=== PATIENT | female | born 1960 | race African-American/Black ===

== ENCOUNTER 2016-08-01 07:28 | Emergency (ER) | payer OTHER ==
[~2016-08-01] VITALS: Ht 162.6 cm; Wt 95.0 kg
[~2016-08-01 07:28] MED LIST: DEPA500T3 PO; ENAL20TA PO; GABA300C3 PO; HYDR10TA23 PO; LORA2TAB PO; METF500 PO; METO50TA PO; NAPR500 PO; PALI234P IM; PERP8TAB7 PO; STOO100C PO; ZOCO40TA PO; ZOLP5TAB3 PO
[2016-08-01 07:38] VITALS: BP 115/78; PULSE 72; RESP 16; TEMP 98.2; O2SAT 96
--- NOTE | 2016-08-01 07:38 | PD ---
HPI Chief Complaint: head pain Time Seen by Provider: 07:35 Travel History International Travel<30 days: No Contact w/Intl Traveler<30days: No History of Present Illness HPI This is a 56-year-old female who presents to the emergency department having fallen out of bed onto her right side. She says she hit her head and has severe pain in the back of her head, has left chest wall pain, and has right leg pain that starts below the knee as well as in her hip, constant, worse with movement. Patient is a very poor historian. She is unable to tell me her medical problems. PFSH Past Medical History Anemia: Yes Arthritis: Yes (RIGHT HIP PRIMARILY) Asthma: Yes Blood Disorders: No Bipolar Disorder: Yes Anxiety: Yes Depression: Yes Heart Rhythm Problems: No Cancer: No Cardiac Catheterization: No Cardiovascular Problems: Yes High Cholesterol: Yes Chemotherapy: No Chest Pain: No Congestive Heart Failure: No Diabetes: Yes Diminished Hearing: No Endocrine: No Gastrointestinal Disorders: No Genitourinary: No Hypertension: Yes Immune Disorder: No Implanted Vascular Access Dvce: No Musculoskeletal: Yes Neurologic: No Psychiatric: Yes (PARANOID SCHIZOPHRENIA) Reproductive: No Respiratory: No Immunizations Current: Yes Myocardial Infarction: No Radiation Therapy: No Schizophrenia: Yes (PARANOIA) Seizures: Yes (DECEMBER 2012) Sickle Cell Disease: No PNEUMOCCOCAL Vaccine (Year): 2 Menopausal: Yes : 4 Para: 2 Miscarriage: 1 : 1 Tubal Ligation: Yes Past Surgical History Abdominal Surgery: Yes (COLON) AICD: No Arteriovenous Shunt: No Cardiac Surgery: No Cholecystectomy: Yes Coronary Artery Bypass Graft: No Ear Surgery: No Endocrine Surgery: No Eye Surgery: No Genitourinary Surgery: No Gynecologic Surgery: Yes (TUBAL LIGATION 1993) Insulin Pump: No Joint Replacement: No Neurologic Surgery: No Oral Surgery: No Pacemaker: No Thoracic Surgery: No Other Surgery: Yes Social History Alcohol Use: No Tobacco Use: Yes (CHEW SNUFF) Substance Use: No (IN THE PAST) Allergies-Medications (Allergen,Severity, Reaction): Coded Allergies: Cat Dander (Verified Allergy, Mild, 08/01/16) Artane (Verified Adverse Reaction, Mild, Nausea/Vomiting, 08/01/16) Sulfa (Verified Adverse Reaction, Mild, Nausea/Vomiting, 08/01/16) PT STATES MED "MAKES HER SICK" Reported Meds & Prescriptions Reported Meds & Active Scripts Active Reported Zolpidem (Zolpidem Tartrate) 5 Mg Tab 5 Mg PO HS PRN Zocor (Simvastatin) 40 Mg Tab 40 Mg PO HS Perphenazine 8 Mg Tab 8 Mg PO DAILY Invega Sustenna Inj (Paliperidone Palmitate) 234 Mg/1.5 Ml Inj 234 Mg IM MONTHLY Naproxen 500 Mg Tab 500 Mg PO BID Metoprolol Tartrate 50 Mg Tab 50 Mg PO BID Metformin (Metformin HCl) 1,000 Mg Tab 1,000 Mg PO BIDPC With meals Lorazepam 2 Mg Tab 2 Mg PO BID Hydralazine (Hydralazine HCl) 10 Mg Tab 10 Mg PO QID Take with a meal Gabapentin 300 Mg Cap 300 Mg PO TID Enalapril (Enalapril Maleate) 20 Mg Tab 20 Mg PO BID NEB Docusate Sodium 100 Mg Cap 100 Mg PO BID Depakote ER (Divalproex Sodium) 500 Mg Shawn 1,000 Mg PO BID Review of Systems ROS Limitations: Poor Historian Physical Exam Narrative GENERAL:Well appearing, no acute distress SKIN: Warm and dry. HEAD: Atraumatic. Normocephalic. EYES: Pupils equal and round. No injection or drainage. ENT: Moist mucous membranes NECK: Trachea midline. CARDIOVASCULAR: Regular rate and rhythm. No murmur appreciated. RESPIRATORY: Clear to auscultation. Breath sounds equal bilaterally. GASTROINTESTINAL: Abdomen soft, non-tender, nondistended. MUSCULOSKELETAL: Tender to palpation over the left anterior chest wall, tender to palpation over the right posterior occiput, no cervical spine tenderness, tender to palpation over the distal right tibia and pain with flexion at the right hip. NEUROLOGICAL: Awake and alert. No obvious cranial nerve deficits. Moving all extremities. PSYCHIATRIC: Poor eye contact, somewhat fragmented speech Data Data Last Documented VS Vital Signs Date Time Temp Pulse Resp B/P Pulse Ox O2 Delivery O2 Flow Rate FiO2 08/01/16 08:56 16 08/01/16 07:40 72 96 Room Air 08/01/16 07:38 98.2 115/78 Orders Complete Blood Count With Diff (08/01/16 07:35) Basic Metabolic Panel (Bmp) (08/01/16 07:35) Troponin I (08/01/16 07:35) Ct Brain W/O Iv Contrast(Rout) (08/01/16 ) Chest, Single Ap (08/01/16 ) Tibia/Fibula (Ap/Lat) (08/01/16 ) Hip, Uni(Ap&Lat) Wo Ap Pelvis (08/01/16 ) Electrocardiogram (08/01/16 ) Acetamin-Hydrocod 325-5 Mg ([place]ield 5-325 (08/01/16 07:45) Labs Laboratory Tests Test 08/01/16 07:48 White Blood Count 6.3 TH/MM3 Red Blood Count 3.66 MIL/MM3 Hemoglobin 9.8 GM/DL Hematocrit 30.9 % Mean Corpuscular Volume 84.6 FL Mean Corpuscular Hemoglobin 26.8 PG Mean Corpuscular Hemoglobin 31.6 % Concent Red Cell Distribution Width 16.8 % Platelet Count 291 TH/MM3 Mean Platelet Volume 7.9 FL Neutrophils (%) (Auto) 49.2 % Lymphocytes (%) (Auto) 41.5 % Monocytes (%) (Auto) 8.5 % Eosinophils (%) (Auto) 0.3 % Basophils (%) (Auto) 0.5 % Neutrophils # (Auto) 3.1 TH/MM3 Lymphocytes # (Auto) 2.6 TH/MM3 Monocytes # (Auto) 0.5 TH/MM3 Eosinophils # (Auto) 0.0 TH/MM3 Basophils # (Auto) 0.0 TH/MM3 CBC Comment DIFF FINAL Differential Comment Sodium Level 139 MEQ/L Potassium Level 4.1 MEQ/L Chloride Level 101 MEQ/L Carbon Dioxide Level 28.2 MEQ/L Anion Gap 10 MEQ/L Blood Urea Nitrogen 9 MG/DL Creatinine 0.87 MG/DL Estimat Glomerular Filtration 81 ML/MIN Rate Random Glucose 109 MG/DL Calcium Level 9.0 MG/DL Troponin I LESS THAN 0.02 NG/ML [facility] Medical Decision Making Medical Screen Exam Complete: Yes Emergency Medical Condition: Yes Interpretation(s) Afebrile, no tachycardia, normotensive Anemia similar to prior from February Electrolytes are reassuring Troponin is normal Last 24 hours Impressions Tibia/Fibula X-Ray 08/01/16 0000 Signed Impressions: Service Date/Time: Monday, August 01, 2016 08:25 - CONCLUSION: Negative for fracture or dislocation. Followup in 7-10 days is suggested if symptoms persist. Anastacio Rosas MD FACR Head CT 08/01/16 0000 Signed Impressions: Service Date/Time: Monday, August 01, 2016 08:01 - CONCLUSION: Normal examination for a patient of this age. Heavenly Zuñiga MD Chest X-Ray 08/01/16 0000 Signed Impressions: Service Date/Time: Monday, August 01, 2016 08:23 - CONCLUSION: 1. Mild right lower lung atelectasis. 2. Otherwise, stable examination. Yifan Rubio MD Differential Diagnosis Concussion, intracranial hemorrhage, costochondritis, rib fracture, fibular fracture, tibial fracture Narrative Course This is a 56-year-old female with a history of schizophrenia who presents the emergency department having fallen out of bed this morning having multiple complaints including head pain, leg pain and chest wall pain. I think her chest pain is musculoskeletal. She is very tender on palpation to the left chest and it started after her fall. Labs are obtained which were all reassuring. X-rays and CT scans were obtained which demonstrate no acute fracture or evidence of traumatic injury. I don't think this patient has an emergent etiology of her symptoms and I think she is safe for discharge to follow up with her primary care physician. Diagnosis Primary Impression: Closed head injury Qualified Code: S09.90XA - Closed head injury, initial encounter Patient Instructions: General Instructions Additional Instructions: If you develop headache, difficulty walking, difficulty talking, weakness, numbness, lightheadedness or severe pain return to the emergency department. It is common to have sore muscles following an accident. Take your naproxen for pain as needed. If you are not improved in 2 days follow up with your primary care physician without fail. Med/Other Pt SpecificInfo: No Change to Meds Disposition: 01 DISCHARGE HOME Condition: Stable Amber George MD Aug 01, 2016 07:38
[2016-08-01] MEDS ORDERED: ACETAMINOPHEN/HYDROcodone 325 MG/5 MG TAB PO ONE (07:45)
[2016-08-01] MEDS ORDERED: DEPA500T3 PO (07:56)
[2016-08-01] MEDS ORDERED: LORA2TAB7 PO (08:02)
[2016-08-01] MEDS ORDERED: PERP8TAB4 PO (08:02)
[2016-08-01] MEDS ORDERED: GABA300C5 PO (08:02)
[2016-08-01] MEDS ORDERED: DOCU100C PO (08:02)
[2016-08-01] MEDS ORDERED: METF1000 PO (08:02)
[2016-08-01] MEDS ORDERED: METO50TA PO (08:02)
[2016-08-01] MEDS ORDERED: PALI234P IM (08:02)
[2016-08-01] MEDS ORDERED: NAPR500T PO (08:02)
[2016-08-01] MEDS ORDERED: ZOCO40TA PO (08:02)
[2016-08-01] MEDS ORDERED: ENAL20TA PO (08:02)
[2016-08-01] MEDS ORDERED: HYDR10TA23 PO (08:02)
[2016-08-01] MEDS ORDERED: ZOLP5TAB3 PO (08:02)
[2016-08-01 08:10] LABS: AUTOMATED NEUTROPHIL # 3.1 TH/MM3 (1.8-7.7); BASOPHIL % 0.5 % (0.0-2.0); EOSINOPHIL % 0.3 % (0.0-4.0); HEMATOCRIT 30.9 % (35.0-46.0); HEMO FLAGS DIFF FINAL; LYMPH % 41.5 % (9.0-44.0); LYMPHOCYTE # 2.6 TH/MM3 (1.0-4.8); MEAN CELL VOLUME 84.6 FL (80.0-100.0); MEAN CORPUSCULAR HEMOGLOBIN 26.8 PG (27.0-34.0); MEAN CORPUSCULAR HGB CONC 31.6 % (32.0-36.0); MONO % 8.5 % (0.0-8.0); NEUT % 49.2 % (16.0-70.0); PLATELET COUNT 291 TH/MM3 (150-450); RED BLOOD COUNT 3.66 MIL/MM3 (4.00-5.30); RED CELL DISTRIBUTION WIDTH 16.8 % (11.6-17.2); WHITE BLOOD COUNT 6.3 TH/MM3 (4.0-11.0)
--- NOTE | 2016-08-01 08:12 | RADRPT ---
EXAM DATE/TIME: 08/01/2016 08:01 [facility] COMPARISON: CT BRAIN W/O CONTRAST, January 01, 2013, 14:35. INDICATIONS : Trauma. Fell out of bed and hit her head. RADIATION DOSE: 44.37 CTDIvol (mGy) MEDICAL HISTORY : Diabetes mellitus type 2. Seizures. Hypertension. SURGICAL HISTORY : Tubal ligation. Cholecystectomy. ENCOUNTER: Initial ACUITY: 1 day PAIN SCALE: 6/10 LOCATION: cranial TECHNIQUE: Multiple contiguous axial images were obtained of the head. Using automated exposure control and adj ustment of the mA and/or kV according to patient size, radiation dose was kept as low as reasonably a chievable to obtain optimal diagnostic quality images. FINDINGS: CEREBRUM: The ventricles are normal for age. No evidence of midline shift, mass lesion, hemorrhage or acute in farction. No extra-axial fluid collections are seen. POSTERIOR FOSSA: The cerebellum and brainstem are intact. The 4th ventricle is midline. The cerebellopontine angle i s unremarkable. EXTRACRANIAL: The visualized portion of the orbits is intact. SKULL: The calvaria is intact. No evidence of skull fracture. CONCLUSION: Normal examination for a patient of this age. Heavenly Zuñiga MD on August 01, 2016 at 8:09 Board Certified Radiologist. This report was verified electronically.
[2016-08-01 08:26] LABS: ANION GAP 10 MEQ/L (5-15); BICARBONATE 28.2 MEQ/L (21.0-32.0); BLOOD UREA NITROGEN 9 MG/DL (7-18); CHLORIDE 101 MEQ/L (98-107); GLOMERULAR FILTRATION RATE 81 ML/MIN (>89); POTASSIUM 4.1 MEQ/L (3.5-5.1); SODIUM (NA) 139 MEQ/L (136-145)
[2016-08-01 08:56] VITALS: RESP 16
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
--- NOTE | 2016-08-01 19:20 | EKG ---
Date Performed: 08/01/2016 Time Performed: 07:44:03 PTAGE: 56 years EKG: Sinus rhythm NONSPECIFIC T-WAVE ABNORMALITY BORDERLINE ECG PREVIOUS TRACING : 03/15/2016 01.34 DOCTOR: Enrique Duff Interpretating Date/Time 08/01/2016 19:18:15
[2016-12-11] MEDS ORDERED: LORA1TAB12 PO (08:19)
== END 2016-08-01 09:35 | disposition home or self-care (01) ==
LOC: NEPE 07:28
DX: S09.90XA Unspecified injury of head, initial encounter (principal); M54.9 Dorsalgia, unspecified; R07.89 Other chest pain; M79.604 Pain in right leg; E78.00 Pure hypercholesterolemia, unspecified; E11.9 Type 2 diabetes mellitus without complications; I10 Essential (primary) hypertension; Z72.0 Tobacco use; W06.XXXA Fall from bed, initial encounter; Y93.9 Activity, unspecified; Y92.003 Bedroom of unspecified non-institutional (private) residence as the place of occurrence of the external cause
CPT/HCPCS: 70450; 71010; 73502; 73590; 80048; 84484; 85025; 93005

== ENCOUNTER 2016-09-27 13:56 | Emergency (ER) | payer OTHER ==
[~2016-09-27] VITALS: Ht 162.6 cm; Wt 100.0 kg
[~2016-09-27 13:56] MED LIST changes: +DOCU100C PO; -GABA300C3 PO; +GABA300C5 PO; -LORA2TAB PO; +LORA2TAB7 PO; +METF1000 PO; -METF500 PO; -NAPR500 PO; +NAPR500T PO; +PERP8TAB4 PO; -PERP8TAB7 PO; -STOO100C PO
[2016-09-27 13:59] VITALS: BP 137/69; PULSE 93; RESP 17; TEMP 98.8; O2SAT 95
--- NOTE | 2016-09-27 14:22 | PD ---
HPI Chief Complaint: Abdominal Pain Time Seen by Provider: 14:20 Travel History International Travel<30 days: No Contact w/Intl Traveler<30days: No Traveled to known affect area: No History of Present Illness HPI Patient is 56-year-old female presenting to emergency department for evaluation of abdominal pain. Patient states this started yesterday, she is accompanied by her caregiver who corroborates her story. Patient reports the pain as all over. She reports 2 loose watery stools this morning. She also reports generalized body aches and a dry mouth. She denies any nausea, vomiting, fever , chills, cough, chest pain, shortness of breath. PFSH Past Medical History Anemia: Yes Arthritis: Yes (RIGHT HIP PRIMARILY) Asthma: Yes Blood Disorders: No Bipolar Disorder: Yes Anxiety: Yes Depression: Yes Heart Rhythm Problems: No Cancer: No Cardiac Catheterization: No Cardiovascular Problems: Yes High Cholesterol: Yes Chemotherapy: No Chest Pain: No Congestive Heart Failure: No Diabetes: Yes Diminished Hearing: No Endocrine: No Gastrointestinal Disorders: No Genitourinary: No Hypertension: Yes Immune Disorder: No Implanted Vascular Access Dvce: No Musculoskeletal: Yes Neurologic: No Psychiatric: Yes (PARANOID SCHIZOPHRENIA) Reproductive: No Respiratory: No Immunizations Current: Yes Myocardial Infarction: No Radiation Therapy: No Schizophrenia: Yes (PARANOIA) Seizures: Yes (DECEMBER 2012) Sickle Cell Disease: No PNEUMOCCOCAL Vaccine (Year): 2 Menopausal: Yes : 4 Para: 2 Miscarriage: 1 : 1 Tubal Ligation: Yes Past Surgical History Abdominal Surgery: Yes (COLON) AICD: No Arteriovenous Shunt: No Cardiac Surgery: No Cholecystectomy: Yes Coronary Artery Bypass Graft: No Ear Surgery: No Endocrine Surgery: No Eye Surgery: No Genitourinary Surgery: No Gynecologic Surgery: Yes (TUBAL LIGATION 1993) Insulin Pump: No Joint Replacement: No Neurologic Surgery: No Oral Surgery: No Pacemaker: No Thoracic Surgery: No Other Surgery: Yes Social History Alcohol Use: No Tobacco Use: Yes (CHEW SNUFF) Substance Use: No (IN THE PAST) Allergies-Medications (Allergen,Severity, Reaction): Coded Allergies: Cat Dander (Verified Allergy, Mild, 08/01/16) Artane (Verified Adverse Reaction, Mild, Nausea/Vomiting, 08/01/16) Sulfa (Verified Adverse Reaction, Mild, Nausea/Vomiting, 08/01/16) PT STATES MED "MAKES HER SICK" Reported Meds & Prescriptions Reported Meds & Active Scripts Active Reported [trajenta] Amlodipine (Amlodipine Besylate) 5 Mg Tab 5 Mg PO DAILY Doxepin (Doxepin HCl) 25 Mg Cap 25 Mg PO HS Zocor (Simvastatin) 40 Mg Tab 40 Mg PO HS Perphenazine 8 Mg Tab 8 Mg PO DAILY Invega Sustenna Inj (Paliperidone Palmitate) 234 Mg/1.5 Ml Inj 234 Mg IM MONTHLY Naproxen 500 Mg Tab 500 Mg PO BID Metoprolol Tartrate 50 Mg Tab 50 Mg PO BID Metformin (Metformin HCl) 1,000 Mg Tab 1,000 Mg PO BIDPC With meals Lorazepam 2 Mg Tab 2 Mg PO BID Hydralazine (Hydralazine HCl) 10 Mg Tab 10 Mg PO QID Take with a meal Gabapentin 300 Mg Cap 300 Mg PO TID Enalapril (Enalapril Maleate) 20 Mg Tab 20 Mg PO BID NEB Docusate Sodium 100 Mg Cap 100 Mg PO BID Depakote ER (Divalproex Sodium) 500 Mg Shawn 1,000 Mg PO BID Review of Systems Except as stated in HPI: all other systems reviewed are Neg HENT: No: Headaches Cardiovascular: No: Chest Pain or Discomfort Respiratory: No: Shortness of Breath Gastrointestinal: Positive: Diarrhea, Abdominal Pain, No: Nausea, Vomiting Genitourinary: No: Dysuria Musculoskeletal: Positive: Myalgias Physical Exam Narrative GENERAL: Well-developed, well-nourished, alert female. Resting comfortably in no acute distress. Caregivers at bedside. SKIN: Warm and dry. HEAD: Atraumatic. Normocephalic. EYES: Pupils equal and round. No scleral icterus. No injection or drainage. ENT: No nasal bleeding or discharge. Mucous membranes pink and moist. NECK: Trachea midline. No JVD. CARDIOVASCULAR: Regular rate and rhythm. No murmur appreciated. RESPIRATORY: No accessory muscle use. Clear to auscultation. Breath sounds equal bilaterally. GASTROINTESTINAL: Abdomen soft, mildly tender to palpation diffusely, no rebound , no guarding, nondistended. Hepatic and splenic margins not palpable. Positive bowel sounds. MUSCULOSKELETAL: No obvious deformities. No clubbing. No cyanosis. No edema. NEUROLOGICAL: Awake and alert. No obvious cranial nerve deficits. Motor grossly within normal limits. Normal speech. PSYCHIATRIC: Appropriate mood and affect; insight and judgment normal. Data Data Last Documented VS Vital Signs Date Time Temp Pulse Resp B/P Pulse Ox O2 Delivery O2 Flow Rate FiO2 09/27/16 15:00 70 18 142/79 98 Room Air 09/27/16 13:59 98.8 Orders Complete Blood Count With Diff (09/27/16 14:19) Comprehensive Metabolic Panel (09/27/16 14:19) Lipase (09/27/16 14:19) Urinalysis - C+S If Indicated (09/27/16 14:19) Abdomen, Kub Only (09/27/16 14:19) Acetaminophen (Tylenol) (09/27/16 16:30) Electrocardiogram (09/27/16 16:25) Labs Laboratory Tests Test 09/27/16 09/27/16 14:25 14:29 Urine Color YELLOW Urine Turbidity HAZY Urine pH 6.0 Urine Specific [place] 1.016 Urine Protein TRACE mg/dL Urine Glucose (UA) NEG mg/dL Urine Ketones TRACE mg/dL Urine Occult Blood NEG Urine Nitrite NEG Urine Bilirubin NEG Urine Urobilinogen LESS THAN 2.0 MG/DL Urine Leukocyte Esterase NEG Urine RBC LESS THAN 1 /hpf Urine WBC 2 /hpf Urine Squamous Epithelial 3 /hpf Cells Urine Bacteria RARE /hpf Urine Hyaline Casts 1 /lpf Urine Mucus FEW /lpf Microscopic Urinalysis Comment CULT NOT INDICATED White Blood Count 5.2 TH/MM3 Red Blood Count 3.49 MIL/MM3 Hemoglobin 9.8 GM/DL Hematocrit 30.0 % Mean Corpuscular Volume 86.1 FL Mean Corpuscular Hemoglobin 28.1 PG Mean Corpuscular Hemoglobin 32.6 % Concent Red Cell Distribution Width 17.2 % Platelet Count 253 TH/MM3 Mean Platelet Volume 8.0 FL Neutrophils (%) (Auto) 45.1 % Lymphocytes (%) (Auto) 39.0 % Monocytes (%) (Auto) 14.9 % Eosinophils (%) (Auto) 0.4 % Basophils (%) (Auto) 0.6 % Neutrophils # (Auto) 2.4 TH/MM3 Lymphocytes # (Auto) 2.0 TH/MM3 Monocytes # (Auto) 0.8 TH/MM3 Eosinophils # (Auto) 0.0 TH/MM3 Basophils # (Auto) 0.0 TH/MM3 CBC Comment DIFF FINAL Differential Comment Sodium Level 141 MEQ/L Potassium Level 3.8 MEQ/L Chloride Level 105 MEQ/L Carbon Dioxide Level 28.0 MEQ/L Anion Gap 8 MEQ/L Blood Urea Nitrogen 9 MG/DL Creatinine 0.83 MG/DL Estimat Glomerular Filtration 86 ML/MIN Rate Random Glucose 97 MG/DL Calcium Level 9.0 MG/DL Total Bilirubin 0.2 MG/DL Aspartate Amino Transf 41 U/L (AST/SGOT) Alanine Aminotransferase 46 U/L (ALT/SGPT) Alkaline Phosphatase 72 U/L Total Protein 7.4 GM/DL Albumin 3.7 GM/DL Lipase 96 U/L MDM Medical Decision Making Medical Screen Exam Complete: Yes Emergency Medical Condition: Yes Interpretation(s) Vital Signs Date Time Temp Pulse Resp B/P Pulse Ox O2 Delivery O2 Flow Rate FiO2 09/27/16 13:59 98.8 93 17 137/69 95 Differential Diagnosis Constipation versus obstruction versus urinary tract infection versus gastroenteritis versus viral syndrome versus Narrative Course Patient is a 56-year-old old female presenting to the emergency for evaluation of abdominal pain. Vital signs are stable, labs and imaging ordered and pending. Workup initiated in triage, care patient will be transferred to a provider when a medical bed is available. Zohra Spence DRAPERY SEAMSTRESS Sep 27, 2016 14:22
[2016-09-27 14:42] LABS: BACTERIA, URINE RARE /hpf; BLOOD, URINE NEG (NEG); GLUCOSE,URINE NEG (NEG); HYALINE CAST, URINE 1 /lpf (RARE); KETONE, URINE TRACE mg/dL (NEG); MUCUS URINE FEW /lpf (OCC); NITRITE,URINE NEG (NEG); SQUAMOUS EPITHELIAL CELL URINE 3 /hpf (0-5); URINE COLOR YELLOW (YELLW/STRAW)
[2016-09-27 14:43] LABS: COMMENT (UR) CULT NOT INDICATED; CULTURE IF INDICATED CULT NOT INDICATED
[2016-09-27 14:49] LABS: AUTOMATED NEUTROPHIL # 2.4 TH/MM3 (1.8-7.7); BASOPHIL % 0.6 % (0.0-2.0); EOSINOPHIL % 0.4 % (0.0-4.0); HEMO FLAGS DIFF FINAL; MEAN CELL VOLUME 86.1 FL (80.0-100.0); MEAN CORPUSCULAR HEMOGLOBIN 28.1 PG (27.0-34.0); MEAN CORPUSCULAR HGB CONC 32.6 % (32.0-36.0); MONO % 14.9 % (0.0-8.0); NEUT % 45.1 % (16.0-70.0); PLATELET COUNT 253 TH/MM3 (150-450); RED BLOOD COUNT 3.49 MIL/MM3 (4.00-5.30); RED CELL DISTRIBUTION WIDTH 17.2 % (11.6-17.2); WHITE BLOOD COUNT 5.2 TH/MM3 (4.0-11.0)
--- NOTE | 2016-09-27 14:52 | RADRPT ---
EXAM DATE/TIME: 09/27/2016 14:35 [facility] COMPARISON: No previous studies available for comparison. INDICATIONS : Abdomen pain. MEDICAL HISTORY : None. SURGICAL HISTORY : None. ENCOUNTER: Initial ACUITY: 1 day PAIN SCORE: 8/10 LOCATION: Bilateral upper quadrant and lower quadrant. FINDINGS: Supine view of the abdomen was performed. The abdominal bowel gas pattern is normal. No abnormal ma sses, calcifications, or organomegaly is seen. Clips are seen in the right upper quadrant presumably from prior cholecystectomy. There is chronic deformity and remodeling at the right hip. The right hip joint is severely narrowed and there is subchondral cystic change and sclerosis at the superior righ t hip joint. Left hip joint is normal.. CONCLUSION: No acute disease. There is severe degenerative change at the right hip. Tobin Briggs MD on September 27, 2016 at 14:48 Board Certified Radiologist. This report was verified electronically.
[2016-09-27 15:00] VITALS: BP 142/79; PULSE 70; RESP 18; O2SAT 98
[2016-09-27 15:00] LABS: ALT (GPT) 46 U/L (10-53); ANION GAP 8 MEQ/L (5-15); AST (GOT) 41 U/L (15-37); BLOOD UREA NITROGEN 9 MG/DL (7-18); CHLORIDE 105 MEQ/L (98-107); GLOMERULAR FILTRATION RATE 86 ML/MIN (>89); POTASSIUM 3.8 MEQ/L (3.5-5.1); SODIUM (NA) 141 MEQ/L (136-145)
[2016-09-27 15:02] LABS: ALKALINE PHOSPHATASE 72 U/L (45-117); TOTAL BILIRUBIN ADULT 0.2 MG/DL (0.2-1.0)
[2016-09-27] MEDS ORDERED: DOXE25CA2 PO (15:06)
[2016-09-27] MEDS ORDERED: AMLO5TAB2 PO (15:06)
[2016-09-27] MEDS ORDERED: trajenta (15:06)
--- NOTE | 2016-09-27 16:24 | PD ---
Physical Exam Time Seen by Provider: 16:22 Narrative 56-year-old female with a history of schizophrenia, hypertension, diabetes, asthma presents to the emergency department with her caregiver for evaluation of generalized abdominal pain. Patient seen by provider in triage initiated workup, please see her documentation. Patient points to her epigastric region when referring to abdominal pain. Describes it as a crampy pain. States that she's had 3 episodes of loose stool today. States that it started this morning and has been persistent. She denies any fever, chills, nausea, vomiting, constipation, bloody stool, chest pain, shortness of breath, lightheadedness, dizziness, dysuria, burning with urination. Denies any prior abdominal surgeries. States she is postmenopausal and does not get a menstrual cycle anymore. No other complaints. GENERAL: Well-nourished and well-developed pleasant patient in no acute distress who is nontoxic appearing. SKIN: Warm and dry. HEAD: Normocephalic and atraumatic. EYES: No injection, drainage, or hyphema noted. PERRLA. EOMI. ENT: No nasal drainage noted. Oropharynx is clear. NECK: Supple and the trachea is midline. CARDIOVASCULAR: Regular rate and rhythm. RESPIRATORY: Breath sounds are equal bilaterally with no accessory muscle use, wheezing, rhonchi, or crackles. GASTROINTESTINAL: Mild epigastric tenderness to palpation. Abdomen is soft and nondistended. No rebound tenderness or guarding. Negative Perez sign. Negative McBurney's point. MUSCULOSKELETAL: No obvious deformities, swelling, cyanosis, or ecchymosis is present throughout the upper and lower extremities. Patient has full range of motion without any signs of neurovascular compromise. NEUROLOGICAL: Awake, alert, and oriented. Normal speech and gait. Cranial nerves are grossly intact. Data Data Last Documented VS Vital Signs Date Time Temp Pulse Resp B/P Pulse Ox O2 Delivery O2 Flow Rate FiO2 09/27/16 15:00 70 18 142/79 98 Room Air 09/27/16 13:59 98.8 Orders Complete Blood Count With Diff (09/27/16 14:19) Comprehensive Metabolic Panel (09/27/16 14:19) Lipase (09/27/16 14:19) Urinalysis - C+S If Indicated (09/27/16 14:19) Abdomen, Kub Only (09/27/16 14:19) Acetaminophen (Tylenol) (09/27/16 16:30) Electrocardiogram (09/27/16 16:25) Labs Laboratory Tests Test 09/27/16 09/27/16 14:25 14:29 Urine Color YELLOW Urine Turbidity HAZY Urine pH 6.0 Urine Specific [place] 1.016 Urine Protein TRACE mg/dL Urine Glucose (UA) NEG mg/dL Urine Ketones TRACE mg/dL Urine Occult Blood NEG Urine Nitrite NEG Urine Bilirubin NEG Urine Urobilinogen LESS THAN 2.0 MG/DL Urine Leukocyte Esterase NEG Urine RBC LESS THAN 1 /hpf Urine WBC 2 /hpf Urine Squamous Epithelial 3 /hpf Cells Urine Bacteria RARE /hpf Urine Hyaline Casts 1 /lpf Urine Mucus FEW /lpf Microscopic Urinalysis Comment CULT NOT INDICATED White Blood Count 5.2 TH/MM3 Red Blood Count 3.49 MIL/MM3 Hemoglobin 9.8 GM/DL Hematocrit 30.0 % Mean Corpuscular Volume 86.1 FL Mean Corpuscular Hemoglobin 28.1 PG Mean Corpuscular Hemoglobin 32.6 % Concent Red Cell Distribution Width 17.2 % Platelet Count 253 TH/MM3 Mean Platelet Volume 8.0 FL Neutrophils (%) (Auto) 45.1 % Lymphocytes (%) (Auto) 39.0 % Monocytes (%) (Auto) 14.9 % Eosinophils (%) (Auto) 0.4 % Basophils (%) (Auto) 0.6 % Neutrophils # (Auto) 2.4 TH/MM3 Lymphocytes # (Auto) 2.0 TH/MM3 Monocytes # (Auto) 0.8 TH/MM3 Eosinophils # (Auto) 0.0 TH/MM3 Basophils # (Auto) 0.0 TH/MM3 CBC Comment DIFF FINAL Differential Comment Sodium Level 141 MEQ/L Potassium Level 3.8 MEQ/L Chloride Level 105 MEQ/L Carbon Dioxide Level 28.0 MEQ/L Anion Gap 8 MEQ/L Blood Urea Nitrogen 9 MG/DL Creatinine 0.83 MG/DL Estimat Glomerular Filtration 86 ML/MIN Rate Random Glucose 97 MG/DL Calcium Level 9.0 MG/DL Total Bilirubin 0.2 MG/DL Aspartate Amino Transf 41 U/L (AST/SGOT) Alanine Aminotransferase 46 U/L (ALT/SGPT) Alkaline Phosphatase 72 U/L Total Protein 7.4 GM/DL Albumin 3.7 GM/DL Lipase 96 U/L [facility] Supervised Visit with TRUDY: No Differential Diagnosis Gastritis versus gastroenteritis versus viral illness Narrative Course 56-year-old female presents to the emergency department for evaluation of abdominal pain for 1 day. Patient is afebrile, vital signs are stable. She has some mild epigastric tenderness to palpation but overall abdominal examination is benign. Labs were drawn per triage provider. EKG shows sinus rhythm with nonspecific T wave depressions in lateral leads but no acute ST elevations. CBC shows anemia with a hemoglobin of 9.8, hematocrit 30.0, this is consistent with previous lab values at our facility. CMP is unremarkable. Lipase is normal. Urinalysis shows trace ketones, rare bacteria, few mucus. Abdominal x-ray is negative for any acute abnormalities. Patient has remained stable and without complaint while here in the emergency department. Labs are all reassuring. She has no white count to suggest an infectious etiology. I don't feel that she needs any CT imaging at this time. She is stable for discharge. Return instructions given to caregiver for worsening pain, vomiting, fever, etc. Patient and caregiver verbalized understanding and agreement with treatment plan. I discussed the case with my attending physician Dr. Urbina who is aware of the patients history, physical examination findings, and treatment plan. Diagnosis Primary Impression: Epigastric abdominal pain Referrals: Primary Care Physician Patient Instructions: Abdominal Pain (ED), General Instructions Additional Instruction: Follow-up with your Primary Care Physician. Return to the ED for any acute worsening of symptoms such as fever, worsening abdominal pain, vomiting. Med/Other Pt SpecificInfo: No Change to Meds Disposition: 01 DISCHARGE HOME Condition: Stable Sarah Goldberg Sep 27, 2016 16:24
[2016-09-27] MEDS ORDERED: ACETAMINOPHEN 500 MG CPLT PO ONE (16:30)
--- NOTE | 2016-09-28 20:13 | EKG ---
Date Performed: 09/27/2016 Time Performed: 16:34:02 PTAGE: 56 years EKG: Sinus rhythm NONSPECIFIC T-WAVE ABNORMALITY ABNORMAL ECG PREVIOUS TRACING : 08/01/2016 07.44 Compared to the previous tracing T wave changes more promin ent DOCTOR: Filippo Titus Interpretating Date/Time 09/28/2016 20:12:32
[2016-12-11] MEDS ORDERED: LORA1TAB12 PO (08:19)
== END 2016-09-27 17:08 | disposition home or self-care (01) ==
LOC: NEPC 13:56
DX: R10.13 Epigastric pain (principal); D64.9 Anemia, unspecified; J45.909 Unspecified asthma, uncomplicated; E78.00 Pure hypercholesterolemia, unspecified; E11.9 Type 2 diabetes mellitus without complications; I10 Essential (primary) hypertension; F17.220 Nicotine dependence, chewing tobacco, uncomplicated; R94.31 Abnormal electrocardiogram [ECG] [EKG]
CPT/HCPCS: 74000; 80053; 81001; 83690; 85025; 93005

== ENCOUNTER 2016-12-10 22:57 | Observation (INO) | payer OTHER ==
[~2016-12-10] VITALS: Ht 162.6 cm; Wt 95.0 kg
[~2016-12-10 22:57] MED LIST changes: +AMLO5TAB2 PO; +DOXE25CA2 PO; -ZOLP5TAB3 PO; +trajenta
[2016-12-10] MEDS ORDERED: NITROGLYCERIN 0.4 MG SL 25 TABS/BTL SL ONE (23:15)
[2016-12-10] MEDS ORDERED: SODIUM CHLORIDE 0.9% FLUSH 10 ML FLUSH IVF PRN (23:15)
[2016-12-10] MEDS ORDERED: ASPIRIN 81 MG CHEW TAB PO ONE (23:15)
--- NOTE | 2016-12-10 23:17 | PD ---
HPI Chief Complaint: chest pain Time Seen by Provider: 23:11 Travel History International Travel<30 days: No Contact w/Intl Traveler<30days: No Traveled to known affect area: No History of Present Illness HPI 56-year-old female presents to the emergency department by EMS transportation from local assisted living facility. Patient was reported chest pain but also complains of abdominal pain generalized myalgias arthralgias and has noted swelling of the left lower extremity and foot that she reports as a new finding. Patient is a very poor historian states yes to most questions but does report history of diabetes hypertension and dyslipidemia as well as schizophrenia and does not know any of her medications. Patient states she's had chest pain since yesterday intermittently has shortness of breath and sweats denies any shortness of breath or sweats at this time. Patient also complains of bilateral hip pain is worsened by range of motion. Patient denies any fever or chills. Patient has not had productive cough. At this time patient is unable to quantitate her discomfort/pain. PFSH Past Medical History Narrative Medical Anemia arthritis asthma diabetes dyslipidemia hypertension schizophrenia seizures tubal ligation cholecystectomy leg surgery hip surgery, chewing tobacco use; nursing notes reviewed Anemia: Yes Arthritis: Yes (RIGHT HIP PRIMARILY) Asthma: Yes Blood Disorders: No Bipolar Disorder: Yes Anxiety: Yes Depression: Yes Heart Rhythm Problems: No Cancer: No Cardiac Catheterization: No Cardiovascular Problems: Yes High Cholesterol: Yes Chemotherapy: No Chest Pain: No Congestive Heart Failure: No Diabetes: Yes Diminished Hearing: No Endocrine: No Gastrointestinal Disorders: No Genitourinary: No Heparin Induced Thrombocytopen: No Hypertension: Yes Immune Disorder: No Implanted Vascular Access Dvce: No Musculoskeletal: Yes Neurologic: No Psychiatric: Yes (PARANOID SCHIZOPHRENIA) Reproductive: No Respiratory: No Immunizations Current: Yes Myocardial Infarction: No Radiation Therapy: No Schizophrenia: Yes (PARANOIA) Seizures: Yes (DECEMBER 2012) Sickle Cell Disease: No PNEUMOCCOCAL Vaccine (Year): 2 Menopausal: Yes : 4 Para: 2 Miscarriage: 1 : 1 Tubal Ligation: Yes Past Surgical History Abdominal Surgery: Yes (COLON) AICD: No Arteriovenous Shunt: No Cardiac Surgery: No Cholecystectomy: Yes Coronary Artery Bypass Graft: No Ear Surgery: No Endocrine Surgery: No Eye Surgery: No Genitourinary Surgery: No Gynecologic Surgery: Yes (TUBAL LIGATION 1993) Insulin Pump: No Joint Replacement: No Neurologic Surgery: No Oral Surgery: No Pacemaker: No Thoracic Surgery: No Other Surgery: Yes Social History Alcohol Use: No Tobacco Use: Yes (CHEW SNUFF) Substance Use: No (IN THE PAST) Allergies-Medications (Allergen,Severity, Reaction): Coded Allergies: Cat Dander (Verified Allergy, Mild, 12/10/16) Artane (Verified Adverse Reaction, Mild, Nausea/Vomiting, 12/10/16) Sulfa (Verified Adverse Reaction, Mild, Nausea/Vomiting, 12/10/16) PT STATES MED "MAKES HER SICK" Reported Meds & Prescriptions Reported Meds & Active Scripts Active Reported Levothyroxine (Levothyroxine Sodium) 25 Mcg Tab 25 Mcg PO DAILY Tradjenta (Linagliptin) 5 Mg Tab 5 Mg PO DAILY Simvastatin 20 Mg Tab 20 Mg PO HS Perphenazine 16 Mg Tab 24 Mg PO HS Perphenazine 16 Mg Tab 16 Mg PO DAILY Lorazepam 1 Mg Tab 1 Mg PO BID Hydralazine HCl 25 Mg Tablet 50 Mg PO TID Doxepin (Doxepin HCl) 25 Mg Cap 25 Mg PO HS Invega Sustenna Inj (Paliperidone Palmitate) 234 Mg/1.5 Ml Inj 234 Mg IM MONTHLY Naproxen 500 Mg Tab 500 Mg PO BID Metformin (Metformin HCl) 1,000 Mg Tab 1,000 Mg PO BIDPC With meals Gabapentin 300 Mg Cap 300 Mg PO TID Enalapril (Enalapril Maleate) 20 Mg Tab 20 Mg PO BID NEB Docusate Sodium 100 Mg Cap 100 Mg PO BID Depakote ER (Divalproex Sodium) 500 Mg Shawn 1,000 Mg PO BID Review of Systems Except as stated in HPI: all other systems reviewed are Neg General / Constitutional: No: Fever HENT: No: Congestion Cardiovascular: Positive: Chest Pain or Discomfort Respiratory: No: Shortness of Breath Gastrointestinal: Positive: Abdominal Pain Genitourinary: No: Dysuria Musculoskeletal: Positive: Myalgias, Arthralgias, Edema, Pain Skin: No Rash Neurologic: No: Weakness Psychiatric: No: Anxiety Hematologic/Lymphatic: No: Lymph Node Enlargement Physical Exam Narrative GENERAL: Well-developed well-nourished female in no acute distress no respiratory distress SKIN: Warm and dry. HEAD: Normocephalic. EYES: No scleral icterus. No injection or drainage. NECK: Supple, trachea midline. No JVD or lymphadenopathy. CARDIOVASCULAR: Regular rate and rhythm without murmurs, gallops, or rubs. RESPIRATORY: Breath sounds equal bilaterally. No accessory muscle use. GASTROINTESTINAL: Abdomen soft, non-tender, nondistended. MUSCULOSKELETAL: No cyanosis, or left lower extremity edema; bilateral radial and dorsalis pedis pulses 2+ to palpation BACK: Nontender without obvious deformity. No CVA tenderness. Data Data Last Documented VS Vital Signs Date Time Temp Pulse Resp B/P Pulse Ox O2 Delivery O2 Flow Rate FiO2 12/11/16 01:00 76 14 132/70 97 12/10/16 23:29 98.5 Orders Electrocardiogram (12/10/16 23:11) Basic Metabolic Panel (Bmp) (12/10/16 23:11) Ckmb (Isoenzyme) Profile (12/10/16 23:11) Complete Blood Count With Diff (12/10/16 23:11) Magnesium (Mg) (12/10/16 23:11) Prothrombin Time / Inr (Pt) (12/10/16 23:11) Act Partial Throm Time (Ptt) (12/10/16 23:11) Troponin I (12/10/16 23:11) Chest, Single Ap (12/10/16 23:11) Ecg Monitoring (12/10/16 23:11) Bilateral Bp Monitoring (12/10/16 23:11) Iv Access Insert/Monitor (12/10/16 23:11) Oximetry (12/10/16 23:11) Oxygen Administration (12/10/16 23:11) Aspirin Chew (Aspirin Chew) (12/10/16 23:15) Sodium Chloride 0.9% Flush (Ns Flush) (12/10/16 23:15) Nitroglycerin Sl (Nitrostat Sl) (12/10/16 23:15) Us Leg Venous Doppler (12/10/16 ) CKMB (12/10/16 23:30) CKMB% (12/10/16 23:30) Admit Order (Ed Use Only) (12/11/16 ) ^ Saline Lock (12/11/16 02:41) Resp Oxygen Good C Titrat 1-4 L (12/11/16 ) Notify Dr: Other (12/11/16 02:41) Sodium Chloride 0.9% Flush (Ns Flush) (12/11/16 09:00) Sodium Chloride 0.9% Flush (Ns Flush) (12/11/16 02:45) Activity Bed Rest With Brp (12/11/16 02:41) Vital Signs (Adult) Q4H (12/11/16 02:41) Cardiac Rhythm .As Directed (12/11/16 02:41) Notify Dr: Other .PRN (12/11/16 02:41) Notify Dr. Parameters (12/11/16 02:41) Resp Oxygen Nasal Cannula (12/11/16 ) Ckmb (Isoenzyme) Profile (12/11/16 02:41) Troponin I (12/11/16 02:41) Electrocardiogram (12/11/16 05:41) ^ Obtain (12/11/16 02:41) Sodium Chloride 0.9% Flush (Ns Flush) (12/11/16 02:45) Sodium Chloride 0.9% Flush (Ns Flush) (12/11/16 09:00) Acetaminophen (Tylenol) (12/11/16 02:45) Acetamin-Hydrocod 325-7.5 Mg (Williams 7.5 (12/11/16 02:45) Morphine Inj (Morphine Inj) (12/11/16 02:45) Nitroglycerin Sl (Nitrostat Sl) (12/11/16 02:45) Alprazolam (Xanax) (12/11/16 02:45) Security Sergeant / Telemetry ANIA.Q8H (12/11/16 02:41) CKMB (12/11/16 05:40) CKMB% (12/11/16 05:40) Labs Laboratory Tests Test 12/10/16 23:30 Prothrombin Time 10.7 SEC Prothromb Time International 1.0 RATIO Ratio Activated Partial 25.7 SEC Thromboplast Time White Blood Count 5.1 TH/MM3 Red Blood Count 3.73 MIL/MM3 Hemoglobin 10.0 GM/DL Hematocrit 31.7 % Mean Corpuscular Volume 84.8 FL Mean Corpuscular Hemoglobin 26.8 PG Mean Corpuscular Hemoglobin 31.6 % Concent Red Cell Distribution Width 16.4 % Platelet Count 180 TH/MM3 Mean Platelet Volume 8.1 FL Neutrophils (%) (Auto) 35.5 % Lymphocytes (%) (Auto) 51.5 % Monocytes (%) (Auto) 12.0 % Eosinophils (%) (Auto) 0.6 % Basophils (%) (Auto) 0.4 % Neutrophils # (Auto) 1.8 TH/MM3 Lymphocytes # (Auto) 2.6 TH/MM3 Monocytes # (Auto) 0.6 TH/MM3 Eosinophils # (Auto) 0.0 TH/MM3 Basophils # (Auto) 0.0 TH/MM3 CBC Comment DIFF FINAL Differential Comment Sodium Level 144 MEQ/L Potassium Level 4.4 MEQ/L Chloride Level 104 MEQ/L Carbon Dioxide Level 30.8 MEQ/L Anion Gap 9 MEQ/L Blood Urea Nitrogen 10 MG/DL Creatinine 0.86 MG/DL Estimat Glomerular Filtration 83 ML/MIN Rate Random Glucose 98 MG/DL Calcium Level 8.6 MG/DL Magnesium Level 2.1 MG/DL Total Creatine Kinase 261 U/L Creatine Kinase MB 2.2 NG/ML Creatine Kinase MB % 0.8 % Troponin I LESS THAN 0.02 NG/ML MDM Medical Decision Making Medical Screen Exam Complete: Yes Emergency Medical Condition: Yes Medical Record Reviewed: Yes Interpretation(s) EKG normal sinus rhythm rate [address] elevation or injury pattern or ectopy noted Differential Diagnosis Chest pain, atypical chest pain, CAD, ACS, MN, PE, pneumonia, musculoskeletal pain, pleurisy, costochondritis, UTI Narrative Course Patient placed on monitoring specialist IV access obtained administered aspirin and sublingual nitroglycerin EKG reveals no acute injury pattern change Patient is a very poor historian with history of mental health issues and risk factors of age hypertension dyslipidemia tobaccoism and diabetes complaining of chest pain. First set of cardiac enzymes are normal range Plan will be to admit to chest pain center per protocol due to risk factor profile and patient's inability to provide good history. Physician Communication Physician Communication obs to trimmer loader Diagnosis Primary Impression: Chest pain Admitting Information Admitting Physician Requests: Observation Nadine Guevara MD December 10, 2016 23:17
[2016-12-10 23:29] VITALS: BP 135/67; PULSE 83; RESP 16; TEMP 98.5; O2SAT 96
[2016-12-10 23:40] LABS: AUTOMATED NEUTROPHIL # 1.8 TH/MM3 (1.8-7.7); BASOPHIL % 0.4 % (0.0-2.0); EOSINOPHIL % 0.6 % (0.0-4.0); HEMATOCRIT 31.7 % (35.0-46.0); HEMO FLAGS DIFF FINAL; LYMPH % 51.5 % (9.0-44.0); LYMPHOCYTE # 2.6 TH/MM3 (1.0-4.8); MEAN CELL VOLUME 84.8 FL (80.0-100.0); MEAN CORPUSCULAR HEMOGLOBIN 26.8 PG (27.0-34.0); MEAN CORPUSCULAR HGB CONC 31.6 % (32.0-36.0); NEUT % 35.5 % (16.0-70.0); PLATELET COUNT 180 TH/MM3 (150-450); RED BLOOD COUNT 3.73 MIL/MM3 (4.00-5.30); RED CELL DISTRIBUTION WIDTH 16.4 % (11.6-17.2); WHITE BLOOD COUNT 5.1 TH/MM3 (4.0-11.0)
--- NOTE | 2016-12-10 23:41 | RADRPT ---
EXAM DATE/TIME: 12/10/2016 23:25 [facility] COMPARISON: No previous studies available for comparison. INDICATIONS : Pt having Chest pain x 1 day. MEDICAL HISTORY : Hypertension. Diabetes mellitus type II. SURGICAL HISTORY : None. ENCOUNTER: Initial ACUITY: 1 day PAIN SCORE: 6/10 LOCATION: Bilateral chest FINDINGS: A single view of the chest demonstrates the lungs to be symmetrically aerated without evidence of mas s, infiltrate or effusion. Minimal base atelectasis The cardiomediastinal contours are prominent. Os seous structures are intact. CONCLUSION: 1. Cardiomegaly. Minimal basilar atelectasis. Romario Vivas MD on December 10, 2016 at 23:39 Board Certified Radiologist. This report was verified electronically.
[2016-12-10 23:54] LABS: APTT (PATIENT) 25.7 SEC (24.3-30.1); PROTHROMBIN TIME - PATIENT 10.7 SEC (9.8-11.6)
[2016-12-11] VITALS (8 sets, daily range): BP systolic 122–149; BP diastolic 62–84; PULSE 69–80; RESP 14–20; TEMP 97.7–98.4; O2SAT 96–98
[2016-12-11 00:04] LABS: ANION GAP 9 MEQ/L (5-15); BICARBONATE 30.8 MEQ/L (21.0-32.0); BLOOD UREA NITROGEN 10 MG/DL (7-18); CHLORIDE 104 MEQ/L (98-107); GLOMERULAR FILTRATION RATE 83 ML/MIN (>89); MAGNESIUM 2.1 MG/DL (1.5-2.5); POTASSIUM 4.4 MEQ/L (3.5-5.1); SODIUM (NA) 144 MEQ/L (136-145)
[2016-12-11 00:07] LABS: CREATINE KINASE 261 U/L (26-192)
--- NOTE | 2016-12-11 00:19 | RADRPT ---
EXAM DATE/TIME: 12/10/2016 23:34 [facility] COMPARISON: No previous studies available for comparison. INDICATIONS : Left leg swelling. MEDICAL HISTORY : Hypercholesterolemia. Hypertension. Seizures. Asthma. . Arthritis. Diabetes. Schizophreni a. Bipolar disorder. SURGICAL HISTORY : Cholecystectomy. Tubal ligation. Colon surgery. Knee surgery. ENCOUNTER: Initial ACUITY: 3 days PAIN SCORE: 0/10 LOCATION: Left leg. TECHNIQUE: Venous ultrasound of the leg was performed from the inguinal ligament to the proximal calf. Real-heather e, color Doppler and spectral tracing, compression and augmentation techniques were used. FINDINGS: There is normal compressibility of the deep venous system from the inguinal region to the proximal ca lf. No echogenic clot is seen in the lumen of the common femoral, femoral, popliteal, and posterior tibial veins. There is a normal response of the venous system to proximal and distal augmentation an d respiration. CONCLUSION: Normal examination. Romario Vivas MD on December 11, 2016 at 0:16 Board Certified Radiologist. This report was verified electronically.
[2016-12-11 00:20] LABS: CKMB 2.2 NG/ML (0.5-3.6)
[2016-12-11] MEDS ORDERED: MORPHINE SULFATE 4 MG/ML INJ IV PRN (02:45)
[2016-12-11] MEDS ORDERED: ALPRAZolam 0.25 MG TAB PO PRN (02:45)
[2016-12-11] MEDS ORDERED: SODIUM CHLORIDE 0.9% FLUSH 10 ML FLUSH IVF PRN (02:45)
[2016-12-11] MEDS ORDERED: ACETAMINOPHEN 500 MG CPLT PO PRN (02:45)
[2016-12-11] MEDS ORDERED: ACETAMINOPHEN/HYDROcodone 325 MG/7.5 MG TAB PO PRN (02:45)
[2016-12-11] MEDS ORDERED: SODIUM CHLORIDE 0.9% FLUSH 10 ML FLUSH PRN (02:45)
[2016-12-11] MEDS ORDERED: NITROGLYCERIN 0.4 MG SL 25 TABS/BTL SL PRN (02:45)
[2016-12-11 06:47] LABS: CREATINE KINASE 226 U/L (26-192)
[2016-12-11 06:59] LABS: CKMB 1.7 NG/ML (0.5-3.6)
[2016-12-11] MEDS ORDERED: DEXTROSE 50% IN WATER 50 ML VIAL(D50) IV PRN (08:00)
[2016-12-11] MEDS ORDERED: GLUCAGON 1 MG/ML VIAL IM/SQ PRN (08:00)
--- NOTE | 2016-12-11 08:05 | HHI.HP ---
HPI Primary Care Physician Non-Staff Chief Complaint Pain all over History of Present Illness This is a 56-year-old female that presents to ED with chief complaint "I have pain all over." When asked where most of her pain is that she states in her feet. She never specifically mentioned chest discomfort on her own however when I asked her if she has had chest discomfort she replies "my chest has hurt all day." She states the discomfort began yesterday and continued throughout the evening. She states it hurts to move. Cannot recall that made her nauseous , diaphoretic, or short of breath. Review of Systems General: Patient denies fevers, chills recent, and recent travel HEENT: Patient denies headache, sore throat, difficulty swallowing. Cardiovascular: Has the chest discomfort as mentioned above. Denies sensation of heart beating rapidly or irregularly. No syncope. Respiratory: Denies shortness of breath or inspirational chest discomfort. Denies coughing wheezing or hemoptysis. GI: Patient denies nausea, vomiting, diarrhea, abdominal pain, bloody stools. Musculoskeletal: Complains of pain all over more so when her feet. Denies calf pain or edema. Neurovascular: Patient denies numbness, tingling, weakness in extremities. Denies headache. Endocrine: Denies polyuria and polydipsia. Hematologic: Denies easy bruising. Skin: Denies rash or itching. Past Family Social History Allergies: Coded Allergies: Cat Dander (Verified Allergy, Mild, 12/10/16) Artane (Verified Adverse Reaction, Mild, Nausea/Vomiting, 12/10/16) Sulfa (Verified Adverse Reaction, Mild, Nausea/Vomiting, 12/10/16) PT STATES MED "MAKES HER SICK" Past Medical History Hypertension, hyperlipidemia, diabetes, hypothyroidism, schizoaffective disorder , bipolar disorder. Denies known coronary artery disease. Past Surgical History Tubal ligation. Reported Medications Reported Meds & Active Scripts Active Reported [trajenta] Amlodipine (Amlodipine Besylate) 5 Mg Tab 5 Mg PO DAILY Doxepin (Doxepin HCl) 25 Mg Cap 25 Mg PO HS Zocor (Simvastatin) 40 Mg Tab 40 Mg PO HS Perphenazine 8 Mg Tab 8 Mg PO DAILY Invega Sustenna Inj (Paliperidone Palmitate) 234 Mg/1.5 Ml Inj 234 Mg IM MONTHLY Naproxen 500 Mg Tab 500 Mg PO BID Metoprolol Tartrate 50 Mg Tab 50 Mg PO BID Metformin (Metformin HCl) 1,000 Mg Tab 1,000 Mg PO BIDPC With meals Lorazepam 2 Mg Tab 2 Mg PO BID Hydralazine (Hydralazine HCl) 10 Mg Tab 10 Mg PO QID Take with a meal Gabapentin 300 Mg Cap 300 Mg PO TID Enalapril (Enalapril Maleate) 20 Mg Tab 20 Mg PO BID NEB Docusate Sodium 100 Mg Cap 100 Mg PO BID Depakote ER (Divalproex Sodium) 500 Mg Shawn 1,000 Mg PO BID Active Ordered Medications Current Medications Medications (Trade) Dose Ordered Sig/Keanu Route Start Time Stop Time Status Last Admin (NS Flush) 2 ml BID IV FLUSH 12/11/16 09:00 (NS Flush) 2 ml UNSCH PRN IVF 12/11/16 02:45 (Tylenol) 500 mg Q4H PRN PO 12/11/16 02:45 ([place] 7.5-325 Mg) 1 tab Q4H PRN PO 12/11/16 02:45 (Morphine Inj) 2 mg Q4H PRN IV 12/11/16 02:45 (Nitrostat Sl) 0.4 mg Q5M PRN SL 12/11/16 02:45 (Xanax) 0.25 mg Q8H PRN PO 12/11/16 02:45 (D50w (Vial) Inj) 25 ml UNSCH PRN IV 12/11/16 08:00 UNV (Glucagon Inj) 1 mg UNSCH PRN IM/SQ 12/11/16 08:00 UNV Family History She is unaware of her family medical history. Physical Exam Vital Signs Vital Signs Date Time Temp Pulse Resp B/P Pulse Ox O2 Delivery O2 Flow Rate FiO2 12/11/16 06:03 98.4 69 18 138/71 96 12/11/16 03:00 74 14 96 12/11/16 01:00 76 14 132/70 97 12/11/16 00:00 74 16 138/62 97 12/10/16 23:29 98.5 83 16 135/67 96 Physical Exam GENERAL: This is a well-nourished, well-developed patient, in no apparent distress. Patient speaks in clear complete sentences. Patient is pleasant. Patient was examined with a female nurse ems coordinator at the bedside. HEENT: Head is atraumatic and normocephalic. Neck is supple without lymphadenopathy and trachea is midline. No JVD or carotid bruits. CARDIOVASCULAR: Regular rate and rhythm without murmurs, gallops, or rubs. RESPIRATORY: Clear to auscultation. Breath sounds equal bilaterally. No wheezes , rales, or rhonchi. Chest wall is tender. No use of accessory muscles. GASTROINTESTINAL: Abdomen is nontender, nondistended. Abdomen soft. No obvious pulsatile mass or bruit. No CVA tenderness. Strong femoral pulses bilaterally. Normal bowel sounds in all quadrants. MUSCULOSKELETAL: Patient is moving upper and lower extremities freely. No calf tenderness or edema, no Homans sign. Strong pulses in upper and lower extremities. NEUROLOGICAL: Patient is alert and oriented. Cranial nerves 2-12 are grossly intact. No focal deficits and speech is clear. SKIN: No rash and turgor is normal. Laboratory Laboratory Tests Test 12/10/16 12/11/16 23:30 05:40 Prothrombin Time 10.7 Prothromb Time International 1.0 Ratio Activated Partial 25.7 Thromboplast Time White Blood Count 5.1 Red Blood Count 3.73 Hemoglobin 10.0 Hematocrit 31.7 Mean Corpuscular Volume 84.8 Mean Corpuscular Hemoglobin 26.8 Mean Corpuscular Hemoglobin 31.6 Concent Red Cell Distribution Width 16.4 Platelet Count 180 Mean Platelet Volume 8.1 Neutrophils (%) (Auto) 35.5 Lymphocytes (%) (Auto) 51.5 Monocytes (%) (Auto) 12.0 Eosinophils (%) (Auto) 0.6 Basophils (%) (Auto) 0.4 Neutrophils # (Auto) 1.8 Lymphocytes # (Auto) 2.6 Monocytes # (Auto) 0.6 Eosinophils # (Auto) 0.0 Basophils # (Auto) 0.0 CBC Comment DIFF FINAL Differential Comment Sodium Level 144 Potassium Level 4.4 Chloride Level 104 Carbon Dioxide Level 30.8 Anion Gap 9 Blood Urea Nitrogen 10 Creatinine 0.86 Estimat Glomerular Filtration 83 Rate Random Glucose 98 Calcium Level 8.6 Magnesium Level 2.1 Total Creatine Kinase 261 226 Creatine Kinase MB 2.2 1.7 Creatine Kinase MB % 0.8 0.8 Troponin I LESS THAN 0.02 LESS THAN 0.02 Result Diagram: 12/10/16 2330 12/10/16 2330 Imaging Last 24 hours Impressions Chest X-Ray 12/10/16 2311 Signed Impressions: Service Date/Time: Saturday, December 10, 2016 23:25 - CONCLUSION: 1. Cardiomegaly. Minimal basilar atelectasis. Romario Vivas MD Course EKGs have sinus rhythm without significant ST segment depressions or elevations. There are nonspecific T-wave changes. Assessment and Plan Assessment and Plan * Chest pain: Patient has had serial cardiac enzymes and EKGs for ruling out purposes. She will be seen by Dr. Ortega of cardiology in the chest pain center and will undergo a Lexiscan. She will be discharged home if her stress test was nonischemic with instructions to follow-up with her primary care physician. * Diabetes: Patient is nothing by mouth except medications this time will resume a diabetic diet after stress testing. She should follow diabetic diet after discharge as well. We will resume her medication after stress testing. Until then she'll be covered with sliding scale insulin coverage. * Hypertension: Continue current medication. * Hyperlipidemia: Continue current medication. * Hypothyroidism: Continue current medication. * Bipolar disorder: Continue current medications. Patient is agreeable to this plan. She is stable at this time. Nahid Potter December 11, 2016 08:05
[2016-12-11] MEDS ORDERED: TRAD5TAB PO (08:19)
[2016-12-11] MEDS ORDERED: HYDR-3799 PO (08:19)
[2016-12-11] MEDS ORDERED: LORA1TAB12 PO ×2 (08:19)
[2016-12-11] MEDS ORDERED: SIMV20TA PO (08:19)
[2016-12-11] MEDS ORDERED: PERP16TA6 PO ×2 (08:19)
[2016-12-11] MEDS ORDERED: LEVO25TA4 PO (08:19)
[2016-12-11] MEDS ORDERED: SODIUM CHLORIDE 0.9% FLUSH 10 ML FLUSH SCH (09:00)
[2016-12-11] MEDS ORDERED: SODIUM CHLORIDE 0.9% FLUSH 10 ML FLUSH IV FLUSH SCH (09:00)
[2016-12-11] MEDS ORDERED: REGADENOSON INJ 0.4 MG/5 ML SYR ONE (10:39)
[2016-12-11] MEDS ORDERED: INSULIN ASPART SUPPLEMENTAL SCALE SQ SCH (11:00)
[2016-12-11] MEDS ORDERED: LORazepam 1 MG TAB PO SCH (11:00)
[2016-12-11] MEDS ORDERED: ENALAPRIL MALEATE 10 MG TAB PO SCH (11:00)
[2016-12-11] MEDS ORDERED: LEVOTHYROXINE SODIUM 25 MCG TAB PO SCH (11:00)
[2016-12-11] MEDS ORDERED: PERPHENAZINE 4 MG TAB PO SCH ×2 (11:00→21:00)
--- NOTE | 2016-12-11 11:45 | RADRPT ---
EXAM DATE/TIME: 12/11/2016 10:15 [facility] COMPARISON: CHEST SINGLE AP, December 10, 2016, 23:25. INDICATIONS : Substernal chest pain. Angina. DOSE: 25.5 mCi Tc99m Myoview at stress. 8.5 mCi Tc99m Myoview at rest. 0.4 mg Lexiscan STRESS SYMPTOMS: Left sided chest pain and nausea. EJECTION FRACTION: 66% MEDICAL HISTORY : Hypertension. Diabetes mellitus type 2. Schizophrenia and bipolar disorder. SURGICAL HISTORY : Tubal ligation. ENCOUNTER: Initial ACUITY: 1 day PAIN SCALE: 6/10 LOCATION: Substernal chest TECHNIQUE: The patient underwent pharmacologic stress with infusion of prescribed dose. Continuous ECG tracing was monitored during stress. Gated SPECT imaging was performed after stress and conventional SPECT i maging was performed at rest. The examination was performed on a SPECT/CT scanner, both attenuation and non-corrected datasets were reviewed. FINDINGS: DISTRIBUTION: The maximum perfused segment at stress is in the anteroseptal wall. PERFUSION STUDY: No fixed or reversible perfusion defect is identified on the attenuated corrected and non-attenuated corrected data sets. GATED STUDY: There is intact wall motion and thickening without hypokinetic or dyskinetic segments. CONCLUSION: 1. No fixed or reversible perfusion defect is identified. 2. Normal left ventricle wall motion and ejection fraction. RISK CATEGORY: Low (<1% Annual Mortality Rate) Tobin Navarro MD on December 11, 2016 at 11:40 Board Certified Radiologist. This report was verified electronically.
--- NOTE | 2016-12-11 12:22 | HHI.DCPOC ---
Discharge Care Plan Diagnosis: (1) Chest pain, atypical (2) Hypertension (3) DM (diabetes mellitus) (4) HLD (hyperlipidemia) (5) Tobacco abuse (6) Schizoaffective disorder Goals to Promote Your Health * To prevent worsening of your condition and complications * To maintain your health at the optimal level Directions to Meet Your Goals Take your medications as prescribed Follow your dietary instruction Follow activity as directed Keep your appointments as scheduled Take your immunizations and boosters as scheduled If your symptoms worsen call your PCP, if no PCP go to Urgent Care Center or Emergency Room Smoking is Dangerous to Your Health. Avoid second hand smoke Call the 24-hour hour crisis hotline for domestic abuse at Nahid Potter December 11, 2016 12:22
[2016-12-11] MEDS ORDERED: hydrALAZINE HCL 50 MG TAB PO SCH (13:00)
[2016-12-11] MEDS ORDERED: GABAPENTIN 300 MG CAP PO SCH (13:00)
--- NOTE | 2016-12-11 15:27 | TR ---
Date Performed: 12/11/2016 Time Performed: 10:53:20 DOCTOR: Cornell Ortega DRUG LIST: CLINICAL HISTORY: CHEST PAIN REASON FOR TEST: CHEST PAIN REASON FOR ENDING: OBSERVATION: CONCLUSION: Lexiscan stress test was performed under standard four minute protocol. Radionuclid e was injected one minute prior to ending the test. No electrocardiographic abormalities were present to suggest ischemia. Nuclear imaging and interpretation are pending. COMMENTS:
--- NOTE | 2016-12-11 15:29 | EKG ---
Date Performed: 12/11/2016 Time Performed: 05:39:48 PTAGE: 56 years EKG: Sinus rhythm WITH SINUS ARRHYTHMIA NORMAL ECG PREVIOUS TRACING : 12/10/2016 23.12 Since previous tracing, no significant change noted DOCTOR: Cornell Ortega Interpretating Date/Time 12/11/2016 15:27:55
--- NOTE | 2016-12-11 15:34 | EKG ---
Date Performed: 12/10/2016 Time Performed: 23:12:53 PTAGE: 56 years EKG: Sinus rhythm Nonspecific ST and T wave abnormalities ABNORMAL ECG PREVIOUS TRACING : 09/27/2016 16.34 Since previous tracing, no significant change noted DOCTOR: Cornell Ortega Interpretating Date/Time 12/11/2016 15:33:39
[2016-12-11] MEDS ORDERED: DOXEPIN HCL 25 MG CAP PO SCH (21:00)
[2016-12-11] MEDS ORDERED: PRAVASTATIN SOD 40 MG TAB PO SCH (21:00)
[2016-12-11] MEDS ORDERED: DIVALPROEX SODIUM E.R. 500 MG TAB PO SCH (21:00)
== END 2016-12-11 14:54 | disposition home or self-care (01) ==
LOC: NEPC 22:57 → NEDA 12-11 02:44 → NEPGCP 12-11 06:01
DX: R07.89 Other chest pain (principal); I10 Essential (primary) hypertension; E78.5 Hyperlipidemia, unspecified; E11.9 Type 2 diabetes mellitus without complications; E03.9 Hypothyroidism, unspecified; F31.9 Bipolar disorder, unspecified; F25.9 Schizoaffective disorder, unspecified; J45.909 Unspecified asthma, uncomplicated; M19.90 Unspecified osteoarthritis, unspecified site; F41.9 Anxiety disorder, unspecified; E78.00 Pure hypercholesterolemia, unspecified; F17.220 Nicotine dependence, chewing tobacco, uncomplicated; Z88.2 Allergy status to sulfonamides; Z79.84 Long term (current) use of oral hypoglycemic drugs; Z88.8 Allergy status to other drugs, medicaments and biological substances; Z91.09 Other allergy status, other than to drugs and biological substances
CPT/HCPCS: 71010; 78452; 80048; 82550; 82552; 82948; 83735; 84484; 85025; 85610; 85730; 93005; 93017; 93971; 99285; A9502; G0378; J2785; Q0175

== ENCOUNTER 2017-04-29 10:10 | Emergency (ER) | payer OTHER ==
[~2017-04-29] VITALS: Ht 162.6 cm; Wt 100.0 kg
[~2017-04-29 10:10] MED LIST changes: -AMLO5TAB2 PO; +HYDR-3799 PO; -HYDR10TA23 PO; +LEVO25TA4 PO; +LORA1TAB12 PO; -LORA2TAB7 PO; -METO50TA PO; +PERP16TA6 PO; -PERP8TAB4 PO; +SIMV20TA PO; +TRAD5TAB PO; -ZOCO40TA PO; -trajenta
[2017-04-29 10:12] VITALS: BP 174/84; PULSE 92; RESP 16; TEMP 98.5; O2SAT 95
--- NOTE | 2017-04-29 10:46 | PD ---
HPI Chief Complaint: Pain: Acute or Chronic Time Seen by Provider: 10:46 Travel History International Travel<30 days: No Contact w/Intl Traveler<30days: No Traveled to known affect area: No History of Present Illness HPI 57-year-old female presents to the emergency department with complaint of right leg pain 3 days. She is a resident at [facility]. She is here with her welfare case worker from [facility]. Has history of right leg pain and has been evaluated for the same complaint. Per the welfare case worker x-rays were done and they were told to follow-up with orthopedics. They have not been able to follow-up with orthopedics because they are on a wait list to be seen. Denies new or recent injury. Denies fevers, vomiting. The patient denies paresthesias, loss sensation, decreased range of motion, decreased strength to the right lower extremity. Pain is from her hip down to her ankle. Describes it as a throbbing pain. Worse with walking. Decreased while at rest. Has been taking naproxen with minimal relief of symptoms. Patient is ambulatory with a limp. Symptoms are mild in severity. Allergies to sulfa, CAD dander, trihexyphenidyl. Has an established primary care provider. Has no other medical complaints. No other modifying factors or associated signs and symptoms. PFSH Past Medical History Anemia: Yes Arthritis: Yes (RIGHT HIP PRIMARILY) Asthma: Yes Blood Disorders: No Bipolar Disorder: Yes Anxiety: Yes Depression: Yes Heart Rhythm Problems: No Cancer: No Cardiac Catheterization: No Cardiovascular Problems: Yes High Cholesterol: No Chemotherapy: No Chest Pain: No Congestive Heart Failure: No Diabetes: Yes Patient Takes Glucophage: Yes Diminished Hearing: No Endocrine: No Gastrointestinal Disorders: No Genitourinary: No Heparin Induced Thrombocytopen: No Hypertension: Yes Immune Disorder: No Implanted Vascular Access Dvce: No Musculoskeletal: Yes Neurologic: No Psychiatric: Yes (PARANOID SCHIZOPHRENIA) Reproductive: No Respiratory: No Immunizations Current: Yes Myocardial Infarction: No Radiation Therapy: No Schizophrenia: Yes (PARANOIA) Seizures: Yes (DECEMBER 2012) Sickle Cell Disease: No PNEUMOCCOCAL Vaccine (Year): 2 ?: Not Menopausal: Yes : 4 Para: 2 Miscarriage: 1 : 1 Tubal Ligation: Yes Past Surgical History Abdominal Surgery: Yes (COLON) AICD: No Arteriovenous Shunt: No Cardiac Surgery: No Cholecystectomy: Yes Coronary Artery Bypass Graft: No Ear Surgery: No Endocrine Surgery: No Eye Surgery: No Genitourinary Surgery: No Gynecologic Surgery: Yes (TUBAL LIGATION 1993) Insulin Pump: No Joint Replacement: No Neurologic Surgery: No Oral Surgery: No Pacemaker: No Thoracic Surgery: No Other Surgery: Yes Family History Family Myocardial Infarction: Yes (mother) Social History Alcohol Use: No Tobacco Use: Yes (CHEW SNUFF) Substance Use: No (IN THE PAST) Allergies-Medications (Allergen,Severity, Reaction): Coded Allergies: cat dander (Unverified Allergy, Mild, 02/28/17) Sulfa (Sulfonamide Antibiotics) (Unverified Adverse Reaction, Mild, Nausea /Vomiting, 02/28/17) PT STATES MED "MAKES HER SICK" trihexyphenidyl (Unverified Adverse Reaction, Mild, Nausea/Vomiting, ) Reported Meds & Prescriptions Reported Meds & Active Scripts Active Robaxin (Methocarbamol) 500 Mg Tab 500 Mg PO QID PRN Walker/Adult/Folding (Device) 1 Mis Mis Ea .ROUTE DIRECTED Reported Levothyroxine (Levothyroxine Sodium) 25 Mcg Tab 25 Mcg PO DAILY Tradjenta (Linagliptin) 5 Mg Tab 5 Mg PO DAILY Simvastatin 20 Mg Tab 20 Mg PO HS Perphenazine 16 Mg Tab 24 Mg PO HS Perphenazine 16 Mg Tab 16 Mg PO DAILY Lorazepam 1 Mg Tab 1 Mg PO BID Hydralazine HCl 25 Mg Tablet 50 Mg PO TID Doxepin (Doxepin HCl) 25 Mg Cap 25 Mg PO HS Invega Sustenna Inj (Paliperidone Palmitate) 234 Mg/1.5 Ml Inj 234 Mg IM MONTHLY Naproxen 500 Mg Tab 500 Mg PO BID Metformin (Metformin HCl) 1,000 Mg Tab 1,000 Mg PO BIDPC With meals Gabapentin 300 Mg Cap 300 Mg PO TID Enalapril (Enalapril Maleate) 20 Mg Tab 20 Mg PO BID NEB Docusate Sodium 100 Mg Cap 100 Mg PO BID Depakote ER (Divalproex Sodium) 500 Mg Shawn 1,000 Mg PO BID Review of Systems Except as stated in HPI: all other systems reviewed are Neg Physical Exam Narrative GENERAL: Well-nourished, well-developed black female patient, in no acute distress; afebrile, nontoxic-appearing SKIN: Warm and dry. Groin area without rash. No signs of inguinal hernia in the lying or standing up position. Right Groin area with tenderness on palpation. HEAD: Atraumatic. Normocephalic. EYES: Pupils equal and round. No scleral icterus. No injection or drainage. ENT: Mucosa pink and moist. Airway patent. NECK: Trachea midline. CARDIOVASCULAR: Regular rate . RESPIRATORY: No accessory muscle use. GASTROINTESTINAL: Abdomen soft, non-tender, nondistended. Positive bowel sounds. No hepato-splenomegaly, or palpable masses. No guarding. MUSCULOSKELETAL: Right hip with full range of motion; no tenderness on abduction ; without erythema, edema, or ecchymosis; tenderness on palpation to the right groin area and right lower iliosacral area of the lumbar area; no obvious deformity; no leg length discrepancy. Right lower extremity is supple and non- tense with 2+ pedal pulse and sensory intact and without erythema or edema. He should ambulatory in the room with a limp to the right lower extremity. NEUROLOGICAL: Awake and alert. Oriented 3. No obvious cranial nerve deficits. Motor grossly within normal limits. Normal speech. PSYCHIATRIC: Appropriate mood and affect; insight and judgment normal. Data Data Last Documented VS Vital Signs Date Time Temp Pulse Resp B/P (MAP) Pulse Ox O2 Delivery O2 Flow Rate FiO2 04/29/17 11:05 04/29/17 10:12 98.5 92 16 95 Orders Orders Ed Discharge Order (04/29/17 10:46) Methocarbamol (Robaxin) (04/29/17 11:00) MDM Medical Decision Making Medical Screen Exam Complete: Yes Emergency Medical Condition: Yes Medical Record Reviewed: Yes Differential Diagnosis Arthritis, sciatica, nonspecific leg pain Narrative Course 57-year-old female presents from [facility] with her welfare case worker from [facility] with complaint of right leg pain from the hip to the ankle, specifically focusing on the right groin area. The patient has been evaluated for this in the past and an x-ray was done and was told to follow up with orthopedics. The patient is on a wait list to follow-up with orthopedics. No injury. Patient is ambulatory in the room with normal gait. The right lower extremity supple and nontender to 2+ pedal pulse and sensory intact and without erythema or edema. I do not suspect DVT and for that imaging is necessary at this time. There are no signs of hernia to the right groin area. Patient does have some reproducible tenderness to the right iliosacral area of the lower back. Possibly consistent with sciatica. Patient will be given Robaxin in the ER and prescribed Robaxin for home. A walker was prescribed for support. Instructed the correctional case manager and patient to continue to follow-up with orthopedics as previously advised. Instructed patient to follow up with primary care provider. Patient verbalizes understanding and agreement with treatment plan. Patient is medically cleared and stable for discharge. Discussed reasons to return to the emergency department. Patient agrees with treatment plan. The patients vital signs are stable and the patient is stable for outpatient follow- up and treatment. Patient discharged home, stable and in no acute distress. Diagnosis Primary Impression: Right leg pain Referrals: Orthopaedic Surgeon Primary Care Physician Patient Instructions: General Instructions, Hip Pain (ED), Leg Pain (ED), Sciatica (ED) Additional Instructions: Tylenol or ibuprofen as directed and as needed for pain Robaxin as prescribed and as needed for muscle spasms Heating pad and/or ice to affected area to reduce pain Avoid aggravating activities; increase activity as tolerated Walker for support Follow-up with primary care provider Return to emergency department immediately with worsening of symptoms Med/Other Pt SpecificInfo: Prescription(s) given Scripts Methocarbamol (Robaxin) 500 Mg Tab 500 MG PO QID Y for MUSCLE SPASM, #30 TAB 0 Refills Prov: Sarah Mcclain 04/29/17 Walker/Adult/Folding (Walker/Adult/Folding) 1 Mis Mis EA .ROUTE DIRECTED, #1 0 Refills Prov: Sarah Mcclain 04/29/17 Disposition: 01 DISCHARGE HOME Condition: Stable Sarah Mcclain Apr 29, 2017 10:46
[2017-04-29] MEDS ORDERED: ROBA500T PO (10:50)
[2017-04-29] MEDS ORDERED: WALKER/ADULT/FO1 MIS (10:50)
[2017-04-29] MEDS ORDERED: METHOCARBAMOL 500 MG TAB PO ONE (11:00)
== END 2017-04-29 11:25 | disposition home or self-care (01) ==
LOC: NEPD 10:10
DX: M79.604 Pain in right leg (principal); D64.9 Anemia, unspecified; J45.909 Unspecified asthma, uncomplicated; F31.9 Bipolar disorder, unspecified; F41.9 Anxiety disorder, unspecified; E11.9 Type 2 diabetes mellitus without complications; Z79.84 Long term (current) use of oral hypoglycemic drugs; I10 Essential (primary) hypertension; G40.909 Epilepsy, unspecified, not intractable, without status epilepticus; Z79.899 Other long term (current) drug therapy
CPT/HCPCS: 99283

== ENCOUNTER 2017-06-28 09:06 | Emergency (ER) | payer OTHER ==
[~2017-06-28] VITALS: Ht 165.1 cm; Wt 90.0 kg
[~2017-06-28 09:06] MED LIST changes: -DOCU100C PO; +DOCU100C15 PO; -NAPR500T PO; +NAPR500T2 PO; +ROBA500T PO; +WALKER/ADULT/FO1 MIS
[2017-06-28 09:12] VITALS: BP 167/79; PULSE 84; RESP 14; TEMP 98.4; O2SAT 99
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
--- NOTE | 2017-06-28 09:48 | RADRPT ---
EXAM DATE/TIME: 06/28/2017 09:28 [facility] COMPARISON: HIP RIGHT (AP&LAT 2/3VWS) WO AP PELVIS, August 01, 2016, 8:23. INDICATIONS : Right hip pain with no injury. MEDICAL HISTORY : Arthritis. SURGICAL HISTORY : None. ENCOUNTER: Initial ACUITY: 1 day PAIN SCORE: 10/10 LOCATION: Right hip joint. FINDINGS: A two view examination of the right hip was performed. Severe osteoarthritis. Deformity of the estrella l head superiorly with depression. Prominent sclerosis of the acetabulum and femoral head. Subchondra l cystic changes. The acetabulum is grossly intact. CONCLUSION: Severe osteoarthritis likely post traumatic. No change and no definite acute fracture. Mauricio Kim MD on June 28, 2017 at 9:45 Board Certified Radiologist. This report was verified electronically.
--- NOTE | 2017-06-28 09:56 | RADRPT ---
EXAM DATE/TIME: 06/28/2017 09:28 [facility] COMPARISON: No previous studies available for comparison. INDICATIONS : Right knee pain with no injury. MEDICAL HISTORY : Arthritis. SURGICAL HISTORY : None. ENCOUNTER: Initial ACUITY: 1 day PAIN SCORE: 10/10 LOCATION: Right knee, joint. FINDINGS: Four view examination of the right knee demonstrates no evidence of fracture or dislocation. Bony mi neralization is normal. The articular surfaces are intact. The suprapatellar soft tissues have a no rmal configuration. CONCLUSION: 1. Unremarkable radiographs of the right knee. Atul Babin MD on June 28, 2017 at 9:53 Board Certified Radiologist. This report was verified electronically.
[2017-06-28] MEDS ORDERED: HYDR-3516 PO ×2 (09:59→10:01)
[2017-06-28] MEDS ORDERED: ACETAMINOPHEN/HYDROcodone 325 MG/5 MG TAB PO ONE (10:00)
== END 2017-06-28 10:17 | disposition home or self-care (01) ==
LOC: NEPK 09:06
DX: M16.11 Unilateral primary osteoarthritis, right hip (principal); M25.561 Pain in right knee; G89.29 Other chronic pain; D64.9 Anemia, unspecified; J45.909 Unspecified asthma, uncomplicated; F31.9 Bipolar disorder, unspecified; E11.9 Type 2 diabetes mellitus without complications; I10 Essential (primary) hypertension; F17.220 Nicotine dependence, chewing tobacco, uncomplicated
CPT/HCPCS: 73502; 73564; 99284

== ENCOUNTER 2017-07-25 05:12 | Emergency (ER) | payer OTHER ==
[~2017-07-25 05:12] MED LIST changes: +HYDR-3516 PO
[2017-07-25 05:15] VITALS: BP 186/77; PULSE 98; RESP 18; TEMP 98.5; O2SAT 95
[2017-07-25] MEDS ORDERED: ACETAMINOPHEN/HYDROcodone 325 MG/5 MG TAB PO ONE (05:45)
[2017-07-25] MEDS ORDERED: FLUP5TAB PO ×2 (05:58)
--- NOTE | 2017-07-25 06:10 | PD ---
HPI Chief Complaint: Injury Time Seen by Provider: 05:24 Travel History International Travel<30 days: No Contact w/Intl Traveler<30days: No Traveled to known affect area: No History of Present Illness HPI Patient is a 57-year-old female resents emergency Department with right hip right knee pain. Patient states been going on for more than 2 months. She states that she was told that she needed surgery on her hips in the past. She states that her right hip had been operated on once in the past. Has a history of schizophrenia making her history somewhat nebulous. She denies any acute injuries denies any chest pain abdominal pain nausea vomiting diarrhea constipation fever. She states the pain is severe, gradually getting worse, located at hip, right knee, context as above., Associated signs symptoms as above. PFSH Past Medical History Anemia: Yes Arthritis: Yes (RIGHT HIP PRIMARILY) Asthma: Yes Blood Disorders: No Bipolar Disorder: Yes Anxiety: Yes Depression: Yes Heart Rhythm Problems: No Cancer: No Cardiac Catheterization: No Cardiovascular Problems: Yes High Cholesterol: No Chemotherapy: No Chest Pain: No Congestive Heart Failure: No Diabetes: Yes Patient Takes Glucophage: No Diminished Hearing: No Endocrine: No Gastrointestinal Disorders: No Genitourinary: No Heparin Induced Thrombocytopen: No Hypertension: Yes Immune Disorder: No Implanted Vascular Access Dvce: No Musculoskeletal: Yes Neurologic: No Psychiatric: Yes (PARANOID SCHIZOPHRENIA) Reproductive: No Respiratory: No Immunizations Current: Yes Myocardial Infarction: No Radiation Therapy: No Schizophrenia: Yes (PARANOIA) Seizures: Yes (DECEMBER 2012) Sickle Cell Disease: No Tetanus Vaccination: Unknown PNEUMOCCOCAL Vaccine (Year): 2 Menopausal: Yes : 4 Para: 2 Miscarriage: 1 : 1 Tubal Ligation: Yes Past Surgical History Abdominal Surgery: Yes (COLON) AICD: No Arteriovenous Shunt: No Cardiac Surgery: No Cholecystectomy: Yes Coronary Artery Bypass Graft: No Ear Surgery: No Endocrine Surgery: No Eye Surgery: No Genitourinary Surgery: No Gynecologic Surgery: Yes (TUBAL LIGATION 1993) Insulin Pump: No Joint Replacement: No Neurologic Surgery: No Oral Surgery: No Pacemaker: No Thoracic Surgery: No Other Surgery: Yes Family History Family Myocardial Infarction: Yes (mother) Social History Alcohol Use: No Tobacco Use: Yes (CHEW SNUFF) Substance Use: No (IN THE PAST) Allergies-Medications (Allergen,Severity, Reaction): Coded Allergies: cat dander (Unverified Allergy, Mild, 02/28/17) Sulfa (Sulfonamide Antibiotics) (Unverified Adverse Reaction, Mild, Nausea /Vomiting, 02/28/17) PT STATES MED "MAKES HER SICK" trihexyphenidyl (Unverified Adverse Reaction, Mild, Nausea/Vomiting, ) Reported Meds & Prescriptions Reported Meds & Active Scripts Active Hydrocodone-Acetaminophen 5-325 mg Tab 1 Tab PO Q4H PRN Walker/Adult/Folding (Device) 1 Mis Mis Ea .ROUTE DIRECTED Reported Fluphenazine (Fluphenazine HCl) 5 Mg Tab 5 Mg PO HS Fluphenazine (Fluphenazine HCl) 5 Mg Tab 5 Mg PO DAILY Levothyroxine (Levothyroxine Sodium) 25 Mcg Tab 25 Mcg PO DAILY Tradjenta (Linagliptin) 5 Mg Tab 5 Mg PO DAILY Simvastatin 20 Mg Tab 20 Mg PO HS Lorazepam 1 Mg Tab 1 Mg PO BID Hydralazine HCl 25 Mg Tablet 50 Mg PO TID Doxepin (Doxepin HCl) 25 Mg Cap 25 Mg PO HS Invega Sustenna Inj (Paliperidone Palmitate) 234 Mg/1.5 Ml Inj 234 Mg IM MONTHLY Naproxen 500 Mg Tab 500 Mg PO BID Metformin (Metformin HCl) 1,000 Mg Tab 1,000 Mg PO BIDPC With meals Gabapentin 300 Mg Cap 300 Mg PO TID Enalapril (Enalapril Maleate) 20 Mg Tab 20 Mg PO BID NEB Docusate Sodium 100 Mg Cap 100 Mg PO BID Depakote ER (Divalproex Sodium) 500 Mg Shawn 1,000 Mg PO BID Review of Systems Except as stated in HPI: all other systems reviewed are Neg Physical Exam Narrative GENERAL: Well-developed well-nourished no obvious distress SKIN: Focused skin assessment warm/dry. HEAD: Atraumatic. Normocephalic. EYES: Pupils equal and round. No scleral icterus. No injection or drainage. ENT: No nasal bleeding or discharge. Mucous membranes pink and moist. Chewing tobacco and mouth NECK: Trachea midline. No JVD. CARDIOVASCULAR: Regular rate and rhythm. No murmur appreciated. RESPIRATORY: No accessory muscle use. Clear to auscultation. Breath sounds equal bilaterally. GASTROINTESTINAL: Abdomen soft, non-tender, nondistended. Hepatic and splenic margins not palpable. MUSCULOSKELETAL: No obvious deformities. No clubbing. No cyanosis. No edema. No tenderness at the hip knee ankle or foot bilaterally. No midline CT or L- spine tenderness. Pelvis is stable. 2+ bilateral equal pulses in all 4 extremities, motor and sensory intact distal in all 4 extremities, ambulate with an even narrow based gait. NEUROLOGICAL: Awake and alert. No obvious cranial nerve deficits. Motor grossly within normal limits. Normal speech. PSYCHIATRIC: Appropriate mood and affect; insight and judgment normal. Data Data Last Documented VS Vital Signs Date Time Temp Pulse Resp B/P (MAP) Pulse Ox O2 Delivery O2 Flow Rate FiO2 07/25/17 05:15 98.5 98 18 186/77 (113) 95 Room Air Orders Orders Acetamin-Hydrocod 325-5 Mg ([place] 5-325 (07/25/17 05:45) Ed Discharge Order (07/25/17 06:37) MDM Medical Decision Making Medical Screen Exam Complete: Yes Emergency Medical Condition: Yes Differential Diagnosis Hip pain, arthritis, fracture highly unlikely. Narrative Course Patient roomed emergency department, she was seen for similar complaints last month, is no indication for imaging at this time. Discussed with her that she needs to follow up with her orthopedic surgeon at her leisure, she states has a history of heart problems or lung problems and needs to follow these up with her primary care physician prior to attempting any surgery. Certainly she is schizophrenic and has a tendency to wander here in the emergency department but is always easily corralled back to her room. At this time is no indication further workup and she stable for discharge. Diagnosis Primary Impression: Chronic hip pain Qualified Codes: M25.551 - Pain in right hip; G89.29 - Other chronic pain Additional Impression: Chronic pain of right hip Referrals: Devon Velasquez Jr., MD Additional Instructions: Call orthopedic surgeon for routine consultation. Pain medication per primary care physician or her facility physician. Disposition: 01 DISCHARGE HOME Condition: Stable Shaquille Berman MD Jul 25, 2017 06:10
== END 2017-07-25 09:00 | disposition home or self-care (01) ==
LOC: NEPE 05:12
DX: M25.551 Pain in right hip (principal); G89.29 Other chronic pain; J45.909 Unspecified asthma, uncomplicated; F31.9 Bipolar disorder, unspecified; E11.9 Type 2 diabetes mellitus without complications; I10 Essential (primary) hypertension; F20.0 Paranoid schizophrenia; Z72.0 Tobacco use
CPT/HCPCS: 99283

== ENCOUNTER 2017-09-05 13:20 | Emergency (ER) | payer OTHER ==
[~2017-09-05] VITALS: Ht 162.6 cm; Wt 99.0 kg
[~2017-09-05 13:20] MED LIST changes: +FLUP5TAB PO; -PERP16TA6 PO; -ROBA500T PO
[2017-09-05 13:21] VITALS: BP 208/91; PULSE 87; RESP 18; TEMP 98.3; O2SAT 98
[2017-09-05 14:10] LABS: BACTERIA, URINE MANY /hpf; BILIRUBIN, URINE NEG (NEG); BLOOD, URINE NEG (NEG); GLUCOSE,URINE NEG (NEG); HYALINE CAST, URINE 1 /lpf (RARE); KETONE, URINE TRACE mg/dL (NEG); MUCUS URINE FEW /lpf (OCC); NITRITE,URINE NEG (NEG); SQUAMOUS EPITHELIAL CELL URINE 9 /hpf (0-5); URINE COLOR YELLOW (YELLW/STRAW); URINE LEUKOCYTE ESTERASE NEG (NEG)
[2017-09-05] MEDS ORDERED: HYDR-3799 PO (14:59)
[2017-09-05] MEDS ORDERED: PALI234P IM (15:02)
[2017-09-05] MEDS ORDERED: FLUP5TAB PO (15:02)
[2017-09-05] MEDS ORDERED: ALUMINUM/MAGNESIUM/SIMETH 30 ML CUP PO ONE (15:15)
[2017-09-05] MEDS ORDERED: LIDOCAINE VISCOUS 2% SOLN 15 ML UDC PO ONE (15:15)
[2017-09-05] MEDS ORDERED: SODIUM CHLORIDE 0.9% FLUSH 10 ML FLUSH IV FLUSH PRN (15:15)
[2017-09-05] MEDS ORDERED: FAMOTIDINE 20 MG/2 ML VIAL IV PUSH ONE (15:15)
[2017-09-05 15:46] VITALS: O2SAT 98
[2017-09-05 15:56] LABS: AUTOMATED NEUTROPHIL # 2.2 TH/MM3 (1.8-7.7); BASOPHIL % 0.8 % (0.0-2.0); EOSINOPHIL % 0.5 % (0.0-4.0); HEMATOCRIT 30.7 % (35.0-46.0); HEMOGLOBIN 9.8 GM/DL (11.6-15.3); LYMPH % 43.4 % (9.0-44.0); LYMPHOCYTE # 2.3 TH/MM3 (1.0-4.8); MEAN CELL VOLUME 80.9 FL (80.0-100.0); MEAN CORPUSCULAR HGB CONC 32.1 % (32.0-36.0); MEAN PLATELET VOLUME 8.1 FL (7.0-11.0); MONO % 12.3 % (0.0-8.0); MONOCYTE # 0.6 TH/MM3 (0-0.9); PLATELET COUNT 187 TH/MM3 (150-450); RED BLOOD COUNT 3.79 MIL/MM3 (4.00-5.30); WHITE BLOOD COUNT 5.2 TH/MM3 (4.0-11.0)
[2017-09-05 16:29] LABS: ALBUMIN 3.7 GM/DL (3.4-5.0); AST (GOT) 47 U/L (15-37); BICARBONATE 27.8 MEQ/L (21.0-32.0); BLOOD UREA NITROGEN 6 MG/DL (7-18); CALCIUM 9.4 MG/DL (8.5-10.1); CHLORIDE 102 MEQ/L (98-107); CREATININE 0.86 MG/DL (0.50-1.00); GLOMERULAR FILTRATION RATE 82 ML/MIN (>89); GLUCOSE,RANDOM 93 MG/DL (74-106); SODIUM (NA) 139 MEQ/L (136-145)
[2017-09-05 16:33] LABS: ALKALINE PHOSPHATASE 74 U/L (45-117); ALT (GPT) 40 U/L (10-53); TOTAL BILIRUBIN ADULT 0.2 MG/DL (0.2-1.0); TOTAL PROTEIN 7.7 GM/DL (6.4-8.2)
[2017-09-05] MEDS ORDERED: MACR100C2 PO (16:44)
--- NOTE | 2017-09-05 16:44 | PD ---
HPI Chief Complaint: Studio Assistant Problem/Complaint Time Seen by Provider: 15:07 Travel History International Travel<30 days: No Contact w/Intl Traveler<30days: No Traveled to known affect area: No History of Present Illness HPI Patient is a 57-year-old female who comes in complaining of burning on urination as well as pain to her lower abdomen. She says that this is been going on for the past 3 days. She denies fever or chills. She has not had nausea or vomiting. She says she has had urinary tract infections in the past. She denies any vaginal discharge. She denies sexual activity. She is not taking anything for her symptoms. Severity is mild to moderate. PFSH Past Medical History Anemia: Yes Arthritis: Yes (RIGHT HIP PRIMARILY) Asthma: Yes Blood Disorders: No Bipolar Disorder: Yes Anxiety: Yes Depression: Yes Heart Rhythm Problems: No Cancer: No Cardiac Catheterization: No Cardiovascular Problems: Yes High Cholesterol: No Chemotherapy: No Chest Pain: No Congestive Heart Failure: No Diabetes: Yes Patient Takes Glucophage: Yes Diminished Hearing: No Endocrine: No Gastrointestinal Disorders: No Genitourinary: No Heparin Induced Thrombocytopen: No Hypertension: Yes Immune Disorder: No Implanted Vascular Access Dvce: No Musculoskeletal: Yes Neurologic: No Psychiatric: Yes (PARANOID SCHIZOPHRENIA) Reproductive: No Respiratory: No Immunizations Current: Yes Myocardial Infarction: No Radiation Therapy: No Schizophrenia: Yes (PARANOIA) Seizures: Yes (DECEMBER 2012) Sickle Cell Disease: No PNEUMOCCOCAL Vaccine (Year): 2 Menopausal: Yes : 4 Para: 2 Miscarriage: 1 : 1 Tubal Ligation: Yes Past Surgical History Abdominal Surgery: Yes (COLON) AICD: No Arteriovenous Shunt: No Cardiac Surgery: No Cholecystectomy: Yes Coronary Artery Bypass Graft: No Ear Surgery: No Endocrine Surgery: No Eye Surgery: No Genitourinary Surgery: No Gynecologic Surgery: Yes (TUBAL LIGATION 1993) Insulin Pump: No Joint Replacement: No Neurologic Surgery: No Oral Surgery: No Pacemaker: No Thoracic Surgery: No Other Surgery: Yes Social History Alcohol Use: No Tobacco Use: No Substance Use: No Allergies-Medications (Allergen,Severity, Reaction): Coded Allergies: cat dander (Unverified Allergy, Mild, 09/05/17) Penicillins (Verified Allergy, Unknown, Itching, 09/05/17) Sulfa (Sulfonamide Antibiotics) (Unverified Adverse Reaction, Mild, Nausea /Vomiting, 09/05/17) PT STATES MED "MAKES HER SICK" trihexyphenidyl (Unverified Adverse Reaction, Mild, Nausea/Vomiting, ) Reported Meds & Prescriptions Reported Meds & Active Scripts Active Walker/Adult/Folding (Device) 1 Mis Mis Ea .ROUTE DIRECTED Reported Fluphenazine (Fluphenazine HCl) 5 Mg Tab 10 Mg PO HS Invega Sustenna Inj (Paliperidone Palmitate) 234 Mg/1.5 Ml Inj 234 Mg IM Q28D Hydralazine HCl 25 Mg Tablet 50 Mg PO TID Fluphenazine (Fluphenazine HCl) 5 Mg Tab 5 Mg PO DAILY Levothyroxine (Levothyroxine Sodium) 25 Mcg Tab 25 Mcg PO DAILY Tradjenta (Linagliptin) 5 Mg Tab 5 Mg PO DAILY Simvastatin 20 Mg Tab 20 Mg PO HS Doxepin (Doxepin HCl) 25 Mg Cap 25 Mg PO HS Naproxen 500 Mg Tab 500 Mg PO BID Metformin (Metformin HCl) 1,000 Mg Tab 1,000 Mg PO BIDPC With meals Gabapentin 300 Mg Cap 300 Mg PO TID Enalapril (Enalapril Maleate) 20 Mg Tab 20 Mg PO BID NEB Docusate Sodium 100 Mg Cap 100 Mg PO BID Depakote ER (Divalproex Sodium) 500 Mg Shawn 1,000 Mg PO BID Review of Systems Except as stated in HPI: all other systems reviewed are Neg General / Constitutional: No: Fever, Chills HENT: No: Headaches, Lightheadedness Cardiovascular: No: Chest Pain or Discomfort Respiratory: No: Shortness of Breath Gastrointestinal: Positive: Abdominal Pain, No: Nausea, Vomiting Genitourinary: Positive: Urgency, Frequency, Dysuria, No: Flank Pain Skin: No Rash, No Change in Pigmentation Neurologic: No: Weakness, Dizziness Physical Exam Narrative GENERAL: Awake and alert, in no acute distress. SKIN: Focused skin assessment warm/dry. HEAD: Atraumatic. Normocephalic. EYES: Pupils equal and round. No scleral icterus. EOMI. ENT: Mucous membranes pink and moist. NECK: Trachea midline. No JVD. CARDIOVASCULAR: Regular rate and rhythm. No murmur appreciated. RESPIRATORY: No accessory muscle use. Clear to auscultation. Breath sounds equal bilaterally. GASTROINTESTINAL: Abdomen soft, nondistended. Mild suprapubic tenderness, no CVA tenderness. MUSCULOSKELETAL: No obvious deformities. No clubbing. No cyanosis. No edema. NEUROLOGICAL: Awake and alert. No obvious cranial nerve deficits. Motor grossly within normal limits. Normal speech. PSYCHIATRIC: Appropriate mood and affect; insight and judgment normal. Data Data Last Documented VS Vital Signs Date Time Temp Pulse Resp B/P (MAP) Pulse Ox O2 Delivery O2 Flow Rate FiO2 09/05/17 15:46 98 Room Air 09/05/17 13:21 98.3 87 18 Orders Orders Urinalysis - C+S If Indicated (09/05/17 13:33) Urine Culture (09/05/17 13:38) Complete Blood Count With Diff (09/05/17 15:12) Comprehensive Metabolic Panel (09/05/17 15:12) Lipase (09/05/17 15:12) Iv Access Insert/Monitor (09/05/17 15:12) Ecg Monitoring (09/05/17 15:12) Oximetry (09/05/17 15:12) Sodium Chloride 0.9% Flush (Ns Flush) (09/05/17 15:15) Famotidine Inj (Pepcid Inj) (09/05/17 15:15) Al-Mag Hy-Si 40-40-4 Mg/Ml Liq (Mag-Al P (09/05/17 15:15) Lidocaine 2% Viscous (Xylocaine 2% Visco (09/05/17 15:15) Labs Laboratory Tests Test 09/05/17 13:38 09/05/17 15:35 Urine Color YELLOW Urine Turbidity HAZY Urine pH 6.0 Urine Specific [place] 1.010 Urine Protein NEG mg/dL Urine Glucose (UA) NEG mg/dL Urine Ketones TRACE mg/dL Urine Occult Blood NEG Urine Nitrite NEG Urine Bilirubin NEG Urine Urobilinogen LESS THAN 2.0 MG/DL Urine Leukocyte Esterase NEG Urine RBC 1 /hpf Urine WBC 5 /hpf Urine Squamous Epithelial Cells 9 /hpf Urine Bacteria MANY /hpf Urine Hyaline Casts 1 /lpf Urine Mucus FEW /lpf Microscopic Urinalysis Comment CULTURE INDICATED White Blood Count 5.2 TH/MM3 Red Blood Count 3.79 MIL/MM3 Hemoglobin 9.8 GM/DL Hematocrit 30.7 % Mean Corpuscular Volume 80.9 FL Mean Corpuscular Hemoglobin 26.0 PG Mean Corpuscular Hemoglobin Concent 32.1 % Red Cell Distribution Width 19.0 % Platelet Count 187 TH/MM3 Mean Platelet Volume 8.1 FL Neutrophils (%) (Auto) 43.0 % Lymphocytes (%) (Auto) 43.4 % Monocytes (%) (Auto) 12.3 % Eosinophils (%) (Auto) 0.5 % Basophils (%) (Auto) 0.8 % Neutrophils # (Auto) 2.2 TH/MM3 Lymphocytes # (Auto) 2.3 TH/MM3 Monocytes # (Auto) 0.6 TH/MM3 Eosinophils # (Auto) 0.0 TH/MM3 Basophils # (Auto) 0.0 TH/MM3 CBC Comment DIFF FINAL Differential Comment Blood Urea Nitrogen 6 MG/DL Creatinine 0.86 MG/DL Random Glucose 93 MG/DL Total Protein 7.7 GM/DL Albumin 3.7 GM/DL Calcium Level 9.4 MG/DL Alkaline Phosphatase 74 U/L Aspartate Amino Transf (AST/SGOT) 47 U/L Alanine Aminotransferase (ALT/SGPT) 40 U/L Total Bilirubin 0.2 MG/DL Sodium Level 139 MEQ/L Potassium Level 3.8 MEQ/L Chloride Level 102 MEQ/L Carbon Dioxide Level 27.8 MEQ/L Anion Gap 9 MEQ/L Estimat Glomerular Filtration Rate 82 ML/MIN Lipase 64 U/L MDM Medical Decision Making Medical Screen Exam Complete: Yes Emergency Medical Condition: Yes Medical Record Reviewed: Yes Differential Diagnosis UTI vs pyelonephritis vs GERD Narrative Course Patient is a 57-year-old female who comes in complaining of abdominal pain with dysuria. Exam shows mild abdominal tenderness. I have established, labs sent. Labs show no acute abnormalities. Urinalysis is positive for infection. Patient given GI cocktail. She will be discharged with a prescription for Macrobid. Advised follow-up with her doctors. Advised return to the ED as needed for any worsening symptoms. Diagnosis Primary Impression: UTI (urinary tract infection) Qualified Codes: N30.00 - Acute cystitis without hematuria Patient Instructions: General Instructions, Urinary Tract Infection in Women ( ED) Additional Instructions: Take all of your antibiotic. Follow-up with your doctor. Drink plenty of fluids. Return to the ED as needed for any worsening symptoms. Scripts Nitrofurantoin Monohydrate Macrocrystals (Macrobid) 100 Mg Capsule 100 MG PO BID for Infection for 5 Days, #10 CAP 0 Refills Prov: Anisa Verma MD 09/05/17 Disposition: 01 DISCHARGE HOME Condition: Stable Anisa Verma MD Sep 05, 2017 16:44
== END 2017-09-05 17:28 | disposition home or self-care (01) ==
LOC: NEPD 13:20
DX: N30.00 Acute cystitis without hematuria (principal); E11.9 Type 2 diabetes mellitus without complications; I10 Essential (primary) hypertension; F20.0 Paranoid schizophrenia; Z79.84 Long term (current) use of oral hypoglycemic drugs
CPT/HCPCS: 80053; 81001; 83690; 85025; 87086; 96374

== ENCOUNTER 2017-10-12 11:48 | Observation (INO) | payer OTHER ==
[~2017-10-12 11:48] MED LIST changes: -HYDR-3516 PO; -LORA1TAB12 PO; +MACR100C2 PO
[2017-10-12 12:12] VITALS: BP 130/80; PULSE 64; RESP 18; TEMP 97.2; O2SAT 99
--- NOTE | 2017-10-12 12:59 | RADRPT ---
EXAM DATE/TIME: 10/12/2017 12:23 [facility] COMPARISON: CHEST SINGLE AP, December 10, 2016, 23:25. INDICATIONS : Chest pain. MEDICAL HISTORY : Hypertension. Diabetes mellitus type 2. SURGICAL HISTORY : None. ENCOUNTER: Initial ACUITY: 1 day PAIN SCORE: 4/10 LOCATION: Bilateral chest FINDINGS: Cardiomegaly is again noted. Minimal central pulmonary congestion is noted. There is elevation of the right hemidiaphragm. No focal alveolar consolidation is noted. CONCLUSION: Cardiomegaly. Probable minimal central pulmonary vascular congestion. Shaquille Jose MD on October 12, 2017 at 12:57 Board Certified Radiologist. This report was verified electronically.
--- NOTE | 2017-10-12 13:02 | PD ---
HPI Chief Complaint: Chest Pain Time Seen by Provider: 12:45 Travel History International Travel<30 days: No Contact w/Intl Traveler<30days: No Traveled to known affect area: No History of Present Illness HPI 57-year-old female with history of CAD, asthma, diabetes, schizophrenia, presents emergency department from her [facility] for evaluation of acute onset chest pain. Patient states it was substernal and went to her left chest into her neck. She states she has had these in the past but this 1 seemed to not get better like the others. Denies any nausea. No focal deficits weakness. No lightheaded sensation. No diaphoresis. Patient has no other symptoms to report at this time. She is currently not having any pain. PFSH Past Medical History Anemia: Yes Arthritis: Yes (RIGHT HIP PRIMARILY) Asthma: Yes Blood Disorders: No Bipolar Disorder: Yes Anxiety: Yes Depression: Yes Heart Rhythm Problems: No Cancer: No Cardiac Catheterization: No Cardiovascular Problems: Yes High Cholesterol: No Chemotherapy: No Chest Pain: No Congestive Heart Failure: No Diabetes: Yes Diminished Hearing: No Endocrine: No Gastrointestinal Disorders: No Genitourinary: No Heparin Induced Thrombocytopen: No Hypertension: Yes Immune Disorder: No Implanted Vascular Access Dvce: No Musculoskeletal: Yes Neurologic: No Psychiatric: Yes (PARANOID SCHIZOPHRENIA) Reproductive: No Respiratory: No Immunizations Current: Yes Myocardial Infarction: No Radiation Therapy: No Schizophrenia: Yes (PARANOIA) Seizures: Yes (DECEMBER 2012) Sickle Cell Disease: No PNEUMOCCOCAL Vaccine (Year): 2 Menopausal: Yes : 4 Para: 2 Miscarriage: 1 : 1 Tubal Ligation: Yes Past Surgical History Abdominal Surgery: Yes (COLON) AICD: No Arteriovenous Shunt: No Cardiac Surgery: No Cholecystectomy: Yes Coronary Artery Bypass Graft: No Ear Surgery: No Endocrine Surgery: No Eye Surgery: No Genitourinary Surgery: No Gynecologic Surgery: Yes (TUBAL LIGATION 1993) Insulin Pump: No Joint Replacement: No Neurologic Surgery: No Oral Surgery: No Pacemaker: No Thoracic Surgery: No Other Surgery: Yes Social History Alcohol Use: No Tobacco Use: No Substance Use: No Allergies-Medications (Allergen,Severity, Reaction): Coded Allergies: cat dander (Unverified Allergy, Mild, 10/12/17) Penicillins (Verified Allergy, Unknown, Itching, 10/12/17) Sulfa (Sulfonamide Antibiotics) (Unverified Adverse Reaction, Mild, Nausea /Vomiting, 10/12/17) PT STATES MED "MAKES HER SICK" trihexyphenidyl (Unverified Adverse Reaction, Mild, Nausea/Vomiting, ) Reported Meds & Prescriptions Reported Meds & Active Scripts Active Walker/Adult/Folding (Device) 1 Mis Mis Ea .ROUTE DIRECTED Reported Metoprolol Tartrate 100 Mg Tab 100 Mg PO BID Lorazepam 1 Mg Tab 1 Mg PO DAILY PRN Senna Liq (Senna) 176 Mg/5 Ml Syp 176 Mg PO HS Invega Sustenna Inj (Paliperidone Palmitate) 234 Mg/1.5 Ml Inj 234 Mg IM Q28D Hydralazine HCl 25 Mg Tablet 50 Mg PO TID Fluphenazine (Fluphenazine HCl) 5 Mg Tab 5 Mg PO DAILY Levothyroxine (Levothyroxine Sodium) 25 Mcg Tab 25 Mcg PO DAILY Tradjenta (Linagliptin) 5 Mg Tab 5 Mg PO DAILY Simvastatin 20 Mg Tab 20 Mg PO HS Doxepin (Doxepin HCl) 25 Mg Cap 25 Mg PO HS Naproxen 500 Mg Tab 500 Mg PO BID Metformin (Metformin HCl) 1,000 Mg Tab 1,000 Mg PO BIDPC With meals Gabapentin 300 Mg Cap 300 Mg PO TID Enalapril (Enalapril Maleate) 20 Mg Tab 20 Mg PO BID NEB Docusate Sodium 100 Mg Cap 100 Mg PO BID Depakote ER (Divalproex Sodium) 500 Mg Shawn 1,000 Mg PO BID Review of Systems Except as stated in HPI: all other systems reviewed are Neg Physical Exam Narrative GENERAL: Well-nourished female patient, lying in bed in no acute distress. SKIN: Focused skin assessment warm/dry. HEAD: Atraumatic. Normocephalic. EYES: Pupils equal and round. No scleral icterus. No injection or drainage. ENT: No nasal bleeding or discharge. Mucous membranes pink and moist. NECK: Trachea midline. No JVD. CARDIOVASCULAR: Regular rate and rhythm. No murmur appreciated. RESPIRATORY: No accessory muscle use. Clear to auscultation. Breath sounds equal bilaterally. GASTROINTESTINAL: Abdomen soft, non-tender, nondistended. Hepatic and splenic margins not palpable. MUSCULOSKELETAL: No obvious deformities. No clubbing. No cyanosis. No edema. NEUROLOGICAL: Awake and alert. No obvious cranial nerve deficits. Motor grossly within normal limits. Normal but scattered speech. Data Data Last Documented VS Vital Signs Date Time Temp Pulse Resp B/P (MAP) Pulse Ox O2 Delivery O2 Flow Rate FiO2 10/12/17 15:24 99 Room Air 10/12/17 15:24 58 20 10/12/17 15:24 144/75 (98) 10/12/17 12:12 97.2 Orders Orders Electrocardiogram (10/12/17 12:15) Complete Blood Count With Diff (10/12/17 12:15) Basic Metabolic Panel (Bmp) (10/12/17 12:15) Ckmb (Isoenzyme) Profile (10/12/17 12:15) Troponin I (10/12/17 12:15) Chest, Single Ap (10/12/17 12:15) Iv Access Insert/Monitor (10/12/17 12:15) Ecg Monitoring (10/12/17 12:15) Oxygen Administration (10/12/17 12:15) Oximetry (10/12/17 12:15) CKMB (10/12/17 12:40) CKMB% (10/12/17 12:40) B-Type Natriuretic Peptide (10/12/17 14:54) Admit Order (Ed Use Only) (10/12/17 17:47) Activity Bed Rest With Brp (10/12/17 17:47) Vital Signs (Adult) Q4H (10/12/17 17:47) Cardiac Rhythm .As Directed (10/12/17 17:47) Notify Dr: Other .PRN (10/12/17 17:47) Notify DrQuoc Parameters (10/12/17 17:47) Resp Oxygen Nasal Cannula (10/12/17 ) Diet Heart Healthy (10/12/17 Dinner) Ckmb (Isoenzyme) Profile (10/12/17 17:47) Ckmb (Isoenzyme) Profile (10/12/17 20:47) Troponin I (10/12/17 17:47) Troponin I (10/12/17 20:47) Electrocardiogram (10/12/17 17:47) Electrocardiogram (10/12/17 20:47) ^ Obtain (10/12/17 17:47) Sodium Chloride 0.9% Flush (Ns Flush) (10/12/17 18:00) Sodium Chloride 0.9% Flush (Ns Flush) (10/12/17 21:00) Acetaminophen (Tylenol) (10/12/17 18:00) Ondansetron Inj (Zofran Inj) (10/12/17 18:00) Tab Cutting Machine Operator / Telemetry ANIA.Q8H (10/12/17 17:47) Andrew Bilateral/Knee High ANIA.QSHIFT (10/12/17 17:47) Labs Laboratory Tests Test 10/12/17 12:40 White Blood Count 6.4 TH/MM3 Red Blood Count 3.46 MIL/MM3 Hemoglobin 9.1 GM/DL Hematocrit 28.3 % Mean Corpuscular Volume 81.8 FL Mean Corpuscular Hemoglobin 26.4 PG Mean Corpuscular Hemoglobin Concent 32.3 % Red Cell Distribution Width 18.2 % Platelet Count 230 TH/MM3 Mean Platelet Volume 8.5 FL Neutrophils (%) (Auto) 39.9 % Lymphocytes (%) (Auto) 47.6 % Monocytes (%) (Auto) 11.6 % Eosinophils (%) (Auto) 0.4 % Basophils (%) (Auto) 0.5 % Neutrophils # (Auto) 2.6 TH/MM3 Lymphocytes # (Auto) 3.1 TH/MM3 Monocytes # (Auto) 0.7 TH/MM3 Eosinophils # (Auto) 0.0 TH/MM3 Basophils # (Auto) 0.0 TH/MM3 CBC Comment DIFF FINAL Differential Comment Blood Urea Nitrogen 8 MG/DL Creatinine 0.75 MG/DL Random Glucose 80 MG/DL Calcium Level 8.9 MG/DL Sodium Level 135 MEQ/L Potassium Level 3.6 MEQ/L Chloride Level 100 MEQ/L Carbon Dioxide Level 28.3 MEQ/L Anion Gap 7 MEQ/L Estimat Glomerular Filtration Rate 96 ML/MIN Total Creatine Kinase 210 U/L Creatine Kinase MB 3.0 NG/ML Creatine Kinase MB % 1.4 % Troponin I 0.02 NG/ML B-Type Natriuretic Peptide 46 PG/ML MDM Medical Decision Making Medical Screen Exam Complete: Yes Emergency Medical Condition: Yes Medical Record Reviewed: Yes Differential Diagnosis ACS versus chest wall pain versus pleuritic pain versus costochondritis versus indigestion versus anxiety Narrative Course 57-year-old female presents emergency department for evaluation of acute onset left-sided chest pain. This is since resolved. Patient appears well. Vital signs are stable. Workup is initiated in triage ambulance hallway. Patient appears nontoxic. She is without distress. Laboratory Tests Test 10/12/17 12:40 White Blood Count 6.4 TH/MM3 Red Blood Count 3.46 MIL/MM3 Hemoglobin 9.1 GM/DL Hematocrit 28.3 % Mean Corpuscular Volume 81.8 FL Mean Corpuscular Hemoglobin 26.4 PG Mean Corpuscular Hemoglobin Concent 32.3 % Red Cell Distribution Width 18.2 % Platelet Count 230 TH/MM3 Mean Platelet Volume 8.5 FL Neutrophils (%) (Auto) 39.9 % Lymphocytes (%) (Auto) 47.6 % Monocytes (%) (Auto) 11.6 % Eosinophils (%) (Auto) 0.4 % Basophils (%) (Auto) 0.5 % Neutrophils # (Auto) 2.6 TH/MM3 Lymphocytes # (Auto) 3.1 TH/MM3 Monocytes # (Auto) 0.7 TH/MM3 Eosinophils # (Auto) 0.0 TH/MM3 Basophils # (Auto) 0.0 TH/MM3 CBC Comment DIFF FINAL Differential Comment Blood Urea Nitrogen 8 MG/DL Creatinine 0.75 MG/DL Random Glucose 80 MG/DL Calcium Level 8.9 MG/DL Sodium Level 135 MEQ/L Potassium Level 3.6 MEQ/L Chloride Level 100 MEQ/L Carbon Dioxide Level 28.3 MEQ/L Anion Gap 7 MEQ/L Estimat Glomerular Filtration Rate 96 ML/MIN Total Creatine Kinase 210 U/L Creatine Kinase MB 3.0 NG/ML Creatine Kinase MB % 1.4 % Troponin I 0.02 NG/ML B-Type Natriuretic Peptide 46 PG/ML Lab work is without acute concern. Last Impressions Chest X-Ray 10/12/17 1215 Signed Impressions: Service Date/Time: September 12:23 - CONCLUSION: Cardiomegaly. Probable minimal central pulmonary vascular congestion. Shaquille Jose MD Discussed the patient my attending physician. We feel it is in her best interest to be admitted observation for chest pain center. Diagnosis Primary Impression: Chest pain Qualified Codes: R07.9 - Chest pain, unspecified Admitting Information Admitting Physician Requests: Observation Condition: Stable Mago Baird Oct 12, 2017 13:02
[2017-10-12 13:29] LABS: AUTOMATED NEUTROPHIL # 2.6 TH/MM3 (1.8-7.7); BASOPHIL % 0.5 % (0.0-2.0); EOSINOPHIL % 0.4 % (0.0-4.0); HEMATOCRIT 28.3 % (35.0-46.0); HEMOGLOBIN 9.1 GM/DL (11.6-15.3); LYMPH % 47.6 % (9.0-44.0); LYMPHOCYTE # 3.1 TH/MM3 (1.0-4.8); MEAN CELL VOLUME 81.8 FL (80.0-100.0); MEAN CORPUSCULAR HEMOGLOBIN 26.4 PG (27.0-34.0); MEAN CORPUSCULAR HGB CONC 32.3 % (32.0-36.0); MEAN PLATELET VOLUME 8.5 FL (7.0-11.0); MONO % 11.6 % (0.0-8.0); MONOCYTE # 0.7 TH/MM3 (0-0.9); NEUT % 39.9 % (16.0-70.0); PLATELET COUNT 230 TH/MM3 (150-450); RED BLOOD COUNT 3.46 MIL/MM3 (4.00-5.30); RED CELL DISTRIBUTION WIDTH 18.2 % (11.6-17.2); WHITE BLOOD COUNT 6.4 TH/MM3 (4.0-11.0)
[2017-10-12 13:40] LABS: BICARBONATE 28.3 MEQ/L (21.0-32.0); CALCIUM 8.9 MG/DL (8.5-10.1); CREATININE 0.75 MG/DL (0.50-1.00)
[2017-10-12 13:45] LABS: TROPONIN I 0.02 NG/ML (0.02-0.05)
[2017-10-12 15:24] VITALS: BP 144/75; PULSE 62; RESP 18; O2SAT 99
[2017-10-12] MEDS ORDERED: ONDANSETRON HCL 4 MG/2 ML VIAL IV PUSH PRN (18:00)
[2017-10-12] MEDS ORDERED: SODIUM CHLORIDE 0.9% FLUSH 10 ML FLUSH IV FLUSH PRN (18:00)
[2017-10-12] MEDS ORDERED: ACETAMINOPHEN 500 MG CPLT PO PRN (18:00)
[2017-10-12] MEDS ORDERED: SENNSYP PO (18:11)
[2017-10-12] MEDS ORDERED: METO100T PO (18:11)
[2017-10-12] MEDS ORDERED: LORA1TAB12 PO (18:11)
[2017-10-12 18:22] VITALS: BP 151/67; PULSE 73; RESP 16; O2SAT 99
[2017-10-12] MEDS ORDERED: NITROGLYCERIN 0.4 MG SL 25 TABS/BTL SL PRN (18:45)
--- NOTE | 2017-10-12 19:07 | HHI.HP ---
HPI Primary Care Physician Unknown Chief Complaint Chest pain History of Present Illness 57-year-old female presents to emergency room for further evaluation of "heart pain." Upon entering room patient upset and requesting to go home, stating "my pain is gone now." Please note patient is a poor historian. Onset sometime this morning, she was unable to tell me if pain began upon awakening or later in morning. At one point, told me discomfort might have began around 9-10 and was constant until 5pm. Location substernal. Characterized as "throbbing." No radiation. Associating symptoms included nausea and mild shortness of breath. Denied vomiting or diaphoresis. No known precipitating or relieving factors. Denies similar pain in the past. Review of Systems General: No fatigue,weakness, fever, chills, or recent illness. HEENT: No FERNANDEZ, no vision changes CV: As stated above. Currently chest pain-free. RESP: No SOB, cough, wheeze, or recent respiratory infection GI: Nausea has resolved. No abdominal discomfort, pain or distention. Reports being hungry. : No dysuria, urgency, frequency MS: No discomfort or change in ROM NEURO: No LOC, motor/sensory deficits PSYCH: History of anxiety and depression, bipolar disorder SKIN: No rashes, no concerning lesions Past Family Social History Allergies: Coded Allergies: cat dander (Unverified Allergy, Mild, 10/12/17) Penicillins (Verified Allergy, Unknown, Itching, 10/12/17) Sulfa (Sulfonamide Antibiotics) (Unverified Adverse Reaction, Mild, Nausea /Vomiting, 10/12/17) PT STATES MED "MAKES HER SICK" trihexyphenidyl (Unverified Adverse Reaction, Mild, Nausea/Vomiting, ) Past Medical History Bipolar disorder, schizoaffective disorder, hypothyroidism, type 2 diabetes, hyperlipidemia, hypertension Past Surgical History Tubal ligation Reported Medications Reported Meds & Active Scripts Active Walker/Adult/Folding (Device) 1 Mis Mis Ea .ROUTE DIRECTED Reported Metoprolol Tartrate 100 Mg Tab 100 Mg PO BID Lorazepam 1 Mg Tab 1 Mg PO DAILY PRN Senna Liq (Senna) 176 Mg/5 Ml Syp 176 Mg PO HS Invega Sustenna Inj (Paliperidone Palmitate) 234 Mg/1.5 Ml Inj 234 Mg IM Q28D Hydralazine HCl 25 Mg Tablet 50 Mg PO TID Fluphenazine (Fluphenazine HCl) 5 Mg Tab 5 Mg PO DAILY Levothyroxine (Levothyroxine Sodium) 25 Mcg Tab 25 Mcg PO DAILY Tradjenta (Linagliptin) 5 Mg Tab 5 Mg PO DAILY Simvastatin 20 Mg Tab 20 Mg PO HS Doxepin (Doxepin HCl) 25 Mg Cap 25 Mg PO HS Naproxen 500 Mg Tab 500 Mg PO BID Metformin (Metformin HCl) 1,000 Mg Tab 1,000 Mg PO BIDPC With meals Gabapentin 300 Mg Cap 300 Mg PO TID Enalapril (Enalapril Maleate) 20 Mg Tab 20 Mg PO BID NEB Docusate Sodium 100 Mg Cap 100 Mg PO BID Depakote ER (Divalproex Sodium) 500 Mg Shawn 1,000 Mg PO BID Active Ordered Medications Current Medications Medications (Trade) Dose Ordered Sig/Keanu Route Start Time Stop Time Status Last Admin (NS Flush) 2 ml UNSCH PRN IV FLUSH 10/12/17 18:00 (NS Flush) 2 ml BID IV FLUSH 10/12/17 21:00 (Tylenol) 500 mg Q4H PRN PO 10/12/17 18:00 (Zofran Inj) 4 mg Q6H PRN IV PUSH 10/12/17 18:00 (Nitrostat Sl) 0.4 mg Q5M PRN SL 10/12/17 18:45 (Aspirin) 325 mg DAILY PO 10/13/17 09:00 Family History Unknown Social History Lives at [facility]. Past cardiac testing 12/11/16 Lexiscan-no fixed or reversible perfusion defects. Normal left ventricular wall motion and ejection fraction Physical Exam Vital Signs Vital Signs Date Time Temp Pulse Resp B/P (MAP) Pulse Ox O2 Delivery O2 Flow Rate FiO2 10/12/17 18:22 73 16 151/67 (95) 99 Room Air 10/12/17 15:24 99 Room Air 10/12/17 15:24 58 20 99 Room Air 10/12/17 15:24 99 Room Air 10/12/17 15:24 62 18 144/75 (98) 99 Room Air 10/12/17 12:12 97.2 64 18 130/80 (97) 99 Physical Exam GENERAL: Alert WN, WD, NAD, moderately obese, female who requires frequent redirection. HEAD: NC, AT CV: RRR, without murmur, rub, gallop, no JVD, S1-S2 no S3-S4. RESP: Clear lungs throughout bilateral, expiratory wheeze. no rales or wheeze. symmetrical chest rise, nonlabored, able to speak in full sentences ABD: Soft, NT, ND, no masses, positive bowel tones MS: Normal tone 4 extremities, no obvious deformities, full range of motion NEURO: CN II through CN XII grossly intact, motor strength 5/5 PSYCH: A+O 3, flat affect, appropriate speech, anxiety mood, questionable insight and judgment SKIN: Normal turgor, normal texture Laboratory Laboratory Tests Test 10/12/17 12:40 10/12/17 18:28 White Blood Count 6.4 Red Blood Count 3.46 Hemoglobin 9.1 Hematocrit 28.3 Mean Corpuscular Volume 81.8 Mean Corpuscular Hemoglobin 26.4 Mean Corpuscular Hemoglobin Concent 32.3 Red Cell Distribution Width 18.2 Platelet Count 230 Mean Platelet Volume 8.5 Neutrophils (%) (Auto) 39.9 Lymphocytes (%) (Auto) 47.6 Monocytes (%) (Auto) 11.6 Eosinophils (%) (Auto) 0.4 Basophils (%) (Auto) 0.5 Neutrophils # (Auto) 2.6 Lymphocytes # (Auto) 3.1 Monocytes # (Auto) 0.7 Eosinophils # (Auto) 0.0 Basophils # (Auto) 0.0 CBC Comment DIFF FINAL Differential Comment Blood Urea Nitrogen 8 Creatinine 0.75 Random Glucose 80 Calcium Level 8.9 Sodium Level 135 Potassium Level 3.6 Chloride Level 100 Carbon Dioxide Level 28.3 Anion Gap 7 Estimat Glomerular Filtration Rate 96 Total Creatine Kinase 210 Creatine Kinase MB 3.0 Creatine Kinase MB % 1.4 Troponin I 0.02 B-Type Natriuretic Peptide 46 Result Diagram: 10/12/17 1240 10/12/17 1240 Imaging Last 48 hours Impressions Chest X-Ray 10/12/17 1215 Signed Impressions: Service Date/Time: September 12:23 - CONCLUSION: Cardiomegaly. Probable minimal central pulmonary vascular congestion. Shaquille Jose MD Course EKG Sinus rhythm, no ST changes Caprini VTE Risk Assessment Caprini VTE Risk Assessment: No/Low Risk (score <= 1) Caprini Risk Assessment Model Point Value = 1 Point Value = 2 Point Value = 3 Point Value = 5 Age 41-60 Minor surgery BMI > 25 kg/m2 Swollen legs Varicose veins or History of unexplained or recurrent spontaneous Oral contraceptives or hormone replacement Sepsis (< 1 month) Serious lung disease, including pneumonia (< 1 month) Abnormal pulmonary function Acute myocardial infarction Congestive heart failure (< 1 month) History of inflammatory bowel disease Medical patient at bed rest Age 61-74 Arthroscopic surgery Major open surgery (> 45 min) Laparoscopic surgery (> 45 min) Malignancy Confined to bed (> 72 hours) Immobilizing plaster cast Central venous access Age >= 75 History of VTE Family history of VTE Factor V Leiden Prothrombin [id number] Lupus anticoagulant Anticardiolipin antibodies Elevated serum homocysteine Heparin-induced thrombocytopenia Other congenital or acquired thrombophilia Stroke (< 1 month) Elective arthroplasty Hip, pelvis, or leg fracture Acute spinal cord injury (< 1 month) Prophylaxis Regimen Total Risk Factor Score Risk Level Prophylaxis Regimen 0-1 Low Early ambulation 2 Moderate Order ONE of the following: *Sequential Compression Device (SCD) *Heparin 5000 units SQ BID 3-4 Higher Order ONE of the following medications: *Heparin 5000 units SQ TID *Enoxaparin/Lovenox 40 mg SQ daily (WT < 150 kg, CrCl > 30 mL/min) *Enoxaparin/Lovenox 30 mg SQ daily (WT < 150 kg, CrCl > 10-29 mL/min) *Enoxaparin/Lovenox 30 mg SQ BID (WT < 150 kg, CrCl > 30 mL/min) AND/OR *Sequential Compression Device (SCD) 5 or more Highest Order ONE of the following medications: *Heparin 5000 units SQ TID (Preferred with Epidurals) *Enoxaparin/Lovenox 40 mg SQ daily (WT < 150 kg, CrCl > 30 mL/min) *Enoxaparin/Lovenox 30 mg SQ daily (WT < 150 kg, CrCl > 10-29 mL/min) *Enoxaparin/Lovenox 30 mg SQ BID (WT < 150 kg, CrCl > 30 mL/min) AND *Sequential Compression Device (SCD) Assessment and Plan Assessment and Plan #1 Chest pain-the chest pain center. Rule out with 3 sets of EKGs, cardiac enzymes, and monitor overnight. Will be seen and evaluated the a.m. Further recommendations to follow. #2 Type II diabetes-SSI low dose insulin All other home medications will be reordered as ordered at skilled nursing. Carmina Abraham Oct 12, 2017 19:07
[2017-10-12 19:14] LABS: TROPONIN I 0.03 NG/ML (0.02-0.05)
[2017-10-12 19:32] VITALS: BP 147/70; PULSE 72; RESP 16; TEMP 98.3; O2SAT 97
[2017-10-12] MEDS ORDERED: LORazepam 1 MG TAB PO PRN (19:45)
[2017-10-12] MEDS ORDERED: GLUCAGON 1 MG/ML VIAL OTHER PRN (19:45)
[2017-10-12] MEDS ORDERED: DEXTROSE 50% IN WATER 50 ML VIAL(D50) IV PUSH PRN (19:45)
[2017-10-12] MEDS: NAPROXEN 500 MG TAB PO SCH (20:22)
[2017-10-12] MEDS: SODIUM CHLORIDE 0.9% FLUSH 10 ML FLUSH IV FLUSH SCH (20:23)
[2017-10-12] MEDS: INSULIN ASPART SUPPLEMENTAL SCALE SQ SCH (21:00)
[2017-10-12] MEDS ORDERED: PRAVASTATIN SOD 40 MG TAB PO SCH (21:00)
[2017-10-12] MEDS ORDERED: DOXEPIN HCL 25 MG CAP PO SCH (21:00)
[2017-10-12] MEDS: ENALAPRIL MALEATE 10 MG TAB PO SCH (21:24)
[2017-10-12] MEDS: DIVALPROEX SODIUM E.R. 500 MG TAB PO SCH (21:25)
[2017-10-12] MEDS: METOPROLOL TARTRATE 100 MG TAB PO SCH (21:25)
[2017-10-12] MEDS: DOCUSATE SODIUM 100 MG CAP PO SCH (21:25)
[2017-10-12 21:33] LABS: TROPONIN I 0.02 NG/ML (0.02-0.05)
[2017-10-12 23:33] VITALS: BP 128/80; PULSE 60; RESP 16; TEMP 98.2; O2SAT 98
[2017-10-13 03:29] VITALS: BP 131/88; PULSE 64; RESP 16; TEMP 98.2; O2SAT 99
[2017-10-13] MEDS ORDERED: LEVOTHYROXINE SODIUM 25 MCG TAB PO SCH (06:00)
[2017-10-13 06:48] VITALS: PULSE 60
[2017-10-13 07:15] VITALS: PULSE 58
[2017-10-13 07:17] VITALS: BP 172/76; PULSE 59; RESP 18; TEMP 98.7; O2SAT 99
[2017-10-13 07:56] VITALS: O2SAT 100
[2017-10-13] MEDS: INSULIN ASPART SUPPLEMENTAL SCALE SQ SCH (08:30)
[2017-10-13] MEDS ORDERED: hydrALAZINE HCL 50 MG TAB PO SCH (09:00)
[2017-10-13] MEDS ORDERED: GABAPENTIN 300 MG CAP PO SCH (09:00)
[2017-10-13] MEDS ORDERED: ASPIRIN 325 MG TAB PO SCH (09:00)
[2017-10-13] MEDS: SODIUM CHLORIDE 0.9% FLUSH 10 ML FLUSH IV FLUSH SCH (10:03)
[2017-10-13] MEDS: NAPROXEN 500 MG TAB PO SCH (10:06)
[2017-10-13] MEDS: DOCUSATE SODIUM 100 MG CAP PO SCH (10:06)
[2017-10-13] MEDS: ENALAPRIL MALEATE 10 MG TAB PO SCH (10:07)
[2017-10-13] MEDS: DIVALPROEX SODIUM E.R. 500 MG TAB PO SCH (10:08)
[2017-10-13] MEDS: METOPROLOL TARTRATE 100 MG TAB PO SCH (10:08)
--- NOTE | 2017-10-13 10:13 | HHI.DCPOC ---
Discharge Care Plan Diagnosis: (1) Chest pain Goals to Promote Your Health * To prevent worsening of your condition and complications * To maintain your health at the optimal level Directions to Meet Your Goals Take your medications as prescribed Follow your dietary instruction Follow activity as directed Keep your appointments as scheduled Take your immunizations and boosters as scheduled If your symptoms worsen call your PCP, if no PCP go to Urgent Care Center or Emergency Room Smoking is Dangerous to Your Health. Avoid second hand smoke Call the 24-hour hour crisis hotline for domestic abuse at Nahid Potter Oct 13, 2017 10:13
--- NOTE | 2017-10-13 11:42 | EKG ---
Date Performed: 10/12/2017 Time Performed: 21:58:16 PTAGE: 57 years EKG: SINUS BRADYCARDIA NONSPECIFIC T-WAVE ABNORMALITY BORDERLINE ECG PREVIOUS TRACING : 10/12/2017 12.35 Since previous tracing, no significant change noted DOCTOR: Cornell Ortega Interpretating Date/Time 10/13/2017 11:39:50
--- NOTE | 2017-10-13 11:44 | EKG ---
Date Performed: 10/12/2017 Time Performed: 12:35:37 PTAGE: 57 years EKG: Sinus rhythm WITH SINUS ARRHYTHMIA INCOMPLETE RIGHT BUNDLE BRANCH BLOCK BORDERLINE ECG NO PREVIOUS TRACING DOCTOR: Cornell Ortega Interpretating Date/Time 10/13/2017 11:42:40
[2017-10-13 12:30] VITALS: BP 145/85; PULSE 62; PULSE 69; RESP 18; TEMP 98.5; O2SAT 99
== END 2017-10-13 16:20 | disposition home or self-care (01) ==
LOC: NEPE 11:48 → NEDA 17:49 → NEPGCP 19:10
DX: R07.89 Other chest pain (principal); E11.9 Type 2 diabetes mellitus without complications; I45.10 Unspecified right bundle-branch block; R00.1 Bradycardia, unspecified; I25.10 Atherosclerotic heart disease of native coronary artery without angina pectoris; J45.909 Unspecified asthma, uncomplicated; I11.9 Hypertensive heart disease without heart failure; E78.5 Hyperlipidemia, unspecified; E03.9 Hypothyroidism, unspecified; F31.9 Bipolar disorder, unspecified; F41.9 Anxiety disorder, unspecified; F20.0 Paranoid schizophrenia; M16.11 Unilateral primary osteoarthritis, right hip; Z79.899 Other long term (current) drug therapy; Z79.84 Long term (current) use of oral hypoglycemic drugs
CPT/HCPCS: 71045; 80048; 82550; 82552; 82948; 83880; 84484; 85025; 93005; 99285; G0378

== ENCOUNTER 2017-12-29 16:03 | Observation (INO) | payer OTHER ==
[2017-12-29] VITALS (7 sets, daily range): BP systolic 161–190; BP diastolic 72–85; PULSE 61–64; RESP 16–19; TEMP 98.4; O2SAT 96–99
[~2017-12-29] VITALS: Ht 162.6 cm; Wt 99.0 kg
[~2017-12-29 16:03] MED LIST changes: +LORA1TAB12 PO; -MACR100C2 PO; +METO100T PO; +SENNSYP PO
--- NOTE | 2017-12-29 16:28 | PD ---
HPI Chief Complaint: Chest Pain Time Seen by Provider: 16:10 Travel History International Travel<30 days: No Contact w/Intl Traveler<30days: No Traveled to known affect area: No History of Present Illness HPI 57-year-old female with significant cardiac disease to include CHF, CABG, hypertension, she also has asthma, diabetes, and schizophrenia, presents emergency department for evaluation of chest pain. This pain was acute onset this morning. Is been intermittent throughout the day. She states when the pain gets worse she feels like she is having palpitations. It is associated with mild shortness of breath. She denies any nausea or vomiting. She has had no fever chills. She denies any cough or chest congestion. Currently she rates her chest pain a 10 out of 10. She has no other symptoms to report. Of note patient did have a nuclear stress test November 2016 which was negative. She was recently in her chest pain center in September 2017 with serial enzymes complete. PFSH Past Medical History Anemia: Yes Arthritis: Yes (RIGHT HIP PRIMARILY) Asthma: Yes Blood Disorders: No Bipolar Disorder: Yes Anxiety: Yes Depression: Yes Heart Rhythm Problems: No Cancer: No Cardiac Catheterization: No Cardiovascular Problems: Yes High Cholesterol: Yes Chemotherapy: No Chest Pain: No Congestive Heart Failure: Yes (POSSIBLY ) Diabetes: Yes Patient Takes Glucophage: Yes Diminished Hearing: No Endocrine: No Gastrointestinal Disorders: No Genitourinary: No Heparin Induced Thrombocytopen: No Hypertension: Yes Immune Disorder: No Implanted Vascular Access Dvce: No Musculoskeletal: Yes Neurologic: No Psychiatric: Yes (PARANOID SCHIZOPHRENIA) Reproductive: No Respiratory: No Immunizations Current: Yes Myocardial Infarction: No Radiation Therapy: No Schizophrenia: Yes (PARANOIA) Seizures: Yes (DECEMBER 2012) Sickle Cell Disease: No PNEUMOCCOCAL Vaccine (Year): 2 Menopausal: Yes : 4 Para: 2 Miscarriage: 1 : 1 Tubal Ligation: Yes Past Surgical History Abdominal Surgery: Yes (COLON) AICD: No Arteriovenous Shunt: No Cardiac Surgery: No Cholecystectomy: Yes Coronary Artery Bypass Graft: Yes Ear Surgery: No Endocrine Surgery: No Eye Surgery: No Genitourinary Surgery: No Gynecologic Surgery: Yes (TUBAL LIGATION 1993) Insulin Pump: No Joint Replacement: No Neurologic Surgery: No Oral Surgery: No Pacemaker: No Thoracic Surgery: No Other Surgery: Yes Family History Family Myocardial Infarction: Yes (BROTHER AND SISTER AND UNCLE) Social History Alcohol Use: No Tobacco Use: Yes ("DIPS SNUFF") Substance Use: No Allergies-Medications (Allergen,Severity, Reaction): Coded Allergies: cat dander (Unverified Allergy, Mild, 12/29/17) Penicillins (Verified Allergy, Unknown, Itching, 12/29/17) Sulfa (Sulfonamide Antibiotics) (Unverified Adverse Reaction, Mild, Nausea /Vomiting, 12/29/17) PT STATES MED "MAKES HER SICK" trihexyphenidyl (Unverified Adverse Reaction, Mild, Nausea/Vomiting, ) Reported Meds & Prescriptions Reported Meds & Active Scripts Active Walker/Adult/Folding (Device) 1 Mis Mis Ea .ROUTE DIRECTED Reported Metoprolol Tartrate 100 Mg Tab 100 Mg PO BID Lorazepam 1 Mg Tab 1 Mg PO DAILY PRN Senna Liq (Senna) 176 Mg/5 Ml Syp 176 Mg PO HS Invega Sustenna Inj (Paliperidone Palmitate) 234 Mg/1.5 Ml Inj 234 Mg IM Q28D Hydralazine HCl 25 Mg Tablet 50 Mg PO TID Fluphenazine (Fluphenazine HCl) 5 Mg Tab 5 Mg PO DAILY Levothyroxine (Levothyroxine Sodium) 25 Mcg Tab 25 Mcg PO DAILY Tradjenta (Linagliptin) 5 Mg Tab 5 Mg PO DAILY Simvastatin 20 Mg Tab 20 Mg PO HS Doxepin (Doxepin HCl) 25 Mg Cap 25 Mg PO HS Naproxen 500 Mg Tab 500 Mg PO BID Metformin (Metformin HCl) 1,000 Mg Tab 1,000 Mg PO BIDPC With meals Gabapentin 300 Mg Cap 300 Mg PO TID Enalapril (Enalapril Maleate) 20 Mg Tab 20 Mg PO BID NEB Docusate Sodium 100 Mg Cap 100 Mg PO BID Depakote ER (Divalproex Sodium) 500 Mg Shawn 1,000 Mg PO BID Review of Systems Except as stated in HPI: all other systems reviewed are Neg Physical Exam Narrative GENERAL: Well-nourished female patient in no acute distress SKIN: Focused skin assessment warm/dry. HEAD: Atraumatic. Normocephalic. EYES: Pupils equal and round. No scleral icterus. No injection or drainage. ENT: No nasal bleeding or discharge. Mucous membranes pink and moist. NECK: Trachea midline. No JVD. CARDIOVASCULAR: Regular rate and rhythm. No murmur appreciated. RESPIRATORY: No accessory muscle use. Clear to auscultation. Breath sounds equal bilaterally. No tenderness elicited palpation of the anterior thoracic cage. GASTROINTESTINAL: Abdomen soft, non-tender, nondistended. Hepatic and splenic margins not palpable. MUSCULOSKELETAL: No obvious deformities. No clubbing. No cyanosis. No edema. NEUROLOGICAL: Awake and alert. No obvious cranial nerve deficits. Motor grossly within normal limits. Normal speech. Data Data Last Documented VS Vital Signs Date Time Temp Pulse Resp B/P (MAP) Pulse Ox O2 Delivery O2 Flow Rate FiO2 12/29/17 16:33 178/72 (107) 12/29/17 16:15 99 Room Air 12/29/17 16:12 61 19 Orders Orders Electrocardiogram (12/29/17 16:27) Basic Metabolic Panel (Bmp) (12/29/17 16:27) Ckmb (Isoenzyme) Profile (12/29/17 16:27) Complete Blood Count With Diff (12/29/17 16:27) Magnesium (Mg) (12/29/17 16:27) Prothrombin Time / Inr (Pt) (12/29/17 16:27) Act Partial Throm Time (Ptt) (12/29/17 16:27) Troponin I (12/29/17 16:27) Lipase (12/29/17 16:27) Ecg Monitoring (12/29/17 16:27) Bilateral Bp Monitoring (12/29/17 16:27) Iv Access Insert/Monitor (12/29/17 16:27) Oximetry (12/29/17 16:27) Oxygen Administration (12/29/17 16:27) Sodium Chloride 0.9% Flush (Ns Flush) (12/29/17 16:30) Chest, Pa & Lat (12/29/17 16:27) Us Leg Venous Doppler (12/29/17 ) Aspirin Chew (Aspirin Chew) (12/29/17 17:00) Nitroglycerin Sl (Nitrostat Sl) (12/29/17 17:00) CKMB (12/29/17 16:35) CKMB% (12/29/17 16:35) Ct Pulmonary Angiogram (12/29/17 ) Electrocardiogram (12/29/17 16:15) Diet Heart Healthy (12/29/17 Dinner) Electrocardiogram (12/29/17 19:23) Ckmb (Isoenzyme) Profile (12/29/17 19:23) Troponin I (12/29/17 19:23) B-Type Natriuretic Peptide (12/29/17 19:24) Iohexol 350 Inj (Omnipaque 350 Inj) (12/29/17 20:10) CKMB (12/29/17 20:25) CKMB% (12/29/17 20:25) Admit Order (Ed Use Only) (12/29/17:) Activity Bed Rest With Brp (12/29/17:) Vital Signs (Adult) Q4H (12/29/17:) Cardiac Rhythm .As Directed (12/29/17:) Notify Dr: Other .PRN (12/29/17) Notify Dr. Parameters (12/29/17:) Resp Oxygen Nasal Cannula (12/29/17 ) Diet Npo (12/30/17 Breakfast) Ckmb (Isoenzyme) Profile (12/29/17 23:25) Ckmb (Isoenzyme) Profile (12/30/17 02:25) Troponin I (12/29/17 23:25) Troponin I (12/30/17 02:25) Electrocardiogram (12/29/17 23:25) Electrocardiogram (12/30/17 02:25) ^ Obtain (12/29/17:23) Sodium Chloride 0.9% Flush (Ns Flush) (12/29/17 21:30) Sodium Chloride 0.9% Flush (Ns Flush) (12/30/17 09:00) Acetaminophen (Tylenol) (12/29/17 21:30) Nitroglycerin Sl (Nitrostat Sl) (12/29/17 21:30) Clamshell Engineer / Telemetry ANIA.Q8H (12/29/17:23) Andrew Bilateral/Knee High ANIA.QSHIFT (12/29/17:) Furosemide Inj (Lasix Inj) (12/29/17 21:30) Labs Laboratory Tests Test 12/29/17 16:35 12/29/17 20:25 White Blood Count 4.6 TH/MM3 Red Blood Count 3.46 MIL/MM3 Hemoglobin 9.1 GM/DL Hematocrit 27.9 % Mean Corpuscular Volume 80.5 FL Mean Corpuscular Hemoglobin 26.3 PG Mean Corpuscular Hemoglobin Concent 32.6 % Red Cell Distribution Width 18.2 % Platelet Count 225 TH/MM3 Mean Platelet Volume 8.3 FL Neutrophils (%) (Auto) 44.0 % Lymphocytes (%) (Auto) 41.2 % Monocytes (%) (Auto) 13.7 % Eosinophils (%) (Auto) 0.7 % Basophils (%) (Auto) 0.4 % Neutrophils # (Auto) 2.0 TH/MM3 Lymphocytes # (Auto) 1.9 TH/MM3 Monocytes # (Auto) 0.6 TH/MM3 Eosinophils # (Auto) 0.0 TH/MM3 Basophils # (Auto) 0.0 TH/MM3 CBC Comment DIFF FINAL Differential Comment Prothrombin Time 10.7 SEC Prothromb Time International Ratio 1.1 RATIO Activated Partial Thromboplast Time 25.9 SEC Blood Urea Nitrogen 6 MG/DL Creatinine 0.83 MG/DL Random Glucose 80 MG/DL Calcium Level 8.6 MG/DL Magnesium Level 2.0 MG/DL Sodium Level 131 MEQ/L Potassium Level 4.2 MEQ/L Chloride Level 96 MEQ/L Carbon Dioxide Level 27.6 MEQ/L Anion Gap 7 MEQ/L Estimat Glomerular Filtration Rate 86 ML/MIN Total Creatine Kinase 295 U/L 287 U/L Creatine Kinase MB 4.1 NG/ML 3.2 NG/ML Creatine Kinase MB % 1.4 % 1.1 % Troponin I LESS THAN 0.02 NG/ML LESS THAN 0.02 NG/ML Lipase 78 U/L B-Type Natriuretic Peptide 171 PG/ML MDM Medical Decision Making Medical Screen Exam Complete: Yes Emergency Medical Condition: Yes Medical Record Reviewed: Yes Differential Diagnosis Chest wall pain versus ACS versus bronchospasm versus anxiety Narrative Course 57-year-old female presents emergency department for evaluation chest pain. Patient appears without distress. Her vital signs stable. Patient is currently having chest pain. She is given aspirin and nitroglycerin. Her pain reduces drastically. EKG is reviewed by my attending physician. Please refer to her documentation. Laboratory Tests Test 12/29/17 16:35 12/29/17 20:25 White Blood Count 4.6 TH/MM3 Red Blood Count 3.46 MIL/MM3 Hemoglobin 9.1 GM/DL Hematocrit 27.9 % Mean Corpuscular Volume 80.5 FL Mean Corpuscular Hemoglobin 26.3 PG Mean Corpuscular Hemoglobin Concent 32.6 % Red Cell Distribution Width 18.2 % Platelet Count 225 TH/MM3 Mean Platelet Volume 8.3 FL Neutrophils (%) (Auto) 44.0 % Lymphocytes (%) (Auto) 41.2 % Monocytes (%) (Auto) 13.7 % Eosinophils (%) (Auto) 0.7 % Basophils (%) (Auto) 0.4 % Neutrophils # (Auto) 2.0 TH/MM3 Lymphocytes # (Auto) 1.9 TH/MM3 Monocytes # (Auto) 0.6 TH/MM3 Eosinophils # (Auto) 0.0 TH/MM3 Basophils # (Auto) 0.0 TH/MM3 CBC Comment DIFF FINAL Differential Comment Prothrombin Time 10.7 SEC Prothromb Time International Ratio 1.1 RATIO Activated Partial Thromboplast Time 25.9 SEC Blood Urea Nitrogen 6 MG/DL Creatinine 0.83 MG/DL Random Glucose 80 MG/DL Calcium Level 8.6 MG/DL Magnesium Level 2.0 MG/DL Sodium Level 131 MEQ/L Potassium Level 4.2 MEQ/L Chloride Level 96 MEQ/L Carbon Dioxide Level 27.6 MEQ/L Anion Gap 7 MEQ/L Estimat Glomerular Filtration Rate 86 ML/MIN Lipase 78 U/L Total Creatine Kinase 287 U/L Creatine Kinase MB 3.2 NG/ML Creatine Kinase MB % 1.1 % Troponin I LESS THAN 0.02 NG/ML B-Type Natriuretic Peptide 171 PG/ML Last Impressions Chest X-Ray 12/29/17 1627 Signed Impressions: CONCLUSION: Mild to moderate congestive failure. Lower Extremity Ultrasound 12/29/17 0000 Signed Impressions: CONCLUSION: 1. Negative for deep venous thrombosis. Incidental 2.7 x 2.3 cm popliteal carmenza a cyst. CT Angiography 12/29/17 0000 Signed Impressions: CONCLUSION: 1. Negative for pulmonary embolus. 2. Trace pleural effusions. Severe coronary artery calcifications. Patient is given 20 mg IV Lasix. I discussed the patient my attending physician. She recommends readmission to the chest pain center for further evaluation. Plan is discussed with the patient who is in agreement with this plan of care. Diagnosis Primary Impression: Chest pain Qualified Codes: R07.9 - Chest pain, unspecified Admitting Information Admitting Physician Requests: Observation Condition: Stable Mago Baird Dec 29, 2017 16:28
[2017-12-29] MEDS ORDERED: SODIUM CHLORIDE 0.9% FLUSH 10 ML FLUSH IVF PRN (16:30)
--- NOTE | 2017-12-29 16:46 | PD ---
Physical Exam Narrative I, Dr. Rao, have reviewed the advance practice practitioner's documentation and am in agreement, met with the patient face to face, made the diagnosis, and the medical decision making was done by me. *My assessment and Findings: Patient presents to the emergency department complaining of intermittent left side, sharp chest pain. Pain does not radiate , 8 out of 10 chest pain now, started this morning. The episode was 4-5 months ago when she was admitted for observation. Also reports left lower extremity edema and no recent travel. EKG shows sinus rhythm with some ST depression in leads I, aVL, and AST slightly elevated and 2, 3, aVF. 1645: Dr. Reddy consulted. Patient given aspirin and nitroglycerin. Data Data Last Documented VS Vital Signs Date Time Temp Pulse Resp B/P (MAP) Pulse Ox O2 Delivery O2 Flow Rate FiO2 12/29/17 16:33 178/72 (107) 12/29/17 16:15 99 Room Air 12/29/17 16:12 61 19 Orders Orders Electrocardiogram (12/29/17 16:27) Basic Metabolic Panel (Bmp) (12/29/17 16:27) Ckmb (Isoenzyme) Profile (12/29/17 16:27) Complete Blood Count With Diff (12/29/17 16:27) Magnesium (Mg) (12/29/17 16:27) Prothrombin Time / Inr (Pt) (12/29/17 16:27) Act Partial Throm Time (Ptt) (12/29/17 16:27) Troponin I (12/29/17 16:27) Lipase (12/29/17 16:27) Ecg Monitoring (12/29/17 16:27) Bilateral Bp Monitoring (12/29/17 16:27) Iv Access Insert/Monitor (12/29/17 16:27) Oximetry (12/29/17 16:27) Oxygen Administration (12/29/17 16:27) Sodium Chloride 0.9% Flush (Ns Flush) (12/29/17 16:30) Chest, Pa & Lat (12/29/17 16:27) Us Leg Venous Doppler (12/29/17 ) Aspirin Chew (Aspirin Chew) (12/29/17 17:00) Nitroglycerin Sl (Nitrostat Sl) (12/29/17 17:00) CKMB (12/29/17 16:35) CKMB% (12/29/17 16:35) Ct Pulmonary Angiogram (12/29/17 ) Electrocardiogram (12/29/17 16:15) Diet Heart Healthy (12/29/17 Dinner) Electrocardiogram (12/29/17 19:23) Ckmb (Isoenzyme) Profile (12/29/17 19:23) Troponin I (12/29/17 19:23) B-Type Natriuretic Peptide (12/29/17 19:24) Labs Laboratory Tests Test 12/29/17 16:35 White Blood Count 4.6 TH/MM3 Red Blood Count 3.46 MIL/MM3 Hemoglobin 9.1 GM/DL Hematocrit 27.9 % Mean Corpuscular Volume 80.5 FL Mean Corpuscular Hemoglobin 26.3 PG Mean Corpuscular Hemoglobin Concent 32.6 % Red Cell Distribution Width 18.2 % Platelet Count 225 TH/MM3 Mean Platelet Volume 8.3 FL Neutrophils (%) (Auto) 44.0 % Lymphocytes (%) (Auto) 41.2 % Monocytes (%) (Auto) 13.7 % Eosinophils (%) (Auto) 0.7 % Basophils (%) (Auto) 0.4 % Neutrophils # (Auto) 2.0 TH/MM3 Lymphocytes # (Auto) 1.9 TH/MM3 Monocytes # (Auto) 0.6 TH/MM3 Eosinophils # (Auto) 0.0 TH/MM3 Basophils # (Auto) 0.0 TH/MM3 CBC Comment DIFF FINAL Differential Comment Prothrombin Time 10.7 SEC Prothromb Time International Ratio 1.1 RATIO Activated Partial Thromboplast Time 25.9 SEC Blood Urea Nitrogen 6 MG/DL Creatinine 0.83 MG/DL Random Glucose 80 MG/DL Calcium Level 8.6 MG/DL Magnesium Level 2.0 MG/DL Sodium Level 131 MEQ/L Potassium Level 4.2 MEQ/L Chloride Level 96 MEQ/L Carbon Dioxide Level 27.6 MEQ/L Anion Gap 7 MEQ/L Estimat Glomerular Filtration Rate 86 ML/MIN Total Creatine Kinase 295 U/L Creatine Kinase MB 4.1 NG/ML Creatine Kinase MB % 1.4 % Troponin I LESS THAN 0.02 NG/ML Lipase 78 U/L [facility] Medical Record Reviewed: Yes Supervised Visit with TRUDY: Yes Narrative Course 1921: Patient better after ASA and NTG. CK and CK MB increased, normal troponin. Chest x-ray shows signs of heart failure. Repeat cardiac enzymes and EKG ordered as well as BNP. Patient is pending ultrasound results and CTA. Heparin pending CT and ultrasound results as well as repeat EKG and cardiac enzymes. Midlevel will ocntinue to follow and I discussed with Dr Rico the incoming physician. Physician Communication Physician Communication 1640: Spoke to Dr. Reddy. Advised nitro and heparin drip if no contraindications, r/o PE if a concern. Condition: Stable Gertrude Rao MD Dec 29, 2017 16:46
[2017-12-29] MEDS: NITROGLYCERIN 0.4 MG SL 25 TABS/BTL SL SCH ×3 (16:54→17:10)
[2017-12-29] MEDS ORDERED: ASPIRIN 81 MG CHEW TAB PO ONE (17:00)
[2017-12-29 17:23] LABS: BASOPHIL % 0.4 % (0.0-2.0); EOSINOPHIL % 0.7 % (0.0-4.0); HEMATOCRIT 27.9 % (35.0-46.0); HEMOGLOBIN 9.1 GM/DL (11.6-15.3); LYMPH % 41.2 % (9.0-44.0); LYMPHOCYTE # 1.9 TH/MM3 (1.0-4.8); MEAN CELL VOLUME 80.5 FL (80.0-100.0); MEAN CORPUSCULAR HEMOGLOBIN 26.3 PG (27.0-34.0); MEAN CORPUSCULAR HGB CONC 32.6 % (32.0-36.0); MEAN PLATELET VOLUME 8.3 FL (7.0-11.0); MONO % 13.7 % (0.0-8.0); MONOCYTE # 0.6 TH/MM3 (0-0.9); PLATELET COUNT 225 TH/MM3 (150-450); RED BLOOD COUNT 3.46 MIL/MM3 (4.00-5.30); RED CELL DISTRIBUTION WIDTH 18.2 % (11.6-17.2); WHITE BLOOD COUNT 4.6 TH/MM3 (4.0-11.0)
[2017-12-29 17:32] LABS: INTERNATIONAL NORMALIZED RATIO 1.1 RATIO; PROTHROMBIN TIME - PATIENT 10.7 SEC (9.8-11.6)
--- NOTE | 2017-12-29 17:32 | RADRPT ---
EXAM DATE: 12/29/2017 5:26 PM EDT AGE/SEX: 57 years / Female INDICATIONS: Chest pain. Short of breath. CLINICAL DATA: This is the patient's initial encounter. Patient reports that signs and symptoms have been present for 1 day and indicates a pain score of 8/10. MEDICAL/SURGICAL HISTORY: . Hypertension. Diabetes mellitus type 2. None. COMPARISON: No prior exams available for comparison. FINDINGS: Heart is enlarged. Mild interstitial edema is present. There is no pleural effusion. There is no pneu mothorax. The portion of the bony skeleton visualized is unremarkable. CONCLUSION: Mild to moderate congestive failure. Electronically signed by: Anastacio Rosas MD 12/29/2017 5:30 PM EDT
[2017-12-29 18:05] LABS: BICARBONATE 27.6 MEQ/L (21.0-32.0); BLOOD UREA NITROGEN 6 MG/DL (7-18); CALCIUM 8.6 MG/DL (8.5-10.1); CHLORIDE 96 MEQ/L (98-107); GLUCOSE,RANDOM 80 MG/DL (74-106); SODIUM (NA) 131 MEQ/L (136-145)
[2017-12-29 18:07] LABS: CREATININE 0.83 MG/DL (0.50-1.00); GLOMERULAR FILTRATION RATE 86 ML/MIN (>89)
[2017-12-29 18:28] LABS: TROPONIN I LESS THAN 0.02 NG/ML (0.02-0.05)
--- NOTE | 2017-12-29 19:35 | RADRPT ---
EXAM DATE: 12/29/2017 6:59 PM EDT AGE/SEX: 57 years / Female INDICATIONS: Left lower extremity swelling. CLINICAL DATA: This is the patient's subsequent encounter. Patient reports that signs and symptoms h ave been present for 1 day and indicates a pain score of 2/10. MEDICAL/SURGICAL HISTORY: Cardiovascular disease. Diabetes. Hypertension. Cholecystectomy. T ubal ligation. CABG. COMPARISON: [facility] [place], US LEG LEFT VENOUS DOPPLER, 12/10/2016. . TECHNIQUE: Venous ultrasound of both lower extremities was performed from the inguinal ligament to t he proximal calf. Real-time, color Doppler and spectral tracing, compression and augmentation techni ques were used. FINDINGS: No evidence for deep venous thrombosis. There is normal compressibility of the venous syst em from inguinal region to the proximal calf. Normal response to augmentation and respiration. CONCLUSION: 1. Negative for deep venous thrombosis. Incidental 2.7 x 2.3 cm popliteal fossa cyst. Electronically signed by: Romario Vivas MD 12/29/2017 7:34 PM EDT
[2017-12-29] MEDS ORDERED: IOHEXOL 350 MG/ML 10 ML VIAL (for RAD DIAG) IVCONTRAST ONE (20:10)
--- NOTE | 2017-12-29 20:53 | RADRPT ---
EXAM DATE: 12/29/2017 8:15 PM EDT AGE/SEX: 57 years / Female INDICATIONS: Chest pain; rule out pulmonary embolus. CLINICAL DATA: This is the patient's initial encounter. Patient reports that signs and symptoms have been present for 1 day and indicates a pain score of 6/10. MEDICAL/SURGICAL HISTORY: Congestive heart failure. Hypertension. Diabetes. Seizures CABG. Cho lecystectomy. Colon resection. Tubal ligation RADIATION DOSE: 10.58 CTDI (mGy) COMPARISON: No prior exams available for comparison. TECHNIQUE: Volumetric scanning was performed using a multi-row detector CT scanner during bolus infu juwan of 65 ml Omnipaque 350 (iohexol) nonionic water-soluble contrast as a single exam dose. The tamika a was post processed with a variety of visualization algorithms including full volume maximum intensi ty projection and sliding thin slab reformation. Using automated exposure control and adjustment of the mA and/or kV according to patient size, radiation dose was kept as low as reasonably achievable t o obtain optimal diagnostic quality images. FINDINGS: No filling defects to suggest pulmonary embolic disease. Trace bilateral pleural effusions. Heart siz e enlarged. Severe coronary artery calcifications. No acute findings in the upper abdomen. CONCLUSION: 1. Negative for pulmonary embolus. 2. Trace pleural effusions. Severe coronary artery calcifications. Electronically signed by: Romario Vivas MD 12/29/2017 8:52 PM EDT
[2017-12-29 21:07] LABS: TROPONIN I LESS THAN 0.02 NG/ML (0.02-0.05)
[2017-12-29] MEDS ORDERED: SODIUM CHLORIDE 0.9% FLUSH 10 ML FLUSH IV FLUSH PRN (21:30)
[2017-12-29] MEDS ORDERED: NITROGLYCERIN 0.4 MG SL 25 TABS/BTL SL PRN (21:30)
[2017-12-29] MEDS ORDERED: FUROSEMIDE 20 MG/2 ML VIAL IV PUSH ONE (21:30)
[2017-12-29] MEDS ORDERED: ACETAMINOPHEN 500 MG CPLT PO PRN (21:30)
[2017-12-30 00:12] LABS: TROPONIN I LESS THAN 0.02 NG/ML (0.02-0.05)
[2017-12-30 03:03] VITALS: BP 178/77; PULSE 62; RESP 16; TEMP 98.1; O2SAT 100
[2017-12-30 03:33] VITALS: BP 162/72; PULSE 64
[2017-12-30 08:00] VITALS: BP 160/74; PULSE 59; RESP 18; TEMP 98.4; O2SAT 96
[2017-12-30 08:26] VITALS: PULSE 69
--- NOTE | 2017-12-30 08:57 | HHI.HP ---
HPI Primary Care Physician Unknown Chief Complaint Chest pain History of Present Illness 57-year-old female with history of type 2 diabetes, hypertension, and schizophrenia who resides in a half-way presents emergency room for further evaluation of chest pain. Onset 11 AM. Location left anterior chest. Characterized as squeezing. Moderate in severity. No radiation of pain. Associated symptoms included dyspnea. Denies nausea, vomiting, or diaphoresis. Discomfort waxed and waned in intensity, duration unknown. No precipitating or relieving factors. Patient is a poor historian. Denies any further chest discomfort since arrival to ER. Review of Systems General: No fatigue, weakness, fever, chills, or recent illness. Has been her general state of health. HEENT: No FERNANDEZ, no vision changes, no nasal congestion or drainage, no dysphasia CV: As stated above. No further chest discomfort. RESP: No SOB, cough, or recent URI. Intermittent wheezing, denies history of asthma/COPD, states "I always ask for an inhaler but no gives me one." GI: No nausea, vomiting, or bowel changes. No change in appetite, no unintentional weight gain or weight loss. : No dysuria, urgency, or frequency EXT: Bilateral lower leg edema began yesterday am. No neuropathy. MS: No discomfort, injury, or change in ROM. NEURO: No dizziness, LOC, motor/sensory deficits PSYCH: History of schizophrenia, denies bipolar disorder. No suicidal ideation or current diarrhea or depression. SKIN: No rashes, no concerning lesions Past Family Social History Allergies: Coded Allergies: cat dander (Unverified Allergy, Mild, 12/29/17) Penicillins (Verified Allergy, Unknown, Itching, 12/29/17) Sulfa (Sulfonamide Antibiotics) (Unverified Adverse Reaction, Mild, Nausea /Vomiting, 12/29/17) PT STATES MED "MAKES HER SICK" trihexyphenidyl (Unverified Adverse Reaction, Mild, Nausea/Vomiting, ) Past Medical History Hypertension, type 2 diabetes, schizophrenia, seizures Past Surgical History Cholecystectomy, tubal ligation, (EMR indicates CABG-chest xray does not indicate history of CABG nor does patient report history of CABG) Reported Medications Reported Meds & Active Scripts Active Walker/Adult/Folding (Device) 1 Mis Mis Ea .ROUTE DIRECTED Reported Metoprolol Tartrate 100 Mg Tab 100 Mg PO BID Lorazepam 1 Mg Tab 1 Mg PO DAILY PRN Senna Liq (Senna) 176 Mg/5 Ml Syp 176 Mg PO HS Invega Sustenna Inj (Paliperidone Palmitate) 234 Mg/1.5 Ml Inj 234 Mg IM Q28D Hydralazine HCl 25 Mg Tablet 50 Mg PO TID Fluphenazine (Fluphenazine HCl) 5 Mg Tab 5 Mg PO DAILY Levothyroxine (Levothyroxine Sodium) 25 Mcg Tab 25 Mcg PO DAILY Tradjenta (Linagliptin) 5 Mg Tab 5 Mg PO DAILY Simvastatin 20 Mg Tab 20 Mg PO HS Doxepin (Doxepin HCl) 25 Mg Cap 25 Mg PO HS Naproxen 500 Mg Tab 500 Mg PO BID Metformin (Metformin HCl) 1,000 Mg Tab 1,000 Mg PO BIDPC With meals Gabapentin 300 Mg Cap 300 Mg PO TID Enalapril (Enalapril Maleate) 20 Mg Tab 20 Mg PO BID NEB Docusate Sodium 100 Mg Cap 100 Mg PO BID Depakote ER (Divalproex Sodium) 500 Mg Shawn 1,000 Mg PO BID Active Ordered Medications Current Medications Medications (Trade) Dose Ordered Sig/Keanu Route Start Time Stop Time Status Last Admin (NS Flush) 2 ml UNSCH PRN IVF 12/29/17 16:30 (NS Flush) 2 ml UNSCH PRN IV FLUSH 12/29/17 21:30 (NS Flush) 2 ml BID IV FLUSH 12/30/17 09:00 (Tylenol) 500 mg Q4H PRN PO 12/29/17 21:30 (Nitrostat Sl) 0.4 mg Q5M PRN SL 12/29/17 21:30 Family History Positive for early onset cardiovascular disease. Reports sister and brother OK in their late 40s early 50s. Social History No known coronary artery disease. History of type 2 diabetes, hypertension, and hyperlipidemia. Lifelong non-smoker, endorses oral use of tobacco. Denies any alcohol or illegal drug use. Resides in a half-way. Past cardiac testing 12/11/16 Lexiscan-No fixed or reversible perfusion deficits. Normal LV wall motion and ejection fraction. Physical Exam Vital Signs Vital Signs Date Time Temp Pulse Resp B/P (MAP) Pulse Ox O2 Delivery O2 Flow Rate FiO2 12/30/17 08:00 98.4 59 18 160/74 (102) 96 12/30/17 03:33 64 162/72 (102) Automatic Cuff 12/30/17 03:03 98.1 62 16 178/77 (110) 100 12/29/17 22:27 98.4 64 16 166/76 (106) 96 12/29/17 22:01 70 18 161/73 (102) 99 12/29/17 22:00 99 12/29/17 16:33 178/72 (107) 12/29/17 16:30 190/83 (118) 12/29/17 16:15 99 Room Air 12/29/17 16:15 99 Room Air 12/29/17 16:12 61 19 190/85 (120) 99 Physical Exam GENERAL: Alert WN, WD, NAD, -French, moderately obese female poor historian. HEAD: NC, AT EYES: Sclera clear, conjunctiva without injection, pupils equal and round ENT: Mucous membranes pink and moist, no nasal discharge or bleeding, poor dentition CV: RRR, 2/6 systolic murmur, no rub, gallop, or JVD, S1-S2 no S3-S4. RESP: Clear lungs throughout bilateral, no crackles, wheeze, rhonchi, symmetrical chest rise, nonlabored, able to speak in full sentences ABD: Soft, NT, ND, no masses, positive bowel tones EXT: Pulses +2x4, +1 pitting right>left lower extremity edema, MS: Normal tone x4 extremities, no obvious deformities, full range of motion NEURO: CN II through CN XII grossly intact, motor strength 5/5 PSYCH: A+O x3, flat affect, appropriate speech and mood, questionable, insight and judgment SKIN: Normal turgor, normal texture, no lesions, no rashes, brisk cap refill, even hair distribution, lower extremities dry skin Laboratory Laboratory Tests Test 12/29/17 16:35 12/29/17 20:25 12/29/17 23:25 White Blood Count 4.6 Red Blood Count 3.46 Hemoglobin 9.1 Hematocrit 27.9 Mean Corpuscular Volume 80.5 Mean Corpuscular Hemoglobin 26.3 Mean Corpuscular Hemoglobin Concent 32.6 Red Cell Distribution Width 18.2 Platelet Count 225 Mean Platelet Volume 8.3 Neutrophils (%) (Auto) 44.0 Lymphocytes (%) (Auto) 41.2 Monocytes (%) (Auto) 13.7 Eosinophils (%) (Auto) 0.7 Basophils (%) (Auto) 0.4 Neutrophils # (Auto) 2.0 Lymphocytes # (Auto) 1.9 Monocytes # (Auto) 0.6 Eosinophils # (Auto) 0.0 Basophils # (Auto) 0.0 CBC Comment DIFF FINAL Differential Comment Prothrombin Time 10.7 Prothromb Time International Ratio 1.1 Activated Partial Thromboplast Time 25.9 Blood Urea Nitrogen 6 Creatinine 0.83 Random Glucose 80 Calcium Level 8.6 Magnesium Level 2.0 Sodium Level 131 Potassium Level 4.2 Chloride Level 96 Carbon Dioxide Level 27.6 Anion Gap 7 Estimat Glomerular Filtration Rate 86 Total Creatine Kinase 295 287 257 Creatine Kinase MB 4.1 3.2 3.3 Creatine Kinase MB % 1.4 1.1 1.3 Troponin I LESS THAN 0.02 LESS THAN 0.02 LESS THAN 0.02 Lipase 78 B-Type Natriuretic Peptide 171 Result Diagram: 12/29/17 1635 12/29/17 1635 Imaging Last 48 hours Impressions Chest X-Ray 12/29/17 1627 Signed Impressions: CONCLUSION: Mild to moderate congestive failure. Lower Extremity Ultrasound 12/29/17 0000 Signed Impressions: CONCLUSION: 1. Negative for deep venous thrombosis. Incidental 2.7 x 2.3 cm popliteal carmenza a cyst. CT Angiography 12/29/17 0000 Signed Impressions: CONCLUSION: 1. Negative for pulmonary embolus. 2. Trace pleural effusions. Severe coronary artery calcifications. Course EKG 1st EKG-NSR, normal axis, no st t segment changes 2nd EKG-NSB, no st t segment changes 3rd EKG-NSr, nonspecific st t segment changes Caprini VTE Risk Assessment Caprini VTE Risk Assessment: No/Low Risk (score <= 1) Caprini Risk Assessment Model Point Value = 1 Point Value = 2 Point Value = 3 Point Value = 5 Age 41-60 Minor surgery BMI > 25 kg/m2 Swollen legs Varicose veins or History of unexplained or recurrent spontaneous Oral contraceptives or hormone replacement Sepsis (< 1 month) Serious lung disease, including pneumonia (< 1 month) Abnormal pulmonary function Acute myocardial infarction Congestive heart failure (< 1 month) History of inflammatory bowel disease Medical patient at bed rest Age 61-74 Arthroscopic surgery Major open surgery (> 45 min) Laparoscopic surgery (> 45 min) Malignancy Confined to bed (> 72 hours) Immobilizing plaster cast Central venous access Age >= 75 History of VTE Family history of VTE Factor V Leiden Prothrombin [id number] Lupus anticoagulant Anticardiolipin antibodies Elevated serum homocysteine Heparin-induced thrombocytopenia Other congenital or acquired thrombophilia Stroke (< 1 month) Elective arthroplasty Hip, pelvis, or leg fracture Acute spinal cord injury (< 1 month) Prophylaxis Regimen Total Risk Factor Score Risk Level Prophylaxis Regimen 0-1 Low Early ambulation 2 Moderate Order ONE of the following: *Sequential Compression Device (SCD) *Heparin 5000 units SQ BID 3-4 Higher Order ONE of the following medications: *Heparin 5000 units SQ TID *Enoxaparin/Lovenox 40 mg SQ daily (WT < 150 kg, CrCl > 30 mL/min) *Enoxaparin/Lovenox 30 mg SQ daily (WT < 150 kg, CrCl > 10-29 mL/min) *Enoxaparin/Lovenox 30 mg SQ BID (WT < 150 kg, CrCl > 30 mL/min) AND/OR *Sequential Compression Device (SCD) 5 or more Highest Order ONE of the following medications: *Heparin 5000 units SQ TID (Preferred with Epidurals) *Enoxaparin/Lovenox 40 mg SQ daily (WT < 150 kg, CrCl > 30 mL/min) *Enoxaparin/Lovenox 30 mg SQ daily (WT < 150 kg, CrCl > 10-29 mL/min) *Enoxaparin/Lovenox 30 mg SQ BID (WT < 150 kg, CrCl > 30 mL/min) AND *Sequential Compression Device (SCD) Assessment and Plan Assessment and Plan #1 Chest pain-chest pain center. Ruled out 3 sets of EKGs, cardiac enzymes, and monitored on telemetry overnight. Will be seen and evaluated by Dr. Giacomo Huber. Further disposition to follow. Discussed possible cardiac testing later this morning. #2 History of hypertension-continue metoprolol, hydralazine, and enalapril #3 History of schizophrenia-continue Depakote, doxepin,, and fluphenazine #4 History of hyperlipidemia-continue simvastatin #5 Tobacco use-strongly encouraged to quit using any form of tobacco. Discussed risk of chewing oral tobacco, instructed to quit. #6 History of type II diabetes-hold oral anti-glycemics, SSI low dose coverage Carmina Abraham Dec 30, 2017 08:57
[2017-12-30] MEDS ORDERED: SODIUM CHLORIDE 0.9% FLUSH 10 ML FLUSH IV FLUSH SCH (09:00)
[2017-12-30] MEDS ORDERED: GLUCAGON 1 MG/ML VIAL OTHER PRN (09:15)
[2017-12-30] MEDS ORDERED: DEXTROSE 50% IN WATER 50 ML VIAL(D50) IV PUSH PRN (09:15)
[2017-12-30] MEDS ORDERED: LEVOTHYROXINE SODIUM 25 MCG TAB PO SCH (09:15)
[2017-12-30] MEDS ORDERED: ENALAPRIL MALEATE 10 MG TAB PO SCH (10:00)
[2017-12-30] MEDS ORDERED: DIVALPROEX SODIUM E.R. 500 MG TAB PO SCH (10:00)
--- NOTE | 2017-12-30 10:07 | PD.CARD.PN ---
Subjective Subjective Remarks Very pleasant but unfortunately schizophrenic patient who is a intermediate resident. She has a long complex history which is appropriately reviewed by the nurse practitioner. Essentially she became somewhat anxious apprehensive and developed recurring chest discomfort. She has been evaluated in the past including most recent nuclear scan in November 2016 which was negative. After presentation review of the records the patient was personally seen and evaluated and the plan was outlined with appropriate decision-making in place. I am in agreement with documentation by nurse practitioner. The patient has ruled out, she has been previously thoroughly evaluated within a year and is personally anxious to return to her home. Further testing was felt to be in the appropriate and unnecessary at this time. Patient will be discharged back to her nursing care facility. Objective Medications Current Medications Medications (Trade) Dose Ordered Sig/Keanu Route Start Time Stop Time Status Last Admin (NS Flush) 2 ml UNSCH PRN IVF 12/29/17 16:30 (NS Flush) 2 ml UNSCH PRN IV FLUSH 12/29/17 21:30 (NS Flush) 2 ml BID IV FLUSH 12/30/17 09:00 (Tylenol) 500 mg Q4H PRN PO 12/29/17 21:30 (Nitrostat Sl) 0.4 mg Q5M PRN SL 12/29/17 21:30 (Depakote Er) 1,000 mg BID PO 12/30/17 10:00 (SINEquan) 25 mg HS PO 12/30/17 21:00 (Vasotec) 20 mg BID PO 12/30/17 10:00 (Prolixin) 5 mg DAILY PO 12/30/17 10:00 (Apresoline) 50 mg TID PO 12/30/17 13:00 (Synthroid) 25 mcg DAILY@0600 PO 12/30/17 09:15 (Lopressor) 100 mg BID PO 12/30/17 21:00 (Pravachol) 40 mg HS PO 12/30/17 21:00 (NovoLOG SUPPLEMENTAL SCALE) 1 ACHS SLIDING SCALE SQ 12/30/17 12:00 (D50w (Vial) Inj) 50 ml UNSCH PRN IV PUSH 12/30/17 09:15 (Glucagon Inj) 1 mg UNSCH PRN OTHER 12/30/17 09:15 Vital Signs / I&O Vital Signs Date Time Temp Pulse Resp B/P (MAP) Pulse Ox O2 Delivery O2 Flow Rate FiO2 12/30/17 08:00 98.4 59 18 160/74 (102) 96 12/30/17 03:33 64 162/72 (102) Automatic Cuff 12/30/17 03:03 98.1 62 16 178/77 (110) 100 12/29/17 22:27 98.4 64 16 166/76 (106) 96 12/29/17 22:01 70 18 161/73 (102) 99 12/29/17 22:00 99 12/29/17 16:33 178/72 (107) 12/29/17 16:30 190/83 (118) 12/29/17 16:15 99 Room Air 12/29/17 16:15 99 Room Air 12/29/17 16:12 61 19 190/85 (120) 99 Physical Exam Well-nourished well-developed lady who is pacing the floor in the room and the hallway at the time of my visit Neck reveals no JVD masses nodes or bruits Chest diminished breath sounds but clear with no rales wheezes or rhonchi Cardiovascular reveals mild tachycardia but no gallops rubs or murmurs Extremities reveal but if edema as noted previously Psychiatrically she talks about seeing snakes and animals in the nursing but otherwise seems to be fairly intact She demonstrates a diffuse swelling tremor but is able to ambulate without difficulty and appears to have good use of all 4 extremities. Laboratory Laboratory Tests Test 12/29/17 16:35 12/29/17 20:25 12/29/17 23:25 White Blood Count 4.6 TH/MM3 Red Blood Count 3.46 MIL/MM3 Hemoglobin 9.1 GM/DL Hematocrit 27.9 % Mean Corpuscular Volume 80.5 FL Mean Corpuscular Hemoglobin 26.3 PG Mean Corpuscular Hemoglobin Concent 32.6 % Red Cell Distribution Width 18.2 % Platelet Count 225 TH/MM3 Mean Platelet Volume 8.3 FL Neutrophils (%) (Auto) 44.0 % Lymphocytes (%) (Auto) 41.2 % Monocytes (%) (Auto) 13.7 % Eosinophils (%) (Auto) 0.7 % Basophils (%) (Auto) 0.4 % Neutrophils # (Auto) 2.0 TH/MM3 Lymphocytes # (Auto) 1.9 TH/MM3 Monocytes # (Auto) 0.6 TH/MM3 Eosinophils # (Auto) 0.0 TH/MM3 Basophils # (Auto) 0.0 TH/MM3 CBC Comment DIFF FINAL Differential Comment Prothrombin Time 10.7 SEC Prothromb Time International Ratio 1.1 RATIO Activated Partial Thromboplast Time 25.9 SEC Blood Urea Nitrogen 6 MG/DL Creatinine 0.83 MG/DL Random Glucose 80 MG/DL Calcium Level 8.6 MG/DL Magnesium Level 2.0 MG/DL Sodium Level 131 MEQ/L Potassium Level 4.2 MEQ/L Chloride Level 96 MEQ/L Carbon Dioxide Level 27.6 MEQ/L Anion Gap 7 MEQ/L Estimat Glomerular Filtration Rate 86 ML/MIN Total Creatine Kinase 295 U/L 287 U/L 257 U/L Creatine Kinase MB 4.1 NG/ML 3.2 NG/ML 3.3 NG/ML Creatine Kinase MB % 1.4 % 1.1 % 1.3 % Troponin I LESS THAN 0.02 NG/ML LESS THAN 0.02 NG/ML LESS THAN 0.02 NG/ML Lipase 78 U/L B-Type Natriuretic Peptide 171 PG/ML Imaging Last 24 hours Impressions Chest X-Ray 12/29/17 1627 Signed Impressions: CONCLUSION: Mild to moderate congestive failure. Assessment and Plan Assessment and Plan Per discussion with the nurse practitioner the patient has ruled out and will be discharged back to her care facility as she requests. Code Status Full code Discussed Condition With Course and decision making making was discussed with the patient she requests that she be allowed to return to her home. Giacomo Huber MD Dec 30, 2017 10:07
--- NOTE | 2017-12-30 10:38 | HHI.DCPOC ---
Discharge Care Plan Diagnosis: (1) Atypical chest pain (2) HTN (hypertension) (3) Diabetes mellitus type 2 (4) Hyperlipidemia (5) Schizoaffective disorder (6) Tobacco abuse Goals to Promote Your Health * To prevent worsening of your condition and complications * To maintain your health at the optimal level Directions to Meet Your Goals Take your medications as prescribed Follow your dietary instruction Follow activity as directed Keep your appointments as scheduled Take your immunizations and boosters as scheduled If your symptoms worsen call your PCP, if no PCP go to Urgent Care Center or Emergency Room Smoking is Dangerous to Your Health. Avoid second hand smoke Call the 24-hour hour crisis hotline for domestic abuse at Carmina Abraham Dec 30, 2017 10:38
[2017-12-30] MEDS ORDERED: INSULIN ASPART SUPPLEMENTAL SCALE SQ SCH (12:00)
--- NOTE | 2017-12-30 12:30 | EKG ---
Date Performed: 12/29/2017 Time Performed: 16:15:14 PTAGE: 57 years EKG: Sinus rhythm NORMAL ECG PREVIOUS TRACING 10/12/[address]-T wave changes, but largely unchanged from previous. DOCTOR: Giacomo Huber Interpretating Date/Time 12/30/2017 12:30:20
--- NOTE | 2017-12-30 12:32 | EKG ---
Date Performed: 12/29/2017 Time Performed: 16:19:12 PTAGE: 57 years EKG: Sinus rhythm MINIMAL ST DEPRESSION BORDERLINE ECG PREVIOUS TRACING 12/29/[address] elevation in lead III and avF. DOCTOR: Giacomo Huber Interpretating Date/Time 12/30/2017 12:31:02
--- NOTE | 2017-12-30 12:33 | EKG ---
Date Performed: 12/29/2017 Time Performed: 23:31:38 PTAGE: 57 years EKG: Sinus rhythm PREVIOUS TRACING : 12/29/[address]-T changes, but largely unchange d DOCTOR: Giacomo Huber Interpretating Date/Time 12/30/2017 12:31:38
--- NOTE | 2017-12-30 12:33 | EKG ---
Date Performed: 12/30/2017 Time Performed: 02:59:43 PTAGE: 57 years EKG: Sinus rhythm NORMAL ECG PREVIOUS TRACING : 12/29/[address]-T changes, but largely unchanged from prior tracing. DOCTOR: Giacomo Huber Interpretating Date/Time 12/30/2017 12:32:00
--- NOTE | 2017-12-30 12:48 | EKG ---
Date Performed: 12/29/2017 Time Performed: 20:35:10 PTAGE: 57 years EKG: SINUS BRADYCARDIA BORDERLINE ECG PREVIOUS TRACING : 12/29/2017 16.19 Since the previous tracing, no significant change noted DOCTOR: Giacomo Huber Interpretating Date/Time 12/30/2017 12:47:32
[2017-12-30] MEDS ORDERED: hydrALAZINE HCL 50 MG TAB PO SCH (13:00)
[2017-12-30] MEDS ORDERED: PRAVASTATIN SOD 40 MG TAB PO SCH (21:00)
[2017-12-30] MEDS ORDERED: METOPROLOL TARTRATE 100 MG TAB PO SCH (21:00)
[2017-12-30] MEDS ORDERED: DOXEPIN HCL 25 MG CAP PO SCH (21:00)
== END 2017-12-30 11:40 ==
LOC: NEPC 16:03 → NEDA 21:26 → NEPFCDU 22:08
PROVIDERS: ADMIT Internal Medicine Interventional Cardiology; ATTEND Internal Medicine Interventional Cardiology
DX: R07.89 Other chest pain (principal); I11.0 Hypertensive heart disease with heart failure; I50.9 Heart failure, unspecified; R94.31 Abnormal electrocardiogram [ECG] [EKG]; E11.9 Type 2 diabetes mellitus without complications; E78.5 Hyperlipidemia, unspecified; F25.9 Schizoaffective disorder, unspecified; J45.909 Unspecified asthma, uncomplicated; Z72.0 Tobacco use; Z95.1 Presence of aortocoronary bypass graft; Z82.49 Family history of ischemic heart disease and other diseases of the circulatory system
CPT/HCPCS: 71046; 71275; 80048; 82550; 82552; 82948; 83690; 83735; 83880; 84484; 85025; 85610; 85730; 93005; 93971; 99285; G0378; Q9967

== ENCOUNTER 2018-05-30 17:13 | Inpatient (IN) ==
--- NOTE | 2018-05-30 17:37 | XR ---
EXAM DATE: 05/30/2018 5:27 PM EST AGE/SEX: 58 years / Female INDICATIONS: Short of breath. CLINICAL DATA: This is the patient's initial encounter. Patient reports that signs and symptoms have been present for 1 day and indicates a pain score of 0/10. MEDICAL/SURGICAL HISTORY: Non-responsive. Non-responsive. COMPARISON: [facility] [place], CHEST 1V SINGLE AP, 03/25/2018. . FINDINGS: There is diffuse symmetric pleural parenchymal opacity, appearance most suggestive of interstitial an d alveolar edema and layering effusion. Cardiac silhouette is enlarged. CONCLUSION: Probable CHF Electronically signed by: Tobin Velasquez MD 05/30/2018 5:36 PM EST
[2018-05-30 17:44] LABS: Baso % (Auto) 0.6 % (0.0-2.0); Eos % (Auto) 0.5 % (0.0-4.0); Hematocrit 28.7 % (35.0-46.0); Lymph # (Auto) 4.4 th/mm3 (1.0-4.8); Lymph % (Auto) 54.5 % (9.0-44.0); Mean Corpuscular HGB Conc 31.5 % (32.0-36.0); Mean Corpuscular Hemoglobin 25.9 pg (27.0-34.0); Mean Corpuscular Volume 82.3 fL (80.0-100.0); Mono # (Auto) 0.8 th/mm3 (0.0-0.9); Mono % (Auto) 9.4 % (0.0-8.0); Neut # (Auto) 2.8 th/mm3 (1.8-7.7); Platelet Count 300 th/mm3 (150-450); Red Blood Count 3.48 mil/mm3 (4.00-5.30); Red Cell Distribution Width 19.2 % (11.6-17.2); White Blood Count 8.1 th/mm3 (4.0-11.0)
--- NOTE | 2018-05-30 17:59 | ED ---
HPI General Chief Complaint: Respiratory Symptoms Stated Complaint: SOB Time Seen by Provider: 05/30/18 17:15 Source: patient and EMS Mode of arrival: EMS Limitations: no limitations History of Present Illness MD Complaint: Reports shortness of breath Onset (ago): hour(s) (this morning) Severity: severe Consistency/Duration: intermittent Relieving factors: bronchodilators and other (BiPAP) Exacerbating factors: nothing Known history of: Reports diabetes; Denies COPD, asthma and congestive heart failure Associated symptoms: Reports chest pain Treatment prior to arrival: Reports oxygen, bronchodilator and NIPPV Related Data Home oxygen amount: none Home Medications Medication Instructions Recorded Confirmed divalproex 1,000 mg PO BID 03/25/18 05/30/18 docusate sodium 100 mg PO BID 03/25/18 05/30/18 doxepin 25 mg PO HS 03/25/18 05/30/18 enalapril maleate 20 mg PO BID 03/25/18 05/30/18 fluphenazine HCl 5 mg PO DAILY 03/25/18 05/30/18 fluphenazine HCl 10 mg PO HS 03/25/18 05/30/18 gabapentin 300 mg PO TID 03/25/18 05/30/18 hydralazine 50 mg PO TID 03/25/18 05/30/18 levothyroxine 25 mcg PO DAILY 03/25/18 05/30/18 linagliptin [Tradjenta] 5 mg PO DAILY 03/25/18 05/30/18 lorazepam 1 mg PO DAILY 03/25/18 05/30/18 metformin 1,000 mg PO BID 03/25/18 05/30/18 metoprolol tartrate 100 mg PO BID 03/25/18 05/30/18 naproxen 500 mg PO BID 03/25/18 05/30/18 sennosides [Senna Laxative] 8.6 mg PO DAILY PRN 03/25/18 05/30/18 simvastatin 40 mg PO HS 05/30/18 05/30/18 Allergies Allergy/AdvReac Type Severity Reaction Status Date / Time cat dander Allergy Mild Cough Verified 05/30/18 17:22 Penicillins Allergy Unknown Itching Verified 05/30/18 17:22 Sulfa (Sulfonamide AdvReac Mild Nausea/Vomi Verified 05/30/18 17:22 Antibiotics) ting trihexyphenidyl AdvReac Mild Nausea/Vomi Verified 05/30/18 17:22 ting Review of Systems ROS: all other systems reviewed are negative [facility] Medical History Medical History CVA (cerebral vascular accident) (Acute) Diabetes (Acute) HTN (hypertension) (Acute) Myocardial infarction (Acute) Social History Social History Substance History: No History of Abuse Smoking Status: Never smoker Tobacco Type: Smokeless Tobacco How Often Do You Have a Drink Containing Alcohol: Never Recent Travel in [facility] within the Last 8 Weeks: No Immunization History Tetanus Immunization: Unsure Exam Const General: cooperative, healthy appearing, comfortable, well developed, well groomed and in distress Orientation: alert, awake and oriented x3 HENMT Head: normal to inspection, normocephalic and atraumatic Eyes Alignment and Position: alignment normal Conjunctivae: conjunctivae normal Sclera: sclerae normal EOM: EOM intact bilaterally Neck Neck: normal visual inspection and full ROM Chest Chest: normal inspection of the chest Resp Effort & Inspection: labored Auscultation: diminished lung sounds and wheezes Cardio Rate: regular rate Rhythm: regular rhythm GI Inspection: normal to inspection Palpation: soft Back/Spine/Pelvis Cervical Spine: cervical ROM normal Thoracic/Lumbar Spine: thoraco-lumbar ROM normal Skin General: no rashes or lesions noted and turgor normal Neuro General: alert, awake, oriented x3, moves all extremities and CN's II-XI intact bilaterally Extrem General: normal to inspection, full ROM, no pedal edema and no calf tenderness Psych Appearance: grossly normal Mental Status: mental status grossly normal Speech and Movement: speech and movement normal Mood: congruent mood Affect: normal affect Attitude: cooperative Thought Process: normal Thought Content: normal Judgment: judgment good Course Consultations Consultation #1: Dr. Suarez Time: 20:43 Initial Documented Vital Signs Pulse Rate 85 05/30/18 17:17 Respiratory Rate 24 05/30/18 17:17 Blood Pressure 164/77 H 05/30/18 17:17 Pulse Oximetry 97 05/30/18 17:17 Last Documented Vital Signs Pulse Rate 83 05/30/18 19:13 Respiratory Rate 22 05/30/18 19:13 Blood Pressure 206/99 H 05/30/18 19:13 Pulse Oximetry 98 05/30/18 19:13 Critical Care Time Critical Care Time: Yes Total Critical Care Time: 45 Attestation: Time to perform other separately billable procedures was not included in the critical care time. My time did not include minutes spent treating any other patients simultaneously or on activities that did not directly contribute to the patient's treatment. The services I provided to this patient were to treat and/or prevent clinically significant deterioration due to respiratory distress I provided critical care services requiring my management, as noted below: Chart data review, documentation time, medication orders and management, vital sign assessments/reviewing monitor data, ordering and reviewing lab tests, ordering and interpreting/reviewing x-rays and diagnostic studies, care of the patient and discussion of the patient with the admitting physicians Medical Decision Making MDM Narrative Medical decision making narrative: This patient presents via [facility] with dyspnea. [facility] has treated her in route with IV Solu-Medrol, a DuoNeb, and albuterol neb and BiPAP. They report that she is markedly improved on arrival here. Patient reports the onset of symptoms today. The symptoms have waxed and waned. She reports associated chest pain. She denies fever or purulent sputum. On exam, she was initially very tight with I&E wheezing. However, her sats are in the upper 90s now on [place] oxygen. She will be treated with stacked nebs. Dyspnea workup is in process. After seeing her chest x-ray, aspirin, IV Lasix and transdermal nitroglycerin were added. Lactic acid is elevated. I will not give her IV fluids since she has congestive heart failure and a right pleural effusion. CT neg for PE. This patient is being admitted for further evaluation and treatment of her new onset CHF with associated pleural effusion. Medical Screen Exam Complete: Yes Emergency Medical Condition: Yes Differential Diagnosis Differential Diagnosis: Differential diagnosis of dyspnea includes but is not limited to congestive heart failure, pneumonia, wheezing, pneumothorax, pulmonary embolism Medical Records Medical records reviewed: Yes I reviewed the patient's medical records. Medical history of hypertension, diabetes and schizophrenia. She had a nuclear stress test in November 2016 which was negative. She has been admitted twice since then to the chest pain center and has ruled out by enzymes. Lab Data Lab results reviewed: Yes I reviewed the patient's lab results. Result diagrams: 05/30/18 17:20 05/30/18 17:20 Lab Results 05/30/18 05/30/18 05/30/18 Range/Units 17:10 17:20 17:20 WBC 8.1 (4.0-11.0) th/mm3 RBC 3.48 L (4.00-5.30) mil/mm3 Hgb 9.0 L (11.6-15.3) gm/dL Hct 28.7 L (35.0-46.0) % MCV 82.3 (80.0-100.0) fL MCH 25.9 L (27.0-34.0) pg MCHC 31.5 L (32.0-36.0) % RDW 19.2 H (11.6-17.2) % Plt Count 300 (150-450) th/mm3 MPV 8.0 (7.0-11.0) fL Prelim Diff (Auto) Slide review pending Neut % (Auto) 35.0 (16.0-70.0) % Lymph % (Auto) 54.5 H (9.0-44.0) % [place] % (Auto) 9.4 H (0.0-8.0) % Eos % (Auto) 0.5 (0.0-4.0) % Baso % (Auto) 0.6 (0.0-2.0) % Neut # (Auto) 2.8 (1.8-7.7) th/mm3 Lymph # (Auto) 4.4 (1.0-4.8) th/mm3 [place] # (Auto) 0.8 (0.0-0.9) th/mm3 Eos # (Auto) 0.0 (0.0-0.4) th/mm3 Baso # (Auto) 0.0 (0.0-0.2) th/mm3 WBC Differential . Diff Scan Auto diff confirmed Differential Comment . Platelet Estimate Normal (Normal) Platelet Morphology Normal (Normal) D-Dimer Quant (PE/DVT) 1.23 H (0.00-0.50) mg/L FEU Puncture Site Patient Temperature O2 Saturation (90-100) % ABG pH (7.380-7.420) ABG pCO2 (38-42) mmHg ABG pO2 (61-120) mmHg ABG HCO3 (22-26) mmol/L ABG O2 Content (12.0-20.0) Vol % ABG Base Excess (-2-2) mmol/L ABG Methemoglobin (0-2) % Carlton Test Hemoglobin (12.0-16.0) G/DL Carboxyhemoglobin (0-4) % O2 Delivery Device Liter Flow L/M Critical Value Sodium (136-145) meq/L Potassium (3.5-5.1) meq/L Chloride (98-107) meq/L Carbon Dioxide (21.0-32.0) meq/L Anion Gap (5-15) meq/L BUN (7-18) mg/dL Creatinine (0.50-1.00) mg/dL Estimated GFR (>89) mL/min Random Glucose (74-106) mg/dL Lactic Acid 3.8 H (0.4-2.0) mmol/L Calcium (8.5-10.1) mg/dL Total Bilirubin (0.2-1.0) mg/dL AST (15-37) U/L ALT (10-53) U/L Alkaline Phosphatase (45-117) U/L Troponin I (0.02-0.05) ng/mL B-Natriuretic Peptide (0-100) pg/mL Total Protein (6.4-8.2) g/dL Albumin (3.4-5.0) g/dL 05/30/18 05/30/18 05/30/18 Range/Units 17:20 17:20 18:40 WBC (4.0-11.0) th/mm3 RBC (4.00-5.30) mil/mm3 Hgb (11.6-15.3) gm/dL Hct (35.0-46.0) % MCV (80.0-100.0) fL MCH (27.0-34.0) pg MCHC (32.0-36.0) % RDW (11.6-17.2) % Plt Count (150-450) th/mm3 MPV (7.0-11.0) fL Prelim Diff (Auto) Neut % (Auto) (16.0-70.0) % Lymph % (Auto) (9.0-44.0) % [place] % (Auto) (0.0-8.0) % Eos % (Auto) (0.0-4.0) % Baso % (Auto) (0.0-2.0) % Neut # (Auto) (1.8-7.7) th/mm3 Lymph # (Auto) (1.0-4.8) th/mm3 [place] # (Auto) (0.0-0.9) th/mm3 Eos # (Auto) (0.0-0.4) th/mm3 Baso # (Auto) (0.0-0.2) th/mm3 WBC Differential Diff Scan Differential Comment Platelet Estimate (Normal) Platelet Morphology (Normal) D-Dimer Quant (PE/DVT) (0.00-0.50) mg/L FEU Puncture Site Right radial Patient Temperature 98.6 O2 Saturation 95 (90-100) % ABG pH 7.38 (7.380-7.420) ABG pCO2 48 H (38-42) mmHg ABG pO2 105 (61-120) mmHg ABG HCO3 28 H (22-26) mmol/L ABG O2 Content 14.4 (12.0-20.0) Vol % ABG Base Excess 2.8 H (-2-2) mmol/L ABG Methemoglobin 0.7 (0-2) % Carlton Test Present Hemoglobin 10.6 L (12.0-16.0) G/DL Carboxyhemoglobin 1.2 (0-4) % O2 Delivery Device Nasal cannula Liter Flow 4.00 L/M Critical Value No Sodium 141 (136-145) meq/L Potassium 4.0 (3.5-5.1) meq/L Chloride 102 (98-107) meq/L Carbon Dioxide 28.6 (21.0-32.0) meq/L Anion Gap 10 (5-15) meq/L BUN 15 (7-18) mg/dL Creatinine 1.14 H (0.50-1.00) mg/dL Estimated GFR 59 L (>89) mL/min Random Glucose 127 H (74-106) mg/dL Lactic Acid (0.4-2.0) mmol/L Calcium 8.8 (8.5-10.1) mg/dL Total Bilirubin 0.2 (0.2-1.0) mg/dL AST 17 (15-37) U/L ALT 16 (10-53) U/L Alkaline Phosphatase 70 (45-117) U/L Troponin I 0.02 (0.02-0.05) ng/mL B-Natriuretic Peptide 401 H (0-100) pg/mL Total Protein 7.5 (6.4-8.2) g/dL Albumin 3.4 (3.4-5.0) g/dL Imaging Data Attestation: I personally reviewed and interpreted this imaging study as follows : My impression: She has a right pleural effusion and cardiomegaly as well as pulmonary vascular congestion Radiologist's impression: Chest X-Ray 05/30/18 17:16 CONCLUSION: Probable CHF Chest CTA 05/30/18 17:59 CONCLUSION: 1. The study is negative for pulmonary embolism 2. Bilateral pleural effusions, right greater than left, and atelectasis or infiltrate in the right lower lobe. ECG Data EKG Prior to Arrival: No Attestation: I personally reviewed and interpreted this ECG as follows: (Normal sinus rhythm with a rate of 82. She has some minor ST elevation in aVR.) Prior ECG tracings: available for review (Unchanged) Discharge Plan Physicians Team ED Provider: Viki Doherty Primary Care Provider: UNKNOWN, Rxs /Orders / Referrals /Forms Prescriptions: No Action sennosides [Senna Laxative] 8.6 mg Tablet 8.6 mg PO DAILY PRN (Reason: Constipation) RF: 0 metoprolol tartrate 100 mg Tablet 100 mg PO BID RF: 0 doxepin 25 mg Capsule 25 mg PO HS RF: 0 enalapril maleate 20 mg Tablet 20 mg PO BID RF: 0 levothyroxine 25 mcg Tablet 25 mcg PO DAILY RF: 0 metformin 1,000 mg Tablet 1,000 mg PO BID RF: 0 divalproex 500 mg Tablet Extended Release 24 Hr 1,000 mg PO BID RF: 0 docusate sodium 100 mg Capsule 100 mg PO BID RF: 0 gabapentin 300 mg Capsule 300 mg PO TID RF: 0 hydralazine 50 mg Tablet 50 mg PO TID RF: 0 lorazepam 1 mg Tablet 1 mg PO DAILY RF: 0 fluphenazine HCl 5 mg Tablet 10 mg PO HS RF: 0 fluphenazine HCl 5 mg Tablet 5 mg PO DAILY RF: 0 naproxen 500 mg Tablet 500 mg PO BID RF: 0 linagliptin [Tradjenta] 5 mg Tablet 5 mg PO DAILY RF: 0 simvastatin 40 mg Tablet 40 mg PO HS RF: 0 Discharge Interventions Interventions: Vital Signs Last Done: 05/30/18 19:13 Status ED Status: Pending Admission
[2018-05-30 18:10] LABS: Albumin 3.4 g/dL (3.4-5.0); Anion Gap 10 meq/L (5-15); Aspartate Aminotransferase 17 U/L (15-37); Blood Urea Nitrogen 15 mg/dL (7-18); Calcium 8.8 mg/dL (8.5-10.1); Carbon Dioxide 28.6 meq/L (21.0-32.0); Chloride 102 meq/L (98-107); Glomerular Filtration Rate 59 mL/min (>89); Glucose,Random 127 mg/dL (74-106); Sodium 141 meq/L (136-145)
[2018-05-30 18:11] LABS: Alanine Aminotransferase 16 U/L (10-53)
[2018-05-30 18:13] LABS: Platelet Estimate Normal (Normal); Platelet Morphology Normal (Normal)
[2018-05-30 18:14] LABS: Alkaline Phosphatase 70 U/L (45-117); Total Protein 7.5 g/dL (6.4-8.2); Troponin I 0.02 ng/mL (0.02-0.05)
[2018-05-30 18:47] LABS: ABG Base Excess 2.8 mmol/L (-2-2); ABG PCO2 48 mmHg (38-42); ABG PO2 105 mmHg (61-120)
--- NOTE | 2018-05-30 20:15 | CT ---
EXAM DATE: 05/30/2018 8:06 PM EST AGE/SEX: 58 years / Female INDICATIONS: Short of breath and chest pain today, worsening through the day. CLINICAL DATA: This is the patient's initial encounter. Patient reports that signs and symptoms have been present for 1 day and indicates a pain score of 6/10. MEDICAL/SURGICAL HISTORY: Cerebrovascular disease. Diabetes. Myocardial infarction. Hypertension . None. RADIATION DOSE: 23.07 CTDI (mGy) ; Patient body habitus COMPARISON: [facility] [place], CT PULMONARY ANGIOGRAM, 12/29/2017. . TECHNIQUE: Volumetric scanning was performed using a multi-row detector CT scanner during bolus infu juwan of 60 ml Omnipaque 350 (iohexol) nonionic water-soluble contrast as a single exam dose. The tamika a was post processed with a variety of visualization algorithms including full volume maximum intensi ty projection and sliding thin slab reformation. Using automated exposure control and adjustment of t mA and/or kV according to patient size, radiation dose was kept as low as reasonably achievable to obtain optimal diagnostic quality images. DICOM format image data is available electronically for r eview and comparison. FINDINGS: Pulmonary Arteries: No filling defects are seen in the pulmonary arteries out to the subsegmental ve ssels. The left and right pulmonary arteries are normal in diameter. Lung: Airspace consolidation adjacent to the right pleural effusion, subsegmental. Effusion: Bilateral pleural effusions, moderately large on the right measuring 4.0 cm and small on t he left measuring 1.7 cm. Mediastinum: No evidence of mediastinal or hilar adenopathy. Coronary artery calcifications. Other: The axilla is unremarkable. CONCLUSION: 1. The study is negative for pulmonary embolism 2. Bilateral pleural effusions, right greater than left, and atelectasis or infiltrate in the right lower lobe. Electronically signed by: Pranay Ching MD 05/30/2018 8:13 PM EST
[2018-05-30] MEDS ORDERED: Dextrose 50% in Water 50 ML Vial IV.PUSH PRN (21:26)
[2018-05-30] MEDS: Enoxaparin Inj 40 MG/0.4 ML Syringe SQ SCH (21:42)
--- NOTE | 2018-05-30 22:47 | P.HP ---
History of Present Illness Service: [facility] Primary Care Physician: UNKNOWN History of Present Illness: 58-year-old female with a past medical history significant for schizophrenia, bipolar disorder, seizure disorder, hypertension, diabetes mellitus and hyperlipidemia presents to the emergency department for the evaluation of chest pain and shortness of breath. The patient states she had left-sided chest pain that began last night. It was accompanied with wheezing and shortness of breath. She endorses a fever and a nonproductive cough for the past 2 days. No abdominal pain. No nausea/vomiting/diarrhea. No lateralizing signs/ symptoms. Inpatient Certification: I certify that the inpatient services were ordered in accordance with Medicare regulations governing the order. This includes certification that hospital inpatient services are reasonable and necessary and in the case of services not specified as inpatient-only under 42 CFR 419.22(n), that they are appropriately provided as inpatient services in accordance to with the 2-midnight benchmark under 43 CFR 412.3(e) Estimated Total Length of Stay (Days): 3 Plans for Post Hospital Care: Not yet determined Review of Systems All other systems reviewed negative except as stated in HPI [facility] - History History Provided By: Patient - Medical History Medical History: Medical History (Last Updated 05/30/18 @ 22:22 by Sherin Suarez MD) Bipolar disorder Hyperlipidemia Schizophrenia Seizure disorder CVA (cerebral vascular accident) Diabetes HTN (hypertension) Myocardial infarction - Surgical History Surgical History: Surgical History (Last Updated 05/30/18 @ 22:23 by Sherin Suarez MD) History of hip surgery - Family History Family History: Family History (Last Updated 05/30/18 @ 22:23 by Sherin Suarez MD) Other Diabetes mellitus - Tobacco History Smoking Status: Never smoker Tobacco Type: Smokeless Tobacco - Alcohol History How Often Do You Have a Drink Containing Alcohol: Never - Substance Use History Substance History: No History of Abuse - Travel History Recent Travel in the [place] Within the Last 8 Weeks: No - Immunization History Tetanus Immunization: Unsure Medications and Allergies Active Medications: Active Medications Dextrose (D50w Vial) 50 ml IV.PUSH UNSCH PRN PRN Reason: PER HYPOGLYCEMIA PROTOCOL Divalproex Sodium (Depakote Er) 1,000 mg PO BID [facility] Docusate Sodium (Colace) 100 mg PO BID [facility] Doxepin HCl (Sinequan) 25 mg PO HS [facility] Enalapril Maleate (Vasotec) 20 mg PO BID [facility] Enoxaparin Sodium (Lovenox Inj) 40 mg SQ Q24H [facility] Last Admin: 05/30/18 21:42 Dose: 40 mg Fluphenazine HCl (Prolixin) 5 mg PO DAILY [facility] Fluphenazine HCl (Prolixin) 10 mg PO HS [facility] Furosemide (Lasix Inj) 40 mg IV.PUSH BID@0900,1800 [facility] Gabapentin (Neurontin) 300 mg PO TID [facility] Glucagon (Glucagon Inj) 1 mg OTHER PRN PRN PRN Reason: for Hypoglycemia Protocol Hydralazine HCl (Apresoline) 50 mg PO TID [facility] Insulin Aspart (Novolog Insulin Correctional Sugar Inj) 0 unit SQ ACHS AND 3AM [facility]; Protocol Levothyroxine Sodium (Synthroid) 25 mcg PO DAILY@0600 [facility] Lorazepam (Ativan) 1 mg PO DAILY [facility] Metoprolol Tartrate (Lopressor) 100 mg PO BID [facility] Non-Formulary Medication (Linagliptin [Tradjenta]) 5 mg PO DAILY [facility] Non-Formulary Medication (Simvastatin [Simvastatin]) 40 mg PO HS [facility] Potassium Chloride (Kcl) 10 meq PO BID [facility] Sodium Chloride (Ns Flush) 2 ml IV.FLUSH PRN PRN PRN Reason: FLUSH AFTER USING IV ACCESS Last Admin: 05/30/18 18:42 Dose: 2 ml Sodium Chloride (Ns Flush) 2 ml IV.FLUSH BID [facility] Sodium Chloride (Ns Flush) 2 ml IV.FLUSH UNSCH PRN PRN Reason: FLUSH AFTER USING IV ACCESS Allergies Allergy/AdvReac Type Severity Reaction Status Date / Time cat dander Allergy Mild Cough Verified 05/30/18 17:22 Penicillins Allergy Unknown Itching Verified 05/30/18 17:22 Sulfa (Sulfonamide AdvReac Mild Nausea/Vomi Verified 05/30/18 17:22 Antibiotics) ting trihexyphenidyl AdvReac Mild Nausea/Vomi Verified 05/30/18 17:22 ting Home Medications Medication Instructions Recorded Confirmed Type divalproex 1,000 mg PO BID 03/25/18 05/30/18 History docusate sodium 100 mg PO BID 03/25/18 05/30/18 History doxepin 25 mg PO HS 03/25/18 05/30/18 History enalapril maleate 20 mg PO BID 03/25/18 05/30/18 History fluphenazine HCl 5 mg PO DAILY 03/25/18 05/30/18 History fluphenazine HCl 10 mg PO HS 03/25/18 05/30/18 History gabapentin 300 mg PO TID 03/25/18 05/30/18 History hydralazine 50 mg PO TID 03/25/18 05/30/18 History levothyroxine 25 mcg PO DAILY 03/25/18 05/30/18 History linagliptin [Tradjenta] 5 mg PO DAILY 03/25/18 05/30/18 History lorazepam 1 mg PO DAILY 03/25/18 05/30/18 History metformin 1,000 mg PO BID 03/25/18 05/30/18 History metoprolol tartrate 100 mg PO BID 03/25/18 05/30/18 History naproxen 500 mg PO BID 03/25/18 05/30/18 History sennosides [Senna Laxative] 8.6 mg PO DAILY PRN 03/25/18 05/30/18 History simvastatin 40 mg PO HS 05/30/18 05/30/18 History Exam Vital signs: Vital Signs 05/30/18 17:17 05/30/18 17:22 05/30/18 18:19 Pulse Rate 85 83 81 Respiratory Rate 24 21 18 Blood Pressure 164/77 H 164/77 H Pulse Oximetry 97 97 05/30/18 18:26 05/30/18 19:13 05/30/18 21:38 Pulse Rate 83 73 Respiratory Rate 22 Blood Pressure 206/99 H Pulse Oximetry 97 98 97 05/30/18 21:40 Pulse Rate 77 Respiratory Rate 18 Blood Pressure 141/67 H Pulse Oximetry 97 Intake & Output 05/30/18 05/30/18 05/31/18 06:59 18:59 06:59 Weight 90.718 kg Narrative: Gen.: No acute distress Head: Normocephalic. Atraumatic. EENT: Pupils equal round and reactive to light. Nose without drainage. Airway intact. Throat without injection. Cardiovascular: Regular rate and rhythm. No murmurs, rubs or gallops. Respiratory: Lungs clear to auscultation bilaterally. No wheezes or rhonchi. Abdomen: Soft, nontender, nondistended. No peritoneal signs. Musculoskeletal: No gross deformities. No edema. Skin: No obvious rashes or erythema. Neuro: Sensory and motor grossly intact. Cranial nerves II through XII grossly intact. Results - Labs CBC & Chem 7: 05/30/18 17:20 05/30/18 17:20 Labs: Laboratory Results - last 24 hr 05/30/18 05/30/18 05/30/18 17:10 17:20 17:20 WBC 8.1 RBC 3.48 L Hgb 9.0 L Hct 28.7 L MCV 82.3 MCH 25.9 L MCHC 31.5 L RDW 19.2 H Plt Count 300 MPV 8.0 Prelim Diff (Auto) Slide review pending Neut % (Auto) 35.0 Lymph % (Auto) 54.5 H [place] % (Auto) 9.4 H Eos % (Auto) 0.5 Baso % (Auto) 0.6 Neut # (Auto) 2.8 Lymph # (Auto) 4.4 [place] # (Auto) 0.8 Eos # (Auto) 0.0 Baso # (Auto) 0.0 WBC Differential . Diff Scan Auto diff confirmed Differential Comment . Platelet Estimate Normal Platelet Morphology Normal D-Dimer Quant (PE/DVT) 1.23 H Puncture Site Patient Temperature O2 Saturation ABG pH ABG pCO2 ABG pO2 ABG HCO3 ABG O2 Content ABG Base Excess ABG Methemoglobin [place] Test Hemoglobin Carboxyhemoglobin O2 Delivery Device Liter Flow Critical Value Sodium Potassium Chloride Carbon Dioxide Anion Gap BUN Creatinine Estimated GFR Random Glucose Lactic Acid 3.8 H Calcium Total Bilirubin AST ALT Alkaline Phosphatase Troponin I B-Natriuretic Peptide Total Protein Albumin 05/30/18 05/30/18 05/30/18 17:20 17:20 18:40 WBC RBC Hgb Hct MCV MCH MCHC RDW Plt Count MPV Prelim Diff (Auto) Neut % (Auto) Lymph % (Auto) [place] % (Auto) Eos % (Auto) Baso % (Auto) Neut # (Auto) Lymph # (Auto) [place] # (Auto) Eos # (Auto) Baso # (Auto) WBC Differential Diff Scan Differential Comment Platelet Estimate Platelet Morphology D-Dimer Quant (PE/DVT) Puncture Site Right radial Patient Temperature 98.6 O2 Saturation 95 ABG pH 7.38 ABG pCO2 48 H ABG pO2 105 ABG HCO3 28 H ABG O2 Content 14.4 ABG Base Excess 2.8 H ABG Methemoglobin 0.7 [place] Test Present Hemoglobin 10.6 L Carboxyhemoglobin 1.2 O2 Delivery Device Nasal cannula Liter Flow 4.00 Critical Value No Sodium 141 Potassium 4.0 Chloride 102 Carbon Dioxide 28.6 Anion Gap 10 BUN 15 Creatinine 1.14 H Estimated GFR 59 L Random Glucose 127 H Lactic Acid Calcium 8.8 Total Bilirubin 0.2 AST 17 ALT 16 Alkaline Phosphatase 70 Troponin I 0.02 B-Natriuretic Peptide 401 H Total Protein 7.5 Albumin 3.4 05/30/18 20:58 WBC RBC Hgb Hct MCV MCH MCHC RDW Plt Count MPV Prelim Diff (Auto) Neut % (Auto) Lymph % (Auto) [place] % (Auto) Eos % (Auto) Baso % (Auto) Neut # (Auto) Lymph # (Auto) [place] # (Auto) Eos # (Auto) Baso # (Auto) WBC Differential Diff Scan Differential Comment Platelet Estimate Platelet Morphology D-Dimer Quant (PE/DVT) Puncture Site Patient Temperature O2 Saturation ABG pH ABG pCO2 ABG pO2 ABG HCO3 ABG O2 Content ABG Base Excess ABG Methemoglobin [place] Test Hemoglobin Carboxyhemoglobin O2 Delivery Device Liter Flow Critical Value Sodium Potassium Chloride Carbon Dioxide Anion Gap BUN Creatinine Estimated GFR Random Glucose Lactic Acid 4.5 H* Calcium Total Bilirubin AST ALT Alkaline Phosphatase Troponin I B-Natriuretic Peptide Total Protein Albumin - Imaging Impressions Chest X-Ray 05/30/18 17:16 CONCLUSION: Probable CHF Chest CTA 05/30/18 17:59 CONCLUSION: 1. The study is negative for pulmonary embolism 2. Bilateral pleural effusions, right greater than left, and atelectasis or infiltrate in the right lower lobe. Caprini VTE Risk Assessment Caprini VTE Risk Assessment: No/Low Risk (score <= 1) Caprini Risk Assessment Model: Point Value = 1 Point Value = 2 Point Value = 3 Point Value = 5 Age 41-60 Minor surgery BMI > 25 kg/m2 Swollen legs Varicose veins or History of unexplained or recurrent spontaneous Oral contraceptives or hormone replacement Sepsis (< 1 month) Serious lung disease, including pneumonia (< 1 month) Abnormal pulmonary function Acute myocardial infarction Congestive heart failure (< 1 month) History of inflammatory bowel disease Medical patient at bed rest Age 61-74 Arthroscopic surgery Major open surgery (> 45 min) Laparoscopic surgery (> 45 min) Malignancy Confined to bed (> 72 hours) Immobilizing plaster cast Central venous access Age >= 75 History of VTE Family history of VTE Factor V Leiden Prothrombin [id number] Lupus anticoagulant Anticardiolipin antibodies Elevated serum homocysteine Heparin-induced thrombocytopenia Other congenital or acquired thrombophilia Stroke (< 1 month) Elective arthroplasty Hip, pelvis, or leg fracture Acute spinal cord injury (< 1 month) Prophylaxis Regimen: Total Risk Factor Score Risk Level Prophylaxis Regimen 0-1 Low Early ambulation 2 Moderate Order ONE of the following: *Sequential Compression Device (SCD) *Heparin 5000 units SQ BID 3-4 Higher Order ONE of the following medications: *Heparin 5000 units SQ TID *Enoxaparin/Lovenox 40 mg SQ daily (WT < 150 kg, CrCl > 30 mL/min) *Enoxaparin/Lovenox 30 mg SQ daily (WT < 150 kg, CrCl > 10-29 mL/min) *Enoxaparin/Lovenox 30 mg SQ BID (WT < 150 kg, CrCl > 30 mL/min) AND/OR *Sequential Compression Device (SCD) 5 or more Highest Order ONE of the following medications: *Heparin 5000 units SQ TID (Preferred with Epidurals) *Enoxaparin/Lovenox 40 mg SQ daily (WT < 150 kg, CrCl > 30 mL/min) *Enoxaparin/Lovenox 30 mg SQ daily (WT < 150 kg, CrCl > 10-29 mL/min) *Enoxaparin/Lovenox 30 mg SQ BID (WT < 150 kg, CrCl > 30 mL/min) AND *Sequential Compression Device (SCD) Assessment and Plan - Plan Assessment/plan: 1. Respiratory distress/pneumonia/? CHF Patient with new oxygen requirement, required BiPAP from EMS Chest x-ray significant for interstitial edema consistent with CHF Chest CTA showed bilateral pleural effusions, right greater than left with atelectasis versus infiltrate of the right lower lobe Patient with fever, increased cough and wheezing Vanc/Zosyn to cover for possible pneumonia, patient lives in [place] IV Lasix Echo pending, concern for new diagnosis of CHF DuoNebs Supplemental oxygen as needed 2. Elevated lactic acid/? sepsis IV fluid hydration Blood cultures pending No leukocytosis, questionable pneumonia on chest x-ray/CTA UA pending Antibiotics as above Repeat lactic acid 3. Chest pain EKG shows sinus rhythm without ST segment elevation or depression, personally reviewed Initial troponin negative Patient has been worked up multiple times for chest pain, last nuclear stress test was 11/2016 - wn ACS rule out pending; serial troponins/EKGs 4. Diabetes mellitus Continue home Tradjenta Sliding-scale insulin Monitor blood glucose 5. Hypertension/hyperlipidemia/seizure disorder Continue home medications 6. Schizophrenia/bipolar disorder Continue home medications FEN NPO Electrolytes: Monitor and replete as needed NS at 100 cc/hour
[2018-05-30] MEDS ORDERED: Sod Chloride 0.9% Inj 1,000 ML IV.SIG SCH (23:00)
[2018-05-30] MEDS ORDERED: Vancomycin Inj 1,000 MG in Sodium Chlor 0.9% Inj 250 ML IV.SIG ONE (23:00)
[2018-05-30] MEDS ORDERED: Azithromycin Inj 500 MG in Sodium Chlor 0.9% Inj 250 ML IV.SIG SCH (23:00)
[2018-05-30] MEDS: Metoprolol Tartrate 100 MG Tablet PO SCH (23:52)
[2018-05-30] MEDS: Gabapentin 300 MG Capsule PO SCH (23:52)
[2018-05-31] MEDS: Sod Chloride 0.9% Inj 1,000 ML IV.CONT SCH ×3 (00:24→22:25)
[2018-05-31] MEDS: Piperacil/Tazo 4.5 GM Premix 4.5 GM/100 ML BAG IV.SIG SCH ×5 (00:28→22:23)
[2018-05-31] MEDS: Insulin NovoLOG Aspart Correctional Sugar Inj SQ SCH ×5 (05:21→22:24)
[2018-05-31 06:57] LABS: Baso % (Auto) 0.4 % (0.0-2.0); Hematocrit 26.7 % (35.0-46.0); Hemoglobin 8.6 gm/dL (11.6-15.3); Lymph # (Auto) 1.2 th/mm3 (1.0-4.8); Lymph % (Auto) 24.2 % (9.0-44.0); Mean Corpuscular HGB Conc 32.2 % (32.0-36.0); Mean Corpuscular Hemoglobin 26.2 pg (27.0-34.0); Mean Corpuscular Volume 81.3 fL (80.0-100.0); Mean Platelet Volume 8.3 fL (7.0-11.0); Mono # (Auto) 0.2 th/mm3 (0.0-0.9); Mono % (Auto) 3.4 % (0.0-8.0); Neut # (Auto) 3.5 th/mm3 (1.8-7.7); Platelet Count 280 th/mm3 (150-450); Red Blood Count 3.29 mil/mm3 (4.00-5.30); Red Cell Distribution Width 19.4 % (11.6-17.2); White Blood Count 4.9 th/mm3 (4.0-11.0)
[2018-05-31 07:17] LABS: Anion Gap 10 meq/L (5-15); Blood Urea Nitrogen 15 mg/dL (7-18); Calcium 8.7 mg/dL (8.5-10.1); Carbon Dioxide 29.3 meq/L (21.0-32.0); Chloride 105 meq/L (98-107); Glomerular Filtration Rate Greater Than 89 mL/min (>89); Glucose,Random 115 mg/dL (74-106); Potassium 4.2 meq/L (3.5-5.1); Sodium 144 meq/L (136-145)
[2018-05-31 07:21] LABS: Troponin I 0.06 ng/mL (0.02-0.05)
[2018-05-31] MEDS ORDERED: Influenza (Quadrivalent) Vaccine 0.5 ML Syringe IM ONE (07:45)
[2018-05-31] MEDS ORDERED: LINAGLIPTIN 5 MG PO SCH (09:00)
[2018-05-31] MEDS: Docusate Sodium 100 MG Capsule PO SCH ×2 (09:27→21:59)
[2018-05-31] MEDS: Gabapentin 300 MG Capsule PO SCH ×3 (09:27→17:35)
[2018-05-31] MEDS: LORazepam 1 MG Tablet PO SCH (09:27)
[2018-05-31] MEDS: Divalproex 500 MG ER Tablet PO SCH ×2 (09:27→22:00)
[2018-05-31] MEDS: hydrALAZINE 50 MG Tablet PO SCH ×3 (09:27→17:35)
[2018-05-31] MEDS: Metoprolol Tartrate 100 MG Tablet PO SCH ×2 (09:27→21:59)
[2018-05-31] MEDS: Potassium Chloride 10 MEQ ER Capsule PO SCH ×2 (09:27→22:23)
--- NOTE | 2018-05-31 15:04 | P.PN ---
Subjective Interval history: She is ambulating in the room says she is hungry. Will advance diet. Patient is not compliant with oxygen and oxygen saturations dropping. However she appears in not acute distress. She is now wheezing. No cough at this time. No fever or chills overnight. We will restart her up site catching medications patient has history of schizophrenia. Physical Exam Vital signs: Vital Signs 05/30/18 17:17 05/30/18 17:22 05/30/18 18:19 Temperature Pulse Rate 85 83 81 Respiratory Rate 24 21 18 Blood Pressure 164/77 H 164/77 H Pulse Oximetry 97 97 05/30/18 18:26 05/30/18 19:13 05/30/18 21:38 Temperature Pulse Rate 83 73 Respiratory Rate 22 Blood Pressure 206/99 H Pulse Oximetry 97 98 97 05/30/18 21:40 05/30/18 22:25 05/30/18 23:45 Temperature 98.2 F Pulse Rate 77 72 68 Respiratory Rate 18 20 Blood Pressure 141/67 H 131/61 Pulse Oximetry 97 94 L 05/31/18 00:00 05/31/18 04:00 05/31/18 08:00 Temperature 96.3 F L 97.9 F 98.1 F Pulse Rate 73 56 L 55 L Respiratory Rate 20 20 20 Blood Pressure 140/67 115/61 136/63 Pulse Oximetry 96 95 95 05/31/18 09:00 05/31/18 12:00 Temperature 98.1 F Pulse Rate 57 L 57 L Respiratory Rate 21 Blood Pressure 131/81 Pulse Oximetry 95 Intake & Output 05/30/18 05/31/18 05/31/18 18:59 06:59 18:59 Intake Total 1450 / 1450 100 / 100 Balance 1450 / 1450 100 / 100 Weight 90.718 kg 100.1 kg Intake: IV 1450 / 1450 100 / 100 Zosyn 4.5 GM Premix 4.5 gm In 200 / 200 100 / 100 100 ml @ 200 mls/hr IV.SIG Q6H [facility] Rx#:[id number] NS Inj 1,000 ML @ 1000 mls/hr 1000 / 1000 IV.SIG BOLUS [facility] Rx#:[id number] Vancomycin Inj 1,000 MG In NS 250 / 250 Inj 250 ML @ 250 mls/hr IV.SIG ONCE ONE Rx#:[id number] Oral 0 / 0 Other: # Bowel Movements 0 Weight On Admission 100.2 kg Narrative: Gen.: Pleasant 58 yo female, she is noncompliant with O2, walking in the room without O2, she is dessating, however she doesn;t appear in acute distress. Cardiovascular: Regular rate and rhythm. No murmurs, rubs or gallops. Respiratory: Crackles bibasilar. Decreased breath sounds. No wheezing. Abdomen: Soft, nontender, nondistended. No peritoneal signs. Musculoskeletal: No gross deformities. No edema. Skin: No obvious rashes or erythema. Neuro: Sensory and motor grossly intact. Cranial nerves II through XII grossly intact. Motor grossly intact. Results - Labs CBC & Chem 7: 05/31/18 05:21 05/31/18 04:21 Laboratory Results - last 24 hr 05/30/18 05/30/18 05/30/18 17:10 17:20 17:20 WBC 8.1 RBC 3.48 L Hgb 9.0 L Hct 28.7 L MCV 82.3 MCH 25.9 L MCHC 31.5 L RDW 19.2 H Plt Count 300 MPV 8.0 Prelim Diff (Auto) Slide review pending Neut % (Auto) 35.0 Lymph % (Auto) 54.5 H [place] % (Auto) 9.4 H Eos % (Auto) 0.5 Baso % (Auto) 0.6 Neut # (Auto) 2.8 Lymph # (Auto) 4.4 [place] # (Auto) 0.8 Eos # (Auto) 0.0 Baso # (Auto) 0.0 WBC Differential . Diff Scan Auto diff confirmed Differential Comment . Platelet Estimate Normal Platelet Morphology Normal D-Dimer Quant (PE/DVT) 1.23 H Puncture Site Patient Temperature O2 Saturation ABG pH ABG pCO2 ABG pO2 ABG HCO3 ABG O2 Content ABG Base Excess ABG Methemoglobin [place] Test Hemoglobin Carboxyhemoglobin O2 Delivery Device Liter Flow Critical Value Sodium Potassium Chloride Carbon Dioxide Anion Gap BUN Creatinine Estimated GFR POC Glucose Random Glucose Lactic Acid 3.8 H Calcium Total Bilirubin AST ALT Alkaline Phosphatase Troponin I B-Natriuretic Peptide Total Protein Albumin 05/30/18 05/30/18 05/30/18 17:20 17:20 18:40 WBC RBC Hgb Hct MCV MCH MCHC RDW Plt Count MPV Prelim Diff (Auto) Neut % (Auto) Lymph % (Auto) [place] % (Auto) Eos % (Auto) Baso % (Auto) Neut # (Auto) Lymph # (Auto) [place] # (Auto) Eos # (Auto) Baso # (Auto) WBC Differential Diff Scan Differential Comment Platelet Estimate Platelet Morphology D-Dimer Quant (PE/DVT) Puncture Site Right radial Patient Temperature 98.6 O2 Saturation 95 ABG pH 7.38 ABG pCO2 48 H ABG pO2 105 ABG HCO3 28 H ABG O2 Content 14.4 ABG Base Excess 2.8 H ABG Methemoglobin 0.7 [place] Test Present Hemoglobin 10.6 L Carboxyhemoglobin 1.2 O2 Delivery Device Nasal cannula Liter Flow 4.00 Critical Value No Sodium 141 Potassium 4.0 Chloride 102 Carbon Dioxide 28.6 Anion Gap 10 BUN 15 Creatinine 1.14 H Estimated GFR 59 L POC Glucose Random Glucose 127 H Lactic Acid Calcium 8.8 Total Bilirubin 0.2 AST 17 ALT 16 Alkaline Phosphatase 70 Troponin I 0.02 B-Natriuretic Peptide 401 H Total Protein 7.5 Albumin 3.4 05/30/18 05/31/18 05/31/18 20:58 00:35 04:21 WBC RBC Hgb Hct MCV MCH MCHC RDW Plt Count MPV Prelim Diff (Auto) Neut % (Auto) Lymph % (Auto) [place] % (Auto) Eos % (Auto) Baso % (Auto) Neut # (Auto) Lymph # (Auto) [place] # (Auto) Eos # (Auto) Baso # (Auto) WBC Differential Diff Scan Differential Comment Platelet Estimate Platelet Morphology D-Dimer Quant (PE/DVT) Puncture Site Patient Temperature O2 Saturation ABG pH ABG pCO2 ABG pO2 ABG HCO3 ABG O2 Content ABG Base Excess ABG Methemoglobin [place] Test Hemoglobin Carboxyhemoglobin O2 Delivery Device Liter Flow Critical Value Sodium Potassium Chloride Carbon Dioxide Anion Gap BUN Creatinine Estimated GFR POC Glucose Random Glucose Lactic Acid 4.5 H* Calcium Total Bilirubin AST ALT Alkaline Phosphatase Troponin I 0.08 H Cancelled B-Natriuretic Peptide Total Protein Albumin 05/31/18 05/31/18 05/31/18 04:21 05:19 05:21 WBC 4.9 RBC 3.29 L Hgb 8.6 L Hct 26.7 L MCV 81.3 MCH 26.2 L MCHC 32.2 RDW 19.4 H Plt Count 280 MPV 8.3 Prelim Diff (Auto) Neut % (Auto) 72.0 H Lymph % (Auto) 24.2 [place] % (Auto) 3.4 Eos % (Auto) 0.0 Baso % (Auto) 0.4 Neut # (Auto) 3.5 Lymph # (Auto) 1.2 [place] # (Auto) 0.2 Eos # (Auto) 0.0 Baso # (Auto) 0.0 WBC Differential . Diff Scan Differential Comment Auto diff final Platelet Estimate Platelet Morphology D-Dimer Quant (PE/DVT) Puncture Site Patient Temperature O2 Saturation ABG pH ABG pCO2 ABG pO2 ABG HCO3 ABG O2 Content ABG Base Excess ABG Methemoglobin [place] Test Hemoglobin Carboxyhemoglobin O2 Delivery Device Liter Flow Critical Value Sodium 144 Potassium 4.2 Chloride 105 Carbon Dioxide 29.3 Anion Gap 10 BUN 15 Creatinine 0.78 Estimated GFR Greater than 89 POC Glucose 123 H Random Glucose 115 H Lactic Acid Calcium 8.7 Total Bilirubin AST ALT Alkaline Phosphatase Troponin I 0.06 H B-Natriuretic Peptide Total Protein Albumin 05/31/18 11:43 WBC RBC Hgb Hct MCV MCH MCHC RDW Plt Count MPV Prelim Diff (Auto) Neut % (Auto) Lymph % (Auto) [place] % (Auto) Eos % (Auto) Baso % (Auto) Neut # (Auto) Lymph # (Auto) [place] # (Auto) Eos # (Auto) Baso # (Auto) WBC Differential Diff Scan Differential Comment Platelet Estimate Platelet Morphology D-Dimer Quant (PE/DVT) Puncture Site Patient Temperature O2 Saturation ABG pH ABG pCO2 ABG pO2 ABG HCO3 ABG O2 Content ABG Base Excess ABG Methemoglobin [place] Test Hemoglobin Carboxyhemoglobin O2 Delivery Device Liter Flow Critical Value Sodium Potassium Chloride Carbon Dioxide Anion Gap BUN Creatinine Estimated GFR POC Glucose 100 Random Glucose Lactic Acid Calcium Total Bilirubin AST ALT Alkaline Phosphatase Troponin I B-Natriuretic Peptide Total Protein Albumin Microbiology 05/30/18 17:20 Blood - Peripheral Aerobic Blood Culture - Preliminary No growth in 1 day 05/30/18 17:20 Blood - Peripheral Anaerobic Blood Culture - Preliminary No growth in 1 day 05/30/18 17:15 Blood - Peripheral Aerobic Blood Culture - Preliminary No growth in 1 day 05/30/18 17:15 Blood - Peripheral Anaerobic Blood Culture - Preliminary No growth in 1 day 05/30/18 20:15 Nasal Wash Influenza Types A,B Antigen - Final Negative for FLU A and B antigen Infection due to influenza A or B cannot be ruled out since the antigen present in the sample may be below the detection limit of the test. - Imaging Impressions Chest X-Ray 05/30/18 17:16 CONCLUSION: Probable CHF Chest CTA 05/30/18 17:59 CONCLUSION: 1. The study is negative for pulmonary embolism 2. Bilateral pleural effusions, right greater than left, and atelectasis or infiltrate in the right lower lobe. Assessment and Plan - Plan 1. Respiratory distress/pneumonia/? CHF Patient with new oxygen requirement, required BiPAP from EMS Chest x-ray significant for interstitial edema consistent with CHF Chest CTA showed bilateral pleural effusions, right greater than left with atelectasis versus infiltrate of the right lower lobe Patient with fever, increased cough and wheezing Vanc/Zosyn to cover for possible pneumonia, patient lives in [place] IV Lasix Echo pending, concern for new diagnosis of CHF DuoNebs Supplemental oxygen as needed 2. Elevated lactic acid/? sepsis Received IV fluid hydration. Blood cultures pending No leukocytosis, questionable pneumonia on chest x-ray/CTA UA pending Antibiotics as above Repeat lactic acid trending down 3. Chest pain EKG shows sinus rhythm without ST segment elevation or depression, personally reviewed Initial troponin negative Patient has been worked up multiple times for chest pain, last nuclear stress test was 11/2016 - wnl ACS rule out pending; serial troponins/EKGs 4. Diabetes mellitus Continue home Tradjenta Sliding-scale insulin Monitor blood glucose 5. Hypertension/hyperlipidemia/seizure disorder Continue home medications 6. Schizophrenia/bipolar disorder Continue home medications Reconcile meds FEN HHD and ADA 1800 diet Electrolytes: Monitor and replete as needed DC NS at 100 cc/hour Discussed with the patient, nurse Discharge plan possible discharge in 1 or 2 days when improves
--- NOTE | 2018-05-31 18:23 | ECHRPT ---
Indication: HEART FAILURE CONCLUSIONS The left ventricular systolic function is normal with an estimated ejection fraction in the range of 60-65%. Normal left ventricular size. Wall thickness is normal. No regional wall motion abnormalities are present. Mild thickening of the mitral valve leaflets. mild to moderate mitral valve regurgitation. Aortic valve sclerosis is present. Trace aortic valve regurgitation. There is trace tricuspid valve regurgitation. The estimated pulmonary arterial pressure is 45.3 mmHg. BP: / HR: Rhythm: Sinus MEASUREMENTS (Male / Female) Normal Values Technical Quality:Excellent 2D ECHO LV Diastolic Diameter PLAX 4.6 cm 4.2 - 5.9 / 3.9 - 5.3 cm LV Systolic Diameter PLAX 3.2 cm IVS Diastolic Thickness 1.1 cm 0.6 - 1.0 / 0.6 - 0.9 cm LVPW Diastolic Thickness 1.1 cm 0.6 - 1.0 / 0.6 - 0.9 cm LV Relative Wall Thickness 0.5 LVOT Diameter 2.0 cm LA Systolic Diameter LX 3.1 cm 3.0 - 4.0 / 2.7 - 3.8 cm LV Ejection Fraction MOD 4C 68.8 % LV Ejection Fraction 4C AL 69.9 % M-MODE Aortic Root Diameter MM 2.0 cm LA Systolic Diameter MM 4.0 cm LA Ao Ratio MM 2.0 AV Cusp Separation MM 2.1 cm DOPPLER AV Peak Velocity 140.0 cm/s AV Peak Gradient 7.8 mmHg AI Peak Velocity 258.0 cm/s AI Peak Gradient 26.6 mmHg AI Pressure Half Time 455.0 ms LVOT Peak Velocity 110.0 cm/s LVOT Peak Gradient 4.8 mmHg AV Area Cont Eq pk 2.5 cm MV Area PHT 4.5 cm Mitral E Point Velocity 123.0 cm/s Mitral A Point Velocity 38.0 cm/s Mitral E to A Ratio 3.2 LV E' Lateral Velocity 9.0 cm/s Mitral E to LV E' Lateral Ratio 13.7 LV E' Septal Velocity 5.0 cm/s Mitral E to LV E' Septal Ratio 24.7 TR Peak Velocity 297.0 cm/s TR Peak Gradient 35.3 mmHg Right Atrial Pressure 10.0 mmHg Pulmonary Artery Systolic Pressu 45.3 mmHg Right Ventricular Systolic Press 45.3 mmHg PV Peak Velocity 99.1 cm/s PV Peak Gradient 3.9 mmHg FINDINGS LEFT VENTRICLE The left ventricular systolic function is normal with an estimated ejection fraction in the range of 60-65%. Normal left ventricular size. Wall thickness is normal. No regional wall motion abnormalities are present. RIGHT VENTRICLE Normal right ventricular size and systolic function. LEFT ATRIUM The left atrial size is normal. RIGHT ATRIUM The right atrial size is normal. ATRIAL SEPTUM Normal atrial septal thickness without atrial level shunting by limited color doppler interrogation. AORTA The aortic root and proximal ascending aorta are normal in size on limited imaging. MITRAL VALVE Mild thickening of the mitral valve leaflets. [id number] mitral valve regurgitation. AORTIC VALVE Trileaflet aortic valve. Aortic valve sclerosis is present. Trace aortic valve regurgitation. TRICUSPID VALVE Structurally normal tricuspid valve. There is trace tricuspid valve regurgitation. The estimated pulmonary arterial pressure is 45.3 mmHg. PULMONARY VALVE No pulmonary valve regurgitation or stenosis. VESSELS The inferior vena cava is normal in size. PERICARDIUM No pericardial effusion. Vlad Boland MD, FACC, [facility] (Electronically Signed) Final Date:31 May 2018 18:22
--- NOTE | 2018-05-31 20:19 | ECG ---
Date Performed: 05/30/2018 Time Performed: 17:28:27 PTAGE: 58 years EKG: Sinus rhythm POSSIBLE LEFT ATRIAL ENLARGEMENT MINIMAL ST DEPRESSION Compared to previous tracing, nonspecific ST- T changes are slightly more prominent BORDERLINE ECG PREVIOUS TRACING : 03/25/2018 15.23 DOCTOR: Ajit Crowdre Interpretating Date/Time 05/31/2018 20:15:52
--- NOTE | 2018-05-31 20:19 | ECG ---
Date Performed: 05/31/2018 Time Performed: 01:16:18 PTAGE: 58 years EKG: Sinus rhythm Lateral ST-T changes are nonspecific Since the previous tracing, no significant change noted Borderl ine ECG NO PREVIOUS TRACING DOCTOR: Ajit Crowder Interpretating Date/Time 05/31/2018 20:16:01
--- NOTE | 2018-05-31 20:20 | ECG ---
Date Performed: 05/31/2018 Time Performed: 07:52:24 PTAGE: 58 years EKG: Sinus bradycardia Lateral ST-T changes are nonspecific Since the previous tracing, no signi ficant change noted Borderline ECG PREVIOUS TRACING : 05/31/2018 01.16 DOCTOR: Ajit Crowder Interpretating Date/Time 05/31/2018 20:16:10
[2018-05-31] MEDS: Enoxaparin Inj 40 MG/0.4 ML Syringe SQ SCH (22:00)
[2018-06-01] MEDS: Insulin NovoLOG Aspart Correctional Sugar Inj SQ SCH ×5 (04:12→23:12)
[2018-06-01] MEDS: Sod Chloride 0.9% Inj 1,000 ML IV.CONT SCH (04:12)
[2018-06-01] MEDS: Piperacil/Tazo 4.5 GM Premix 4.5 GM/100 ML BAG IV.SIG SCH ×4 (04:12→23:11)
[2018-06-01 07:22] LABS: Baso % (Auto) 0.5 % (0.0-2.0); Eos % (Auto) 0.7 % (0.0-4.0); Hematocrit 28.2 % (35.0-46.0); Hemoglobin 8.8 gm/dL (11.6-15.3); Lymph # (Auto) 2.9 th/mm3 (1.0-4.8); Lymph % (Auto) 49.3 % (9.0-44.0); Mean Corpuscular HGB Conc 31.2 % (32.0-36.0); Mean Corpuscular Hemoglobin 25.9 pg (27.0-34.0); Mean Corpuscular Volume 82.7 fL (80.0-100.0); Mean Platelet Volume 7.9 fL (7.0-11.0); Mono # (Auto) 0.8 th/mm3 (0.0-0.9); Mono % (Auto) 14.1 % (0.0-8.0); Neut # (Auto) 2.1 th/mm3 (1.8-7.7); Neut % (Auto) 35.4 % (16.0-70.0); Platelet Count 276 th/mm3 (150-450); Red Blood Count 3.41 mil/mm3 (4.00-5.30); Red Cell Distribution Width 18.9 % (11.6-17.2); White Blood Count 5.8 th/mm3 (4.0-11.0)
[2018-06-01 07:48] LABS: Calcium 8.6 mg/dL (8.5-10.1); Carbon Dioxide 33.1 meq/L (21.0-32.0); Potassium 3.9 meq/L (3.5-5.1)
--- NOTE | 2018-06-01 08:54 | P.PNIM ---
Subjective Interval history: f/u; CHF in no acute distress however still with sob and on oxygen via N/C. denies pain. no fever. d/w the RN and no acute issues over night. Physical Exam Vital signs: Vital Signs 05/31/18 09:00 05/31/18 12:00 05/31/18 16:00 Temperature 98.1 F 97.5 F L Pulse Rate 57 L 57 L 61 Respiratory Rate 21 23 Blood Pressure 131/81 139/96 H Pulse Oximetry 95 94 L 05/31/18 17:49 05/31/18 20:00 05/31/18 20:30 Temperature 98.2 F Pulse Rate 70 73 74 Respiratory Rate 20 18 Blood Pressure 130/70 Pulse Oximetry 96 05/31/18 23:37 06/01/18 00:00 06/01/18 04:00 Temperature 98.1 F 98.1 F Pulse Rate 67 70 60 Respiratory Rate 18 18 Blood Pressure 111/55 L 119/57 L Pulse Oximetry 100 99 06/01/18 08:00 06/01/18 08:26 Temperature 98.1 F Pulse Rate 54 L Respiratory Rate 16 Blood Pressure 114/78 Pulse Oximetry 99 99 Intake & Output 05/31/18 06/01/18 06/01/18 18:59 06:59 18:59 Intake Total 340 / 340 590 / 590 Output Total 1800 / 1800 Balance 340 / 340 -1210 / -1210 Weight 98.9 kg Intake: IV 100 / 100 350 / 350 NS Inj 1,000 ML @ 100 mls/hr IV 0 / 0 .CONT .Q10H MILADYS Rx#:[id number] Zosyn 4.5 GM Premix 4.5 gm In 100 / 100 350 / 350 100 ml @ 200 mls/hr IV.SIG Q6H MILADYS Rx#:[id number] Oral 240 / 240 240 / 240 Output: Urine 1800 / 1800 Other: # Voids 4 # Bowel Movements 0 - Constitutional mild distress - Routine Respiratory Exam Present: diminished air movement (in bases bilaterally.) - Routine Cardiovascular Exam Present: RRR - Routine Abdominal Exam Present: soft - Routine Extremities Exam Comments: mild bilateral pedal edema. - Routine Neurological Exam Present: alert, oriented X3 Results - Labs CBC & Chem 7: 06/01/18 06:24 06/01/18 06:24 Laboratory Results - last 24 hr 05/31/18 05/31/18 05/31/18 11:43 16:36 21:59 WBC RBC Hgb Hct MCV MCH MCHC RDW Plt Count MPV Neut % (Auto) Lymph % (Auto) Glenn % (Auto) Eos % (Auto) Baso % (Auto) Neut # (Auto) Lymph # (Auto) Glenn # (Auto) Eos # (Auto) Baso # (Auto) WBC Differential Differential Comment Sodium Potassium Chloride Carbon Dioxide Anion Gap BUN Creatinine Estimated GFR POC Glucose 100 151 H 111 H Random Glucose Calcium 06/01/18 06/01/18 06/01/18 04:11 06:24 06:24 WBC 5.8 RBC 3.41 L Hgb 8.8 L Hct 28.2 L MCV 82.7 MCH 25.9 L MCHC 31.2 L RDW 18.9 H Plt Count 276 MPV 7.9 Neut % (Auto) 35.4 Lymph % (Auto) 49.3 H Glenn % (Auto) 14.1 H Eos % (Auto) 0.7 Baso % (Auto) 0.5 Neut # (Auto) 2.1 Lymph # (Auto) 2.9 Glenn # (Auto) 0.8 Eos # (Auto) 0.0 Baso # (Auto) 0.0 WBC Differential . Differential Comment Auto diff final Sodium 143 Potassium 3.9 Chloride 102 Carbon Dioxide 33.1 H Anion Gap 8 BUN 18 Creatinine 1.07 H Estimated GFR 64 L POC Glucose 122 H Random Glucose 87 Calcium 8.6 06/01/18 07:25 WBC RBC Hgb Hct MCV MCH MCHC RDW Plt Count MPV Neut % (Auto) Lymph % (Auto) Glenn % (Auto) Eos % (Auto) Baso % (Auto) Neut # (Auto) Lymph # (Auto) Glenn # (Auto) Eos # (Auto) Baso # (Auto) WBC Differential Differential Comment Sodium Potassium Chloride Carbon Dioxide Anion Gap BUN Creatinine Estimated GFR POC Glucose 98 Random Glucose Calcium Microbiology 05/30/18 17:20 Blood - Peripheral Aerobic Blood Culture - Preliminary No growth in 1 day 05/30/18 17:20 Blood - Peripheral Anaerobic Blood Culture - Preliminary No growth in 1 day 05/30/18 17:15 Blood - Peripheral Aerobic Blood Culture - Preliminary No growth in 1 day 05/30/18 17:15 Blood - Peripheral Anaerobic Blood Culture - Preliminary No growth in 1 day Assessment and Plan - Plan 1. Respiratory distress/pneumonia/ CHF Patient with new oxygen requirement. Chest x-ray significant for interstitial edema consistent with CHF Chest CTA showed bilateral pleural effusions, right greater than left with atelectasis versus infiltrate of the right lower lobe continue with IV antibiotics and IV Lasix Echo with EF 60% and no regional wall motion abnormalities DuoNebs Supplemental oxygen as needed repeat CXR today; will consider thoracentesis if no improvement with pleural effusion. 2. Elevated lactic acid/? sepsis Received IV fluid hydration. Blood cultures negative so far. No leukocytosis, questionable pneumonia on chest x-ray/CTA 3. Chest pain EKG shows sinus rhythm without ST segment elevation or depression, personally reviewed Patient has been worked up multiple times for chest pain, last nuclear stress test was 11/2016 - wnl 4. Diabetes mellitus Continue home Tradjenta Sliding-scale insulin Monitor blood glucose 5. Hypertension/hyperlipidemia/seizure disorder Continue home medications 6. Schizophrenia/bipolar disorder Continue home medications Reconcile meds FEN HHD and ADA 1800 diet Electrolytes: Monitor and replete as needed Discharge Planning: within the next 48-72 hrs if clinically improves.
[2018-06-01] MEDS: Divalproex 500 MG ER Tablet PO SCH ×2 (09:06→22:53)
[2018-06-01] MEDS: LORazepam 1 MG Tablet PO SCH (09:06)
[2018-06-01] MEDS: Docusate Sodium 100 MG Capsule PO SCH ×2 (09:06→22:53)
[2018-06-01] MEDS: Gabapentin 300 MG Capsule PO SCH ×3 (09:06→17:02)
[2018-06-01] MEDS: Potassium Chloride 10 MEQ ER Capsule PO SCH ×2 (09:06→22:54)
[2018-06-01] MEDS: hydrALAZINE 50 MG Tablet PO SCH ×3 (09:16→17:02)
--- NOTE | 2018-06-01 09:41 | XR ---
EXAM DATE: 06/01/2018 9:38 AM EST AGE/SEX: 58 years / Female INDICATIONS: Congestive heart failure. Patient has left side chest pain and a cough. CLINICAL DATA: This is the patient's subsequent encounter. Patient reports that signs and symptoms h ave been present for 3 days and indicates a pain score of 8/10. MEDICAL/SURGICAL HISTORY: . Cerebrovascular disease. Diabetes. Myocardial infarction. Hypertens ion. None. None. COMPARISON: [facility] [place], CTA PULMONARY W CONTRAST W 3D, 05/30/2018. . FINDINGS: There is moderate cardiomegaly. There is basilar atelectasis on the left. There are small bilateral e ffusions. Overall the exam would suggest congestive failure. The appearance of the chest is improved compared to previous. The visualized bony structures are grossly intact. CONCLUSION: Improving CHF. Electronically signed by: Denver Rosas MD 06/01/2018 9:40 AM EST
[2018-06-01] MEDS: Metoprolol Tartrate 100 MG Tablet PO SCH ×2 (10:19→22:53)
[2018-06-01] MEDS: Enoxaparin Inj 40 MG/0.4 ML Syringe SQ SCH (22:55)
[2018-06-02] MEDS: Insulin NovoLOG Aspart Correctional Sugar Inj SQ SCH ×5 (03:57→22:26)
[2018-06-02] MEDS: Piperacil/Tazo 4.5 GM Premix 4.5 GM/100 ML BAG IV.SIG SCH ×4 (06:30→22:25)
--- NOTE | 2018-06-02 07:52 | P.PNIM ---
Subjective Interval history: f/u; CHF in no acute distress. however still on four liters of oxygen via N/C. says that overall she's feeling better. no fever. Physical Exam Vital signs: Vital Signs 06/01/18 08:00 06/01/18 08:26 06/01/18 09:00 Temperature 98.1 F Pulse Rate 54 L 52 L Respiratory Rate 16 Blood Pressure 114/78 Pulse Oximetry 99 99 06/01/18 09:04 06/01/18 11:52 06/01/18 12:00 Temperature 98.1 F Pulse Rate 56 L 62 63 Respiratory Rate 16 Blood Pressure 123/60 119/63 Pulse Oximetry 98 06/01/18 15:54 06/01/18 16:00 06/01/18 17:06 Temperature 98 F Pulse Rate 59 L 65 Respiratory Rate 17 Blood Pressure 133/69 Pulse Oximetry 100 100 06/01/18 20:00 06/02/18 00:00 06/02/18 04:00 Temperature 98.1 F 99.5 F 97.7 F Pulse Rate 75 72 77 Respiratory Rate 18 16 14 Blood Pressure 95/54 L 87/50 L 119/61 Pulse Oximetry 95 100 97 Intake & Output 06/01/18 06/02/18 06/02/18 18:59 06:59 18:59 Intake Total 2820 / 2820 580 / 580 100 / 100 Output Total 2500 / 2500 Balance 320 / 320 580 / 580 100 / 100 Weight 99.082 kg Intake: IV 200 / 200 100 / 100 100 / 100 Zosyn 4.5 GM Premix 4.5 gm In 200 / 200 100 / 100 100 / 100 100 ml @ 200 mls/hr IV.SIG Q6H MILADYS Rx#:[id number] Oral 2620 / 2620 480 / 480 Output: Urine 2500 / 2500 Other: # Voids 3 Date of Last Bowel Movement 06/01/18 # Bowel Movements 0 2 - Constitutional mild distress - Routine Respiratory Exam Present: CTA bilaterally - Routine Cardiovascular Exam Present: RRR - Routine Abdominal Exam Present: soft - Routine Extremities Exam Comments: mild bilateral pedal edema. - Routine Neurological Exam Present: alert, oriented X3 Results - Labs CBC & Chem 7: 06/01/18 06:24 06/01/18 06:24 Laboratory Results - last 24 hr 06/01/18 06/01/18 06/01/18 06:24 11:32 11:46 Sodium 143 Potassium 3.9 Chloride 102 Carbon Dioxide 33.1 H Anion Gap 8 BUN 18 Creatinine 1.07 H Estimated GFR 64 L POC Glucose 117 H Random Glucose 87 Lactic Acid 3.0 H Calcium 8.6 06/01/18 06/01/18 06/02/18 17:40 22:52 03:55 Sodium Potassium Chloride Carbon Dioxide Anion Gap BUN Creatinine Estimated GFR POC Glucose 108 123 H 133 H Random Glucose Lactic Acid Calcium Microbiology 05/30/18 17:20 Blood - Peripheral Aerobic Blood Culture - Preliminary No growth in 2 days 05/30/18 17:20 Blood - Peripheral Anaerobic Blood Culture - Preliminary No growth in 2 days 05/30/18 17:15 Blood - Peripheral Aerobic Blood Culture - Preliminary No growth in 2 days 05/30/18 17:15 Blood - Peripheral Anaerobic Blood Culture - Preliminary No growth in 2 days - Imaging Impressions Chest X-Ray 06/01/18 00:00 CONCLUSION: Improving CHF. Assessment and Plan - Plan 1. Respiratory distress/pneumonia/ CHF Patient with new oxygen requirement. Chest x-ray significant for interstitial edema consistent with CHF/ repeated CXR on 06/01 with improved CHF. Chest CTA showed bilateral pleural effusions, right greater than left with atelectasis versus infiltrate of the right lower lobe continue with IV antibiotics and IV Lasix Echo with EF 60% and no regional wall motion abnormalities DuoNebs Supplemental oxygen as needed; will slowly taper down the oxygen. will consider walk test before discharge. 2. Elevated lactic acid/? sepsis Received IV fluid hydration. Blood cultures negative so far. No leukocytosis, questionable pneumonia on chest x-ray/CTA will deescalate the antibiotics within the next 48 hrs. 3. Chest pain EKG shows sinus rhythm without ST segment elevation or depression, personally reviewed Patient has been worked up multiple times for chest pain, last nuclear stress test was 11/2016 - wnl 4. Diabetes mellitus Continue home Tradjenta Sliding-scale insulin Monitor blood glucose 5. Hypertension/hyperlipidemia/seizure disorder Continue home medications 6. Schizophrenia/bipolar disorder Continue home medications Reconcile meds FEN HHD and ADA 1800 diet Electrolytes: Monitor and replete as needed consult PT. Discharge Planning: within the next 48 hrs if clinically improves. will consider walk test before discharge. PT consulted.
[2018-06-02] MEDS: Docusate Sodium 100 MG Capsule PO SCH ×2 (08:10→20:08)
[2018-06-02] MEDS: hydrALAZINE 50 MG Tablet PO SCH ×3 (08:10→17:23)
[2018-06-02] MEDS: Gabapentin 300 MG Capsule PO SCH ×3 (08:10→17:23)
[2018-06-02] MEDS: Potassium Chloride 10 MEQ ER Capsule PO SCH ×2 (08:10→20:08)
[2018-06-02] MEDS: Metoprolol Tartrate 100 MG Tablet PO SCH ×2 (08:10→20:09)
[2018-06-02] MEDS: LORazepam 1 MG Tablet PO SCH (08:10)
[2018-06-02] MEDS: Divalproex 500 MG ER Tablet PO SCH ×2 (08:11→20:09)
[2018-06-02] MEDS: Enoxaparin Inj 40 MG/0.4 ML Syringe SQ SCH (22:39)
[2018-06-03] MEDS: Insulin NovoLOG Aspart Correctional Sugar Inj SQ SCH ×5 (04:13→20:15)
[2018-06-03] MEDS: Piperacil/Tazo 4.5 GM Premix 4.5 GM/100 ML BAG IV.SIG SCH ×4 (04:52→21:59)
[2018-06-03] MEDS: Potassium Chloride 10 MEQ ER Capsule PO SCH ×2 (08:20→21:41)
[2018-06-03] MEDS: LORazepam 1 MG Tablet PO SCH (08:20)
[2018-06-03] MEDS: Metoprolol Tartrate 100 MG Tablet PO SCH ×2 (08:20→20:14)
[2018-06-03] MEDS: hydrALAZINE 50 MG Tablet PO SCH ×3 (08:21→17:07)
[2018-06-03] MEDS: Divalproex 500 MG ER Tablet PO SCH ×2 (08:21→20:14)
[2018-06-03] MEDS: Gabapentin 300 MG Capsule PO SCH ×3 (08:21→17:07)
[2018-06-03] MEDS: Docusate Sodium 100 MG Capsule PO SCH ×2 (08:21→20:14)
--- NOTE | 2018-06-03 10:06 | P.PNIM ---
Subjective Interval history: f/u; CHF in no acute distress. looks and feels more comfortable; currently on one liter of oxygen via N/C. Physical Exam Vital signs: Vital Signs 06/02/18 11:11 06/02/18 12:00 06/02/18 16:00 Temperature 97.8 F 97.7 F Pulse Rate 64 67 Respiratory Rate 20 20 Blood Pressure 92/54 L 108/55 L Pulse Oximetry 99 98 94 L 06/02/18 19:00 06/02/18 20:00 06/02/18 20:26 Temperature 97.9 F Pulse Rate 67 67 Respiratory Rate 20 Blood Pressure 97/52 L Pulse Oximetry 95 94 L 06/03/18 00:00 06/03/18 04:00 06/03/18 08:00 Temperature 97.2 F L 97.6 F 97.9 F Pulse Rate 64 67 62 Respiratory Rate 18 18 20 Blood Pressure 92/54 L 105/53 L 98/63 L Pulse Oximetry 91 L 96 93 L 06/03/18 09:00 Temperature Pulse Rate 59 L Respiratory Rate Blood Pressure Pulse Oximetry Intake & Output 06/02/18 06/03/18 06/03/18 18:59 06:59 18:59 Intake Total 920 / 920 780 / 780 Balance 920 / 920 780 / 780 Weight 99.7 kg Intake: IV 200 / 200 300 / 300 Zosyn 4.5 GM Premix 4.5 gm In 200 / 200 300 / 300 100 ml @ 200 mls/hr IV.SIG Q6H MILADYS Rx#:[id number] Oral 720 / 720 480 / 480 Other: # Voids 4 3 Date of Last Bowel Movement 06/01/18 06/01/18 # Bowel Movements 0 - Constitutional no acute distress - Routine Respiratory Exam Present: CTA bilaterally - Routine Cardiovascular Exam Present: RRR - Routine Abdominal Exam Present: soft - Routine Extremities Exam Comments: no pedal edema. - Routine Neurological Exam Present: alert, oriented X3 Results - Labs CBC & Chem 7: 06/01/18 06:24 06/01/18 06:24 Laboratory Results - last 24 hr 06/02/18 06/02/18 06/02/18 11:50 17:14 20:19 POC Glucose 171 H 105 140 H 06/03/18 06/03/18 04:11 07:22 POC Glucose 107 107 Microbiology 05/30/18 17:20 Blood - Peripheral Aerobic Blood Culture - Preliminary No growth in 3 days 05/30/18 17:20 Blood - Peripheral Anaerobic Blood Culture - Preliminary No growth in 3 days 05/30/18 17:15 Blood - Peripheral Aerobic Blood Culture - Preliminary No growth in 3 days 05/30/18 17:15 Blood - Peripheral Anaerobic Blood Culture - Preliminary No growth in 3 days Assessment and Plan - Plan 1. Respiratory distress/pneumonia/ CHF- improving slowly. Patient with new oxygen requirement. initial Chest x-ray significant for interstitial edema consistent with CHF/ repeated CXR on 06/01 with improved CHF. Chest CTA showed bilateral pleural effusions, right greater than left with atelectasis versus infiltrate of the right lower lobe continue with IV antibiotics and IV Lasix Echo with EF 60% and no regional wall motion abnormalities DuoNebs Supplemental oxygen as needed; will slowly taper down the oxygen. walk test before discharge. 2. Elevated lactic acid/? sepsis Received IV fluid hydration. Blood cultures negative so far. No leukocytosis, questionable pneumonia on chest x-ray/CTA will deescalate the antibiotics within the next 24 hrs. 3. Chest pain EKG shows sinus rhythm without ST segment elevation or depression, personally reviewed Patient has been worked up multiple times for chest pain, last nuclear stress test was 11/2016 - wnl 4. Diabetes mellitus Continue home Tradjenta Sliding-scale insulin Monitor blood glucose 5. Hypertension/hyperlipidemia/seizure disorder Continue home medications 6. Schizophrenia/bipolar disorder Continue home medications Reconcile meds FEN HHD and ADA 1800 diet Electrolytes: Monitor and replete as needed consulted PT. Discharge Planning: within the next 24 hrs if clinically improves. walk test before discharge. PT consulted.
[2018-06-03 13:31] LABS: Calcium 9.1 mg/dL (8.5-10.1); Potassium 3.5 meq/L (3.5-5.1)
[2018-06-03] MEDS: Enoxaparin Inj 40 MG/0.4 ML Syringe SQ SCH (21:42)
[2018-06-04] MEDS: Insulin NovoLOG Aspart Correctional Sugar Inj SQ SCH ×4 (03:34→18:04)
[2018-06-04] MEDS: Piperacil/Tazo 4.5 GM Premix 4.5 GM/100 ML BAG IV.SIG SCH ×3 (05:10→16:56)
[2018-06-04 05:28] LABS: Carbon Dioxide 35.8 meq/L (21.0-32.0); Potassium 3.9 meq/L (3.5-5.1)
[2018-06-04] MEDS: Divalproex 500 MG ER Tablet PO SCH (08:05)
[2018-06-04] MEDS: Potassium Chloride 10 MEQ ER Capsule PO SCH (08:05)
[2018-06-04] MEDS: Metoprolol Tartrate 100 MG Tablet PO SCH (08:05)
[2018-06-04] MEDS: Docusate Sodium 100 MG Capsule PO SCH (08:06)
[2018-06-04] MEDS: LORazepam 1 MG Tablet PO SCH (08:06)
[2018-06-04] MEDS: hydrALAZINE 50 MG Tablet PO SCH ×3 (08:07→17:00)
[2018-06-04] MEDS: Gabapentin 300 MG Capsule PO SCH ×3 (08:09→17:00)
--- NOTE | 2018-06-04 08:36 | P.PNIM ---
Subjective Interval history: f/u; CHF in no acute distress. looks and feels better although still on oxygen via N/C. no fever or new complaints. Physical Exam Vital signs: Vital Signs 06/03/18 09:00 06/03/18 12:00 06/03/18 16:00 Temperature 98.1 F 97.9 F Pulse Rate 59 L 59 L 59 L Respiratory Rate 20 20 Blood Pressure 94/53 L 124/83 Pulse Oximetry 97 95 Pulse Oximetry [Resting on Room Air] 86 L Pulse Oximetry [Resting with Oxygen] 92 L 06/03/18 20:00 06/03/18 22:00 06/04/18 00:00 Temperature 97.9 F 97.8 F Pulse Rate 70 69 58 L Respiratory Rate 18 18 Blood Pressure 118/78 152/88 H 113/77 Pulse Oximetry 98 99 Pulse Oximetry [Resting on Room Air] Pulse Oximetry [Resting with Oxygen] 06/04/18 04:00 Temperature 97.9 F Pulse Rate 79 Respiratory Rate 20 Blood Pressure 115/77 Pulse Oximetry 93 L Pulse Oximetry [Resting on Room Air] Pulse Oximetry [Resting with Oxygen] Intake & Output 06/03/18 06/04/18 06/04/18 18:59 06:59 18:59 Intake Total 800 / 800 1300 / 1300 Balance 800 / 800 1300 / 1300 Weight 98.4 kg Intake: IV 200 / 200 200 / 200 Zosyn 4.5 GM Premix 4.5 gm In 200 / 200 200 / 200 100 ml @ 200 mls/hr IV.SIG Q6H MILADYS Rx#:[id number] Oral 600 / 600 1100 / 1100 Other: # Voids 3 2 Date of Last Bowel Movement 06/01/18 # Bowel Movements 2 - Constitutional no acute distress - Routine Respiratory Exam Present: CTA bilaterally - Routine Cardiovascular Exam Present: RRR - Routine Abdominal Exam Present: soft - Routine Extremities Exam Comments: no pedal edema. - Routine Neurological Exam Present: alert, oriented X3 Results - Labs CBC & Chem 7: 06/01/18 06:24 06/04/18 03:30 Laboratory Results - last 24 hr 06/03/18 06/03/18 06/03/18 11:40 12:43 17:07 Sodium 137 Potassium 3.5 Chloride 95 L Carbon Dioxide 37.0 H Anion Gap 5 BUN 25 H Creatinine 1.23 H Estimated GFR 54 L POC Glucose 117 H 174 H Random Glucose 114 H Calcium 9.1 06/03/18 06/04/18 06/04/18 19:59 02:21 03:30 Sodium 139 Potassium 3.9 Chloride 98 Carbon Dioxide 35.8 H Anion Gap 5 BUN 18 Creatinine 0.93 Estimated GFR 75 L POC Glucose 158 H 126 H Random Glucose 133 H Calcium 9.0 06/04/18 07:16 Sodium Potassium Chloride Carbon Dioxide Anion Gap BUN Creatinine Estimated GFR POC Glucose 102 Random Glucose Calcium Microbiology 05/30/18 17:20 Blood - Peripheral Aerobic Blood Culture - Preliminary No growth in 4 days 05/30/18 17:20 Blood - Peripheral Anaerobic Blood Culture - Preliminary No growth in 4 days 05/30/18 17:15 Blood - Peripheral Aerobic Blood Culture - Preliminary No growth in 4 days 05/30/18 17:15 Blood - Peripheral Anaerobic Blood Culture - Preliminary No growth in 4 days Assessment and Plan - Plan 1. Respiratory distress/pneumonia/ CHF- improving slowly. Patient with new oxygen requirement; failed the walk test. initial Chest x-ray significant for interstitial edema consistent with CHF/ repeated CXR on 06/01 with improved CHF. Chest CTA showed bilateral pleural effusions, right greater than left with atelectasis versus infiltrate of the right lower lobe switch to oral diuretic upon discharge. received IV antibiotics. Echo with EF 60% and no regional wall motion abnormalities continue albuterol. 2. Elevated lactic acid/? sepsis Received IV fluid hydration. Blood cultures negative so far. No leukocytosis, questionable pneumonia on chest x-ray/CTA 3. Chest pain EKG shows sinus rhythm without ST segment elevation or depression, personally reviewed Patient has been worked up multiple times for chest pain, last nuclear stress test was 11/2016 - wnl 4. Diabetes mellitus Continue home Tradjenta Sliding-scale insulin Monitor blood glucose 5. Hypertension/hyperlipidemia/seizure disorder Continue home medications 6. Schizophrenia/bipolar disorder Continue home medications Reconcile meds FEN HHD and ADA 1800 diet Electrolytes: Monitor and replete as needed consulted PT. Discharge Planning: dc home when home oxygen has been set up. see med list. f/u; pcp. d/w the patient and RN.
--- NOTE | 2018-06-04 08:39 | P.DS ---
Date of admission: 05/30/18 20:40 Primary care physician: UNKNOWN Brief History from admission: 58-year-old female with a past medical history significant for schizophrenia, bipolar disorder, seizure disorder, hypertension, diabetes mellitus and hyperlipidemia presents to the emergency department for the evaluation of chest pain and shortness of breath. The patient states she had left-sided chest pain that began last night. It was accompanied with wheezing and shortness of breath. She endorses a fever and a nonproductive cough for the past 2 days. No abdominal pain. No nausea/vomiting/diarrhea. No lateralizing signs/ symptoms. DS: Summary Hospital Course: 1. Respiratory distress/pneumonia/ CHF- improving slowly. Patient with new oxygen requirement; failed the walk test. initial Chest x-ray significant for interstitial edema consistent with CHF/ repeated CXR on 06/01 with improved CHF. Chest CTA showed bilateral pleural effusions, right greater than left with atelectasis versus infiltrate of the right lower lobe switch to oral diuretic upon discharge. received IV antibiotics. Echo with EF 60% and no regional wall motion abnormalities continue albuterol. 2. Elevated lactic acid/? sepsis Received IV fluid hydration. Blood cultures negative so far. No leukocytosis, questionable pneumonia on chest x-ray/CTA 3. Chest pain EKG shows sinus rhythm without ST segment elevation or depression, personally reviewed Patient has been worked up multiple times for chest pain, last nuclear stress test was 11/2016 - wnl 4. Diabetes mellitus Continue home Tradjenta Sliding-scale insulin Monitor blood glucose 5. Hypertension/hyperlipidemia/seizure disorder Continue home medications 6. Schizophrenia/bipolar disorder Continue home medications Reconcile meds FEN HHD and ADA 1800 diet Electrolytes: Monitor and replete as needed - Time Spent with Patient Total time spent providing and/or coordinating discharge services: Less than 30 minutes - Quality: VTE Deep Vein Thrombosis/Pulmonary Embolism Present on Admission: No Exam Vital signs: Vital Signs 06/03/18 09:00 06/03/18 12:00 06/03/18 16:00 Temperature 98.1 F 97.9 F Pulse Rate 59 L 59 L 59 L Respiratory Rate 20 20 Blood Pressure 94/53 L 124/83 Pulse Oximetry 97 95 Pulse Oximetry [Resting on Room Air] 86 L Pulse Oximetry [Resting with Oxygen] 92 L 06/03/18 20:00 06/03/18 22:00 06/04/18 00:00 Temperature 97.9 F 97.8 F Pulse Rate 70 69 58 L Respiratory Rate 18 18 Blood Pressure 118/78 152/88 H 113/77 Pulse Oximetry 98 99 Pulse Oximetry [Resting on Room Air] Pulse Oximetry [Resting with Oxygen] 06/04/18 04:00 Temperature 97.9 F Pulse Rate 79 Respiratory Rate 20 Blood Pressure 115/77 Pulse Oximetry 93 L Pulse Oximetry [Resting on Room Air] Pulse Oximetry [Resting with Oxygen] Intake & Output 06/03/18 06/04/18 06/04/18 18:59 06:59 18:59 Intake Total 800 / 800 1300 / 1300 Balance 800 / 800 1300 / 1300 Weight 98.4 kg Intake: IV 200 / 200 200 / 200 Zosyn 4.5 GM Premix 4.5 gm In 200 / 200 200 / 200 100 ml @ 200 mls/hr IV.SIG Q6H MILADYS Rx#:[id number] Oral 600 / 600 1100 / 1100 Other: # Voids 3 2 Date of Last Bowel Movement 06/01/18 # Bowel Movements 2 - Constitutional no acute distress - Routine Respiratory Exam Present: CTA bilaterally - Routine Cardiovascular Exam Present: RRR - Routine Abdominal Exam Present: soft - Routine Extremities Exam Comments: no pedal edema. - Routine Neurological Exam Present: alert Results Procedures completed during hospitalization: none Labs on day of discharge: Labs from last 24 hours 06/04/18 06/04/18 06/04/18 07:16 03:30 02:21 Sodium 139 Potassium 3.9 Chloride 98 Carbon Dioxide 35.8 H Anion Gap 5 BUN 18 Creatinine 0.93 Estimated GFR 75 L POC Glucose 102 126 H Random Glucose 133 H Calcium 9.0 06/03/18 06/03/18 06/03/18 19:59 17:07 12:43 Sodium 137 Potassium 3.5 Chloride 95 L Carbon Dioxide 37.0 H Anion Gap 5 BUN 25 H Creatinine 1.23 H Estimated GFR 54 L POC Glucose 158 H 174 H Random Glucose 114 H Calcium 9.1 06/03/18 11:40 Sodium Potassium Chloride Carbon Dioxide Anion Gap BUN Creatinine Estimated GFR POC Glucose 117 H Random Glucose Calcium Preliminary micro results at discharge 05/30/18 17:20 Aerobic Blood Culture - Preliminary Blood - Peripheral No growth in 4 days Anaerobic Blood Culture - Preliminary No growth in 4 days 05/30/18 17:15 Aerobic Blood Culture - Preliminary Blood - Peripheral No growth in 4 days Anaerobic Blood Culture - Preliminary No growth in 4 days - Impressions ITS Impressions Chest CTA 05/30/18 17:59 CONCLUSION: 1. The study is negative for pulmonary embolism 2. Bilateral pleural effusions, right greater than left, and atelectasis or infiltrate in the right lower lobe. Chest X-Ray 06/01/18 00:00 CONCLUSION: Improving CHF. Discharge Plan - Discharge Disposition Patient Disposition: Disch /Home Health Service - Discharge Condition Condition: Fair - Physicians Team Primary Care Provider: UNKNOWN, Attending Provider: Issac Shipman
--- NOTE | 2018-06-04 08:43 | P.DCO ---
- Home Health Nursing Order: Medical education, Signs/symptoms of disease process, CHF education, Oxygen administration education, Medication education-adverse effect, Nursing assessment with vital signs - Case Management Consult Case Management Consult-Home Health: Yes - Certification I have seen patient Donald Schmidt on 06/04/18. My clinical findings support the need for the requested home health care services because: Patient has SOB I certify that my clinical findings support that this patient is homebound because: Poor cardiac reserve
[2018-06-04 08:46] VITALS: RESP 18
[2018-06-04 18:37] VITALS: BP 117/70; PULSE 60; TEMP 97.3; O2SAT 100
== END 2018-06-04 17:58 | disposition home health service (06) ==
LOC: NEPD 17:13 → NEDA 20:40 → N04 22:10
PROVIDERS: ADMIT Internal Medicine; ATTEND Internal Medicine

== ENCOUNTER 2018-07-09 22:19 | Inpatient (IN) ==
--- NOTE | 2018-07-09 22:34 | ED ---
HPI General Chief complaint: Shortness of Breath/Dyspnea Stated complaint: SoB Time Seen by Provider: 07/09/18 22:25 Source: EMS Mode of arrival: EMS Limitations: other (Review of systems is limited in this patient that arrives dyspneic with lethargy. The patient is on CPAP.) History of Present Illness HPI narrative: The patient is a 58 year old female who presents to the [facility] emergency department with a history of left-sided chest pain and shortness of breath that began suddenly 1 hour prior to arrival. The patient is normally on 2 L nasal cannula O2 continuously and was noted to be saturating 49% when ambulance services arrived. The patient has a prior history of congestive heart failure. She reports that she has been taking her medication as prescribed, however she is unsure of the names of any of her medications. She reports that she has had increasing lower extremity edema recently. She denies having any calf pain or erythema. She denies any prior history of DVT or PE. She is unsure whether she is on any anticoagulation. Unfortunately, the patient's review of systems is limited as the patient has lethargy with conversational dyspnea and diminished O2 saturations on arrival on room air of 78%. The patient was switched over to BiPAP by respiratory therapy. Ambulance services gave the patient 1 spray of nitroglycerin, applied CPAP, obtain IV access and gave the patient 90 mg of Lasix IV. The patient's blood sugar prior to arrival was reportedly 212. The patient has a history of diabetes. The patient after placement on BiPAP reported some improvement in her shortness of breath. The patient reports that her chest pain was initially an 8 out of 10 in severity and is now decreased to a 6 out of 10 in severity. Related Data Home Medications Medication Instructions Recorded Confirmed divalproex 1,000 mg PO BID 03/25/18 05/30/18 docusate sodium 100 mg PO BID 03/25/18 05/30/18 doxepin 25 mg PO HS 03/25/18 05/30/18 enalapril maleate 20 mg PO BID 03/25/18 05/30/18 fluphenazine HCl 5 mg PO DAILY 03/25/18 05/30/18 fluphenazine HCl 10 mg PO HS 03/25/18 05/30/18 gabapentin 300 mg PO TID 03/25/18 05/30/18 hydralazine 50 mg PO TID 03/25/18 05/30/18 levothyroxine 25 mcg PO DAILY 03/25/18 05/30/18 linagliptin [Tradjenta] 5 mg PO DAILY 03/25/18 05/30/18 lorazepam 1 mg PO DAILY 03/25/18 05/30/18 metformin 1,000 mg PO BID 03/25/18 05/30/18 metoprolol tartrate 100 mg PO BID 03/25/18 05/30/18 sennosides [Senna Laxative] 8.6 mg PO DAILY PRN 03/25/18 05/30/18 simvastatin 40 mg PO HS 05/30/18 05/30/18 Previous Rx's Medication Instructions Recorded albuterol sulfate 1 puff INHALATION Q6H PRN #1 g 06/04/18 levothyroxine 25 mcg PO DAILY@0600 tab 06/04/18 Allergies Allergy/AdvReac Type Severity Reaction Status Date / Time cat dander Allergy Mild Cough Verified 07/09/18 22:26 Penicillins Allergy Unknown Itching Verified 07/09/18 22:26 Sulfa (Sulfonamide AdvReac Mild Nausea/Vomi Verified 07/09/18 22:26 Antibiotics) ting trihexyphenidyl AdvReac Mild Nausea/Vomi Verified 07/09/18 22:26 ting Review of Systems ROS Unobtainable ROS Unobtainable: other (Due to respiratory distress) PMFSH History History Provided By: Medical Record Medical History Medical History Bipolar disorder (Acute) CVA (cerebral vascular accident) (Acute) Diabetes (Acute) HTN (hypertension) (Acute) Hyperlipidemia (Acute) Myocardial infarction (Acute) Schizophrenia (Acute) Seizure disorder (Acute) Surgical History Surgical History History of hip surgery (Acute) Family History Family History Other Diabetes mellitus Social History Social History Substance History: No History of Abuse Second Hand Smoke Exposure: No Smoking Status: Never smoker Tobacco Type: Smokeless Tobacco How Often Do You Have a Drink Containing Alcohol: Never Recent Travel in [facility] within the Last 8 Weeks: No Recent Out of Country Travel within the Last 8 Weeks: No Exam HENMT Head: normocephalic and atraumatic Nose: no nasal discharge and no epistaxis Mouth: moist mucous membranes Eyes Sclera: normal sclerae Pupils: PERRL Neck Neck: trachea midline and no JVD Resp Effort & Inspection: no use of accessory muscles Auscultation: crackles, no rhonchi and wheezes (Soft expiratory wheezes.) upper bilaterally Cardio Rate: regular rate Rhythm: regular rhythm Heart Sounds: no murmurs GI Inspection: non-distended Palpation: soft, no hepatosplenomegaly, no guarding, not rigid and nontender Auscultation: normal bowel sounds Back/Spine/Pelvis Back: no CVA tenderness Skin General: dry skin (warm) Neuro General: alert, awake, oriented x3 and other (Grossly nonfocal, generalized weakness noted.) Speech: speech normal Motor: no movement abnormalities noted Extrem General: normal to inspection (2+ pulses in all 4 extremities.), no calf tenderness, no clubbing, no cyanosis and edema (1+ pitting edema bilateral lower extremities.) Laterality: bilaterally Psych Mood: congruent mood Affect: normal affect Judgment: judgment good Course Initial Documented Vital Signs Pulse Oximetry 95 07/09/18 22:20 Last Documented Vital Signs Temperature 98.4 F 07/10/18 02:00 Pulse Rate 72 07/10/18 03:00 Respiratory Rate 14 07/10/18 03:00 Blood Pressure 94/53 L 07/10/18 03:00 Pulse Oximetry 100 07/10/18 03:00 Critical Care Time Critical Care Time: Yes Total Critical Care Time: 36 Attestation: Aggregate critical care time was 36 minutes. Time to perform other separately billable procedures was not included in the critical care time. My time did not include minutes spent treating any other patients simultaneously or on activities that did not directly contribute to the patient's treatment. The services I provided to this patient were to treat and/or prevent clinically significant deterioration that could result in: Cardiovascular collapse from cardiogenic shock, versus cardiac dysrhythmia, versus I provided critical care services requiring my management, as noted below: Chart data review, documentation time, medication orders and management, vital sign assessments/reviewing monitor data, ordering and reviewing lab tests, ordering and interpreting/reviewing x-rays and diagnostic studies, care of the patient and discussion of the patient with the admitting physicians. Medical Decision Making MDM Narrative Medical decision making narrative: During the course of the patient's emergency department visit, the patient's history, examination, and differential diagnosis were reviewed with the patient. The patient was placed on a radiation monitor with oximetry and frequent blood pressure monitoring. The patient had IV access obtained and blood work sent for analysis. Diagnostic evaluation was started regarding the patient's chest pain and shortness of breath. The patient's electronic medical record was reviewed and during her last hospitalization she did undergo a CTA to rule out PE which showed no evidence of PE, however bilateral pleural effusions right greater than left. The patient underwent a 2D echo on May 31, 2018 that showed an ejection fraction of 60- 65% with mild to moderate mitral valve regurgitation, aortic valve sclerosis. The patient during that hospitalization was not evaluated by a cash reconciliation specialist. The patient was determined to have intermediate troponins the highest of which appeared to be 0.08. It appears that the patient was admitted to the chest pain center in November as well as December 2017. I do not see any evidence of the stress test being done at that time. The patient has been noted on CTAs in the past to have severe coronary artery calcifications. The patient was initially provided nitroglycerin sublingual every 5 minutes x3 as needed chest pain, nitroglycerin 1 inch to the chest wall was applied. The patient will have a Eid catheter placed to gravity as she did receive 90 mg of Lasix prior to arrival by ambulance services. The patient's diagnostic studies today revealed a chest x-ray that shows bilateral pleural effusions evidence of congestive heart failure with fluid overload. The patient is noted to have a white count of 8.1, hemoglobin 9.2 which is stable compared to her prior level of anemia, platelets 173 with 51.1 lymphocytes, PT PTT unremarkable, chemistry is remarkable for sodium of 134, chloride 95, BUN 6, creatinine 1.09, GFR 62, glucose 188, AST 14, CPK 239, troponin I is 0.04. Lipase 62. I called the cash reconciliation specialist local combination truck driver, Dr. Boland regarding this patient's case and the patient's EKG changes. He requested that the patient be made n.p.o. He reports that he will see the patient in consultation in the morning. The patient's case including history, pertinent physical examination findings, and laboratory studies were discussed with Dr. Suarez. It was agreed that the patient would be admitted to the hospitalist service. The patient's results were discussed with the patient, including the plan of care. I explained that further testing and/ or monitoring is indicated based on the patient's history, examination, and/ or laboratory findings. Therefore, I recommended admission for additional evaluation. The patient expressed understanding and was agreeable with this plan. The patient was admitted to the hospital in guarded condition and sent to a bed under the care of the [facility] service. Medical Screen Exam Complete: Yes Emergency Medical Condition: Yes Differential Diagnosis Differential Diagnosis: Acute coronary syndrome, versus congestive heart failure exacerbation, versus pulmonary embolism Medical Records Medical records reviewed: Yes I reviewed the patient's medical records. Lab Data Lab results reviewed: Yes I reviewed the patient's lab results. Result diagrams: 07/09/18 22:29 07/09/18 22:29 Lab Results 07/09/18 07/09/18 07/09/18 Range/Units 22:29 22:29 22:29 WBC 8.1 (4.0-11.0) th/mm3 RBC 3.46 L (4.00-5.30) mil/mm3 Hgb 9.2 L (11.6-15.3) gm/dL Hct 28.4 L (35.0-46.0) % MCV 82.1 (80.0-100.0) fL MCH 26.6 L (27.0-34.0) pg MCHC 32.4 (32.0-36.0) % RDW 18.8 H (11.6-17.2) % Plt Count 173 (150-450) th/mm3 MPV 7.9 (7.0-11.0) fL Neut % (Auto) 40.4 (16.0-70.0) % Lymph % (Auto) 51.1 H (9.0-44.0) % [place] % (Auto) 7.7 (0.0-8.0) % Eos % (Auto) 0.5 (0.0-4.0) % Baso % (Auto) 0.3 (0.0-2.0) % Neut # (Auto) 3.3 (1.8-7.7) th/mm3 Lymph # (Auto) 4.2 (1.0-4.8) th/mm3 [place] # (Auto) 0.6 (0.0-0.9) th/mm3 Eos # (Auto) 0.0 (0.0-0.4) th/mm3 Baso # (Auto) 0.0 (0.0-0.2) th/mm3 WBC Differential . Differential Comment Auto diff final PT 10.4 (9.8-11.6) sec INR 1.0 Ratio APTT 21.2 L (23.4-31.7) sec Sodium 134 L (136-145) meq/L Potassium 3.6 (3.5-5.1) meq/L Chloride 95 L (98-107) meq/L Carbon Dioxide 26.0 (21.0-32.0) meq/L Anion Gap 13 (5-15) meq/L BUN 6 L (7-18) mg/dL Creatinine 1.09 H (0.50-1.00) mg/dL Estimated GFR 62 L (>89) mL/min POC Glucose (68-110) mg/dl Random Glucose 188 H (74-106) mg/dL Calcium 8.4 L (8.5-10.1) mg/dL Magnesium 1.7 (1.5-2.5) mg/dL Total Bilirubin 0.2 (0.2-1.0) mg/dL AST 14 L (15-37) U/L ALT 15 (10-53) U/L Alkaline Phosphatase 75 (45-117) U/L Total Creatine Kinase 239 H (26-192) U/L CK-MB (CK-2) 3.3 (0.5-3.6) ng/mL CK-MB (CK-2) % 1.4 (0.0-4.0) % Troponin I 0.04 (0.02-0.05) ng/mL B-Natriuretic Peptide (0-100) pg/mL Total Protein 7.7 (6.4-8.2) g/dL Albumin 3.5 (3.4-5.0) g/dL Lipase 62 L (73-393) U/L Urine Color (Yellw/Straw) Urine Clarity (Clear) Urine pH (5.0-8.5) Ur Specific [place] (1.002-1.035) Urine Protein (Neg-Trace) mg/dL Urine Glucose (UA) (Negative) mg/dL Urine Ketones (Negative) mg/dL Urine Occult Blood (Negative) Urine Nitrate (Negative) Urine Bilirubin (Negative) Urine Urobilinogen (Less than 2) mg/dL Ur Leukocyte Esterase (Negative) Micro UA Comment Ur Microscopic Review Urine Culture Comments Nasal Screen MRSA (PCR) (Negative) 07/09/18 07/09/18 07/10/18 Range/Units 22:29 22:50 01:40 WBC (4.0-11.0) th/mm3 RBC (4.00-5.30) mil/mm3 Hgb (11.6-15.3) gm/dL Hct (35.0-46.0) % MCV (80.0-100.0) fL MCH (27.0-34.0) pg MCHC (32.0-36.0) % RDW (11.6-17.2) % Plt Count (150-450) th/mm3 MPV (7.0-11.0) fL Neut % (Auto) (16.0-70.0) % Lymph % (Auto) (9.0-44.0) % [place] % (Auto) (0.0-8.0) % Eos % (Auto) (0.0-4.0) % Baso % (Auto) (0.0-2.0) % Neut # (Auto) (1.8-7.7) th/mm3 Lymph # (Auto) (1.0-4.8) th/mm3 [place] # (Auto) (0.0-0.9) th/mm3 Eos # (Auto) (0.0-0.4) th/mm3 Baso # (Auto) (0.0-0.2) th/mm3 WBC Differential Differential Comment PT (9.8-11.6) sec INR Ratio APTT (23.4-31.7) sec Sodium (136-145) meq/L Potassium (3.5-5.1) meq/L Chloride (98-107) meq/L Carbon Dioxide (21.0-32.0) meq/L Anion Gap (5-15) meq/L BUN (7-18) mg/dL Creatinine (0.50-1.00) mg/dL Estimated GFR (>89) mL/min POC Glucose (68-110) mg/dl Random Glucose (74-106) mg/dL Calcium (8.5-10.1) mg/dL Magnesium (1.5-2.5) mg/dL Total Bilirubin (0.2-1.0) mg/dL AST (15-37) U/L ALT (10-53) U/L Alkaline Phosphatase (45-117) U/L Total Creatine Kinase (26-192) U/L CK-MB (CK-2) (0.5-3.6) ng/mL CK-MB (CK-2) % (0.0-4.0) % Troponin I (0.02-0.05) ng/mL B-Natriuretic Peptide 501 H (0-100) pg/mL Total Protein (6.4-8.2) g/dL Albumin (3.4-5.0) g/dL Lipase (73-393) U/L Urine Color Colorless (Yellw/Straw) Urine Clarity Clear (Clear) Urine pH 6.0 (5.0-8.5) Ur Specific [place] 1.004 (1.002-1.035) Urine Protein Negative (Neg-Trace) mg/dL Urine Glucose (UA) Negative (Negative) mg/dL Urine Ketones Negative (Negative) mg/dL Urine Occult Blood Negative (Negative) Urine Nitrate Negative (Negative) Urine Bilirubin Negative (Negative) Urine Urobilinogen Less than 2 (Less than 2) mg/dL Ur Leukocyte Esterase Negative (Negative) Micro UA Comment Culture not ind Ur Microscopic Review Not Reportable Urine Culture Comments Culture not ind Nasal Screen MRSA (PCR) Not detected (Negative) 07/10/18 Range/Units 02:56 WBC (4.0-11.0) th/mm3 RBC (4.00-5.30) mil/mm3 Hgb (11.6-15.3) gm/dL Hct (35.0-46.0) % MCV (80.0-100.0) fL MCH (27.0-34.0) pg MCHC (32.0-36.0) % RDW (11.6-17.2) % Plt Count (150-450) th/mm3 MPV (7.0-11.0) fL Neut % (Auto) (16.0-70.0) % Lymph % (Auto) (9.0-44.0) % [place] % (Auto) (0.0-8.0) % Eos % (Auto) (0.0-4.0) % Baso % (Auto) (0.0-2.0) % Neut # (Auto) (1.8-7.7) th/mm3 Lymph # (Auto) (1.0-4.8) th/mm3 [place] # (Auto) (0.0-0.9) th/mm3 Eos # (Auto) (0.0-0.4) th/mm3 Baso # (Auto) (0.0-0.2) th/mm3 WBC Differential Differential Comment PT (9.8-11.6) sec INR Ratio APTT (23.4-31.7) sec Sodium (136-145) meq/L Potassium (3.5-5.1) meq/L Chloride (98-107) meq/L Carbon Dioxide (21.0-32.0) meq/L Anion Gap (5-15) meq/L BUN (7-18) mg/dL Creatinine (0.50-1.00) mg/dL Estimated GFR (>89) mL/min POC Glucose 133 H (68-110) mg/dl Random Glucose (74-106) mg/dL Calcium (8.5-10.1) mg/dL Magnesium (1.5-2.5) mg/dL Total Bilirubin (0.2-1.0) mg/dL AST (15-37) U/L ALT (10-53) U/L Alkaline Phosphatase (45-117) U/L Total Creatine Kinase (26-192) U/L CK-MB (CK-2) (0.5-3.6) ng/mL CK-MB (CK-2) % (0.0-4.0) % Troponin I (0.02-0.05) ng/mL B-Natriuretic Peptide (0-100) pg/mL Total Protein (6.4-8.2) g/dL Albumin (3.4-5.0) g/dL Lipase (73-393) U/L Urine Color (Yellw/Straw) Urine Clarity (Clear) Urine pH (5.0-8.5) Ur Specific [place] (1.002-1.035) Urine Protein (Neg-Trace) mg/dL Urine Glucose (UA) (Negative) mg/dL Urine Ketones (Negative) mg/dL Urine Occult Blood (Negative) Urine Nitrate (Negative) Urine Bilirubin (Negative) Urine Urobilinogen (Less than 2) mg/dL Ur Leukocyte Esterase (Negative) Micro UA Comment Ur Microscopic Review Urine Culture Comments Nasal Screen MRSA (PCR) (Negative) Imaging Data Radiologist's impression: Chest X-Ray 07/09/18 22:27 CONCLUSION: Symmetric bilateral pleural-parenchymal opacities ECG Data Attestation: I personally reviewed and interpreted this ECG as follows: Prior ECG tracings: available for review Interpretation: The patient had an EKG done on arrival. The patient's EKG reveals a sinus tachycardia rate of 102, QRS duration is 98 ms, QTC [address] segment depression is noted in multiple leads including lead I, 2, aVF, V3, V4, V5, V6. No acute ST segment elevation. This is compared to a prior EKG done at this facility in May 2018 and shows acute changes worrisome for ischemia. Discharge Plan Discharge Disposition Patient Disposition: ED Admit(ED Internal Use Only) Discharge Order Discharge Orders: ED Use Only Admit Order (Routine); Ordered 07/10/18 Ordered By: Lisa Higuera Discharge Details Diagnosis: Acute respiratory distress, Congestive heart failure, Chest pain Physicians Team ED Provider: Lisa Higuera Primary Care Provider: UNKNOWN, Attending Provider: Sherin uSarez Other Providers: Vlad Boland Discharge Interventions Interventions: ED Discharge Assessment Last Done: 07/10/18 01:40 Status ED Status: Left Department Discharge Information Discharge Date/Time: 07/10/18 01:40
[2018-07-09 22:45] LABS: Baso % (Auto) 0.3 % (0.0-2.0); Eos % (Auto) 0.5 % (0.0-4.0); Hematocrit 28.4 % (35.0-46.0); Hemoglobin 9.2 gm/dL (11.6-15.3); Lymph # (Auto) 4.2 th/mm3 (1.0-4.8); Lymph % (Auto) 51.1 % (9.0-44.0); Mean Corpuscular HGB Conc 32.4 % (32.0-36.0); Mean Corpuscular Hemoglobin 26.6 pg (27.0-34.0); Mean Corpuscular Volume 82.1 fL (80.0-100.0); Mean Platelet Volume 7.9 fL (7.0-11.0); Mono # (Auto) 0.6 th/mm3 (0.0-0.9); Mono % (Auto) 7.7 % (0.0-8.0); Neut # (Auto) 3.3 th/mm3 (1.8-7.7); Neut % (Auto) 40.4 % (16.0-70.0); Platelet Count 173 th/mm3 (150-450); Red Blood Count 3.46 mil/mm3 (4.00-5.30); Red Cell Distribution Width 18.8 % (11.6-17.2); White Blood Count 8.1 th/mm3 (4.0-11.0)
--- NOTE | 2018-07-09 22:45 | XR ---
EXAM DATE: 07/09/2018 10:38 PM EST AGE/SEX: 58 years / Female INDICATIONS: Chest pain CLINICAL DATA: This is the patient's initial encounter. Patient reports that signs and symptoms have been present for 1 day and indicates a pain score of 0/10. MEDICAL/SURGICAL HISTORY: . Cerebrovascular disease. Diabetes. Myocardial infarction. Hyperten juwan None. COMPARISON: [facility], CTA PULMONARY W CONTRAST W 3D, 05/30/2018. . FINDINGS: Hazy bilateral pleural parenchymal opacity may reflect mild alveolar disease and and layering effusio n. Cardiac contours are grossly unchanged. CONCLUSION: Symmetric bilateral pleural-parenchymal opacities Electronically signed by: Tobin Velasquez MD Board Certified Radiologist 07/09/2018 10:43 PM EST
[2018-07-09 22:55] LABS: Activated Partial Thrombo Time 21.2 sec (23.4-31.7); Prothrombin Time 10.4 sec (9.8-11.6)
[2018-07-09 22:57] LABS: Alanine Aminotransferase 15 U/L (10-53); Albumin 3.5 g/dL (3.4-5.0); Anion Gap 13 meq/L (5-15); Aspartate Aminotransferase 14 U/L (15-37); Blood Urea Nitrogen 6 mg/dL (7-18); Calcium 8.4 mg/dL (8.5-10.1); Chloride 95 meq/L (98-107); Glomerular Filtration Rate 62 mL/min (>89); Glucose,Random 188 mg/dL (74-106); Lipase 62 U/L (73-393); Magnesium 1.7 mg/dL (1.5-2.5); Potassium 3.6 meq/L (3.5-5.1); Sodium 134 meq/L (136-145)
[2018-07-09 23:01] LABS: Alkaline Phosphatase 75 U/L (45-117); Creatine Kinase 239 U/L (26-192); Total Protein 7.7 g/dL (6.4-8.2); Troponin I 0.04 ng/mL (0.02-0.05)
[2018-07-09 23:02] LABS: Bilirubin,Urine Negative (Negative); Clarity,Urine Clear (Clear); Color,Urine Colorless (Yellw/Straw); Glucose,Urine (UA) Negative (Negative); Leukocyte Esterase,Urine Negative (Negative); Nitrite,Urine Negative (Negative); Specific Gravity,Urine 1.004 (1.002-1.035)
[2018-07-09] MEDS ORDERED: Heparin Drip 25,000 UNIT/250 ML BAG IV.CONT PRN (23:05)
[2018-07-09] MEDS ORDERED: Heparin 10,000 UNITS/10 ML Vial (for IV use) IV.PUSH STA (23:05)
[2018-07-09 23:13] LABS: CKMB Percent 1.4 % (0.0-4.0); Creatine Kinase MB 3.3 ng/mL (0.5-3.6)
[2018-07-09] MEDS ORDERED: Morphine Sulfate Inj 2 MG/ML Vial IV.PUSH ONE (23:17)
[2018-07-10] MEDS ORDERED: Dextrose 50% in Water 50 ML Vial IV.PUSH PRN (00:56)
--- NOTE | 2018-07-10 01:35 | P.HP ---
History of Present Illness Service: [facility] Primary Care Physician: UNKNOWN History of Present Illness: 58-year-old female with a past medical history significant for previous CVA, diabetes mellitus, hypertension, hyperlipidemia, coronary artery disease and schizophrenia/bipolar disorder presents to the emergency department for the evaluation of chest pain/pressure. The patient reports that at 8 PM last night she began to feel as if someone was hitting her in the chest. She endorses accompanying shortness of breath. Positive nausea with abdominal pain. No emesis. When EMS arrived on scene the patient had conversational dyspnea and an oxygen saturation of 78% on room air. She was placed on BiPAP. No fever/ chills. No focal neurologic deficits. EKG with sinus tachycardia with ST segment depression in multiple leads including 1, 2, aVF, V3-V6. Inpatient Certification: I certify that the inpatient services were ordered in accordance with Medicare regulations governing the order. This includes certification that hospital inpatient services are reasonable and necessary and in the case of services not specified as inpatient-only under 42 CFR 419.22(n), that they are appropriately provided as inpatient services in accordance to with the 2-midnight benchmark under 43 CFR 412.3(e) Estimated Total Length of Stay (Days): 2 Plans for Post Hospital Care: Not yet determined Review of Systems All other systems reviewed negative except as stated in [facility] - History History Provided By: Medical Record - Medical History Medical History: Medical History (Last Reviewed 07/10/18 @ 01:29 by Sherin Suarez MD) Bipolar disorder CVA (cerebral vascular accident) Diabetes HTN (hypertension) Hyperlipidemia Myocardial infarction Schizophrenia Seizure disorder - Surgical History Surgical History: Surgical History (Last Reviewed 07/10/18 @ 01:29 by Sherin Suarez MD) History of hip surgery - Family History Family History: Family History (Last Reviewed 07/10/18 @ 01:29 by Sherin Suarez MD) Other Diabetes mellitus - Social History I have reviewed the patient's Social History: Yes - Tobacco History Second Hand Smoke Exposure: (DORIAN) Smoking Status: Never smoker Tobacco Type: Smokeless Tobacco - Alcohol History How Often Do You Have a Drink Containing Alcohol: Never - Substance Use History Substance History: No History of Abuse - Immunization History Tetanus Immunization: Unsure Medications and Allergies Active Medications: Active Medications Dextrose (D50w Vial) 50 ml IV.PUSH UNSCH PRN PRN Reason: PER HYPOGLYCEMIA PROTOCOL Glucagon (Glucagon Inj) 1 mg OTHER PRN PRN PRN Reason: for Hypoglycemia Protocol Hydralazine HCl (Apresoline) 50 mg PO TID [place] Heparin Sodium/Dextrose (Heparin/D5w 25,000 U/250 Ml) 25,000 unit in 250 mls @ 0 mls/hr IV.CONT TITRATE PRN; Protocol PRN Reason: Per Protocol Last Admin: 07/09/18 23:27 Dose: 1,000 units/hr, 10 mls/hr Insulin Aspart (Novolog Insulin Correctional Sugar Inj) 0 unit SQ ACHS AND 3AM MIL[place]YS; Protocol Levothyroxine Sodium (Synthroid) 25 mcg PO DAILY@0600 [place] Metoprolol Tartrate (Lopressor) 100 mg PO BID [place] Nitroglycerin (Nitrostat Sl) 0.4 mg SL Q5M PRN PRN Reason: CHEST PAIN Last Admin: 07/09/18 23:13 Dose: 0.4 mg Nitroglycerin (Nitro-Bid 2% Oint) 1 inch TOPICAL Q6HR [place] Pravastatin Sodium (Pravachol) 80 mg PO HS [place] Sodium Chloride (Ns Flush) 2 ml IV.FLUSH UNSCH PRN PRN Reason: FLUSH AFTER USING IV ACCESS Sodium Chloride (Ns Inj) 2 ml IV.FLUSH BID [place] Sodium Chloride (Ns Inj) 2 ml IV.FLUSH UNSCH PRN PRN Reason: FLUSH AFTER USING IV ACCESS Allergies Allergy/AdvReac Type Severity Reaction Status Date / Time cat dander Allergy Mild Cough Verified 07/09/18 22:26 Penicillins Allergy Unknown Itching Verified 07/09/18 22:26 Sulfa (Sulfonamide AdvReac Mild Nausea/Vomi Verified 07/09/18 22:26 Antibiotics) ting trihexyphenidyl AdvReac Mild Nausea/Vomi Verified 07/09/18 22:26 ting Home Medications Medication Instructions Recorded Confirmed Type divalproex 1,000 mg PO BID 03/25/18 05/30/18 History docusate sodium 100 mg PO BID 03/25/18 05/30/18 History doxepin 25 mg PO HS 03/25/18 05/30/18 History enalapril maleate 20 mg PO BID 03/25/18 05/30/18 History fluphenazine HCl 5 mg PO DAILY 03/25/18 05/30/18 History fluphenazine HCl 10 mg PO HS 03/25/18 05/30/18 History gabapentin 300 mg PO TID 03/25/18 05/30/18 History hydralazine 50 mg PO TID 03/25/18 05/30/18 History levothyroxine 25 mcg PO DAILY 03/25/18 05/30/18 History linagliptin [Tradjenta] 5 mg PO DAILY 03/25/18 05/30/18 History lorazepam 1 mg PO DAILY 03/25/18 05/30/18 History metformin 1,000 mg PO BID 03/25/18 05/30/18 History metoprolol tartrate 100 mg PO BID 03/25/18 05/30/18 History sennosides [Senna Laxative] 8.6 mg PO DAILY PRN 03/25/18 05/30/18 History simvastatin 40 mg PO HS 05/30/18 05/30/18 History Exam Vital signs: Vital Signs 07/09/18 22:20 07/09/18 22:26 07/09/18 22:34 Pulse Rate 111 H 97 H Respiratory Rate 30 H 30 H Blood Pressure 114/70 119/69 Pulse Oximetry 95 76 L 98 07/09/18 23:00 07/09/18 23:29 07/09/18 23:30 Pulse Rate 99 H 98 H Respiratory Rate 20 20 20 Blood Pressure 108/62 97/54 L Pulse Oximetry 100 98 07/10/18 00:25 Pulse Rate Respiratory Rate Blood Pressure Pulse Oximetry 96 Intake & Output 07/09/18 07/09/18 07/10/18 06:59 18:59 06:59 Weight 99.79 kg Narrative: Gen.: No acute distress Head: Normocephalic. Atraumatic. EENT: Pupils equal round and reactive to light. Nose without drainage. Airway intact. Throat without injection. Cardiovascular: Regular rate and rhythm. No murmurs, rubs or gallops. Respiratory: Lungs clear to auscultation bilaterally. No wheezes or rhonchi. Abdomen: Soft, nontender, nondistended. No peritoneal signs. Musculoskeletal: No gross deformities. No edema. Skin: No obvious rashes or erythema. Neuro: Sensory and motor grossly intact. Cranial nerves II through XII grossly intact. Results - Labs CBC & Chem 7: 07/09/18 22:29 07/09/18 22:29 Labs: Laboratory Results - last 24 hr 07/09/18 07/09/18 07/09/18 22:29 22:29 22:29 WBC 8.1 RBC 3.46 L Hgb 9.2 L Hct 28.4 L MCV 82.1 MCH 26.6 L MCHC 32.4 RDW 18.8 H Plt Count 173 MPV 7.9 Neut % (Auto) 40.4 Lymph % (Auto) 51.1 H [place] % (Auto) 7.7 Eos % (Auto) 0.5 Baso % (Auto) 0.3 Neut # (Auto) 3.3 Lymph # (Auto) 4.2 [place] # (Auto) 0.6 Eos # (Auto) 0.0 Baso # (Auto) 0.0 WBC Differential . Differential Comment Auto diff final PT 10.4 INR 1.0 APTT 21.2 L Sodium 134 L Potassium 3.6 Chloride 95 L Carbon Dioxide 26.0 Anion Gap 13 BUN 6 L Creatinine 1.09 H Estimated GFR 62 L Random Glucose 188 H Calcium 8.4 L Magnesium 1.7 Total Bilirubin 0.2 AST 14 L ALT 15 Alkaline Phosphatase 75 Total Creatine Kinase 239 H CK-MB (CK-2) 3.3 CK-MB (CK-2) % 1.4 Troponin I 0.04 B-Natriuretic Peptide Total Protein 7.7 Albumin 3.5 Lipase 62 L Urine Color Urine Clarity Urine pH Ur Specific [place] Urine Protein Urine Glucose (UA) Urine Ketones Urine Occult Blood Urine Nitrate Urine Bilirubin Urine Urobilinogen Ur Leukocyte Esterase Micro UA Comment Ur Microscopic Review Urine Culture Comments 07/09/18 07/09/18 22:29 22:50 WBC RBC Hgb Hct MCV MCH MCHC RDW Plt Count MPV Neut % (Auto) Lymph % (Auto) [place] % (Auto) Eos % (Auto) Baso % (Auto) Neut # (Auto) Lymph # (Auto) [place] # (Auto) Eos # (Auto) Baso # (Auto) WBC Differential Differential Comment PT INR APTT Sodium Potassium Chloride Carbon Dioxide Anion Gap BUN Creatinine Estimated GFR Random Glucose Calcium Magnesium Total Bilirubin AST ALT Alkaline Phosphatase Total Creatine Kinase CK-MB (CK-2) CK-MB (CK-2) % Troponin I B-Natriuretic Peptide 501 H Total Protein Albumin Lipase Urine Color Colorless Urine Clarity Clear Urine pH 6.0 Ur Specific [place] 1.004 Urine Protein Negative Urine Glucose (UA) Negative Urine Ketones Negative Urine Occult Blood Negative Urine Nitrate Negative Urine Bilirubin Negative Urine Urobilinogen Less than 2 Ur Leukocyte Esterase Negative Micro UA Comment Culture not ind Ur Microscopic Review Not Reportable Urine Culture Comments Culture not ind - Imaging Impressions Chest X-Ray 07/09/18 22:27 CONCLUSION: Symmetric bilateral pleural-parenchymal opacities Caprini VTE Risk Assessment Caprini VTE Risk Assessment: Moderate/High Risk (score >= 2) Caprini Risk Assessment Model: Point Value = 1 Point Value = 2 Point Value = 3 Point Value = 5 Age 41-60 Minor surgery BMI > 25 kg/m2 Swollen legs Varicose veins or History of unexplained or recurrent spontaneous Oral contraceptives or hormone replacement Sepsis (< 1 month) Serious lung disease, including pneumonia (< 1 month) Abnormal pulmonary function Acute myocardial infarction Congestive heart failure (< 1 month) History of inflammatory bowel disease Medical patient at bed rest Age 61-74 Arthroscopic surgery Major open surgery (> 45 min) Laparoscopic surgery (> 45 min) Malignancy Confined to bed (> 72 hours) Immobilizing plaster cast Central venous access Age >= 75 History of VTE Family history of VTE Factor V Leiden Prothrombin [id number] Lupus anticoagulant Anticardiolipin antibodies Elevated serum homocysteine Heparin-induced thrombocytopenia Other congenital or acquired thrombophilia Stroke (< 1 month) Elective arthroplasty Hip, pelvis, or leg fracture Acute spinal cord injury (< 1 month) Prophylaxis Regimen: Total Risk Factor Score Risk Level Prophylaxis Regimen 0-1 Low Early ambulation 2 Moderate Order ONE of the following: *Sequential Compression Device (SCD) *Heparin 5000 units SQ BID 3-4 Higher Order ONE of the following medications: *Heparin 5000 units SQ TID *Enoxaparin/Lovenox 40 mg SQ daily (WT < 150 kg, CrCl > 30 mL/min) *Enoxaparin/Lovenox 30 mg SQ daily (WT < 150 kg, CrCl > 10-29 mL/min) *Enoxaparin/Lovenox 30 mg SQ BID (WT < 150 kg, CrCl > 30 mL/min) AND/OR *Sequential Compression Device (SCD) 5 or more Highest Order ONE of the following medications: *Heparin 5000 units SQ TID (Preferred with Epidurals) *Enoxaparin/Lovenox 40 mg SQ daily (WT < 150 kg, CrCl > 30 mL/min) *Enoxaparin/Lovenox 30 mg SQ daily (WT < 150 kg, CrCl > 10-29 mL/min) *Enoxaparin/Lovenox 30 mg SQ BID (WT < 150 kg, CrCl > 30 mL/min) AND *Sequential Compression Device (SCD) Assessment and Plan - Plan Assessment/plan: 1. Acute coronary syndrome/CAD EKG significant for multiple ST segment depressions, personally reviewed Initial troponin 0.04 Serial troponins/EKGs Cardiology consulted, recommend heparin drip and wish to be notified if the patient's chest pain returns Heparin drip 2. Hypoxia Patient saturations improved on BiPAP Wean as tolerated 3. Diabetes mellitus Sliding scale insulin as patient n.p.o. Monitor blood glucose 4. Hypertension/hyperlipidemia Continue home statin, beta-lisa 5. Bipolar/schizophrenia Continue home medications FEN N.p.o. Electrolytes: Monitor and replete as needed Heparin ggt
[2018-07-10] MEDS: Insulin NovoLOG Aspart Correctional Sugar Inj SQ SCH ×5 (02:58→20:51)
[2018-07-10] MEDS: Chlorhexidine Gluconate 2% 1 Pack (2 Cloths) TOPICAL SCH (03:45)
[2018-07-10] MEDS ORDERED: Chlorhexidine Gluconate 2% 1 Pack (2 Cloths) TOPICAL PRN (04:00)
[2018-07-10 05:07] LABS: Hematocrit 26.3 % (35.0-46.0); Hemoglobin 8.3 gm/dL (11.6-15.3); Mean Corpuscular HGB Conc 31.6 % (32.0-36.0); Mean Corpuscular Volume 82.3 fL (80.0-100.0); Mean Platelet Volume 7.6 fL (7.0-11.0); Platelet Count 163 th/mm3 (150-450); Red Blood Count 3.19 mil/mm3 (4.00-5.30); Red Cell Distribution Width 18.9 % (11.6-17.2); White Blood Count 6.6 th/mm3 (4.0-11.0)
[2018-07-10 05:44] LABS: Troponin I 2.1 ng/mL (0.02-0.05)
[2018-07-10 05:57] LABS: Creatine Kinase MB 15.7 ng/mL (0.5-3.6)
[2018-07-10 06:03] LABS: CKMB Percent 5.8 % (0.0-4.0)
[2018-07-10] MEDS ORDERED: Influenza (Quadrivalent) Vaccine 0.5 ML Syringe IM ONE (09:00)
--- NOTE | 2018-07-10 10:18 | P.PN ---
Subjective Interval history: Follow-up unstable angina July 10, 2018-patient seen and examined, still complaining of chest pain and tightness as well as shortness of breath. Denies any dizziness. Physical Exam Vital signs: Vital Signs 07/09/18 22:20 07/09/18 22:26 07/09/18 22:34 Temperature Pulse Rate 111 H 97 H Respiratory Rate 30 H 30 H Blood Pressure 114/70 119/69 Pulse Oximetry 95 76 L 98 07/09/18 23:00 07/09/18 23:29 07/09/18 23:30 Temperature Pulse Rate 99 H 98 H Respiratory Rate 20 20 20 Blood Pressure 108/62 97/54 L Pulse Oximetry 100 98 07/10/18 00:25 07/10/18 01:00 07/10/18 01:40 Temperature Pulse Rate 84 Respiratory Rate 18 Blood Pressure 110/63 Pulse Oximetry 96 97 98 07/10/18 02:00 07/10/18 02:25 07/10/18 03:00 Temperature 98.4 F Pulse Rate 79 72 Respiratory Rate 25 H 14 Blood Pressure 113/64 94/53 L Pulse Oximetry 99 100 100 07/10/18 04:00 07/10/18 06:00 07/10/18 08:00 Temperature 97.7 F Pulse Rate 68 66 Respiratory Rate 13 Blood Pressure 102/58 L Pulse Oximetry 100 100 Intake & Output 07/09/18 07/10/18 07/10/18 18:59 06:59 18:59 Intake Total 0 / 0 Output Total 2575 / 2575 Balance -2575 / -2575 Weight 99 kg Intake: Oral 0 / 0 Output: Urine 1750 / 1750 Urine Amount (Catheter) 825 / 825 Indwelling Urethral Catheter 825 / 825 Other: Date of Last Bowel Movement 07/10/18 # Bowel Movements 0 Weight On Admission 99 kg Narrative: GENERAL: NAD SKIN: Warm and dry. HEAD: Normocephalic. EYES: No scleral icterus. No injection or drainage. NECK: Supple, trachea midline. No JVD or lymphadenopathy. CARDIOVASCULAR: Regular rate and rhythm without murmurs, gallops, or rubs. RESPIRATORY: Breath sounds equal bilaterally. No accessory muscle use. GASTROINTESTINAL: Abdomen soft, non-tender, nondistended. MUSCULOSKELETAL: No cyanosis, or edema. BACK: Nontender without obvious deformity. No CVA tenderness. - Urinary Catheter Management Indwelling Urethral Catheter Cath placed during this visit: yes Reason for continuing: Hourly intake/output Insertion date: 07/09/18 Insertion time: 22:50 Results - Labs CBC & Chem 7: 07/10/18 04:57 07/09/18 22:29 Laboratory Results - last 24 hr 07/09/18 07/09/18 07/09/18 22:29 22:29 22:29 WBC 8.1 RBC 3.46 L Hgb 9.2 L Hct 28.4 L MCV 82.1 MCH 26.6 L MCHC 32.4 RDW 18.8 H Plt Count 173 MPV 7.9 Neut % (Auto) 40.4 Lymph % (Auto) 51.1 H [place] % (Auto) 7.7 Eos % (Auto) 0.5 Baso % (Auto) 0.3 Neut # (Auto) 3.3 Lymph # (Auto) 4.2 [place] # (Auto) 0.6 Eos # (Auto) 0.0 Baso # (Auto) 0.0 WBC Differential . Differential Comment Auto diff final PT 10.4 INR 1.0 APTT 21.2 L Sodium 134 L Potassium 3.6 Chloride 95 L Carbon Dioxide 26.0 Anion Gap 13 BUN 6 L Creatinine 1.09 H Estimated GFR 62 L POC Glucose Random Glucose 188 H Calcium 8.4 L Magnesium 1.7 Total Bilirubin 0.2 AST 14 L ALT 15 Alkaline Phosphatase 75 Total Creatine Kinase 239 H CK-MB (CK-2) 3.3 CK-MB (CK-2) % 1.4 Troponin I 0.04 B-Natriuretic Peptide Total Protein 7.7 Albumin 3.5 Lipase 62 L Urine Color Urine Clarity Urine pH Ur Specific [place] Urine Protein Urine Glucose (UA) Urine Ketones Urine Occult Blood Urine Nitrate Urine Bilirubin Urine Urobilinogen Ur Leukocyte Esterase Micro UA Comment Ur Microscopic Review Urine Culture Comments Nasal Screen MRSA (PCR) Blood Type Blood Type Recheck MTS Gel Crossmatch 07/09/18 07/09/18 07/10/18 22:29 22:50 01:40 WBC RBC Hgb Hct MCV MCH MCHC RDW Plt Count MPV Neut % (Auto) Lymph % (Auto) [place] % (Auto) Eos % (Auto) Baso % (Auto) Neut # (Auto) Lymph # (Auto) [place] # (Auto) Eos # (Auto) Baso # (Auto) WBC Differential Differential Comment PT INR APTT Sodium Potassium Chloride Carbon Dioxide Anion Gap BUN Creatinine Estimated GFR POC Glucose Random Glucose Calcium Magnesium Total Bilirubin AST ALT Alkaline Phosphatase Total Creatine Kinase CK-MB (CK-2) CK-MB (CK-2) % Troponin I B-Natriuretic Peptide 501 H Total Protein Albumin Lipase Urine Color Colorless Urine Clarity Clear Urine pH 6.0 Ur Specific [place] 1.004 Urine Protein Negative Urine Glucose (UA) Negative Urine Ketones Negative Urine Occult Blood Negative Urine Nitrate Negative Urine Bilirubin Negative Urine Urobilinogen Less than 2 Ur Leukocyte Esterase Negative Micro UA Comment Culture not ind Ur Microscopic Review Not Reportable Urine Culture Comments Culture not ind Nasal Screen MRSA (PCR) Not detected Blood Type Blood Type Recheck MTS Gel Crossmatch 07/10/18 07/10/18 07/10/18 02:56 04:57 04:57 WBC 6.6 RBC 3.19 L Hgb 8.3 L Hct 26.3 L MCV 82.3 MCH 26.0 L MCHC 31.6 L RDW 18.9 H Plt Count 163 MPV 7.6 Neut % (Auto) Lymph % (Auto) [place] % (Auto) Eos % (Auto) Baso % (Auto) Neut # (Auto) Lymph # (Auto) [place] # (Auto) Eos # (Auto) Baso # (Auto) WBC Differential Differential Comment PT INR APTT 48.5 H D Sodium Potassium Chloride Carbon Dioxide Anion Gap BUN Creatinine Estimated GFR POC Glucose 133 H Random Glucose Calcium Magnesium Total Bilirubin AST ALT Alkaline Phosphatase Total Creatine Kinase CK-MB (CK-2) CK-MB (CK-2) % Troponin I B-Natriuretic Peptide Total Protein Albumin Lipase Urine Color Urine Clarity Urine pH Ur Specific [place] Urine Protein Urine Glucose (UA) Urine Ketones Urine Occult Blood Urine Nitrate Urine Bilirubin Urine Urobilinogen Ur Leukocyte Esterase Micro UA Comment Ur Microscopic Review Urine Culture Comments Nasal Screen MRSA (PCR) Blood Type Blood Type Recheck MTS Gel Crossmatch 07/10/18 07/10/18 07/10/18 04:57 08:15 09:50 WBC RBC Hgb Hct MCV MCH MCHC RDW Plt Count MPV Neut % (Auto) Lymph % (Auto) [place] % (Auto) Eos % (Auto) Baso % (Auto) Neut # (Auto) Lymph # (Auto) [place] # (Auto) Eos # (Auto) Baso # (Auto) WBC Differential Differential Comment PT INR APTT Sodium Potassium Chloride Carbon Dioxide Anion Gap BUN Creatinine Estimated GFR POC Glucose 108 Random Glucose Calcium Magnesium Total Bilirubin AST ALT Alkaline Phosphatase Total Creatine Kinase 269 H CK-MB (CK-2) 15.7 H CK-MB (CK-2) % 5.8 H* Troponin I 2.10 H* D B-Natriuretic Peptide Total Protein Albumin Lipase Urine Color Urine Clarity Urine pH Ur Specific [place] Urine Protein Urine Glucose (UA) Urine Ketones Urine Occult Blood Urine Nitrate Urine Bilirubin Urine Urobilinogen Ur Leukocyte Esterase Micro UA Comment Ur Microscopic Review Urine Culture Comments Nasal Screen MRSA (PCR) Blood Type O Negative Blood Type Recheck Not needed MTS Gel Crossmatch See Detail - Imaging Impressions Chest X-Ray 07/09/18 22:27 CONCLUSION: Symmetric bilateral pleural-parenchymal opacities Assessment and Plan - Plan 58-year-old female with 1. Acute coronary syndrome/unstable angina Currently on heparin drip, Nitro paste, beta-lisa, statin Cardiology consultation pending Likely plan for heart catheterization today July 10, 2018 Check 2D echo, lipid panel 2. Acute hypoxia Patient saturations improved on BiPAP Wean as tolerated 3. Diabetes mellitus Sliding scale insulin and hold all oral antihyperglycemic agent 4. Hypertension/hyperlipidemia Continue home statin, beta-lisa 5. Bipolar/schizophrenia Continue home medications DVT prophylaxis: Heparin drip
[2018-07-10] MEDS: Metoprolol Tartrate 100 MG Tablet PO SCH ×2 (10:43→20:51)
[2018-07-10] MEDS: hydrALAZINE 50 MG Tablet PO SCH ×3 (10:43→18:09)
[2018-07-10] MEDS ORDERED: Heparin/NS PF Inj 1,000 ML ONE (10:46)
[2018-07-10] MEDS ORDERED: fentaNYL Citrate Inj 100 MCG/2 ML Ampul ONE (10:47)
--- NOTE | 2018-07-10 11:37 | CATHPROC ---
[employer] HIS Report Study Information Study Number Admission Scheduled Start Study Start [id number] Jul 10 2018 12:13AM 07/10/2018 Jul 10 2018 10:23AM [place] [facility] Cardiac Catheterization Admit Source Facility Department Emergency department [facility] Physician and Clinical Staff Initial Vlad Cooper Veterinary SurgeonSherin Dickens,[place] Veterinary SurgeonMelissa Sauceda,[place] Recorder Ashley Lutz,RT(R) Scrub Macho Gallagher,RT(R) Procedures Performed Procedure Location (Site) Vessel Name Coronary Angiograms LCA Left Coronary Coronary Angiograms RCA Right Coronary L Heart Cath LV Gram-hand inj. LV LV Ventricle Equipment Time Milk Drier Description Size Mfg Part Number Used/Scraped TRANSDUCER, TRUWAVE [id number] 10:34 MCGOVERN TAMEZ * Used W/STOCKCOCK *[id number] [id number] *[id number] [id number] *[id number] 10:34 [employer] BLANKET,WARM AIR CCL * Used *[id number] 10:34 [employer] PACK, CCL CUSTOM * Used *[id number] 10:34 [employer] PACER PEN, SKIN DUAL W/ RULER * Used *[id number] 10:34 [employer] WIRE, 3MMJ .035 180CM 180CM Used *[id number] 10:34 NAMIC MANIFOLD, 4 PORT * Used *[id number] 10:34 [employer] OMNIPAQUE, 350 MG, 150ML 150ML [id number] Used [id number] 10:34 [employer] MEDICAL SHEATH, FR4 TERUMO (10CM) FR 4 Used *[id number] History: Allergies Allergy Reaction Artane Nausea/Vomiting cat dander Cough Sulfa Nausea/Vomiting Sulfa (Sulfonamide Antibiotics) Nausea/Vomiting trihexyphenidyl Nausea/Vomiting Penicillins Itching History: Risk Factors Family History of Hypertension Dyslipidemia Previous UT Previous Heart Failure Premature CAD Yes Yes No Yes No Prior Valve Prior PCI Prior CABG Surgery No No No Cerebrovascular Peripheral Artery Chronic Lung On Dialysis Diabetes Disease Disease Disease No Yes No No Yes History: Symptoms/Diagnosis Selection Items Chest pain SOB History: Stress Tests Stress or Imaging Studies Performed No History: Other Disease Selection Items CAD HTN History: Other Current Smoker Method No Chew Labs Hgb (g/dl) Hct (%) RBC (MIL/MM3) WBC (l/cumm) Platelets (thousands) 11.60-17.00 35.00-51.00 4.00-5.90 4.00-11.00 150.00-450.00 8.3 26.3 3.1 6.6 163 Na (meq/l) K (meq/l) 136.00-145.00 3.50-5.10 134 3.6 INR (PTT:PT) 0.90-1.10 1 Troponin I (ng/ml) CPK (u/l) CPK-MB (ng/ML) 0.02-0.05 26.00-308.00 0.50-3.60 2.1 269 5.8 Medication Medication Total Dose (Bolus/Oral) Medication Total Dosage/Unit 1% XYLOCAINE 20 mL FENTANYL 25 mcg NITRO OINTMENT 1 inches VERSED 1 mg Medications (Bolus/Oral) Medication Time Given Dosage/Unit Administered By Reason 07/10/2018 10:48:24 NITRO OINTMENT 1 inches AM Patient arrived on 1 inches NITRO OINTMENT via Topical left upper chest. 07/10/2018 11:08:35 VERSED 1 mg Melissa Lawton AM 1 mg VERSED given in lab by Melissa Lawton RN in Left Antecubital via Peripheral IV. Ordered by Vlad Mack. 07/10/2018 11:09:13 1% XYLOCAINE 20 mL Vlad Boland AM 20 mL 1% XYLOCAINE given in lab by Vlad Boland in Right Antecubital via Subcutaneous. 07/10/2018 11:09:30 FENTANYL 25 mcg Melissa Lawton AM 25 mcg FENTANYL given in lab by Melissa Lawton, LAWRENCE in Left Antecubital via Peripheral IV. Ordered by Vlad Boland. Medication (Drip) Medication Time Given Dosage/Unit Concentration/Unit Diluent (ml) Solution 07/10/2018 10:35:45 HEPARIN DRIP STOPPED 10 units/hr 0 AM 10 units/hr HEPARIN DRIP STOPPED given pre op in Left Antecubital via Peripheral IV. Pump/Drip Flow = 0 ml/hr using [Solution Name]. 07/10/2018 10:48:10 IV Solutions 50 mL (IV) NaCl .9 AM Patient arrived on IV Solutions in Left Antecubital via Peripheral IV. Pump/Drip Flow using NaCl .9. Initial Case Assessment Cardiovascular Chest Pain 5 Edema Present Skin color Skin None Normal Warm Dry Circulatory - Right Pulses Dorsalis Pedis Femoral 1 1 Scale (0,1,2,3,4,d) Circulatory - Left Pulses Dorsalis Pedis Femoral 1 1 Scale (0,1,2,3,4,d) Neurological State Oriented to time-place- Alert Moves all extremities person Chronological Log Time Study Chronological Log 10 units/hr HEPARIN DRIP STOPPED given pre op in Left Antecubital via Peripheral IV. Pump/Drip Flow = 0 ml/hr using 10:35:45 [Solution Name]. 10:41:28 Patient arrived via Bed. 10:41:29 Patient Name, D.O.B, / Armband Verified By R.N. 10:41:29 Consent signed by the physician and the patient and verified by the [facility] staff. 10:41:32 Presedation assessment performed by [facility] RN. 10:41:37 Patient has been NPO for More than 6Hrs. 10:41:37 Skin Breakdown- none per pt 10:41:38 Patient Warmer Placed on the Table. 10:41:40 Fercho Prominences Protected 10:41:41 A # 20 IV was noted in the Hand (right). Grade = 0 10:41:44 A # 18 IV was noted in the Antecubital (right). Grade = 0 10:41:46 History and physical on the chart or being dictated. Assessment: Initial Case, Chest Pain=5, Edema=None, Color=Normal, Skin = Warm, Dry Right Pulses: Juan M Ped=1, Femoral=1 10:41:47 Left Pulses: Juan M Ped=1, Femoral=1 Neurological: State=Alert, Ox3, JAMES Vitals capture started with the following parameters, Patient=Adult, Interval=5 min, Initial P jtovcfl=328 mmHg, 10:47:35 Deflation Rate=5 mmHg, Cuff placed on Right Arm 10:48:10 Patient arrived on IV Solutions in Left Antecubital via Peripheral IV. Pump/Drip Flow usin g NaCl .9. 10:48:21 HR=69 bpm, FBKA=196/81 mmhg, SpO2=99.0 %, Resp=16 B/min 10:48:24 Patient arrived on 1 inches NITRO OINTMENT via Topical left upper chest. 10:52:07 Reference ECG taken 10:53:18 HR=68 bpm, TFSX=410/66 mmhg, SpO2=99.0 %, Resp=15 B/min 10:56:25 Bilateral groins prepped with 2% chlorhexidine, and draped after a 3 minute waiting time. 10:58:19 HR=72 bpm, DBXH=749/79 mmhg, DoN2=027.0 %, Resp=21 B/min 11:01:31 MD paged 11:02:18 MD responded 11:02:44 Pressure channel 1 zeroed. 11:03:18 HR=69 bpm, RPHM=995/75 mmhg, SpO2=97.0 %, Resp=15 B/min 11:06:19 MD arrived. 11:08:19 HR=73 bpm, PHCN=559/73 mmhg, SpO2=98.0 %, Resp=15 B/min 11:08:35 1 mg VERSED given in lab by Melissa Lawton, RN in Left Antecubital via Peripheral IV. Orde red by Vlad Boland. Time Out. Correct patient, correct procedure, correct physician, labs, allergies, and equipment verified with oil field laborer 11:08:50 team present. Fire risk assesment completed (see hard stop sheet for coding). Time Out Conc urred by MD and individual staff in procedure. 11:08:57 Case Start 11:09:13 20 mL 1% XYLOCAINE given in lab by Vlad Boland in Right Antecubital via Subcutaneous. 25 mcg FENTANYL given in lab by Melissa Lawton, RN in Left Antecubital via Peripheral IV. Orde red by Krystian, 11:09:30 Vlad. 11:10:35 Access site was Right Femoral Artery. 11:10:46 A SHEATH, FR4 TERUMO (10CM) FR 4 was advanced into the Fem Art (right) using the Percutaneo us technique. 11:11:27 Activated Clotting Time Drawn A JR 4.0 INFINITI CATHETER FR 4 was advanced over a wire. OMNIPAQUE, 350 MG, 150ML 150ML was us ed for 11:12:23 injections. 11:13:00 The LV was manually injected with 10 cc's and visualized. OMNIPAQUE, 350 MG, 150ML 150ML us ed. 11:13:16 HR=78 bpm, RWLC=278/67 mmhg, SpO2=95.0 %, Resp=19 B/min Recorded Pressure: LV, HR=85, Condition=Condition 1 11:13:37 (Left Ventricle) LV 90/15/15 Recorded Pressure: LV, Ao, HR=78, Condition=Condition 1 11:13:45 (Left Ventricle) LV 76/5/5, (Aorta) Ao 99/61/80 11:14:23 The RCA was injected and visualized at various angles. OMNIPAQUE, 350 MG, 150ML 150ML used . 11:14:36 Catheter was removed A JL 4.0 INFINITI CATHETER FR 4 was advanced over a wire. OMNIPAQUE, 350 MG, 150ML 150ML was us ed for 11:14:48 injections. Recorded Pressure: Ao, HR=77, Condition=Condition 1 11:15:49 (Aorta) Ao 96/63/79 11:16:02 The LCA was injected and visualized at various angles. OMNIPAQUE, 350 MG, 150ML 150ML used . 11:17:09 Catheter was removed 11:17:30 Case End (Physician broke scrub) 11:18:19 HR=75 bpm, DJGN=283/61 mmhg, SpO2=98.0 %, Resp=13 B/min 11:21:08 ACT (Normal Range 90-180) = 145 11:21:46 Sheath removed; pressure applied to access site. 11:23:18 HR=78 bpm, QFVH=076/69 mmhg, SpO2=98.0 %, Resp=16 B/min 11:24:32 No case complications noted. 11:24:33 Sterile dressing applied to site 11:24:34 Cine recording checked. 11:24:36 Bedside Report will be given. 11:24:39 Report called to floor. 11:24:42 A Left Heart Cath was performed. 11:28:19 HR=78 bpm, KNVO=796/65 mmhg, SpO2=98.0 %, Resp=13 B/min 11:33:27 HR=76 bpm, JHDA=069/48 mmhg, SpO2=98.0 %, Resp=18 B/min 11:36:25 Vitals capture stopped. 11:38:42 Patient moved to stretcher End Study - Contrast Media Used In Study Contrast Total Opened (mL) Total Used (mL) Total Wasted (mL) Omnipaque 350 150 20 130 End Study - Radiation Exposure Fluoro Time Fluoro Dose (mGy) Cine Dose (uGym2) (minutes) 0.9 [id number] End Study - Patient Disposition Complications Transferred To No Critical Care Bed
--- NOTE | 2018-07-10 12:03 | MB ---
cc: Vlad Boland MD DATE: 07/10/2018 HISTORY OF PRESENT ILLNESS: Donald is a very pleasant 58-year-old lady with a history of myocardial infarction, coronary artery disease, history of CVA, diabetes, hypertension, bipolar disorder, seizure disorder, schizophrenia, hip surgery, presents to the emergency room overnight with chief complaint of left-sided chest pain, shortness of breath. Began about an hour prior to arrival. Was treated with nasal cannula oxygen. Saturations were noted to be 49% on arrival. Otherwise, denies any fever, chills, cough, GI or bleeding, PND, orthopnea, syncope, or dizziness. PAST MEDICAL HISTORY: As per history of present illness. ALLERGIES: CAT DANDER, PENICILLIN, SULFA, TRIHEXYPHENIDYL. SOCIAL HISTORY: Denies tobacco or alcohol use. MEDICATIONS IN THE HOSPITAL: IV Heparin, hydralazine 50 mg t.i.d., insulin, Lopressor 100 mg b.i.d., 1-inch nitro paste q.6 hours, Pravachol 80 mg at bedtime, aspirin 324 x1. PHYSICAL EXAMINATION: VITAL SIGNS: Blood pressure 102/58, pulse is 60, respiratory rate 13, temperature 97.7. GENERAL: She is alert and oriented x3, in no acute distress. NECK: Supple. No JVD. No bruit. CARDIOVASCULAR: S1, S2. No murmurs, rubs, or gallops. LUNGS: Notable for decreased air movement at the bases bilaterally. ABDOMEN: Soft, nontender, nondistended with positive bowel sounds. EXTREMITIES: No extremity edema. DIAGNOSTIC DATA: Chest x-ray shows symmetric bilateral pleural parenchymal opacities. EKG shows a 4-[address] segment depression in lead V4, V5, V6; that is at 10:29 p.m. 07/09/2018. Compared to EKG on 05/31/2018, the ST depression is new. There is also 2-[address]-segment depression in lead I, aVL, and aVF. Repeat EKG at 5 a.m. 07/10/2018 appears normal, and she is in normal sinus rhythm. LABORATORY DATA: White count 8.1, hemoglobin on admission, 9.2 this morning 8.3, hematocrit 26.3, platelet count 163. INR 1.0, PTT 48.5. Sodium 134, potassium 3.6, chloride 95, BUN 6, creatinine 1.09, calcium 8.4. Initial CK is 239 with a troponin of 0.04, second troponin is 2.10. CK 269, MB 15.7, MB percent 5.8. BNP 501. DIAGNOSES: 1. [id number] myocardial infarction. 2. Decompensated congestive heart failure. 3. Hyponatremia. 4. Diabetes mellitus. 5. Anemia. 6. Unstable hemoglobin. 7. Bipolar disorder. 8. History of cerebrovascular accident. 9. History of hypertension. 10. History of hyperlipidemia. 11. Schizophrenia. 12. Seizure disorder. DISCUSSION: Left heart catheterization is urgently indicated due to high-risk presentation with non-STEMI and decompensated congestive heart failure with multiple cardiac risk factors. I have ordered stat type and cross and ordered 2 units of blood anticipating blood transfusion due to the unstable hemoglobin and severe anemia in the context of non-STEMI and decompensated congestive heart failure. The patient is high risk. Also, continue Pravachol. Vlad Boland MD Garcia/ , 11:35 AM , 11:44 AM
--- NOTE | 2018-07-10 12:41 | MA ---
cc: Vlad Boland MD DATE: 07/10/2018 PROCEDURES PERFORMED: Left heart catheterization, left ventriculography, coronary angiography. INDICATIONS FOR PROCEDURE: Non-STEMI, decompensated congestive heart failure, coronary artery disease. PROCEDURE IN DETAIL: The patient was brought to the cardiac catheterization laboratory, prepped and draped in the usual sterile fashion, 10 mL of 1% lidocaine were used to locally anesthetize the right common femoral artery. A 4-Tuvaluan sheath was placed in the right common femoral artery. The 4-Tuvaluan JR4 and JL4 catheters were used to perform left and right coronary angiography, left ventriculography. FINDINGS: The LV pressure is 90/16-18, EF of 60%. The right coronary artery is diffusely fibrocalcific fluoroscopically the entire length, extending into the right PDA. There is diffuse moderate disease at 40% to 50% throughout the entire proximal, and mid to distal right coronary artery. There is a focal 90% stenosis with poststenotic slight aneurysmal dilation beyond the stenosis in the distal right coronary artery. The right PDA is probably at least a 2.0 mm vessel extending out to the apex. There is sequential 95% stenosis in the ostium, proximal, and proximal mid segment. Right posterolateral artery is a relatively small vessel, probably 1.5 mm in diameter with no focal stenosis. Left main coronary artery is slightly fibrocalcific fluoroscopically. It is a large vessel, probably at least 5 mm in diameter with no significant disease angiographically. The left circumflex vessel has a proximal 90% stenosis just beyond a small obtuse marginal vessel, which is a 1.0 mm vessel with no significant disease angiographically. Beyond the proximal stenosis, there are 3 posterolateral arteries. The most lateral one is in the AV groove, has an ostial 95% stenosis. It is a 1 mm vessel with no other obstructive disease. The middle RENO vessel at the trifurcation has an ostial 70% to 80% stenosis. It is a 2.0 mm vessel and the most medial of the 3 of the trifurcation branches has an ostial 50% stenosis, 2.0 mm vessel with no significant disease angiographically. The LAD is diffusely densely fibrocalcific throughout its entire length. The proximal vessel, reference vessel diameter is probably at least 5 mm. There is mild diffuse disease in the mid segment up to 20% to 30% angiographically. The mid to distal segment has a 90% stenosis. The LAD is transapical. At the apex, there is another 95% stenosis. The first diagonal artery is a large vessel, 3.0 reference vessel diameter ostial 40% stenosis. Second diagonal artery small to medium size vessel, 2.0-2.25 mm vessel with no significant obstructive disease. Note, the first diagonal artery has a subtotal occlusion in the mid segment, and then bifurcates into 2 small to medium size vessels, which are about 1.75 mm reference vessel diameter. CONCLUSION: 1. Severe 3-vessel coronary artery disease as detailed above. 2. Normal left ventricular systolic function with ejection fraction 65%. 3. Decompensated congestive heart failure. 4. Diabetes mellitus. 5. Anemia. RECOMMENDATIONS: 1. Recommend CABG with vein graft to OM, vein graft to PDA, possible MUNIZ to LAD, although the amount of graftable segment is relatively small in the mid to distal segment, also, vein graft to first diagonal vessel. 2. The patient will need a preop anemia workup, 2D echo, and carotid ultrasound. 3. Will check fasting lipids, NCEP guidelines. 4. We will hold COREY inhibitor due to preop CABG status. 5. The patient currently has decompensated congestive heart failure, hypotension, anemia, with unstable hemoglobin, and is not a candidate for a beta lisa at this time. 6. The patient's condition is guarded. Recommend admission to CV ICU. MD JAMAICA Trivedi/rh/gato , 11:28 AM , 11:38 AM
[2018-07-10 13:40] LABS: Reticulocyte Percent 2.2 % (0.4-3.0)
--- NOTE | 2018-07-10 13:40 | ECG ---
Date Performed: 07/09/2018 Time Performed: 22:29:17 PTAGE: 58 years EKG: SINUS TACHYCARDIA POSSIBLE LEFT ATRIAL ENLARGEMENT POSSIBLE RIGHT VENTRICULAR HYPERTROPHY M ARKED ST DEPRESSION, CONSIDER SUBENDOCARDIAL INJURY ACUTE NM SIGNIFICANT ST ELEVATION IN LEADS aVR W ITH DIFFUSE RECIPROCAL AV DEPRESSION REPRESENTING POSSIBLY ACUTE LEFT MAIN MYOCARDIAL INFARCTION OR S EVERE MULTIVESSEL CORONARY DISEASE. ABNORMAL ECG Compared to PREVIOUS TRACING , ischemic changes noted above are new. Clinical correlation is required . PREVIOUS TRACIN05/31/2018 07.52 DOCTOR: Ajit Crowder Interpretating Date/Time 07/10/2018 13:39:13
--- NOTE | 2018-07-10 13:42 | ECG ---
Date Performed: 07/10/2018 Time Performed: 04:34:42 PTAGE: 58 years EKG: Sinus rhythm . Lateral ST-T changes are nonspecific Borderline ECG Compared to PREVIOUS TRACING , aVR ST elevations with reciprocal ST depressions have resolved. PREVIO US TRACING DOCTOR: Ajit Crowder Interpretating Date/Time 07/10/2018 13:40:39
[2018-07-10 14:08] LABS: % Iron Saturation 8.2 % (20-50)
[2018-07-10 14:13] LABS: Troponin I 1.88 ng/mL (0.02-0.05)
[2018-07-10 14:26] LABS: Creatine Kinase MB 16.3 ng/mL (0.5-3.6)
[2018-07-10 14:35] LABS: CKMB Percent 6.5 % (0.0-4.0)
--- NOTE | 2018-07-10 14:42 | MB ---
cc: Justin Cheng MD DATE: 07/10/2018 REQUESTING PHYSICIAN: Vlad Boland MD. REASON FOR CONSULTATION: Evaluation for anemia. HISTORY OF PRESENT ILLNESS: A 58-year-old lady with previous cerebrovascular disease, diabetes mellitus, hypertension, hyperlipidemia, coronary artery disease, and schizophrenia/bipolar disorder who came to the emergency room with chest pain and was found to have increasing liver enzymes and chest pain. Hence, the patient was taken to the lab animal technologist for emergent cardiac catheterization. I was asked to see her for evaluation for her anemia and apparently she did not have a prior history of anemia that is documented. She is not very clear about her medical history herself. She could not give me much history about any history of anemia or bone marrow biopsy in the past. At this point, she is status post emergent blood transfusion for emergency cardiac catheterization. She is now stable and comfortable and claims that after the catheterization her chest pain is getting better. She has no new complaints. She wants to be able to eat. REVIEW OF SYSTEMS: Denies dizziness, back pain, bone pain, fevers, night sweats, or weight loss. She has no abdominal pain, distention, blood in stool, or black stools. No frequency, urgency, or hematuria. PAST MEDICAL HISTORY: As above. PRIMARY CARE PHYSICIAN: Unknown. No known history of renal failure or requirement for dialysis. PAST SURGICAL HISTORY: She had a history of hip surgery and no further details are available. SOCIAL HISTORY: Denies smoking and admits to using tobacco for sniff stuffing. FAMILY HISTORY: Noncontributory. PHYSICAL EXAMINATION: GENERAL: This is an obese, middle-aged lady, appearing much older. No apparent distress. Pallor present. No icterus. Alert and oriented x4, nonfocal. VITAL SIGNS: Stable. She is afebrile. HEENT: Significant for leukoplakia in the lower lip and no oral ulcerations. No evidence of malignancy. NECK: No palpable adenopathy in the neck or axilla. No JVD. HEART: S1, S2. Regular rate and rhythm. LUNGS: Bilaterally clear. Decreased air entry with crackles at the bases and expiratory wheezes. ABDOMEN: Soft and nontender without palpable organomegaly; specifically, no splenomegaly. No free fluid clinically. EXTREMITIES: No edema or evidence of DVTs. Right groin catheterization site without evidence of bleeding. LABORATORY DATA: Reviewed and significant for hemoglobin of 9.2 on admission yesterday and today 8.3 with normocytic anemia with MCV of 82 and platelets normal at 163. White count is normal at 6.6. Differential is normal. PT, PTT with normal baseline and PTT increased to 48.5 on heparin. Increased cardiac enzymes with troponin 2.1 noted. Chemistry significant for albumin of 3.5, lipase 62. Alkaline phosphatase is 75. Total CK is 239, CK-MB 3.3%. Troponin I is 2.1, total bilirubin 0.2. Creatinine is 1.09, GFR is 62. ASSESSMENT AND PLAN: A 58-year-old lady with multiple medical problems with normocytic anemia, possibly chronic; but, since patient had acute chest pain, she was transfused and currently she is hemodynamically and hematologically stable. The etiology of her anemia, which is normocytic, is not obvious but there is a component of renal insufficiency contributing to it; but, I do not suspect that is the main etiology at this time. Either way, the patient is status post blood transfusion and will check a stool occult blood to rule out acute blood loss causing anemia, which can still be normocytic. In addition, we will check her B12 levels and iron studies as she could have contribution from nutritional deficiencies. The necessary orders were put in the EMR and I will see her in followup in the hospital tomorrow with repeat CBC. She was already transfused 2 units of PRBC this morning. MD KARMEN Gómez/thanh , 01:44 PM , 01:54 PM
--- NOTE | 2018-07-10 15:34 | US ---
EXAM DATE: 07/10/2018 3:28 PM EST AGE/SEX: 58 years / Female INDICATIONS: CVA. CLINICAL DATA: This is the patient's initial encounter. Patient reports that signs and symptoms have been present for 1 day and indicates a pain score of 0/10. MEDICAL/SURGICAL HISTORY: Diabetes. Hypertension. Seizures. Bipolar disorder. CVA. Hyperlipi demia. Myocardial infarction. Schizophrenia. . History of hip surgery. COMPARISON: No prior exams available for comparison. VELOCITY PARAMETERS: ICA/CCA Ratio: Right 1.5 , Left 1.0 ICA: Right 105 cm/sec, Left 91 cm/sec CCA: Right 69 cm/sec, Left 88 cm/sec ECA: Right 83 cm/sec, Left 80 cm/sec Vertebral: Right 43 cm/sec antegrade, Left 68 cm/sec antegrade FINDINGS: Right Carotid: No significant plaque is visualized.The waveforms are within normal limits. Left Carotid: No significant plaque is visualized. The waveforms are within normal limits. Other: None. CONCLUSION: 1. Right Internal Carotid Artery: No significant stenosis or atherosclerotic plaque is visualized. 2. Left Internal Carotid Artery: No significant stenosis or atherosclerotic plaque is visualized. Electronically signed by: Shaquille Jose MD Board Certified Radiologist 07/10/2018 3:32 PM EST
[2018-07-10 19:55] LABS: Hematocrit 31.5 % (35.0-46.0); Hemoglobin 10.2 gm/dL (11.6-15.3)
[2018-07-11] MEDS: Insulin NovoLOG Aspart Correctional Sugar Inj SQ SCH ×5 (04:12→22:16)
[2018-07-11 04:39] LABS: Baso % (Auto) 0.3 % (0.0-2.0); Eos % (Auto) 0.9 % (0.0-4.0); Hematocrit 30.3 % (35.0-46.0); Lymph # (Auto) 1.8 th/mm3 (1.0-4.8); Lymph % (Auto) 32.6 % (9.0-44.0); Mean Corpuscular Hemoglobin 27.5 pg (27.0-34.0); Mean Corpuscular Volume 83.5 fL (80.0-100.0); Mean Platelet Volume 8.2 fL (7.0-11.0); Mono % (Auto) 18.1 % (0.0-8.0); Neut # (Auto) 2.7 th/mm3 (1.8-7.7); Neut % (Auto) 48.1 % (16.0-70.0); Platelet Count 152 th/mm3 (150-450); Red Blood Count 3.63 mil/mm3 (4.00-5.30); Red Cell Distribution Width 17.9 % (11.6-17.2); White Blood Count 5.6 th/mm3 (4.0-11.0)
[2018-07-11 05:09] LABS: Alanine Aminotransferase 19 U/L (10-53); Albumin 3.1 g/dL (3.4-5.0); Alkaline Phosphatase 63 U/L (45-117); Anion Gap 4 meq/L (5-15); Aspartate Aminotransferase 29 U/L (15-37); Blood Urea Nitrogen 8 mg/dL (7-18); Carbon Dioxide 33.6 meq/L (21.0-32.0); Chloride 104 meq/L (98-107); Chol/HDL Ratio 5.32 Ratio; Cholesterol 199 mg/dL (120-200); Glomerular Filtration Rate Greater Than 89 mL/min (>89); Glucose,Random 110 mg/dL (74-106); HDL Cholesterol 37.4 mg/dL (40.0-60.0); LDL Cholesterol,Calculated 135 mg/dL (0-99); Potassium 4.5 meq/L (3.5-5.1); Sodium 142 meq/L (136-145); Triglycerides 134 mg/dL (42-150)
[2018-07-11] MEDS: Chlorhexidine Gluconate 2% 1 Pack (2 Cloths) TOPICAL SCH (06:39)
[2018-07-11] MEDS ORDERED: Iohexol 350 MG/ML 50 ML Vial (for Cath Lab) IVCONTRAST ONE (09:05)
[2018-07-11] MEDS: hydrALAZINE 50 MG Tablet PO SCH ×3 (09:49→17:56)
[2018-07-11] MEDS: Metoprolol Tartrate 100 MG Tablet PO SCH ×2 (09:49→22:16)
--- NOTE | 2018-07-11 09:58 | P.PNCA ---
Subjective Interval history: assymptomatic in nad Medications and Allergies Active Medications: Active Medications Aspirin (Ecotrin) 81 mg PO DAILY [facility] Last Admin: 07/11/18 09:49 Dose: 81 mg Chlorhexidine Gluconate (Chlorhexidine 2% Cloth) 3 pack TOPICAL DAILY@0400 [place] Stop: 07/15/18 03:59 Last Admin: 07/11/18 06:39 Dose: Not Given Chlorhexidine Gluconate (Chlorhexidine 2% Cloth) 3 pack TOPICAL DAILY@0400 PRN PRN Reason: Extra cloth needed Stop: 07/15/18 03:59 Dextrose (D50w Vial) 50 ml IV.PUSH UNSCH PRN PRN Reason: PER HYPOGLYCEMIA PROTOCOL Doxepin HCl (Sinequan) 25 mg PO HS [facility] Last Admin: 07/10/18 20:50 Dose: 25 mg Fluphenazine HCl (Prolixin) 10 mg PO HS [facility] Last Admin: 07/10/18 20:50 Dose: 10 mg Glucagon (Glucagon Inj) 1 mg OTHER PRN PRN PRN Reason: for Hypoglycemia Protocol Hydralazine HCl (Apresoline) 50 mg PO TID [facility] Last Admin: 07/11/18 09:49 Dose: 50 mg Insulin Aspart (Novolog Insulin Correctional Sugar Inj) 0 unit SQ ACHS AND 3AM [place]; Protocol Last Admin: 07/11/18 09:12 Dose: Not Given Levothyroxine Sodium (Synthroid) 25 mcg PO DAILY@0600 [facility] Last Admin: 07/11/18 06:40 Dose: 25 mcg Metoprolol Tartrate (Lopressor) 100 mg PO BID [facility] Last Admin: 07/11/18 09:49 Dose: 100 mg Nitroglycerin (Nitrostat Sl) 0.4 mg SL Q5M PRN PRN Reason: CHEST PAIN Last Admin: 07/09/18 23:13 Dose: 0.4 mg Nitroglycerin (Nitro-Bid 2% Oint) 1 inch TOPICAL Q6HR [facility] Last Admin: 07/11/18 06:40 Dose: 1 inch Pravastatin Sodium (Pravachol) 80 mg PO HS [facility] Last Admin: 07/10/18 20:51 Dose: 80 mg Sodium Chloride (Ns Flush) 2 ml IV.FLUSH BID [facility] Last Admin: 07/11/18 09:49 Dose: 2 ml Sodium Chloride (Ns Flush) 2 ml IV.FLUSH PRN PRN PRN Reason: FLUSH AFTER USING IV ACCESS Allergies Allergy/AdvReac Type Severity Reaction Status Date / Time cat dander Allergy Mild Cough Verified 07/09/18 22:26 Penicillins Allergy Unknown Itching Verified 07/09/18 22:26 Sulfa (Sulfonamide AdvReac Mild Nausea/Vomi Verified 07/09/18 22:26 Antibiotics) ting trihexyphenidyl AdvReac Mild Nausea/Vomi Verified 07/09/18 22:26 ting Home Medications Medication Instructions Recorded Confirmed Type divalproex 1,000 mg PO BID 03/25/18 05/30/18 History docusate sodium 100 mg PO BID 03/25/18 05/30/18 History doxepin 25 mg PO HS 03/25/18 05/30/18 History enalapril maleate 20 mg PO BID 03/25/18 05/30/18 History fluphenazine HCl 5 mg PO DAILY 03/25/18 05/30/18 History fluphenazine HCl 10 mg PO HS 03/25/18 05/30/18 History gabapentin 300 mg PO TID 03/25/18 05/30/18 History hydralazine 50 mg PO TID 03/25/18 05/30/18 History levothyroxine 25 mcg PO DAILY 03/25/18 05/30/18 History linagliptin [Tradjenta] 5 mg PO DAILY 03/25/18 05/30/18 History lorazepam 1 mg PO DAILY 03/25/18 05/30/18 History metformin 1,000 mg PO BID 03/25/18 05/30/18 History metoprolol tartrate 100 mg PO BID 03/25/18 05/30/18 History sennosides [Senna Laxative] 8.6 mg PO DAILY PRN 03/25/18 05/30/18 History simvastatin 40 mg PO HS 05/30/18 05/30/18 History Physical Exam Vital signs: Vital Signs 07/10/18 10:00 07/10/18 12:00 07/10/18 13:28 Temperature 98.5 F 98.5 F Pulse Rate 64 70 68 Respiratory Rate 15 16 Blood Pressure 111/61 121/65 Pulse Oximetry 100 07/10/18 14:00 07/10/18 16:00 07/10/18 16:14 Temperature 98.6 F 98.4 F Pulse Rate 67 77 72 Respiratory Rate 18 16 Blood Pressure 107/63 107/63 Pulse Oximetry 100 100 07/10/18 18:00 07/10/18 20:00 07/10/18 21:07 Temperature 97.9 F Pulse Rate 68 70 Respiratory Rate 16 Blood Pressure 144/88 H Pulse Oximetry 93 L 95 07/10/18 23:00 07/11/18 00:00 07/11/18 03:00 Temperature 97.9 F Pulse Rate 68 56 L 60 Respiratory Rate 16 Blood Pressure 110/70 Pulse Oximetry 98 07/11/18 04:07 07/11/18 07:00 07/11/18 07:20 Temperature 98.1 F Pulse Rate 56 L 62 Respiratory Rate 16 Blood Pressure 100/62 Pulse Oximetry 95 96 07/11/18 08:00 Temperature 98.6 F Pulse Rate 62 Respiratory Rate 18 Blood Pressure 138/82 Pulse Oximetry 95 Intake & Output 07/10/18 07/11/18 07/11/18 18:59 06:59 18:59 Intake Total 640 / 640 880 / 880 Output Total 1750 / 1750 1009 / 1009 Balance -1110 / -1110 -129 / -129 Weight 100 kg Intake: Oral 240 / 240 480 / 480 Intake (Blood Product) Amt 400 / 400 400 / 400 Rbc As-3 Leukoreduced Unit 0 / 0 400 / 400 [id number] Rbc As-3 Leukoreduced Unit 400 / 400 [id number] Output: Urine Amount (Catheter) 1750 / 1750 1009 / 1009 Indwelling Urethral Catheter 1750 / 1750 1009 / 1009 Other: Date of Last Bowel Movement 07/09/18 07/09/18 # Bowel Movements 0 0 - Constitutional no acute distress - Routine HEENT Exam Head: Present: normocephalic - Routine Neck Exam Present: supple - Routine Respiratory Exam Present: CTA bilaterally - Routine Cardiovascular Exam Present: S1, S2 - Routine Abdominal Exam Present: soft - Routine Extremities Exam Comments: no dannielle - Urinary Catheter Management Indwelling Urethral Catheter Cath placed during this visit: yes Reason for continuing: Hourly intake/output Insertion date: 07/09/18 Insertion time: 22:50 Results 07/11/18 03:19 07/11/18 03:19 Cardiac Enzymes 07/09/18 07/09/18 07/10/18 Range/Units 22:29 22:29 04:57 AST 14 L (15-37) U/L CK-MB (CK-2) 3.3 15.7 H (0.5-3.6) ng/mL Troponin I 0.04 2.10 H* D (0.02-0.05) ng/mL B-Natriuretic Peptide 501 H (0-100) pg/mL 07/10/18 07/11/18 07/11/18 Range/Units 13:03 03:19 03:19 AST 29 (15-37) U/L CK-MB (CK-2) 16.3 H (0.5-3.6) ng/mL Troponin I 1.88 H* D (0.02-0.05) ng/mL B-Natriuretic Peptide 194 H (0-100) pg/mL Coagulation 07/09/18 07/09/18 07/10/18 Range/Units 22:29 22:29 04:57 PT 10.4 (9.8-11.6) sec APTT 21.2 L 48.5 H D (23.4-31.7) sec B-Natriuretic Peptide 501 H (0-100) pg/mL 07/10/18 07/11/18 Range/Units 13:03 03:19 PT (9.8-11.6) sec APTT 24.5 D (23.4-31.7) sec B-Natriuretic Peptide 194 H (0-100) pg/mL Lipids 07/11/18 Range/Units 03:19 Triglycerides 134 (42-150) mg/dL Cholesterol 199 (120-200) mg/dL HDL Cholesterol 37.4 L (40.0-60.0) mg/dL Cholesterol/HDL Ratio 5.32 Ratio CBC 07/09/18 07/10/18 07/10/18 Range/Units 22:29 04:57 19:46 WBC 8.1 6.6 (4.0-11.0) th/mm3 RBC 3.46 L 3.19 L (4.00-5.30) mil/mm3 Hgb 9.2 L 8.3 L 10.2 L (11.6-15.3) gm/dL Hct 28.4 L 26.3 L 31.5 L (35.0-46.0) % Plt Count 173 163 (150-450) th/mm3 Neut # (Auto) 3.3 (1.8-7.7) th/mm3 Lymph # (Auto) 4.2 (1.0-4.8) th/mm3 [place] # (Auto) 0.6 (0.0-0.9) th/mm3 Eos # (Auto) 0.0 (0.0-0.4) th/mm3 Baso # (Auto) 0.0 (0.0-0.2) th/mm3 07/11/18 Range/Units 03:19 WBC 5.6 (4.0-11.0) th/mm3 RBC 3.63 L (4.00-5.30) mil/mm3 Hgb 10.0 L (11.6-15.3) gm/dL Hct 30.3 L (35.0-46.0) % Plt Count 152 (150-450) th/mm3 Neut # (Auto) 2.7 (1.8-7.7) th/mm3 Lymph # (Auto) 1.8 (1.0-4.8) th/mm3 [place] # (Auto) 1.0 H (0.0-0.9) th/mm3 Eos # (Auto) 0.0 (0.0-0.4) th/mm3 Baso # (Auto) 0.0 (0.0-0.2) th/mm3 Comprehensive Metabolic Panel 07/09/18 07/11/18 Range/Units 22:29 03:19 Sodium 134 L 142 (136-145) meq/L Potassium 3.6 4.5 D (3.5-5.1) meq/L Chloride 95 L 104 D (98-107) meq/L Carbon Dioxide 26.0 33.6 H (21.0-32.0) meq/L BUN 6 L 8 (7-18) mg/dL Creatinine 1.09 H 0.76 (0.50-1.00) mg/dL Calcium 8.4 L 9.0 (8.5-10.1) mg/dL AST 14 L 29 (15-37) U/L ALT 15 19 (10-53) U/L Alkaline Phosphatase 75 63 (45-117) U/L Total Protein 7.7 7.0 D (6.4-8.2) g/dL Albumin 3.5 3.1 L (3.4-5.0) g/dL Intake and Output 07/10/18 07/11/18 07/11/18 22:59 06:59 14:59 Intake Total 1040 / 1040 480 / 480 Output Total 1750 / 1750 1009 / 1009 Balance -710 / -710 -529 / -529 Intake: Oral 240 / 240 480 / 480 Intake (Blood Product) Amt 800 / 800 Rbc As-3 Leukoreduced Unit 400 / 400 [id number] Rbc As-3 Leukoreduced Unit 400 / 400 [id number] Output: Urine Amount (Catheter) 1750 / 1750 1009 / 1009 Indwelling Urethral Catheter 1750 / 1750 1009 / 1009 Other: Date of Last Bowel Movement 07/09/18 07/09/18 # Bowel Movements 0 0 Weight 100 kg - Imaging and Cardiology Imaging: Impressions Chest X-Ray 07/09/18 22:27 CONCLUSION: Symmetric bilateral pleural-parenchymal opacities Carotid Doppler Study 07/10/18 00:00 CONCLUSION: 1. Right Internal Carotid Artery: No significant stenosis or atherosclerotic plaque is visualized. 2. Left Internal Carotid Artery: No significant stenosis or atherosclerotic plaque is visualized. Assessment and Plan - Assessment (1) NSTEMI (non-ST elevated myocardial infarction) Code(s): I21.4 - Non-ST elevation (NSTEMI) myocardial infarction Status: Acute (2) CAD (coronary artery disease) Code(s): I25.10 - Atherosclerotic heart disease of [place] coronary artery without angina pectoris Status: Acute - Plan 1.) CAD - nstemi, assynmptomatic s/p transfusion, continuie aspirin, lopressor, pravachol, ntp, f/u cbc and echo
--- NOTE | 2018-07-11 10:12 | P.PN ---
Subjective Interval history: Follow-up unstable angina/non-ST elevation [place] July 10, 2018-patient seen and examined, still complaining of chest pain and tightness as well as shortness of breath. Denies any dizziness. July 11, 2018-patient seen and examined, reports some improvement of shortness of breath and denies any chest pain. She was transfused 2 units packed red blood cell. Physical Exam Vital signs: Vital Signs 07/10/18 12:00 07/10/18 13:28 07/10/18 14:00 Temperature 98.5 F 98.5 F Pulse Rate 70 68 67 Respiratory Rate 15 16 Blood Pressure 111/61 121/65 Pulse Oximetry 100 07/10/18 16:00 07/10/18 16:14 07/10/18 18:00 Temperature 98.6 F 98.4 F Pulse Rate 77 72 68 Respiratory Rate 18 16 Blood Pressure 107/63 107/63 Pulse Oximetry 100 100 07/10/18 20:00 07/10/18 21:07 07/10/18 23:00 Temperature 97.9 F Pulse Rate 70 68 Respiratory Rate 16 Blood Pressure 144/88 H Pulse Oximetry 93 L 95 07/11/18 00:00 07/11/18 03:00 07/11/18 04:07 Temperature 97.9 F 98.1 F Pulse Rate 56 L 60 56 L Respiratory Rate 16 16 Blood Pressure 110/70 100/62 Pulse Oximetry 98 95 07/11/18 07:00 07/11/18 07:20 07/11/18 08:00 Temperature 98.6 F Pulse Rate 62 62 Respiratory Rate 18 Blood Pressure 138/82 Pulse Oximetry 96 95 Intake & Output 07/10/18 07/11/18 07/11/18 18:59 06:59 18:59 Intake Total 640 / 640 880 / 880 Output Total 1750 / 1750 1009 / 1009 Balance -1110 / -1110 -129 / -129 Weight 100 kg Intake: Oral 240 / 240 480 / 480 Intake (Blood Product) Amt 400 / 400 400 / 400 Rbc As-3 Leukoreduced Unit 0 / 0 400 / 400 [id number] Rbc As-3 Leukoreduced Unit 400 / 400 [id number] Output: Urine Amount (Catheter) 1750 / 1750 1009 / 1009 Indwelling Urethral Catheter 175 / 175 1009 / 1009 Other: Date of Last Bowel Movement 07/09/18 07/09/18 # Bowel Movements 0 0 Narrative: GENERAL: NAD SKIN: Warm and dry. HEAD: Normocephalic. EYES: No scleral icterus. No injection or drainage. NECK: Supple, trachea midline. No JVD or lymphadenopathy. CARDIOVASCULAR: Regular rate and rhythm without murmurs, gallops, or rubs. RESPIRATORY: Breath sounds equal bilaterally. No accessory muscle use. GASTROINTESTINAL: Abdomen soft, non-tender, nondistended. MUSCULOSKELETAL: No cyanosis, or edema. BACK: Nontender without obvious deformity. No CVA tenderness. - Urinary Catheter Management Indwelling Urethral Catheter Cath placed during this visit: yes Reason for continuing: Hourly intake/output Insertion date: 07/09/18 Insertion time: 22:50 Results - Labs CBC & Chem 7: 07/11/18 03:19 07/11/18 03:19 Laboratory Results - last 24 hr 07/10/18 07/10/18 07/10/18 04:57 09:50 13:03 WBC RBC Hgb Hct MCV MCH MCHC RDW Plt Count MPV Neut % (Auto) Lymph % (Auto) [place] % (Auto) Eos % (Auto) Baso % (Auto) Neut # (Auto) Lymph # (Auto) [place] # (Auto) Eos # (Auto) Baso # (Auto) WBC Differential Differential Comment Retic Count 2.2 Absolute Retic 68.5 Haptoglobin APTT Sodium Potassium Chloride Carbon Dioxide Anion Gap BUN Creatinine Estimated GFR POC Glucose Random Glucose Calcium Iron TIBC % Saturation Ferritin Total Bilirubin AST ALT Alkaline Phosphatase Total Creatine Kinase 252 H CK-MB (CK-2) 16.3 H CK-MB (CK-2) % 6.5 H* Troponin I 1.88 H* D B-Natriuretic Peptide Total Protein Albumin Triglycerides Cholesterol LDL Cholesterol, Calc HDL Cholesterol Cholesterol/HDL Ratio Vitamin B12 Blood Type O Negative Blood Type Recheck Not needed Antibody Screen Negative MTS Gel Crossmatch See Detail 07/10/18 07/10/18 07/10/18 13:03 13:03 13:03 WBC RBC Hgb Hct MCV MCH MCHC RDW Plt Count MPV Neut % (Auto) Lymph % (Auto) [place] % (Auto) Eos % (Auto) Baso % (Auto) Neut # (Auto) Lymph # (Auto) [place] # (Auto) Eos # (Auto) Baso # (Auto) WBC Differential Differential Comment Retic Count Absolute Retic Haptoglobin 136 APTT 24.5 D Sodium Potassium Chloride Carbon Dioxide Anion Gap BUN Creatinine Estimated GFR POC Glucose Random Glucose Calcium Iron 35 L TIBC 426 % Saturation 8.2 L Ferritin 12 Total Bilirubin AST ALT Alkaline Phosphatase Total Creatine Kinase CK-MB (CK-2) CK-MB (CK-2) % Troponin I B-Natriuretic Peptide Total Protein Albumin Triglycerides Cholesterol LDL Cholesterol, Calc HDL Cholesterol Cholesterol/HDL Ratio Vitamin B12 Blood Type Blood Type Recheck Antibody Screen MTS Gel Crossmatch 07/10/18 07/10/18 07/10/18 13:03 17:37 19:46 WBC RBC Hgb 10.2 L Hct 31.5 L MCV MCH MCHC RDW Plt Count MPV Neut % (Auto) Lymph % (Auto) [place] % (Auto) Eos % (Auto) Baso % (Auto) Neut # (Auto) Lymph # (Auto) [place] # (Auto) Eos # (Auto) Baso # (Auto) WBC Differential Differential Comment Retic Count Absolute Retic Haptoglobin APTT Sodium Potassium Chloride Carbon Dioxide Anion Gap BUN Creatinine Estimated GFR POC Glucose 87 Random Glucose Calcium Iron TIBC % Saturation Ferritin Total Bilirubin AST ALT Alkaline Phosphatase Total Creatine Kinase CK-MB (CK-2) CK-MB (CK-2) % Troponin I B-Natriuretic Peptide Total Protein Albumin Triglycerides Cholesterol LDL Cholesterol, Calc HDL Cholesterol Cholesterol/HDL Ratio Vitamin B12 213 Blood Type Blood Type Recheck Antibody Screen MTS Gel Crossmatch 07/10/18 07/11/18 07/11/18 19:57 03:19 03:19 WBC 5.6 RBC 3.63 L Hgb 10.0 L Hct 30.3 L MCV 83.5 MCH 27.5 MCHC 33.0 RDW 17.9 H Plt Count 152 MPV 8.2 Neut % (Auto) 48.1 Lymph % (Auto) 32.6 [place] % (Auto) 18.1 H Eos % (Auto) 0.9 Baso % (Auto) 0.3 Neut # (Auto) 2.7 Lymph # (Auto) 1.8 [place] # (Auto) 1.0 H Eos # (Auto) 0.0 Baso # (Auto) 0.0 WBC Differential . Differential Comment Auto diff final Retic Count Absolute Retic Haptoglobin APTT Sodium 142 Potassium 4.5 D Chloride 104 D Carbon Dioxide 33.6 H Anion Gap 4 L BUN 8 Creatinine 0.76 Estimated GFR Greater than 89 POC Glucose 106 Random Glucose 110 H Calcium 9.0 Iron TIBC % Saturation Ferritin Total Bilirubin 0.3 AST 29 ALT 19 Alkaline Phosphatase 63 Total Creatine Kinase CK-MB (CK-2) CK-MB (CK-2) % Troponin I B-Natriuretic Peptide Total Protein 7.0 D Albumin 3.1 L Triglycerides 134 Cholesterol 199 LDL Cholesterol, Calc 135 H HDL Cholesterol 37.4 L Cholesterol/HDL Ratio 5.32 Vitamin B12 Blood Type Blood Type Recheck Antibody Screen MTS Gel Crossmatch 07/11/18 07/11/18 07/11/18 03:19 03:21 08:09 WBC RBC Hgb Hct MCV MCH MCHC RDW Plt Count MPV Neut % (Auto) Lymph % (Auto) [place] % (Auto) Eos % (Auto) Baso % (Auto) Neut # (Auto) Lymph # (Auto) [place] # (Auto) Eos # (Auto) Baso # (Auto) WBC Differential Differential Comment Retic Count Absolute Retic Haptoglobin APTT Sodium Potassium Chloride Carbon Dioxide Anion Gap BUN Creatinine Estimated GFR POC Glucose 117 H 130 H Random Glucose Calcium Iron TIBC % Saturation Ferritin Total Bilirubin AST ALT Alkaline Phosphatase Total Creatine Kinase CK-MB (CK-2) CK-MB (CK-2) % Troponin I B-Natriuretic Peptide 194 H Total Protein Albumin Triglycerides Cholesterol LDL Cholesterol, Calc HDL Cholesterol Cholesterol/HDL Ratio Vitamin B12 Blood Type Blood Type Recheck Antibody Screen MTS Gel Crossmatch - Imaging Impressions Carotid Doppler Study 07/10/18 00:00 CONCLUSION: 1. Right Internal Carotid Artery: No significant stenosis or atherosclerotic plaque is visualized. 2. Left Internal Carotid Artery: No significant stenosis or atherosclerotic plaque is visualized. Assessment and Plan - Plan 58-year-old female with 1. Non-ST elevation [place] Currently on ASA, Nitro paste, beta-lisa, statin. s/p Heparin drip Ls/p heart catheterization July 10, 2018, cardiothoracic surgery has been consulted 2D echo, LDL 135 2. Acute hypoxia-resolved DuoNeb as needed 3. Diabetes mellitus Sliding scale insulin and hold all oral antihyperglycemic agent 4. Hypertension/hyperlipidemia Continue home statin, beta-lisa 5. Bipolar/schizophrenia Continue home medications 6. Normochromic normocytic anemia She was transfused 2 units packed red blood cell Appreciate input from hematology Iron study pending DVT prophylaxis: Bilateral SCDs
--- NOTE | 2018-07-11 11:18 | P.PNCV ---
- Note Subjective/Hospital Course: pt seen and evaluated, full consult to follow sts risk score discussed with pt RISK SCORES Procedure: Isolated CAB CALCULATE Risk of Mortality: 1.346% Renal Failure: 2.414% Permanent Stroke: 2.147% Prolonged Ventilation: 8.884% DSW Infection: 0.314% Reoperation: 1.314% Morbidity or Mortality: 13.290% Short Length of Stay: 30.625% Long Length of Stay: 5.978% Objective: Vital Signs - 24 hr 07/10/18 12:00 07/10/18 13:28 07/10/18 14:00 Temperature 98.5 F 98.5 F Pulse Rate 70 68 67 Respiratory Rate 15 16 Blood Pressure 111/61 121/65 Pulse Oximetry 100 07/10/18 16:00 07/10/18 16:14 07/10/18 18:00 Temperature 98.6 F 98.4 F Pulse Rate 77 72 68 Respiratory Rate 18 16 Blood Pressure 107/63 107/63 Pulse Oximetry 100 100 07/10/18 20:00 07/10/18 21:07 07/10/18 23:00 Temperature 97.9 F Pulse Rate 70 68 Respiratory Rate 16 Blood Pressure 144/88 H Pulse Oximetry 93 L 95 07/11/18 00:00 07/11/18 03:00 07/11/18 04:07 Temperature 97.9 F 98.1 F Pulse Rate 56 L 60 56 L Respiratory Rate 16 16 Blood Pressure 110/70 100/62 Pulse Oximetry 98 95 07/11/18 07:00 07/11/18 07:20 07/11/18 08:00 Temperature 98.6 F Pulse Rate 62 62 Respiratory Rate 18 Blood Pressure 138/82 Pulse Oximetry 96 95 Labs: Laboratory Results - last 12 hr 07/11/18 07/11/18 07/11/18 03:19 03:19 03:19 WBC 5.6 RBC 3.63 L Hgb 10.0 L Hct 30.3 L MCV 83.5 MCH 27.5 MCHC 33.0 RDW 17.9 H Plt Count 152 MPV 8.2 Neut % (Auto) 48.1 Lymph % (Auto) 32.6 [place] % (Auto) 18.1 H Eos % (Auto) 0.9 Baso % (Auto) 0.3 Neut # (Auto) 2.7 Lymph # (Auto) 1.8 [place] # (Auto) 1.0 H Eos # (Auto) 0.0 Baso # (Auto) 0.0 WBC Differential . Differential Comment Auto diff final Sodium 142 Potassium 4.5 D Chloride 104 D Carbon Dioxide 33.6 H Anion Gap 4 L BUN 8 Creatinine 0.76 Estimated GFR Greater than 89 POC Glucose Random Glucose 110 H Calcium 9.0 Total Bilirubin 0.3 AST 29 ALT 19 Alkaline Phosphatase 63 B-Natriuretic Peptide 194 H Total Protein 7.0 D Albumin 3.1 L Triglycerides 134 Cholesterol 199 LDL Cholesterol, Calc 135 H HDL Cholesterol 37.4 L Cholesterol/HDL Ratio 5.32 07/11/18 07/11/18 03:21 08:09 WBC RBC Hgb Hct MCV MCH MCHC RDW Plt Count MPV Neut % (Auto) Lymph % (Auto) [place] % (Auto) Eos % (Auto) Baso % (Auto) Neut # (Auto) Lymph # (Auto) [place] # (Auto) Eos # (Auto) Baso # (Auto) WBC Differential Differential Comment Sodium Potassium Chloride Carbon Dioxide Anion Gap BUN Creatinine Estimated GFR POC Glucose 117 H 130 H Random Glucose Calcium Total Bilirubin AST ALT Alkaline Phosphatase B-Natriuretic Peptide Total Protein Albumin Triglycerides Cholesterol LDL Cholesterol, Calc HDL Cholesterol Cholesterol/HDL Ratio Result Diagrams: 07/11/18 03:19 07/11/18 03:19
[2018-07-11] MEDS ORDERED: Insulin Regular (For Infusion) 100 UNIT in Sodium Chlor 0.9% Inj 99 ML IV.CONT PRN (11:28)
[2018-07-11] MEDS ORDERED: Dextrose 50% in Water 50 ML Vial IV.PUSH PRN (11:28)
[2018-07-11] MEDS ORDERED: Chlorhexidine 4% Topical 120 APPLIC/120 ML Bottle TOPICAL SCH (11:30)
[2018-07-11] MEDS ORDERED: Sodium Chloride 0.9% Irr Bot 1,000 ML, Vancomycin Inj 1,000 MG IRRIGATION SCH ×2 (11:30)
[2018-07-11] MEDS ORDERED: Sodium Chlor 0.9% Inj 77.5 ML, Papaverine Inj 60 MG, Nitroglycerin Inj 100 MCG, dilTIAZ... IRRIGATION SCH ×3 (11:30)
--- NOTE | 2018-07-11 11:43 | P.PNONC ---
Subjective Interval history: Patient sitting up in chair, family at the bedside. She has no complaints at this time. She denies any chest pain. She reports bright red blood with bowel movement a few weeks ago. Awaiting Hemoccult stool. Objective Vital Signs/Intake & Output: Vital Signs 07/10/18 12:00 07/10/18 13:28 07/10/18 14:00 Temperature 98.5 F 98.5 F Pulse Rate 70 68 67 Respiratory Rate 15 16 Blood Pressure 111/61 121/65 Pulse Oximetry 100 07/10/18 16:00 07/10/18 16:14 07/10/18 18:00 Temperature 98.6 F 98.4 F Pulse Rate 77 72 68 Respiratory Rate 18 16 Blood Pressure 107/63 107/63 Pulse Oximetry 100 100 07/10/18 20:00 07/10/18 21:07 07/10/18 23:00 Temperature 97.9 F Pulse Rate 70 68 Respiratory Rate 16 Blood Pressure 144/88 H Pulse Oximetry 93 L 95 07/11/18 00:00 07/11/18 03:00 07/11/18 04:07 Temperature 97.9 F 98.1 F Pulse Rate 56 L 60 56 L Respiratory Rate 16 16 Blood Pressure 110/70 100/62 Pulse Oximetry 98 95 07/11/18 07:00 07/11/18 07:20 07/11/18 08:00 Temperature 98.6 F Pulse Rate 62 62 Respiratory Rate 18 Blood Pressure 138/82 Pulse Oximetry 96 95 Intake & Output 07/10/18 07/11/18 07/11/18 18:59 06:59 18:59 Intake Total 640 / 640 880 / 880 Output Total 1750 / 1750 1009 / 1009 Balance -1110 / -1110 -129 / -129 Weight 100 kg Intake: Oral 240 / 240 480 / 480 Intake (Blood Product) Amt 400 / 400 400 / 400 Rbc As-3 Leukoreduced Unit 0 / 0 400 / 400 [id number] Rbc As-3 Leukoreduced Unit 400 / 400 [id number] Output: Urine Amount (Catheter) 1750 / 1750 1009 / 1009 Indwelling Urethral Catheter 1750 / 1750 1009 / 1009 Other: Date of Last Bowel Movement 07/09/18 07/09/18 # Bowel Movements 0 0 Result Diagrams: 07/11/18 03:19 07/11/18 03:19 Laboratory Results: Laboratory Results - last 24 hr 07/10/18 07/10/18 07/10/18 04:57 09:50 13:03 WBC RBC Hgb Hct MCV MCH MCHC RDW Plt Count MPV Neut % (Auto) Lymph % (Auto) [place] % (Auto) Eos % (Auto) Baso % (Auto) Neut # (Auto) Lymph # (Auto) [place] # (Auto) Eos # (Auto) Baso # (Auto) WBC Differential Differential Comment Retic Count 2.2 Absolute Retic 68.5 Haptoglobin APTT Sodium Potassium Chloride Carbon Dioxide Anion Gap BUN Creatinine Estimated GFR POC Glucose Random Glucose Calcium Iron TIBC % Saturation Ferritin Total Bilirubin AST ALT Alkaline Phosphatase Total Creatine Kinase 252 H CK-MB (CK-2) 16.3 H CK-MB (CK-2) % 6.5 H* Troponin I 1.88 H* D B-Natriuretic Peptide Total Protein Albumin Triglycerides Cholesterol LDL Cholesterol, Calc HDL Cholesterol Cholesterol/HDL Ratio Vitamin B12 Blood Type O Negative Blood Type Recheck Not needed Antibody Screen Negative MTS Gel Crossmatch See Detail 07/10/18 07/10/18 07/10/18 13:03 13:03 13:03 WBC RBC Hgb Hct MCV MCH MCHC RDW Plt Count MPV Neut % (Auto) Lymph % (Auto) [place] % (Auto) Eos % (Auto) Baso % (Auto) Neut # (Auto) Lymph # (Auto) [place] # (Auto) Eos # (Auto) Baso # (Auto) WBC Differential Differential Comment Retic Count Absolute Retic Haptoglobin 136 APTT 24.5 D Sodium Potassium Chloride Carbon Dioxide Anion Gap BUN Creatinine Estimated GFR POC Glucose Random Glucose Calcium Iron 35 L TIBC 426 % Saturation 8.2 L Ferritin 12 Total Bilirubin AST ALT Alkaline Phosphatase Total Creatine Kinase CK-MB (CK-2) CK-MB (CK-2) % Troponin I B-Natriuretic Peptide Total Protein Albumin Triglycerides Cholesterol LDL Cholesterol, Calc HDL Cholesterol Cholesterol/HDL Ratio Vitamin B12 Blood Type Blood Type Recheck Antibody Screen MTS Gel Crossmatch 07/10/18 07/10/18 07/10/18 13:03 17:37 19:46 WBC RBC Hgb 10.2 L Hct 31.5 L MCV MCH MCHC RDW Plt Count MPV Neut % (Auto) Lymph % (Auto) [place] % (Auto) Eos % (Auto) Baso % (Auto) Neut # (Auto) Lymph # (Auto) [place] # (Auto) Eos # (Auto) Baso # (Auto) WBC Differential Differential Comment Retic Count Absolute Retic Haptoglobin APTT Sodium Potassium Chloride Carbon Dioxide Anion Gap BUN Creatinine Estimated GFR POC Glucose 87 Random Glucose Calcium Iron TIBC % Saturation Ferritin Total Bilirubin AST ALT Alkaline Phosphatase Total Creatine Kinase CK-MB (CK-2) CK-MB (CK-2) % Troponin I B-Natriuretic Peptide Total Protein Albumin Triglycerides Cholesterol LDL Cholesterol, Calc HDL Cholesterol Cholesterol/HDL Ratio Vitamin B12 213 Blood Type Blood Type Recheck Antibody Screen MTS Gel Crossmatch 07/10/18 07/11/18 07/11/18 19:57 03:19 03:19 WBC 5.6 RBC 3.63 L Hgb 10.0 L Hct 30.3 L MCV 83.5 MCH 27.5 MCHC 33.0 RDW 17.9 H Plt Count 152 MPV 8.2 Neut % (Auto) 48.1 Lymph % (Auto) 32.6 [place] % (Auto) 18.1 H Eos % (Auto) 0.9 Baso % (Auto) 0.3 Neut # (Auto) 2.7 Lymph # (Auto) 1.8 [place] # (Auto) 1.0 H Eos # (Auto) 0.0 Baso # (Auto) 0.0 WBC Differential . Differential Comment Auto diff final Retic Count Absolute Retic Haptoglobin APTT Sodium 142 Potassium 4.5 D Chloride 104 D Carbon Dioxide 33.6 H Anion Gap 4 L BUN 8 Creatinine 0.76 Estimated GFR Greater than 89 POC Glucose 106 Random Glucose 110 H Calcium 9.0 Iron TIBC % Saturation Ferritin Total Bilirubin 0.3 AST 29 ALT 19 Alkaline Phosphatase 63 Total Creatine Kinase CK-MB (CK-2) CK-MB (CK-2) % Troponin I B-Natriuretic Peptide Total Protein 7.0 D Albumin 3.1 L Triglycerides 134 Cholesterol 199 LDL Cholesterol, Calc 135 H HDL Cholesterol 37.4 L Cholesterol/HDL Ratio 5.32 Vitamin B12 Blood Type Blood Type Recheck Antibody Screen MTS Gel Crossmatch 07/11/18 07/11/18 07/11/18 03:19 03:21 08:09 WBC RBC Hgb Hct MCV MCH MCHC RDW Plt Count MPV Neut % (Auto) Lymph % (Auto) [place] % (Auto) Eos % (Auto) Baso % (Auto) Neut # (Auto) Lymph # (Auto) [place] # (Auto) Eos # (Auto) Baso # (Auto) WBC Differential Differential Comment Retic Count Absolute Retic Haptoglobin APTT Sodium Potassium Chloride Carbon Dioxide Anion Gap BUN Creatinine Estimated GFR POC Glucose 117 H 130 H Random Glucose Calcium Iron TIBC % Saturation Ferritin Total Bilirubin AST ALT Alkaline Phosphatase Total Creatine Kinase CK-MB (CK-2) CK-MB (CK-2) % Troponin I B-Natriuretic Peptide 194 H Total Protein Albumin Triglycerides Cholesterol LDL Cholesterol, Calc HDL Cholesterol Cholesterol/HDL Ratio Vitamin B12 Blood Type Blood Type Recheck Antibody Screen MTS Gel Crossmatch Imaging Studies: Impressions Carotid Doppler Study 07/10/18 00:00 CONCLUSION: 1. Right Internal Carotid Artery: No significant stenosis or atherosclerotic plaque is visualized. 2. Left Internal Carotid Artery: No significant stenosis or atherosclerotic plaque is visualized. Medications: Active Medications Generic Name Dose Route Start Last Admin Trade Name Freq PRN Reason Stop Dose Admin Aspirin 81 mg 07/11/18 09:00 07/11/18 09:49 Ecotrin PO 81 mg DAILY [facility] Administration Chlorhexidine Gluconate 3 pack 07/10/18 04:00 07/11/18 06:39 Chlorhexidine 2% Cloth TOPICAL 07/15/18 03:59 Not Given DAILY@0400 [facility] Doxepin HCl 25 mg 07/10/18 21:00 07/10/18 20:50 Sinequan PO 25 mg HS [facility] Administration Fluphenazine HCl 10 mg 07/10/18 21:00 07/10/18 20:50 Prolixin PO 10 mg HS [facility] Administration Hydralazine HCl 50 mg 07/10/18 09:00 07/11/18 09:49 Apresoline PO 50 mg TID MILADYS Administration Insulin Aspart 0 unit 07/10/18 03:00 07/11/18 09:12 Novolog Insulin Correctional Sugar Inj SQ Not Given ACHS AND 3AM [facility] Protocol Levothyroxine Sodium 25 mcg 07/10/18 06:00 07/11/18 06:40 Synthroid PO 25 mcg DAILY@0600 [facility] Administration Metoprolol Tartrate 100 mg 07/10/18 09:00 07/11/18 09:49 Lopressor PO 100 mg BID [facility] Administration Nitroglycerin 0.4 mg 07/09/18 22:37 07/09/18 23:13 Nitrostat Sl SL 0.4 mg Q5M PRN Administration CHEST PAIN Nitroglycerin 1 inch 07/10/18 06:00 07/11/18 06:40 Nitro-Bid 2% Oint TOPICAL 1 inch Q6HR [facility] Administration Pravastatin Sodium 80 mg 07/10/18 21:00 07/10/18 20:51 Pravachol PO 80 mg HS MIL[facility]YS Administration Sodium Chloride 2 ml 07/10/18 21:00 07/11/18 09:49 Ns Flush IV.FLUSH 2 ml BID MILAD[facility] Administration Objective Remarks: GENERAL: Well-nourished, well-developed female patient, in no acute distress. SKIN: Warm and dry. HEAD: Normocephalic. EYES: No scleral icterus. No injection or drainage. NECK: Supple, trachea midline. CARDIOVASCULAR: Regular rate and rhythm without murmurs. RESPIRATORY: Posterior breath sounds distant, equal bilaterally. Nonlabored at rest. O2 via NC. GASTROINTESTINAL: Abdomen soft, non-tender, nondistended. EXTREMITIES: No cyanosis, or edema. MUSCULOSKELETAL: Adequate muscle tone. NEUROLOGICAL: No obvious focal deficit. Awake, alert, and oriented x3. PSYCHIATRIC: Appropriate mood and affect. Assessment/Plan - Plan Ms. Schmidt is a pleasant 58-year-old female patient with previous history of CVA , diabetes, hypertension, hyperlipidemia, coronary artery disease and schizophrenia/bipolar disorder. She came to the emergency room with chest pain and was found to have increasing cardiac enzymes, she underwent emergent heart catheterization and was found to have severe coronary artery disease and was recommended for CABG. Hematology was consulted for anemia. Recommendations/plan: 1. Normocytic anemia. Hemoglobin on admission was 9.2, dropped to 8.3. She was transfused 2 units of PRBCs for symptomatic chest pain. Hemoglobin today 10 gm/dL, MCV normal at 83.5. Haptoglobin 136, iron studies (which appeared to be drawn prior to blood transfusion) are as follows: Iron 35, TIBC 426, 8.2 % saturation, ferritin 12 and total bilirubin 0.3. 2. Awaiting stool for occult blood. Subjectively reports bright red blood several weeks ago in stool. Patient to notify nursing staff if she needs to have a bowel movement so that a sample may be tested. 3. Continue to monitor CBC. - Attending Statement Pt feeling much better and ambulating in the room. No more chest pains. Iron studies c/w fe deficiency. Stool OB pending. Will start IV fe and f/u B12 level.
[2018-07-11] MEDS ORDERED: Vancomycin Inj 1,750 MG in Sodium Chlor 0.9% Inj 500 ML IV.SIG SCH (12:00)
--- NOTE | 2018-07-11 12:05 | MB ---
cc: Heavenly Borrego APRN DATE: 07/11/2018 HISTORY OF PRESENT ILLNESS: This is a 58-year-old female who has recently been in the hospital in May for heart failure, questionable pneumonia, bilateral effusions, was placed on some IV diuretics then was discharged home, received some IV antibiotics. She presented again to the emergency department 07/09/2018 with shortness of breath, left-sided chest pain. Troponin was 2.0, she was ruled in for a non-STEMI, decompensated congestive heart failure, coronary artery disease. She underwent cardiac catheterization on 07/10/[address] Boland which showed an ejection fraction of 60%. There was mid distal LAD lesion, 90%, the left circumflex had 90%, 95%posterior lateral and the middle, posterior lateral had a 70% to 80% stenosis. We were consulted to evaluate for coronary artery bypass grafting. The patient was also found to have some anemia, normocytic has been evaluated by hematology. She has received 2 units of packed RBCs. Hemoglobin is now 10. She has some low iron counts, probable chronic. Denies any blood in her stool. She is somewhat of a poor historian also. She denies any back pain, fever, abdominal discomfort, black tarry stools. PAST MEDICAL HISTORY: Includes iron deficiency, normocytic anemia, history of cerebrovascular accident in the past with no residual diabetes mellitus, on oral medication, hypertension, hyperlipidemia, seizure disorder. She is unclear when her last seizure, bipolar disorder, schizophrenia. Surgeries include right hip surgery. ALLERGIES: INCLUDE CAT DANDER, PENICILLIN AND SULFA. FAMILY HISTORY: Noncontributory. SOCIAL HISTORY: Single, has 1 child is on disability. No alcohol, no tobacco. She does dip snuff. REVIEW OF SYSTEMS: GENERAL: No night sweats, fever, heat and cold intolerance. SKIN: No psoriasis, itching or hives. HEENT: No blurred vision, hearing loss. RESPIRATORY: Positive for recent shortness of breath. CARDIOVASCULAR: As above in the HPI. GASTROINTESTINAL: No abdominal pain, distention, blood in stool. No black-looking tarry stools. GENITOURINARY: No burning, frequency, urgency. CENTRAL NERVOUS SYSTEM: Positive for history of prior CVA. ENDOCRINOLOGY: Positive for diabetes. PHYSICAL EXAMINATION: GENERAL: This is a 58-year-old female, of stated age. VITAL SIGNS: Blood pressure 138/80, heart rate of 62, O2 saturation 96 on 3 liters. The patient is sitting up in bed, awake, alert, in no acute distress. HEAD: Normocephalic, atraumatic. Pupils are equal and reactive. Oral mucosa pink, moist. NECK: Supple. No JVD. CARDIOVASCULAR: Heart sounds S1, S2. Regular rate and rhythm. No audible rubs, gallops. LUNGS: Diminished in the bases, few basilar crackles. ABDOMEN: Obese, soft, nontender. No masses or organomegaly. EXTREMITIES: Reveal trace edema. Good distal pulses. LABORATORY DATA: Hemoglobin 10, hematocrit of 30 that is post-transfusion. WBC 5.6, platelet count of 152. INR 1.0. Sodium 142, potassium 4.5, BUN of 8, creatinine 0.76, glucose 130, AST 29, ALT 19, triglycerides 134, cholesterol 199, LDL 135. INR 1.0. Urinalysis is unremarkable. MRSA screen not detected. RADIOLOGICAL EXAMS: Carotid ultrasound is unremarkable. Chest x-ray shows some bilateral pleural parenchymal opacity, small effusions. IMPRESSION: 1. This is again a 58-year-old female who presented with non-ST segment myocardial infarction, decompensated congestive heart failure, normal ejection fraction, probable related to uncontrolled hypertension. 2. Diabetes mellitus. 3. Chronic anemia. 4. Bipolar disorder. 5. History of cerebrovascular accident. 6. Hypertension. 7. Hyperlipidemia. 8. Schizophrenia. 9. Seizure disorder. IMPRESSION: At this time, the cardiac films will be reviewed by Dr. Buck Sanchez. Evaluation for candidacy for coronary artery bypass grafting. In the meantime, I will recommend continuing maximizing medical therapy with beta lisa therapy. She is on nitroglycerin, statin. Further plan per Dr. Buck Sanchez. MEGHAN Marquez MD JRT/ct , 11:27 AM , 11:36 AM
[2018-07-11 14:08] LABS: Reticulocyte Percent 2.1 % (0.4-3.0)
--- NOTE | 2018-07-11 14:20 | US ---
EXAM DATE: 07/11/2018 2:16 PM EST AGE/SEX: 58 years / Female INDICATIONS: Pre-op cardiac surgery. CLINICAL DATA: This is the patient's initial encounter. Patient reports that signs and symptoms have been present for 1 day and indicates a pain score of 0/10. MEDICAL/SURGICAL HISTORY: Diabetes. Hypercholesterolemia. Hypertension. Myocardial infarctio n. Schizophrenia. Seizure disorder. CVA. . Hip surgery. COMPARISON: No prior exams available for comparison. TECHNIQUE: Venous ultrasound of both lower extremities was performed from the inguinal ligament to t he proximal calf. Real-time, color Doppler and spectral tracing, compression and augmentation techni ques were used. FINDINGS: Right Leg: Normal compression of the deep venous system from the inguinal region to the proximal nate f. No echogenic clot is seen. Normal response of the venous system to augmentation and respiration. Left Leg: Normal compression of the deep venous system from the inguinal region to the proximal calf . No echogenic clot is seen. Normal response of the venous system to augmentation and respiration. Other: None. CONCLUSION: 1. No evidence of DVT. Electronically signed by: Yifan Rubio MD Board Certified Radiologist 07/11/2018 2:18 PM EST
--- NOTE | 2018-07-11 14:23 | US ---
EXAM DATE: 07/11/2018 2:20 PM EST AGE/SEX: 58 years / Female INDICATIONS: Pre-op cardiac surgery. CLINICAL DATA: This is the patient's initial encounter. Patient reports that signs and symptoms have been present for 1 day and indicates a pain score of 0/10. MEDICAL/SURGICAL HISTORY: Diabetes. Hypercholesterolemia. Hypertension. Myocardial infarctio n. Schizophrenia. Seizure disorder. CVA. . Hip surgery. COMPARISON: [facility] [place], VENOUS DOPPLER LEG BI, 07/11/2018. . MEASUREMENTS: RIGHT THIGH: Proximal:__3 mm Mid:__ 3 mm Distal:__2 mm LEFT THIGH: Proximal:__4 mm Mid:__3 mm Distal:__2 mm RIGHT CALF: Proximal:__2 mm Mid:__1 mm Distal:__2 mm LEFT CALF: Proximal:__2 mm Mid:__2 mm Distal:__2 mm FINDINGS: The venous system of the lower extremities are patent by color Doppler imaging. Measurements of the leg veins (in mm) are listed above. CONCLUSION: 1. Venous mapping as above. Electronically signed by: Yifan Rubio MD Board Certified Radiologist 07/11/2018 2:21 PM EST
[2018-07-11 14:24] LABS: % Iron Saturation 25.8 % (20-50)
[2018-07-11 14:48] LABS: Bilirubin,Urine Negative (Negative); Clarity,Urine Clear (Clear); Color,Urine Colorless (Yellw/Straw); Glucose,Urine (UA) Negative (Negative); Leukocyte Esterase,Urine Negative (Negative); Mucus,Urine Few /lpf (Occasional); Nitrite,Urine Negative (Negative); Specific Gravity,Urine 1.003 (1.002-1.035); Squamous Epithelial Cell,Urine <1 /hpf (0-5)
[2018-07-11] MEDS: Iron Sucrose Inj 100 MG in Sodium Chlor 0.9% Inj 100 ML IV.SIG SCH (16:05)
--- NOTE | 2018-07-11 16:22 | ECHRPT ---
Indication: CHEST PAIN CONCLUSIONS Normal left ventricular size. Wall thickness is normal. The left ventricular systolic function is normal with an estimated ejection fraction in the range of 55-60%. Trace mitral valve regurgitation. Trace aortic valve regurgitation. There is trace tricuspid valve regurgitation. The estimated pulmonary arterial pressure is 28 mmHg. BP: / HR: Rhythm: Sinus MEASUREMENTS (Male / Female) Normal Values Technical Quality:Fair 2D ECHO LV Diastolic Diameter PLAX 4.6 cm 4.2 - 5.9 / 3.9 - 5.3 cm LV Systolic Diameter PLAX 3.4 cm IVS Diastolic Thickness 1.0 cm 0.6 - 1.0 / 0.6 - 0.9 cm LVPW Diastolic Thickness 1.0 cm 0.6 - 1.0 / 0.6 - 0.9 cm LV Relative Wall Thickness 0.4 RV Internal Dim ED PLAX 3.5 cm LVOT Diameter 1.9 cm Aortic Root Diameter 2.9 cm LA Systolic Diameter LX 3.0 cm 3.0 - 4.0 / 2.7 - 3.8 cm Ascending Aorta Diameter 3.5 cm DOPPLER AV Peak Velocity 153.0 cm/s AV Peak Gradient 9.4 mmHg AV Mean Gradient 6.0 mmHg AV Velocity Time Integral 33.0 cm LVOT Peak Velocity 114.0 cm/s LVOT Peak Gradient 5.2 mmHg LVOT Velocity Time Integral 22.7 cm AV Area Cont Eq vti 2.0 cm AV Area Cont Eq pk 2.1 cm Mitral E Point Velocity 109.0 cm/s Mitral A Point Velocity 82.4 cm/s Mitral E to A Ratio 1.3 LV E' Lateral Velocity 9.6 cm/s Mitral E to LV E' Lateral Ratio 11.4 LV E' Septal Velocity 7.0 cm/s Mitral E to LV E' Septal Ratio 15.5 TR Peak Velocity 213.0 cm/s TR Peak Gradient 18.1 mmHg Right Atrial Pressure 10.0 mmHg Pulmonary Artery Systolic Pressu 28.1 mmHg Right Ventricular Systolic Press 28.1 mmHg PV Peak Velocity 132.0 cm/s PV Peak Gradient 7.0 mmHg FINDINGS LEFT VENTRICLE Normal left ventricular size. Wall thickness is normal. The left ventricular systolic function is normal with an estimated ejection fraction in the range of 55-60%. RIGHT VENTRICLE Normal right ventricular size and systolic function. LEFT ATRIUM The left atrial size is normal. RIGHT ATRIUM The right atrial size is normal. ATRIAL SEPTUM Normal atrial septal thickness without atrial level shunting by limited color doppler interrogation. AORTA The aortic root and proximal ascending aorta are normal in size on limited imaging. MITRAL VALVE Trace mitral valve regurgitation. AORTIC VALVE Trace aortic valve regurgitation. TRICUSPID VALVE There is trace tricuspid valve regurgitation. The estimated pulmonary arterial pressure is 28mmHg. PULMONARY VALVE No pulmonary valve regurgitation or stenosis. VESSELS The inferior vena cava was not well visualized. PERICARDIUM No pericardial effusion. Filippo Titus MD, FACC (Electronically Signed) Final Date:11 July 2018 16:20
[2018-07-11 17:22] LABS: Hemoglobin A1c 6.6 % (4.3-6.0)
[2018-07-11] MEDS: Gabapentin 300 MG Capsule PO SCH (18:17)
--- NOTE | 2018-07-11 18:50 | ECG ---
Date Performed: 07/10/2018 Time Performed: 14:10:05 PTAGE: 58 years EKG: Sinus rhythm POSSIBLE LEFT ATRIAL ENLARGEMENT MILD ST DEPRESSION ABNORMAL ECG PREVIOUS TRACING : 07/10/2018 04.34 Since the previous tracing, no significant change noted DOCTOR: Filippo Titus Interpretating Date/Time 07/11/2018 18:48:44
[2018-07-11] MEDS: Divalproex 500 MG ER Tablet PO SCH (22:17)
[2018-07-12] MEDS: Insulin NovoLOG Aspart Correctional Sugar Inj SQ SCH ×5 (03:00→21:00)
[2018-07-12 05:07] LABS: Hemoglobin 10.7 gm/dL (11.6-15.3); Mean Corpuscular HGB Conc 32.4 % (32.0-36.0); Mean Corpuscular Hemoglobin 27.4 pg (27.0-34.0); Mean Corpuscular Volume 84.5 fL (80.0-100.0); Mean Platelet Volume 7.5 fL (7.0-11.0); Platelet Count 175 th/mm3 (150-450); White Blood Count 6.3 th/mm3 (4.0-11.0)
[2018-07-12 05:35] LABS: Calcium 9.3 mg/dL (8.5-10.1); Potassium 4.3 meq/L (3.5-5.1)
[2018-07-12] MEDS ORDERED: Bisacodyl 10 MG Supp RECTAL PRN (06:30)
[2018-07-12] MEDS ORDERED: Acetaminophen 325 MG Tablet PO PRN (06:31)
[2018-07-12] MEDS: Chlorhexidine Gluconate 2% 1 Pack (2 Cloths) TOPICAL SCH (06:38)
--- NOTE | 2018-07-12 08:54 | P.PNCA ---
Subjective Interval history: alert in nad Medications and Allergies Active Medications: Active Medications Acetaminophen (Tylenol) 650 mg PO Q4H PRN PRN Reason: pain/fever > 100.4 Al Hydroxide/Mg Hydroxide (Milk Of Tomas Linae) 30 ml PO Q12H PRN PRN Reason: Mild Constipation Aspirin (Ecotrin) 81 mg PO DAILY [facility] Last Admin: 07/11/18 09:49 Dose: 81 mg Bisacodyl (Dulcolax Supp) 10 mg RECTAL DAILY PRN PRN Reason: SEVERE CONSITIPATION Chlorhexidine Gluconate (Chlorhexidine 2% Cloth) 3 pack TOPICAL DAILY@0400 [facility] Stop: 07/15/18 03:59 Last Admin: 07/12/18 06:38 Dose: Not Given Chlorhexidine Gluconate (Chlorhexidine 2% Cloth) 3 pack TOPICAL DAILY@0400 PRN PRN Reason: Extra cloth needed Stop: 07/15/18 03:59 Chlorhexidine Gluconate (Hibiclens 4% Topical) 1 applicatio TOPICAL [facility] Stop: 07/17/18 11:28 Sodium Chloride 77.5 ml/Papaverine HCl 60 mg/Nitroglycerin 100 mcg/Diltiazem HCl 100 mg 0 ml IRRIGATION [facility] Stop: 07/17/18 11:28 Sodium Chloride 1,000 ml/ (Vancomycin HCl 1,000 mg) 0 ml [facility] Stop: 07/17/18 11:29 Dextrose (D50w Vial) 50 ml IV.PUSH UNSCH PRN PRN Reason: PER HYPOGLYCEMIA PROTOCOL Dextrose (D50w Vial) 50 ml IV.PUSH UNSCH PRN PRN Reason: PER HYPOGLYCEMIA PROTOCOL Divalproex Sodium (Depakote Er) 1,000 mg PO BID [facility] Last Admin: 07/11/18 22:17 Dose: 1,000 mg Doxepin HCl (Sinequan) 25 mg PO [facility] Last Admin: 07/11/18 22:17 Dose: 25 mg Fluphenazine HCl (Prolixin) 10 mg PO [facility] Last Admin: 07/11/18 22:17 Dose: 10 mg Gabapentin (Neurontin) 300 mg PO TID [facility] Last Admin: 07/11/18 18:17 Dose: 300 mg Glucagon (Glucagon Inj) 1 mg OTHER PRN PRN PRN Reason: for Hypoglycemia Protocol Hydralazine HCl (Apresoline) 50 mg PO TID [facility] Last Admin: 07/11/18 17:56 Dose: 50 mg Insulin Human Regular 100 unit (/ Sodium Chloride) 100 mls @ 3 mls/hr IV.CONT TITRATE PRN; Protocol PRN Reason: See Protocol Vancomycin HCl 1,750 mg/ (Sodium Chloride) 517.5 mls @ 250 mls/hr IV.SIG [facility] Stop: 07/17/18 11:29 Iron Sucrose 100 mg/ Sodium (Chloride) 105 mls @ 105 mls/hr IV.SIG Q24H [facility] Stop: 07/13/18 16:59 Last Infusion: 07/11/18 17:17 Dose: Infused Insulin Aspart (Novolog Insulin Correctional Sugar Inj) 0 unit SQ ACHS AND 3AM [facility]; Protocol Last Admin: 07/12/18 03:00 Dose: Not Given Lactulose (Lactulose Liq) 30 ml PO DAILY PRN PRN Reason: SEVERE CONSITIPATION Levothyroxine Sodium (Synthroid) 25 mcg PO DAILY@0600 [facility] Last Admin: 07/12/18 06:45 Dose: 25 mcg Metoprolol Tartrate (Lopressor) 100 mg PO BID [facility] Last Admin: 07/11/18 22:16 Dose: 100 mg Nitroglycerin (Nitrostat Sl) 0.4 mg SL Q5M PRN PRN Reason: CHEST PAIN Last Admin: 07/09/18 23:13 Dose: 0.4 mg Nitroglycerin (Nitro-Bid 2% Oint) 1 inch TOPICAL Q6HR [facility] Last Admin: 07/12/18 06:45 Dose: 1 inch Pravastatin Sodium (Pravachol) 80 mg PO HS [facility] Last Admin: 07/11/18 22:16 Dose: 80 mg Senna/Docusate Sodium (Joycelyn-Colace) 1 tab PO BID [facility] Sennosides (Senokot) 17.2 mg PO Q12H PRN PRN Reason: Moderate Constipation Last Admin: 07/12/18 06:46 Dose: 17.2 mg Sodium Chloride (Ns Flush) 2 ml IV.FLUSH BID [facility] Last Admin: 07/11/18 22:16 Dose: 2 ml Sodium Chloride (Ns Flush) 2 ml IV.FLUSH PRN PRN PRN Reason: FLUSH AFTER USING IV ACCESS Allergies Allergy/AdvReac Type Severity Reaction Status Date / Time cat dander Allergy Mild Cough Verified 07/09/18 22:26 Penicillins Allergy Unknown Itching Verified 07/09/18 22:26 Sulfa (Sulfonamide AdvReac Mild Nausea/Vomi Verified 07/09/18 22:26 Antibiotics) ting trihexyphenidyl AdvReac Mild Nausea/Vomi Verified 07/09/18 22:26 ting Home Medications Medication Instructions Recorded Confirmed Type divalproex 1,000 mg PO BID 03/25/18 07/11/18 History docusate sodium 100 mg PO BID 03/25/18 07/11/18 History doxepin 25 mg PO HS 03/25/18 07/11/18 History enalapril maleate 20 mg PO BID 03/25/18 07/11/18 History fluphenazine HCl 10 mg PO HS 03/25/18 07/11/18 History gabapentin 300 mg PO TID 03/25/18 07/11/18 History hydralazine 50 mg PO TID 03/25/18 07/11/18 History linagliptin [Tradjenta] 5 mg PO DAILY 03/25/18 07/11/18 History lorazepam 1 mg PO DAILY 03/25/18 07/11/18 History metformin 1,000 mg PO BID 03/25/18 07/11/18 History metoprolol tartrate 100 mg PO BID 03/25/18 07/11/18 History sennosides [Senna Laxative] 8.6 mg PO DAILY PRN 03/25/18 07/11/18 History simvastatin 40 mg PO HS 05/30/18 07/11/18 History Physical Exam Vital signs: Vital Signs 07/11/18 12:00 07/11/18 15:00 07/11/18 15:22 Temperature 97.9 F 98.7 F Pulse Rate 60 60 62 Respiratory Rate 16 16 Blood Pressure 136/84 116/60 Pulse Oximetry 97 94 L 07/11/18 19:00 07/11/18 19:31 07/11/18 20:00 Temperature 98.3 F 98.3 F Pulse Rate 66 61 61 Respiratory Rate 14 14 Blood Pressure 133/61 133/61 Pulse Oximetry 98 98 07/11/18 23:00 07/12/18 00:00 07/12/18 03:00 Temperature 98.5 F 98.5 F Pulse Rate 59 L 65 52 L Respiratory Rate 14 14 Blood Pressure 130/63 130/63 Pulse Oximetry 98 98 07/12/18 04:00 07/12/18 05:00 07/12/18 06:00 Temperature 98 F Pulse Rate 66 56 L 58 L Respiratory Rate 18 Blood Pressure 154/74 H Pulse Oximetry 97 07/12/18 07:00 07/12/18 07:36 07/12/18 08:00 Temperature 98.3 F Pulse Rate 62 58 L 68 Respiratory Rate 15 Blood Pressure 161/71 H Pulse Oximetry 99 99 Intake & Output 07/11/18 07/12/18 07/12/18 18:59 06:59 18:59 Intake Total 980 / 980 720 / 720 Output Total 2099 1550 / 1550 Balance -1120 / -1120 -830 / -830 Weight 97 kg Intake: IV 100 / 100 Venofer Inj 100 MG In NS Inj 100 / 100 100 ML @ 105 mls/hr IV.SIG Q24H [facility] Rx#:[id number] Oral 880 / 880 720 / 720 Output: Urine 1550 / 1550 Urine Amount (Catheter) 2099 Indwelling Urethral Catheter 2099 Other: # Bowel Movements 0 - Constitutional no acute distress - Routine HEENT Exam Head: Present: normocephalic - Routine Neck Exam Present: supple - Routine Respiratory Exam Present: CTA bilaterally - Routine Cardiovascular Exam Present: S1, S2 - Routine Abdominal Exam Present: soft - Routine Extremities Exam Comments: no dannielle - Urinary Catheter Management Indwelling Urethral Catheter Cath placed during this visit: yes Reason for continuing: Hourly intake/output Insertion date: 07/09/18 Insertion time: 22:50 Results 07/12/18 04:57 07/12/18 04:57 Cardiac Enzymes 07/10/18 07/11/18 07/11/18 Range/Units 13:03 03:19 03:19 AST 29 (15-37) U/L CK-MB (CK-2) 16.3 H (0.5-3.6) ng/mL Troponin I 1.88 H* D (0.02-0.05) ng/mL B-Natriuretic Peptide 194 H (0-100) pg/mL 07/12/18 Range/Units 04:57 AST (15-37) U/L CK-MB (CK-2) (0.5-3.6) ng/mL Troponin I (0.02-0.05) ng/mL B-Natriuretic Peptide 147 H (0-100) pg/mL Coagulation 07/10/18 07/11/18 07/12/18 Range/Units 13:03 03:19 04:57 APTT 24.5 D (23.4-31.7) sec B-Natriuretic Peptide 194 H 147 H (0-100) pg/mL Lipids 07/11/18 Range/Units 03:19 Triglycerides 134 (42-150) mg/dL Cholesterol 199 (120-200) mg/dL HDL Cholesterol 37.4 L (40.0-60.0) mg/dL Cholesterol/HDL Ratio 5.32 Ratio CBC 07/10/18 07/11/18 07/12/18 Range/Units 19:46 03:19 04:57 WBC 5.6 6.3 (4.0-11.0) th/mm3 RBC 3.63 L 3.90 L (4.00-5.30) mil/mm3 Hgb 10.2 L 10.0 L 10.7 L (11.6-15.3) gm/dL Hct 31.5 L 30.3 L 33.0 L (35.0-46.0) % Plt Count 152 175 (150-450) th/mm3 Neut # (Auto) 2.7 (1.8-7.7) th/mm3 Lymph # (Auto) 1.8 (1.0-4.8) th/mm3 [place] # (Auto) 1.0 H (0.0-0.9) th/mm3 Eos # (Auto) 0.0 (0.0-0.4) th/mm3 Baso # (Auto) 0.0 (0.0-0.2) th/mm3 Comprehensive Metabolic Panel 07/11/18 07/12/18 Range/Units 03:19 04:57 Sodium 142 138 (136-145) meq/L Potassium 4.5 D 4.3 (3.5-5.1) meq/L Chloride 104 D 102 (98-107) meq/L Carbon Dioxide 33.6 H 30.0 (21.0-32.0) meq/L BUN 8 10 (7-18) mg/dL Creatinine 0.76 1.01 H (0.50-1.00) mg/dL Calcium 9.0 9.3 (8.5-10.1) mg/dL AST 29 (15-37) U/L ALT 19 (10-53) U/L Alkaline Phosphatase 63 (45-117) U/L Total Protein 7.0 D (6.4-8.2) g/dL Albumin 3.1 L (3.4-5.0) g/dL Intake and Output 07/11/18 07/12/18 07/12/18 22:59 06:59 14:59 Intake Total 980 / 980 720 / 720 Output Total 2099 1550 / 1550 Balance -1120 / -1120 -830 / -830 Intake: IV 100 / 100 Venofer Inj 100 MG In NS Inj 100 / 100 100 ML @ 105 mls/hr IV.SIG Q24H [facility] Rx#:[id number] Oral 880 / 880 720 / 720 Output: Urine 1550 / 1550 Urine Amount (Catheter) 2099 Indwelling Urethral Catheter 2099 Other: # Bowel Movements 0 Weight 97 kg - Imaging and Cardiology Imaging: Impressions Carotid Doppler Study 07/10/18 00:00 CONCLUSION: 1. Right Internal Carotid Artery: No significant stenosis or atherosclerotic plaque is visualized. 2. Left Internal Carotid Artery: No significant stenosis or atherosclerotic plaque is visualized. Lower Extremity Ultrasound 07/11/18 11:28 CONCLUSION: 1. Venous mapping as above. Venous Doppler Study 07/11/18 11:28 CONCLUSION: 1. No evidence of DVT. Assessment and Plan - Assessment (1) NSTEMI (non-ST elevated myocardial infarction) Code(s): I21.4 - Non-ST elevation (NSTEMI) myocardial infarction Status: Acute (2) CAD (coronary artery disease) Code(s): I25.10 - Atherosclerotic heart disease of [place] coronary artery without angina pectoris Status: Acute - Plan 1.) CAD - nstemi, assynmptomatic s/p transfusion, continue aspirin, lopressor, pravachol, ntp, f/u cbc and echo; Dr Pinedo covering me after today
[2018-07-12] MEDS: Metoprolol Tartrate 100 MG Tablet PO SCH ×2 (08:58→21:00)
[2018-07-12] MEDS: hydrALAZINE 50 MG Tablet PO SCH ×3 (08:58→17:02)
[2018-07-12] MEDS: Gabapentin 300 MG Capsule PO SCH ×3 (08:58→17:02)
[2018-07-12] MEDS: Divalproex 500 MG ER Tablet PO SCH ×2 (08:58→21:00)
[2018-07-12] MEDS: Senna/Docusate Sodium 8.6/50 MG Tablet PO SCH ×2 (08:58→21:00)
--- NOTE | 2018-07-12 08:59 | P.PNIM ---
Subjective Interval history: The pt was having discomfort with her Eid. She noticed that her urine was red in color. She says she has intermittent wheezing. She has not been eating much. Discussed with nursing at the bedside. Physical Exam Vital signs: Vital Signs 07/11/18 12:00 07/11/18 15:00 07/11/18 15:22 Temperature 97.9 F 98.7 F Pulse Rate 60 60 62 Respiratory Rate 16 16 Blood Pressure 136/84 116/60 Pulse Oximetry 97 94 L 07/11/18 19:00 07/11/18 19:31 07/11/18 20:00 Temperature 98.3 F 98.3 F Pulse Rate 66 61 61 Respiratory Rate 14 14 Blood Pressure 133/61 133/61 Pulse Oximetry 98 98 07/11/18 23:00 07/12/18 00:00 07/12/18 03:00 Temperature 98.5 F 98.5 F Pulse Rate 59 L 65 52 L Respiratory Rate 14 14 Blood Pressure 130/63 130/63 Pulse Oximetry 98 98 07/12/18 04:00 07/12/18 05:00 07/12/18 06:00 Temperature 98 F Pulse Rate 66 56 L 58 L Respiratory Rate 18 Blood Pressure 154/74 H Pulse Oximetry 97 07/12/18 07:00 07/12/18 07:36 07/12/18 08:00 Temperature 98.3 F Pulse Rate 62 58 L 68 Respiratory Rate 15 Blood Pressure 161/71 H Pulse Oximetry 99 99 Intake & Output 07/11/18 07/12/18 07/12/18 18:59 06:59 18:59 Intake Total 980 / 980 720 / 720 Output Total 2099 1550 / 1550 Balance -1120 / -1120 -830 / -830 Weight 97 kg Intake: IV 100 / 100 Venofer Inj 100 MG In NS Inj 100 / 100 100 ML @ 105 mls/hr IV.SIG Q24H [facility] Rx#:[id number] Oral 880 / 880 720 / 720 Output: Urine 1550 / 1550 Urine Amount (Catheter) 2099 Indwelling Urethral Catheter 2099 Other: # Bowel Movements 0 Narrative: GENERAL: NAD SKIN: Warm and dry. HEAD: Normocephalic. EYES: No scleral icterus. No injection or drainage. NECK: Supple, trachea midline. No JVD or lymphadenopathy. CARDIOVASCULAR: Regular rate and rhythm without murmurs, gallops, or rubs. RESPIRATORY: Breath sounds equal bilaterally. No accessory muscle use. GASTROINTESTINAL: Abdomen soft, non-tender, nondistended. : Eid with red-tinged urine. MUSCULOSKELETAL: No cyanosis, TR edema. BACK: Nontender without obvious deformity. No CVA tenderness. NEURO: No gross deficits. - Urinary Catheter Management Indwelling Urethral Catheter Cath placed during this visit: yes Reason for continuing: Hourly intake/output Insertion date: 07/09/18 Insertion time: 22:50 Results - Labs CBC & Chem 7: 07/12/18 04:57 07/12/18 04:57 Laboratory Results - last 24 hr 07/11/18 07/11/18 07/11/18 03:19 12:27 13:58 WBC RBC Hgb Hct MCV MCH MCHC RDW Plt Count MPV Retic Count Absolute Retic Sodium Potassium Chloride Carbon Dioxide Anion Gap BUN Creatinine Estimated GFR POC Glucose 147 H Random Glucose Hemoglobin A1c 6.6 H Calcium Magnesium Iron 110 TIBC 426 % Saturation 25.8 Ferritin 30 B-Natriuretic Peptide Vitamin B12 252 Urine Color Urine Clarity Urine pH Ur Specific Spelter Urine Protein Urine Glucose (UA) Urine Ketones Urine Occult Blood Urine Nitrate Urine Bilirubin Urine Urobilinogen Ur Leukocyte Esterase Urine RBC Urine WBC Ur Squamous Epith Cells Urine Mucus Micro UA Comment Ur Microscopic Review Urine Culture Comments 07/11/18 07/11/18 07/11/18 13:58 14:18 15:40 WBC RBC Hgb Hct MCV MCH MCHC RDW Plt Count MPV Retic Count 2.1 Absolute Retic 82.6 Sodium Potassium Chloride Carbon Dioxide Anion Gap BUN Creatinine Estimated GFR POC Glucose 109 Random Glucose Hemoglobin A1c Calcium Magnesium Iron TIBC % Saturation Ferritin B-Natriuretic Peptide Vitamin B12 Urine Color Colorless Urine Clarity Clear Urine pH 8.0 Ur Specific Spelter 1.003 Urine Protein Negative Urine Glucose (UA) Negative Urine Ketones Negative Urine Occult Blood Negative Urine Nitrate Negative Urine Bilirubin Negative Urine Urobilinogen Less than 2 Ur Leukocyte Esterase Negative Urine RBC Less than 1 Urine WBC Less than 1 Ur Squamous Epith Cells <1 Urine Mucus Few H Micro UA Comment Cath-culture not ind Ur Microscopic Review Not Reportable Urine Culture Comments Cath-cult not ind 07/11/18 07/12/18 07/12/18 20:26 03:50 04:57 WBC 6.3 RBC 3.90 L Hgb 10.7 L Hct 33.0 L MCV 84.5 MCH 27.4 MCHC 32.4 RDW 18.0 H Plt Count 175 MPV 7.5 Retic Count Absolute Retic Sodium Potassium Chloride Carbon Dioxide Anion Gap BUN Creatinine Estimated GFR POC Glucose 113 H 106 Random Glucose Hemoglobin A1c Calcium Magnesium Iron TIBC % Saturation Ferritin B-Natriuretic Peptide Vitamin B12 Urine Color Urine Clarity Urine pH Ur Specific Spelter Urine Protein Urine Glucose (UA) Urine Ketones Urine Occult Blood Urine Nitrate Urine Bilirubin Urine Urobilinogen Ur Leukocyte Esterase Urine RBC Urine WBC Ur Squamous Epith Cells Urine Mucus Micro UA Comment Ur Microscopic Review Urine Culture Comments 07/12/18 07/12/18 07/12/18 04:57 04:57 07:34 WBC RBC Hgb Hct MCV MCH MCHC RDW Plt Count MPV Retic Count Absolute Retic Sodium 138 Potassium 4.3 Chloride 102 Carbon Dioxide 30.0 Anion Gap 6 BUN 10 Creatinine 1.01 H Estimated GFR 68 L POC Glucose 102 Random Glucose 140 H Hemoglobin A1c Calcium 9.3 Magnesium 2.0 Iron TIBC % Saturation Ferritin B-Natriuretic Peptide 147 H Vitamin B12 Urine Color Urine Clarity Urine pH Ur Specific Spelter Urine Protein Urine Glucose (UA) Urine Ketones Urine Occult Blood Urine Nitrate Urine Bilirubin Urine Urobilinogen Ur Leukocyte Esterase Urine RBC Urine WBC Ur Squamous Epith Cells Urine Mucus Micro UA Comment Ur Microscopic Review Urine Culture Comments - Imaging Impressions Lower Extremity Ultrasound 07/11/18 11:28 CONCLUSION: 1. Venous mapping as above. Venous Doppler Study 07/11/18 11:28 CONCLUSION: 1. No evidence of DVT. Assessment and Plan - Plan Non-ST elevation [place] Cardiology consult appreciated. LDL 135. Echo with normal EF. -Currently on ASA, Nitro paste, beta-lisa, statin. s/p Heparin drip -S/p heart catheterization July 10, 2018. Cardiothoracic surgery consult appreciated. Plan is for CABG. Acute hypoxia Currently on 3LNC. -repeat CXR. -oxygen and DuoNeb as needed. -incentive spirometry. Diabetes mellitus Well controlled. -Sliding scale insulin and hold all oral antihyperglycemic agent. Hypertension/hyperlipidemia Relatively well controlled. -Continue home statin, beta-lisa. Bipolar/schizophrenia Chronic, stable. -Continue home medications. Normochromic normocytic anemia She was transfused 2 units packed red blood cells. Appreciate input from hematology. Now with hematuria. -repeat UA. -continue Eid for now. -urology consult requested. -follow CBC and transfuse as needed. -follow up with hematology. On iron therapy. DVT prophylaxis: Bilateral SCDs
--- NOTE | 2018-07-12 09:42 | XR ---
EXAM DATE: 07/12/2018 9:31 AM EST AGE/SEX: 58 years / Female INDICATIONS: Chest pain. CLINICAL DATA: This is the patient's subsequent encounter. Patient reports that signs and symptoms h ave been present for 3 days and indicates a pain score of 7/10. MEDICAL/SURGICAL HISTORY: . Diabetes. Hypercholesterolemia. Hypertension. Myocardial infarction . Schizophrenia. Seizure disorder. CVA. . Hip surgery. COMPARISON: [facility] – [place], CHEST 1V SINGLE AP, 07/09/2018. . FINDINGS: A single AP view of the chest demonstrates the lungs to be symmetrically aerated without evidence of mass, infiltrate or effusion. The cardiomediastinal contours are unremarkable. Osseous structures a re intact. CONCLUSION: The lungs are clear. Electronically signed by: Tobin Velasquez MD Board Certified Radiologist 07/12/2018 9:41 AM EST
--- NOTE | 2018-07-12 09:54 | P.PNCV ---
- Note Subjective/Hospital Course: pt seen and evaluated, full consult to follow sts risk score discussed with pt RISK SCORES Procedure: Isolated CAB CALCULATE Risk of Mortality: 1.346% Renal Failure: 2.414% Permanent Stroke: 2.147% Prolonged Ventilation: 8.884% DSW Infection: 0.314% Reoperation: 1.314% Morbidity or Mortality: 13.290% Short Length of Stay: 30.625% Long Length of Stay: 5.978% HISTORY OF PRESENT ILLNESS: 58-year-old female who has recently been in the hospital in May for heart failure, questionable pneumonia, bilateral effusions, was placed on some IV diuretics then was discharged home, received some IV antibiotics. She presented again to the emergency department 2017 with shortness of breath, left-sided chest pain. Troponin was 2.0, she was ruled in for a non-STEMI, decompensated congestive heart failure, coronary artery disease. She underwent cardiac catheterization on 07/10/[address] Boland which showed an ejection fraction of 60%. There was mid distal LAD lesion, 90%, the left circumflex had 90%, 95%posterior lateral and the middle, posterior lateral had a 70% to 80% stenosis. We were consulted to evaluate for coronary artery bypass grafting. The patient was also found to have some anemia, normocytic has been evaluated by hematology. She has received 2 units of packed RBCs. Hemoglobin is now 10. She has some low iron counts, probable chronic. Denies any blood in her stool. She is somewhat of a poor historian also. She now admitted to some blood in stool a couple of weeks ago PAST MEDICAL HISTORY: Includes iron deficiency, normocytic anemia, ? history of cerebrovascular accident in the past with no residual effects , diabetes mellitus, on oral medication, hypertension, hyperlipidemia, seizure disorder. She is unclear when her last seizure, bipolar disorder, schizophrenia. 07/12 pt still has gaines cath ? , now with hematuria, clots noted in tubing, pt states she noticed this after trying to have a BM earlier this am ( ? traumatic ) will check UA, Urology consulted per Hospitalist , off Heparin gtt since 07/10 Dr Tirado to eval cardiac cath films today Objective: Vital Signs - 24 hr 07/11/18 12:00 07/11/18 15:00 07/11/18 15:22 Temperature 97.9 F 98.7 F Pulse Rate 60 60 62 Respiratory Rate 16 16 Blood Pressure 136/84 116/60 Pulse Oximetry 97 94 L 07/11/18 19:00 07/11/18 19:31 07/11/18 20:00 Temperature 98.3 F 98.3 F Pulse Rate 66 61 61 Respiratory Rate 14 14 Blood Pressure 133/61 133/61 Pulse Oximetry 98 98 07/11/18 23:00 07/12/18 00:00 07/12/18 03:00 Temperature 98.5 F 98.5 F Pulse Rate 59 L 65 52 L Respiratory Rate 14 14 Blood Pressure 130/63 130/63 Pulse Oximetry 98 98 07/12/18 04:00 07/12/18 05:00 07/12/18 06:00 Temperature 98 F Pulse Rate 66 56 L 58 L Respiratory Rate 18 Blood Pressure 154/74 H Pulse Oximetry 97 07/12/18 07:00 07/12/18 07:36 07/12/18 08:00 Temperature 98.3 F Pulse Rate 62 58 L 68 Respiratory Rate 15 Blood Pressure 161/71 H Pulse Oximetry 99 99 GENERAL: A&O x 3 , flat affect SKIN: Warm and dry. HEAD: Normocephalic. EYES: No scleral icterus. No injection or drainage. NECK: Supple, trachea midline. No JVD or lymphadenopathy. CARDIOVASCULAR: Regular rate and rhythm without murmurs, gallops, or rubs. RESPIRATORY: Breath sounds equal bilaterally. No accessory muscle use. GASTROINTESTINAL: Abdomen soft, non-tender, nondistended. : gaines cath with hematuria MUSCULOSKELETAL: No cyanosis, or edema. BACK: Nontender without obvious deformity. No CVA tenderness. Labs: Laboratory Results - last 12 hr 07/12/18 07/12/18 07/12/18 03:50 04:57 04:57 WBC 6.3 RBC 3.90 L Hgb 10.7 L Hct 33.0 L MCV 84.5 MCH 27.4 MCHC 32.4 RDW 18.0 H Plt Count 175 MPV 7.5 Sodium 138 Potassium 4.3 Chloride 102 Carbon Dioxide 30.0 Anion Gap 6 BUN 10 Creatinine 1.01 H Estimated GFR 68 L POC Glucose 106 Random Glucose 140 H Calcium 9.3 Magnesium 2.0 B-Natriuretic Peptide 07/12/18 07/12/18 04:57 07:34 WBC RBC Hgb Hct MCV MCH MCHC RDW Plt Count MPV Sodium Potassium Chloride Carbon Dioxide Anion Gap BUN Creatinine Estimated GFR POC Glucose 102 Random Glucose Calcium Magnesium B-Natriuretic Peptide 147 H Result Diagrams: 07/12/18 04:57 07/12/18 04:57 - Plan (1) Hematuria Plan: check UA, Urology consult hopefully dc gaines cath (2) Acute respiratory distress Plan: resolved (3) Congestive heart failure (5) Chest pain (7) CAD (coronary artery disease) Plan: on ASA, statin , BB carotid US: unremarkable await PFT Dr Tirado to eval films (3) Congestive heart failure Qualifiers: Heart failure type: unspecified Heart failure chronicity: acute on chronic Qualified Code(s): I50.9 - Heart failure, unspecified (5) Chest pain Qualifiers: Chest pain type: chest pain due to myocardial ischemia Ischemic chest pain type: unstable angina pectoris Qualified Code(s): I20.0 - Unstable angina
[2018-07-12 10:50] LABS: Bacteria,Urine Few /hpf; Bilirubin,Urine Negative (Negative); Glucose,Urine (UA) Negative (Negative); Leukocyte Esterase,Urine Large (Negative); Mucus,Urine Many /lpf (Occasional); Nitrite,Urine Negative (Negative); Specific Gravity,Urine 1.013 (1.002-1.035); Squamous Epithelial Cell,Urine 7 /hpf (0-5)
[2018-07-12 10:51] LABS: Clarity,Urine Cloudy (Clear); Color,Urine Red (Yellw/Straw)
--- NOTE | 2018-07-12 10:52 | P.PNONC ---
Subjective Interval history: Patient sitting up in chair, her daughters at the bedside. She reports blood in her urine Eid catheter. She does have red tinged urine and clots noted in the draining collection bag. She complains of upper abdominal pain which started in the night. She denies nausea, vomiting or diarrhea. She has not had a bowel movement. Urologist arrived at bedside Objective Vital Signs/Intake & Output: Vital Signs 07/11/18 12:00 07/11/18 15:00 07/11/18 15:22 Temperature 97.9 F 98.7 F Pulse Rate 60 60 62 Respiratory Rate 16 16 Blood Pressure 136/84 116/60 Pulse Oximetry 97 94 L 07/11/18 19:00 07/11/18 19:31 07/11/18 20:00 Temperature 98.3 F 98.3 F Pulse Rate 66 61 61 Respiratory Rate 14 14 Blood Pressure 133/61 133/61 Pulse Oximetry 98 98 07/11/18 23:00 07/12/18 00:00 07/12/18 03:00 Temperature 98.5 F 98.5 F Pulse Rate 59 L 65 52 L Respiratory Rate 14 14 Blood Pressure 130/63 130/63 Pulse Oximetry 98 98 07/12/18 04:00 07/12/18 05:00 07/12/18 06:00 Temperature 98 F Pulse Rate 66 56 L 58 L Respiratory Rate 18 Blood Pressure 154/74 H Pulse Oximetry 97 07/12/18 07:00 07/12/18 07:36 07/12/18 08:00 Temperature 98.3 F Pulse Rate 62 58 L 68 Respiratory Rate 15 Blood Pressure 161/71 H Pulse Oximetry 99 99 99 07/12/18 09:00 07/12/18 10:00 Temperature Pulse Rate 62 61 Respiratory Rate Blood Pressure Pulse Oximetry Intake & Output 07/11/18 07/12/18 07/12/18 18:59 06:59 18:59 Intake Total 980 / 980 720 / 720 Output Total 2099 1550 / 1550 Balance -1120 / -1120 -830 / -830 Weight 97 kg Intake: IV 100 / 100 Venofer Inj 100 MG In NS Inj 100 / 100 100 ML @ 105 mls/hr IV.SIG Q24H [facility] Rx#:[id number] Oral 880 / 880 720 / 720 Output: Urine 1550 / 1550 Urine Amount (Catheter) 2099 Indwelling Urethral Catheter 2099 Other: # Bowel Movements 0 Result Diagrams: 07/12/18 04:57 07/12/18 04:57 Laboratory Results: Laboratory Results - last 24 hr 07/11/18 07/11/18 07/11/18 03:19 12:27 13:58 WBC RBC Hgb Hct MCV MCH MCHC RDW Plt Count MPV Retic Count Absolute Retic Sodium Potassium Chloride Carbon Dioxide Anion Gap BUN Creatinine Estimated GFR POC Glucose 147 H Random Glucose Hemoglobin A1c 6.6 H Calcium Magnesium Iron 110 TIBC 426 % Saturation 25.8 Ferritin 30 B-Natriuretic Peptide Vitamin B12 252 Urine Color Urine Clarity Urine pH Ur Specific [place] Urine Protein Urine Glucose (UA) Urine Ketones Urine Occult Blood Urine Nitrate Urine Bilirubin Urine Urobilinogen Ur Leukocyte Esterase Urine RBC Urine WBC Ur Squamous Epith Cells Urine Mucus Micro UA Comment Ur Microscopic Review Urine Culture Comments 07/11/18 07/11/18 07/11/18 13:58 14:18 15:40 WBC RBC Hgb Hct MCV MCH MCHC RDW Plt Count MPV Retic Count 2.1 Absolute Retic 82.6 Sodium Potassium Chloride Carbon Dioxide Anion Gap BUN Creatinine Estimated GFR POC Glucose 109 Random Glucose Hemoglobin A1c Calcium Magnesium Iron TIBC % Saturation Ferritin B-Natriuretic Peptide Vitamin B12 Urine Color Colorless Urine Clarity Clear Urine pH 8.0 Ur Specific [place] 1.003 Urine Protein Negative Urine Glucose (UA) Negative Urine Ketones Negative Urine Occult Blood Negative Urine Nitrate Negative Urine Bilirubin Negative Urine Urobilinogen Less than 2 Ur Leukocyte Esterase Negative Urine RBC Less than 1 Urine WBC Less than 1 Ur Squamous Epith Cells <1 Urine Mucus Few H Micro UA Comment Cath-culture not ind Ur Microscopic Review Not Reportable Urine Culture Comments Cath-cult not ind 07/11/18 07/12/18 07/12/18 20:26 03:50 04:57 WBC 6.3 RBC 3.90 L Hgb 10.7 L Hct 33.0 L MCV 84.5 MCH 27.4 MCHC 32.4 RDW 18.0 H Plt Count 175 MPV 7.5 Retic Count Absolute Retic Sodium Potassium Chloride Carbon Dioxide Anion Gap BUN Creatinine Estimated GFR POC Glucose 113 H 106 Random Glucose Hemoglobin A1c Calcium Magnesium Iron TIBC % Saturation Ferritin B-Natriuretic Peptide Vitamin B12 Urine Color Urine Clarity Urine pH Ur Specific [place] Urine Protein Urine Glucose (UA) Urine Ketones Urine Occult Blood Urine Nitrate Urine Bilirubin Urine Urobilinogen Ur Leukocyte Esterase Urine RBC Urine WBC Ur Squamous Epith Cells Urine Mucus Micro UA Comment Ur Microscopic Review Urine Culture Comments 07/12/18 07/12/18 07/12/18 04:57 04:57 07:34 WBC RBC Hgb Hct MCV MCH MCHC RDW Plt Count MPV Retic Count Absolute Retic Sodium 138 Potassium 4.3 Chloride 102 Carbon Dioxide 30.0 Anion Gap 6 BUN 10 Creatinine 1.01 H Estimated GFR 68 L POC Glucose 102 Random Glucose 140 H Hemoglobin A1c Calcium 9.3 Magnesium 2.0 Iron TIBC % Saturation Ferritin B-Natriuretic Peptide 147 H Vitamin B12 Urine Color Urine Clarity Urine pH Ur Specific [place] Urine Protein Urine Glucose (UA) Urine Ketones Urine Occult Blood Urine Nitrate Urine Bilirubin Urine Urobilinogen Ur Leukocyte Esterase Urine RBC Urine WBC Ur Squamous Epith Cells Urine Mucus Micro UA Comment Ur Microscopic Review Urine Culture Comments Imaging Studies: Impressions Lower Extremity Ultrasound 07/11/18 11:28 CONCLUSION: 1. Venous mapping as above. Venous Doppler Study 07/11/18 11:28 CONCLUSION: 1. No evidence of DVT. Chest X-Ray 07/12/18 09:10 CONCLUSION: The lungs are clear. Medications: Active Medications Generic Name Dose Route Start Last Admin Trade Name Freq PRN Reason Stop Dose Admin Aspirin 81 mg 07/11/18 09:00 07/12/18 08:58 Ecotrin PO 81 mg DAILY [facility] Administration Chlorhexidine Gluconate 3 pack 07/10/18 04:00 07/12/18 06:38 Chlorhexidine 2% Cloth TOPICAL 07/15/18 03:59 Not Given DAILY@0400 [facility] Divalproex Sodium 1,000 mg 07/11/18 21:00 07/12/18 08:58 Depakote Er PO 1,000 mg BID [facility] Administration Doxepin HCl 25 mg 07/10/18 21:00 07/11/18 22:17 Sinequan PO 25 mg HS [facility] Administration Fluphenazine HCl 10 mg 07/10/18 21:00 07/11/18 22:17 Prolixin PO 10 mg HS [facility] Administration Gabapentin 300 mg 07/11/18 18:00 07/12/18 08:58 Neurontin PO 300 mg TID [facility] Administration Hydralazine HCl 50 mg 07/10/18 09:00 07/12/18 08:58 Apresoline PO 50 mg TID [facility] Administration Iron Sucrose 100 mg/ Sodium 105 mls @ 105 mls/hr 07/11/18 16:00 07/11/18 17: 17 Chloride IV.SIG 07/13/18 16:59 Infused Q24H [facility] Infusion Insulin Aspart 0 unit 07/10/18 03:00 07/12/18 08:58 Novolog Insulin Correctional Sugar Inj SQ Not Given ACHS AND 3AM [facility] Protocol Levothyroxine Sodium 25 mcg 07/10/18 06:00 07/12/18 06:45 Synthroid PO 25 mcg DAILY@0600 [facility] Administration Metoprolol Tartrate 100 mg 07/10/18 09:00 07/12/18 08:58 Lopressor PO 100 mg BID [facility] Administration Nitroglycerin 0.4 mg 07/09/18 22:37 07/09/18 23:13 Nitrostat Sl SL 0.4 mg Q5M PRN Administration CHEST PAIN Nitroglycerin 1 inch 07/10/18 06:00 07/12/18 06:45 Nitro-Bid 2% Oint TOPICAL 1 inch Q6HR [facility] Administration Pravastatin Sodium 80 mg 07/10/18 21:00 07/11/18 22:16 Pravachol PO 80 mg HS [facility] Administration Senna/Docusate Sodium 1 tab 07/12/18 09:00 07/12/18 08:58 Joycelyn-Colace PO 1 tab BID [facility] Administration Sennosides 17.2 mg 07/12/18 06:30 07/12/18 06:46 Senokot PO 17.2 mg Q12H PRN Administration Moderate Constipation Sodium Chloride 2 ml 07/11/18 21:00 07/12/18 08:58 Ns Flush IV.FLUSH 2 ml BID [facility] Administration Objective Remarks: GENERAL: Well-nourished, well-developed female patient, in no acute distress. SKIN: Warm and dry. HEAD: Normocephalic. EYES: No scleral icterus. No injection or drainage. NECK: Supple, trachea midline. CARDIOVASCULAR: Regular rate and rhythm without murmurs. RESPIRATORY: Posterior breath sounds distant, equal bilaterally. Nonlabored at rest. GASTROINTESTINAL: Abdomen large soft, tender, nondistended. EXTREMITIES: No cyanosis, or edema. MUSCULOSKELETAL: Adequate muscle tone. NEUROLOGICAL: No obvious focal deficit. Awake, alert, and oriented x3. PSYCHIATRIC: Appropriate mood and affect. Assessment/Plan - Plan Ms. Schmidt is a pleasant 58-year-old female patient with previous history of CVA , diabetes, hypertension, hyperlipidemia, coronary artery disease and schizophrenia/bipolar disorder. She came to the emergency room with chest pain and was found to have increasing cardiac enzymes, she underwent emergent heart catheterization and was found to have severe coronary artery disease and was recommended for CABG. Hematology was consulted for anemia. Recommendations/plan: 1. Normocytic anemia with iron deficiency. Hemoglobin on admission was 9.2, dropped to 8.3. She was transfused 2 units of PRBCs for symptomatic chest pain. Hemoglobin today 10.7 gm/dL. Ferritin 12. Patient started on Venofer yesterday. 2. Hematuria, patient with Eid catheter in place, red tinged urine with clots and collection device. Urinalysis yesterday was negative for occult blood. A repeat urinalysis is pending today. Urology was consulted and arrived at bedside during my exam. 3. Abdominal pain which started in the night. She has not had a bowel movement. Abdominal pain differentials to include constipation, iron infusion, UTI etc. Recommend patient be given the as needed constipation medications that are on her mar until she has a bowel movement. 3. Continue to monitor CBC. - Attending Statement Pt was in the toilet while on my rounds this am. But she was asymptomatic. Labs reviewed and discussed with RN. Stool OB pending. S/p 1 dose of Venofer yesterday. Hb improving. Continue tx. Will f/u in hospital as pt being evaluated for ?CABG.
--- NOTE | 2018-07-12 11:00 | MB ---
cc: Angel Pires DO DATE: 07/12/2018 DATE OF CONSULTATION: 07/12/2018 HISTORY OF PRESENT ILLNESS: Ms. Schmidt is a pleasant 58-year-old female who admitted with chest pain. Urology is consulted for gross hematuria. Gross hematuria started today and she had a Eid catheter placed a few days ago. She admits to pulling on the catheter when getting out of bed earlier today and hematuria began. She denies any prior history of hematuria, infections or stone disease. She denies any trouble with urination or incomplete bladder emptying. Her urinalysis on admission was noted to be negative for any red cells. PAST MEDICAL HISTORY: Includes diabetes, hypertension, hyperlipidemia, coronary artery disease, schizophrenia with bipolar disorder, recent AR. PAST SURGICAL HISTORY: Prior hip surgery as noted. SOCIAL HISTORY: Denies smoking, drinking or using drugs. FAMILY HISTORY: Denies any history of malignancies. ALLERGIES: SHE HAS MULTIPLE ALLERGIES, MEDICATIONS: Please refer to the chart presently. REVIEW OF SYSTEMS: Denies dizziness, gait disturbances, bleeding disorders, hematuria, UTI, stone disease, neurologic problems. Denies abdominal pain, constipation. Remaining review of systems were reviewed and were negative. PHYSICAL EXAMINATION: VITAL SIGNS: Today: Temperature 98.3, heart rate 58, respiratory rate 15, 161/71 for blood pressure. GENERAL: She is an obese 58-year-old female in no acute distress. HEENT: Normocephalic, atraumatic. Pupils equal, round, reactive to light. Extraocular movements intact. NECK: Supple. HEART: Regular rate and rhythm. LUNGS: Clear bilaterally. ABDOMEN: Soft, nontender, nondistended. GENITOURINARY: Eid in place with hematuria noted. EXTREMITIES: Show no signs of any edema. NEUROLOGIC: Cranial nerves 2 through 12 are intact. LABORATORY DATA: White count 6.3, hemoglobin 10.7, hematocrit 33.0, platelet count of 175. Sodium 138, potassium 4.3, chloride 101, CO2 30, BUN of 10, creatinine 1.01, glucose of 106. Urinalysis on admission was negative. ASSESSMENT AND PLAN: A 58-year-old female with onset of gross hematuria after Eid catheter was inserted. Hematuria is most likely due to Eid trauma as the patient admitted pulling on the Eid when getting out of bed. If Eid is not necessary, would discontinue the Eid and give her a void trial and can repeat the urinalysis on an outpatient basis in approximately 6 weeks. If present would then recommend a workup for hematuria. Thank you for the consult. DO MAO Burns/morris , 10:29 AM , 10:37 AM
[2018-07-12] MEDS: Iron Sucrose Inj 100 MG in Sodium Chlor 0.9% Inj 100 ML IV.SIG SCH (15:25)
[2018-07-13] MEDS: Insulin NovoLOG Aspart Correctional Sugar Inj SQ SCH ×5 (03:30→20:57)
[2018-07-13 03:56] LABS: Hematocrit 36.9 % (35.0-46.0); Hemoglobin 11.7 gm/dL (11.6-15.3); Mean Corpuscular HGB Conc 31.7 % (32.0-36.0); Mean Corpuscular Hemoglobin 26.9 pg (27.0-34.0); Mean Corpuscular Volume 84.9 fL (80.0-100.0); Mean Platelet Volume 7.5 fL (7.0-11.0); Platelet Count 229 th/mm3 (150-450); Red Blood Count 4.34 mil/mm3 (4.00-5.30); Red Cell Distribution Width 18.6 % (11.6-17.2); White Blood Count 8.7 th/mm3 (4.0-11.0)
[2018-07-13 04:26] LABS: Albumin 3.3 g/dL (3.4-5.0); Calcium 9.8 mg/dL (8.5-10.1); Carbon Dioxide 31.9 meq/L (21.0-32.0); Potassium 4.2 meq/L (3.5-5.1); Total Protein 8.2 g/dL (6.4-8.2)
[2018-07-13] MEDS: Chlorhexidine Gluconate 2% 1 Pack (2 Cloths) TOPICAL SCH (07:28)
[2018-07-13] MEDS: Divalproex 500 MG ER Tablet PO SCH ×2 (08:30→20:56)
[2018-07-13] MEDS: hydrALAZINE 50 MG Tablet PO SCH ×3 (08:30→17:12)
[2018-07-13] MEDS: Metoprolol Tartrate 100 MG Tablet PO SCH ×2 (08:30→20:56)
[2018-07-13] MEDS: Senna/Docusate Sodium 8.6/50 MG Tablet PO SCH ×2 (08:30→20:56)
[2018-07-13] MEDS: Gabapentin 300 MG Capsule PO SCH ×3 (08:30→17:12)
--- NOTE | 2018-07-13 10:35 | P.PNIM ---
Subjective Interval history: The patient was resting comfortably. She says she had some pain with urination. She said she felt better without the Eid catheter. She tolerated breakfast. She said she was wheezing at times. Physical Exam Vital signs: Vital Signs 07/12/18 11:00 07/12/18 11:09 07/12/18 11:11 Temperature 98 F Pulse Rate 60 59 L Respiratory Rate 16 Blood Pressure 121/68 Pulse Oximetry 100 99 07/12/18 12:00 07/12/18 13:00 07/12/18 14:00 Temperature Pulse Rate 54 L 71 66 Respiratory Rate Blood Pressure Pulse Oximetry 07/12/18 15:00 07/12/18 15:19 07/12/18 16:00 Temperature 99.1 F Pulse Rate 61 62 58 L Respiratory Rate 14 Blood Pressure 114/55 L Pulse Oximetry 94 L 07/12/18 17:00 07/12/18 18:00 07/12/18 19:00 Temperature Pulse Rate 67 74 68 Respiratory Rate Blood Pressure Pulse Oximetry 96 07/12/18 20:00 07/12/18 20:26 07/12/18 21:00 Temperature 98.5 F Pulse Rate 70 68 74 Respiratory Rate 17 Blood Pressure 136/72 Pulse Oximetry 96 96 07/12/18 22:00 07/12/18 23:00 07/13/18 00:00 Temperature Pulse Rate 75 63 62 Respiratory Rate Blood Pressure Pulse Oximetry 07/13/18 00:40 07/13/18 01:00 07/13/18 02:00 Temperature 98.5 F Pulse Rate 62 62 63 Respiratory Rate 17 Blood Pressure 112/58 L Pulse Oximetry 96 07/13/18 03:00 07/13/18 04:00 07/13/18 05:00 Temperature 98.0 F 97.9 F Pulse Rate 66 64 75 Respiratory Rate 16 18 Blood Pressure 104/54 L 112/65 Pulse Oximetry 96 99 07/13/18 06:00 07/13/18 07:00 07/13/18 07:47 Temperature 97.9 F 97.9 F Pulse Rate 75 75 Respiratory Rate 18 18 Blood Pressure 112/65 112/65 Pulse Oximetry 99 99 98 07/13/18 08:00 07/13/18 09:00 07/13/18 10:00 Temperature 97.9 F 97.9 F Pulse Rate 75 75 71 Respiratory Rate 18 18 18 Blood Pressure 112/65 112/65 Pulse Oximetry 99 99 Intake & Output 07/12/18 07/13/18 07/13/18 18:59 06:59 18:59 Intake Total 1060 / 1060 360 / 360 Output Total 1300 / 1300 900 / 900 Balance -240 / -240 -540 / -540 Weight 97.5 kg Intake: IV 100 / 100 Venofer Inj 100 MG In NS Inj 100 / 100 100 ML @ 105 mls/hr IV.SIG Q24H [facility] Rx#:[id number] Oral 960 / 960 360 / 360 Output: Urine Amount (Catheter) 1300 / 1300 900 / 900 Indwelling Urethral Catheter 1300 / 1300 900 / 900 Other: Date of Last Bowel Movement 07/12/18 07/12/18 07/13/18 # Bowel Movements 1 Narrative: GENERAL: NAD SKIN: Warm and dry. HEAD: Normocephalic. EYES: No scleral icterus. No injection or drainage. NECK: Supple, trachea midline. No JVD or lymphadenopathy. CARDIOVASCULAR: Regular rate and rhythm without murmurs, gallops, or rubs. RESPIRATORY: Breath sounds equal bilaterally. No accessory muscle use. GASTROINTESTINAL: Abdomen soft, non-tender, nondistended. MUSCULOSKELETAL: No cyanosis, TR edema. BACK: Nontender without obvious deformity. No CVA tenderness. NEURO: No gross deficits. - Urinary Catheter Management Indwelling Urethral Catheter Cath placed during this visit: yes, but has since been removed by the nurse Reason for continuing: Decision to DC catheter Insertion date: 07/09/18 Insertion time: 22:50 Removal date: 07/12/18 Removal time: 17:25 Results - Labs CBC & Chem 7: 07/13/18 03:22 07/13/18 03:22 Laboratory Results - last 24 hr 07/12/18 07/12/18 07/12/18 10:05 11:23 16:46 WBC RBC Hgb Hct MCV MCH MCHC RDW Plt Count MPV Sodium Potassium Chloride Carbon Dioxide Anion Gap BUN Creatinine Estimated GFR POC Glucose 102 88 Random Glucose Calcium Total Bilirubin Direct Bilirubin Indirect Bilirubin AST ALT Alkaline Phosphatase Total Protein Albumin Urine Color Red Urine Clarity Cloudy H Urine pH 6.0 Ur Specific [place] 1.013 Urine Protein 100 H Urine Glucose (UA) Negative Urine Ketones Negative Urine Occult Blood Large H Urine Nitrate Negative Urine Bilirubin Negative Urine Urobilinogen 2.0 H Ur Leukocyte Esterase Large H Urine RBC Urine WBC Urine WBC Clumps Many H Ur Squamous Epith Cells 7 Urine Bacteria Few H Urine Mucus Many H Micro UA Comment Cath-culture ind Ur Microscopic Review Not Reportable Urine Culture Comments Cath-cult indicated 07/12/18 07/13/18 07/13/18 22:30 03:22 03:22 WBC 8.7 RBC 4.34 Hgb 11.7 Hct 36.9 MCV 84.9 MCH 26.9 L MCHC 31.7 L RDW 18.6 H Plt Count 229 D MPV 7.5 Sodium 139 Potassium 4.2 Chloride 100 Carbon Dioxide 31.9 Anion Gap 7 BUN 10 Creatinine 0.99 Estimated GFR 70 L POC Glucose 103 Random Glucose 101 Calcium 9.8 Total Bilirubin 0.2 Direct Bilirubin 0.1 Indirect Bilirubin 0.1 AST 76 H ALT 28 Alkaline Phosphatase 70 Total Protein 8.2 D Albumin 3.3 L Urine Color Urine Clarity Urine pH Ur Specific [place] Urine Protein Urine Glucose (UA) Urine Ketones Urine Occult Blood Urine Nitrate Urine Bilirubin Urine Urobilinogen Ur Leukocyte Esterase Urine RBC Urine WBC Urine WBC Clumps Ur Squamous Epith Cells Urine Bacteria Urine Mucus Micro UA Comment Ur Microscopic Review Urine Culture Comments Assessment and Plan - Plan Non-ST elevation [place] Cardiology consult appreciated. LDL 135. Echo with normal EF. -Currently on ASA, Nitro paste, beta-lisa, statin. s/p Heparin drip -S/p heart catheterization July 10, 2018. Cardiothoracic surgery consult appreciated. Plan is for CABG. Acute hypoxia Currently on 3LNC. On home oxygen. Repeat chest x-ray clear. -oxygen and DuoNeb as needed. -incentive spirometry. -Encourage ambulation. Diabetes mellitus Well controlled. -Sliding scale insulin and hold all oral antihyperglycemic agent. Hypertension/hyperlipidemia Relatively well controlled. -Continue home statin, beta-lisa. Bipolar/schizophrenia Chronic, stable. -Continue home medications. Normochromic normocytic anemia She was transfused 2 units packed red blood cells. Appreciate input from hematology and urology. -follow CBC and transfuse as needed. Stable. -follow up with hematology. On iron therapy. UTI/hematuria Likely s/t Eid trauma. -follow urine culture and continue IV doxycycline. -follow CBC. DVT prophylaxis: Bilateral SCDs
[2018-07-13] MEDS ORDERED: LORazepam 0.5 MG Tablet PO PRN (12:03)
--- NOTE | 2018-07-13 12:27 | P.PNCV ---
- Note Subjective/Hospital Course: pt seen and evaluated, full consult to follow sts risk score discussed with pt RISK SCORES Procedure: Isolated CAB CALCULATE Risk of Mortality: 1.346% Renal Failure: 2.414% Permanent Stroke: 2.147% Prolonged Ventilation: 8.884% DSW Infection: 0.314% Reoperation: 1.314% Morbidity or Mortality: 13.290% Short Length of Stay: 30.625% Long Length of Stay: 5.978% HISTORY OF PRESENT ILLNESS: 58-year-old female who has recently been in the hospital in May for heart failure, questionable pneumonia, bilateral effusions, was placed on some IV diuretics then was discharged home, received some IV antibiotics. She presented again to the emergency department 2017 with shortness of breath, left-sided chest pain. Troponin was 2.0, she was ruled in for a non-STEMI, decompensated congestive heart failure, coronary artery disease. She underwent cardiac catheterization on 07/10/[address] Boland which showed an ejection fraction of 60%. There was mid distal LAD lesion, 90%, the left circumflex had 90%, 95%posterior lateral and the middle, posterior lateral had a 70% to 80% stenosis. We were consulted to evaluate for coronary artery bypass grafting. The patient was also found to have some anemia, normocytic has been evaluated by hematology. She has received 2 units of packed RBCs. Hemoglobin is now 10. She has some low iron counts, probable chronic. Denies any blood in her stool. She is somewhat of a poor historian also. She now admitted to some blood in stool a couple of weeks ago PAST MEDICAL HISTORY: Includes iron deficiency, normocytic anemia, ? history of cerebrovascular accident in the past with no residual effects , diabetes mellitus, on oral medication, hypertension, hyperlipidemia, seizure disorder. She is unclear when her last seizure, bipolar disorder, schizophrenia. 07/12 pt still has gaines cath ? , now with hematuria, clots noted in tubing, pt states she noticed this after trying to have a BM earlier this am ( ? traumatic ) will check UA, Urology consulted per Hospitalist , off Heparin gtt since 07/10 Dr Tirado to eval cardiac cath films today 07/13 gaines cath dc yesterday, + UTI on ABX Carotid US : good vein mapping : fair no DVT lower ext tentatively scheduled for surgery on 1/2/19 will need daughter or POA to sign consent Objective: Vital Signs - 24 hr 07/12/18 13:00 07/12/18 14:00 07/12/18 15:00 Temperature Pulse Rate 71 66 61 Respiratory Rate Blood Pressure Pulse Oximetry 07/12/18 15:19 07/12/18 16:00 07/12/18 17:00 Temperature 99.1 F Pulse Rate 62 58 L 67 Respiratory Rate 14 Blood Pressure 114/55 L Pulse Oximetry 94 L 07/12/18 18:00 07/12/18 19:00 07/12/18 20:00 Temperature Pulse Rate 74 68 70 Respiratory Rate Blood Pressure Pulse Oximetry 96 96 07/12/18 20:26 07/12/18 21:00 07/12/18 22:00 Temperature 98.5 F Pulse Rate 68 74 75 Respiratory Rate 17 Blood Pressure 136/72 Pulse Oximetry 96 07/12/18 23:00 07/13/18 00:00 07/13/18 00:40 Temperature 98.5 F Pulse Rate 63 62 62 Respiratory Rate 17 Blood Pressure 112/58 L Pulse Oximetry 96 07/13/18 01:00 07/13/18 02:00 07/13/18 03:00 Temperature Pulse Rate 62 63 66 Respiratory Rate Blood Pressure Pulse Oximetry 07/13/18 04:00 07/13/18 05:00 07/13/18 06:00 Temperature 98.0 F 97.9 F 97.9 F Pulse Rate 64 75 75 Respiratory Rate 16 18 18 Blood Pressure 104/54 L 112/65 112/65 Pulse Oximetry 96 99 99 07/13/18 07:00 07/13/18 07:47 07/13/18 08:00 Temperature 97.9 F 97.9 F Pulse Rate 75 75 Respiratory Rate 18 18 Blood Pressure 112/65 112/65 Pulse Oximetry 99 98 99 07/13/18 09:00 07/13/18 10:00 Temperature 97.9 F Pulse Rate 75 71 Respiratory Rate 18 18 Blood Pressure 112/65 Pulse Oximetry 99 GENERAL: A&O x 3 , has flat affect , cooperative SKIN: Warm and dry. HEAD: Normocephalic. EYES: No scleral icterus. No injection or drainage. NECK: Supple, trachea midline. No JVD or lymphadenopathy. CARDIOVASCULAR: Regular rate and rhythm without murmurs, gallops, or rubs. RESPIRATORY: Breath sounds equal bilaterally. No accessory muscle use. GASTROINTESTINAL: Abdomen soft, non-tender, nondistended. MUSCULOSKELETAL: No cyanosis, or edema. BACK: Nontender without obvious deformity. No CVA tenderness. Labs: Laboratory Results - last 12 hr 07/13/18 07/13/18 07/13/18 03:22 03:22 11:13 WBC 8.7 RBC 4.34 Hgb 11.7 Hct 36.9 MCV 84.9 MCH 26.9 L MCHC 31.7 L RDW 18.6 H Plt Count 229 D MPV 7.5 Sodium 139 Potassium 4.2 Chloride 100 Carbon Dioxide 31.9 Anion Gap 7 BUN 10 Creatinine 0.99 Estimated GFR 70 L POC Glucose 104 Random Glucose 101 Calcium 9.8 Total Bilirubin 0.2 Direct Bilirubin 0.1 Indirect Bilirubin 0.1 AST 76 H ALT 28 Alkaline Phosphatase 70 Total Protein 8.2 D Albumin 3.3 L Result Diagrams: 07/13/18 03:22 07/13/18 03:22 Telemetry: NSR - Plan (1) Hematuria Plan: gaines dc + UTI on antibiotics (2) Acute respiratory distress Plan: resolved (3) Congestive heart failure (5) Chest pain (7) CAD (coronary artery disease) Plan: on ASA, statin , BB carotid US: unremarkable tentatively scheduled for surgery on Mon07/18/18 (3) Congestive heart failure Qualifiers: Heart failure type: unspecified Heart failure chronicity: acute on chronic Qualified Code(s): I50.9 - Heart failure, unspecified (5) Chest pain Qualifiers: Chest pain type: chest pain due to myocardial ischemia Ischemic chest pain type: unstable angina pectoris Qualified Code(s): I20.0 - Unstable angina
--- NOTE | 2018-07-13 17:56 | MH ---
cc: Justin Cheng MD DATE OF ADMISSION: 07/10/2018 HISTORY: The patient seen in followup in room 461. She is doing very well. She has received 2 doses of Venofer and a third dose is due today. She has no new complaints. She is awaiting surgery on 07/18/2018, according to her. She has no new complaints. She is able to walk around in the room. PHYSICAL EXAMINATION: GENERAL: Well appearing, no apparent distress. Pallor decreased and no other changes to physical examination noted. LABORATORY: Reviewed. Hemoglobin improved significantly to 11.7. Stool occult blood is still pending. IMPRESSION: Iron deficiency anemia corrected completely with iron administration. We will check a repeat CBC tomorrow after 2 days of Venofer and put her on oral iron after that. In the interim, it the stool occult blood is positive, she will need a GI workup. Discussed with the patient. MD KARMEN Gómez/ts/rr , 04:56 PM , 05:02 PM RAMONA
[2018-07-13] MEDS: Iron Sucrose Inj 100 MG in Sodium Chlor 0.9% Inj 100 ML IV.SIG SCH (18:15)
[2018-07-14] MEDS: Insulin NovoLOG Aspart Correctional Sugar Inj SQ SCH ×5 (03:00→23:25)
[2018-07-14] MEDS: Chlorhexidine Gluconate 2% 1 Pack (2 Cloths) TOPICAL SCH (09:00)
[2018-07-14] MEDS: Divalproex 500 MG ER Tablet PO SCH ×3 (09:12→23:40)
[2018-07-14] MEDS: hydrALAZINE 50 MG Tablet PO SCH ×3 (09:12→17:22)
[2018-07-14] MEDS: Metoprolol Tartrate 100 MG Tablet PO SCH ×2 (09:12→23:24)
[2018-07-14] MEDS: Gabapentin 300 MG Capsule PO SCH ×3 (09:13→17:22)
[2018-07-14] MEDS: Senna/Docusate Sodium 8.6/50 MG Tablet PO SCH ×2 (09:13→23:26)
--- NOTE | 2018-07-14 10:16 | P.PNIM ---
Subjective Interval history: The patient was resting comfortably in bed. She felt a lot better. She wanted to know if somebody talked with her daughter. She said she was breathing better. She said that she had some cereal for breakfast today. She has been having bowel movements. Discussed with nursing at the bedside. Physical Exam Vital signs: Last Vital Signs Temp 98.5 F 07/14/18 04:00 Pulse 75 07/14/18 05:00 Resp 19 07/14/18 04:00 BP 104/58 L 07/14/18 04:00 Pulse Ox 98 07/14/18 08:02 Intake & Output 07/12/18 07/13/18 07/14/18 07/15/18 06:59 06:59 06:59 06:59 Intake Total 1700 / 1700 1420 / 1420 1195 / 1195 Output Total 3650 / 3650 2200 / 2200 650 / 650 Balance -1950 / -1950 -780 / -780 545 / 545 Weight 97 kg 97.5 kg Narrative: GENERAL: NAD SKIN: Warm and dry. HEAD: Normocephalic. EYES: No scleral icterus. No injection or drainage. NECK: Supple, trachea midline. No JVD or lymphadenopathy. CARDIOVASCULAR: Regular rate and rhythm without murmurs, gallops, or rubs. RESPIRATORY: Breath sounds equal bilaterally. No accessory muscle use. GASTROINTESTINAL: Abdomen soft, non-tender, nondistended. MUSCULOSKELETAL: No cyanosis, TR edema. BACK: Nontender without obvious deformity. No CVA tenderness. NEURO: No gross deficits. Urinary Catheter Management Indwelling Urethral Catheter: Cath placed during this visit: yes, but has since been removed by the nurse Insertion date: 07/09/18 Insertion time: 22:50 Removal date: 07/12/18 Removal time: 17:25 Results Labs CBC & Chem 7: 07/13/18 03:22 07/13/18 03:22 Labs: Microbiology 07/12/18 10:05 Catheterized Urine Urine Culture - Final Escherichia coli ESBL positive Assessment and Plan Plan Non-ST elevation [place] Cardiology consult appreciated. LDL 135. Echo with normal EF. -Currently on ASA, Nitro paste, beta-lisa, statin. s/p Heparin drip -S/p heart catheterization July 10, 2018. Cardiothoracic surgery consult appreciated. Plan is for CABG on Monday. Chronic hypoxia On home oxygen. Repeat chest x-ray clear. Has been weaned off of oxygen. -oxygen and DuoNeb as needed. -incentive spirometry. -Encourage ambulation. Diabetes mellitus Well controlled. -Sliding scale insulin and hold all oral antihyperglycemic agent. Hypertension/hyperlipidemia Relatively well controlled. -Continue home statin, beta-lisa. Bipolar/schizophrenia Chronic, stable. -Continue home medications. Normochromic normocytic anemia She was transfused 2 units packed red blood cells. Appreciate input from hematology and urology. -follow CBC and transfuse as needed. Stable. -follow up with hematology. On iron therapy. UTI/hematuria Likely s/t Eid trauma. UTI with ESBL E coli. -continue po doxycycline and consult ID. -follow CBC. DVT prophylaxis: Bilateral SCDs Progress Note: Quality VTE Deep Vein Thrombosis/Pulmonary Embolism Present on Admission: No
--- NOTE | 2018-07-14 12:09 | P.PNONC ---
Subjective Interval history: T-max 100.8 at 1830 last night Patient denies any chest pain or shortness of breath She tells me she knows to alert someone if she has to have a bowel movement No other acute complaints Objective Vital Signs/Intake & Output: Vital Signs 07/13/18 13:00 07/13/18 14:00 07/13/18 15:00 Temperature Pulse Rate 83 89 87 Respiratory Rate 18 18 18 Blood Pressure Pulse Oximetry 07/13/18 16:00 07/13/18 17:00 07/13/18 18:00 Temperature 101.1 F H Pulse Rate 82 78 76 Respiratory Rate 18 18 18 Blood Pressure 125/65 Pulse Oximetry 99 07/13/18 18:32 07/13/18 19:00 07/13/18 20:00 Temperature 100.8 F H Pulse Rate 77 71 Respiratory Rate Blood Pressure Pulse Oximetry 98 07/13/18 20:54 07/13/18 21:00 07/13/18 22:00 Temperature 99.3 F Pulse Rate 77 60 64 Respiratory Rate 20 Blood Pressure 106/60 Pulse Oximetry 98 07/13/18 22:49 07/13/18 23:00 07/13/18 23:55 Temperature 98.7 F Pulse Rate 64 64 Respiratory Rate 17 Blood Pressure 133/67 Pulse Oximetry 96 98 07/14/18 00:00 07/14/18 01:00 07/14/18 02:00 Temperature Pulse Rate 65 65 69 Respiratory Rate Blood Pressure Pulse Oximetry 07/14/18 03:00 07/14/18 04:00 07/14/18 05:00 Temperature 98.5 F Pulse Rate 73 73 75 Respiratory Rate 19 Blood Pressure 104/58 L Pulse Oximetry 98 07/14/18 07:00 07/14/18 08:00 07/14/18 08:02 Temperature 98.9 F Pulse Rate 74 82 Respiratory Rate 18 Blood Pressure 139/70 Pulse Oximetry 96 96 98 07/14/18 09:00 07/14/18 10:00 07/14/18 11:00 Temperature 97.8 F Pulse Rate 76 80 66 Respiratory Rate 20 Blood Pressure 145/63 H Pulse Oximetry 100 Intake & Output 07/13/18 07/14/18 07/14/18 18:59 06:59 18:59 Intake Total 850 / 850 345 / 345 Output Total 650 / 650 Balance 850 / 850 -305 / -305 Intake: IV 105 / 105 Venofer Inj 100 MG In NS Inj 105 / 105 100 ML @ 105 mls/hr IV.SIG Q24H [facility] Rx#:[id number] Oral 850 / 850 240 / 240 Output: Urine 650 / 650 Other: # Urine Diapers 4 3 Date of Last Bowel Movement 07/13/18 07/12/18 Result Diagrams: 07/14/18 12:11 07/13/18 03:22 Laboratory Results: Laboratory Results - last 24 hr 07/12/18 07/13/18 07/13/18 10:05 17:08 20:53 POC Glucose 109 106 Urine Color Red Urine Clarity Cloudy H Urine pH 6.0 Ur Specific [place] 1.013 Urine Protein 100 H Urine Glucose (UA) Negative Urine Ketones Negative Urine Occult Blood Large H Urine Nitrate Negative Urine Bilirubin Negative Urine Urobilinogen 2.0 H Ur Leukocyte Esterase Large H Urine RBC Urine WBC Urine WBC Clumps Many H Ur Squamous Epith Cells 7 Urine Bacteria Few H Urine Mucus Many H Micro UA Comment Cath-culture ind Urine Culture Comments Cath-cult indicated 07/14/18 07/14/18 07/14/18 03:59 09:11 11:26 POC Glucose 121 H 134 H 66 L Urine Color Urine Clarity Urine pH Ur Specific [place] Urine Protein Urine Glucose (UA) Urine Ketones Urine Occult Blood Urine Nitrate Urine Bilirubin Urine Urobilinogen Ur Leukocyte Esterase Urine RBC Urine WBC Urine WBC Clumps Ur Squamous Epith Cells Urine Bacteria Urine Mucus Micro UA Comment Urine Culture Comments Culture Results: Microbiology 07/12/18 10:05 Urine Culture - Final Catheterized Urine Escherichia coli ESBL positive Medications: Active Medications Generic Name Dose Route Start Last Admin Trade Name Freq PRN Reason Stop Dose Admin Acetaminophen 650 mg 07/12/18 06:31 07/13/18 17:12 Tylenol PO 650 mg Q4H PRN Administration pain/fever > 100.4 Aspirin 81 mg 07/11/18 09:00 07/14/18 09:12 Ecotrin PO 81 mg DAILY [facility] Administration Chlorhexidine Gluconate 3 pack 07/10/18 04:00 07/14/18 09:00 Chlorhexidine 2% Cloth TOPICAL 07/15/18 03:59 Not Given DAILY@0400 [facility] Divalproex Sodium 1,000 mg 07/11/18 21:00 07/14/18 09:12 Depakote Er PO 1,000 mg BID [facility] Administration Doxepin HCl 25 mg 07/10/18 21:00 07/13/18 20:56 Sinequan PO 25 mg HS [facility] Administration Doxycycline Hyclate 100 mg 07/13/18 13:00 07/14/18 09:12 Vibratab PO 100 mg Q12HR [facility] Administration Fluphenazine HCl 10 mg 07/10/18 21:00 07/13/18 20:56 Prolixin PO 10 mg HS [facility] Administration Gabapentin 300 mg 07/11/18 18:00 07/14/18 09:13 Neurontin PO 300 mg TID [facility] Administration Hydralazine HCl 50 mg 07/10/18 09:00 07/14/18 09:12 Apresoline PO 50 mg TID [facility] Administration Insulin Aspart 0 unit 07/10/18 03:00 07/14/18 09:11 Novolog Insulin Correctional Sugar Inj SQ Not Given ACHS AND 3AM [facility] Protocol Levothyroxine Sodium 25 mcg 07/10/18 06:00 07/14/18 06:18 Synthroid PO 25 mcg DAILY@0600 [facility] Administration Metoprolol Tartrate 100 mg 07/10/18 09:00 07/14/18 09:12 Lopressor PO 100 mg BID [facility] Administration Nitroglycerin 0.4 mg 07/09/18 22:37 07/09/18 23:13 Nitrostat Sl SL 0.4 mg Q5M PRN Administration CHEST PAIN Nitroglycerin 1 inch 07/10/18 06:00 07/14/18 06:18 Nitro-Bid 2% Oint TOPICAL 1 inch Q6HR [facility] Administration Pravastatin Sodium 80 mg 07/10/18 21:00 07/13/18 20:56 Pravachol PO 80 mg HS [facility] Administration Senna/Docusate Sodium 1 tab 07/12/18 09:00 07/14/18 09:13 Joycelyn-Colace PO 1 tab BID [facility] Administration Sennosides 17.2 mg 07/12/18 11:00 07/14/18 09:13 Senokot PO 17.2 mg Q12HR [facility] Administration Sodium Chloride 2 ml 07/11/18 21:00 07/14/18 09:14 Ns Flush IV.FLUSH 2 ml BID [facility] Administration Objective Remarks: GENERAL: Well-nourished, well-developed female patient, in no acute distress. SKIN: Warm and dry. HEAD: Normocephalic. EYES: No scleral icterus. No injection or drainage. NECK: Supple, trachea midline. CARDIOVASCULAR: Regular rate and rhythm without murmurs. RESPIRATORY: Posterior breath sounds distant, equal bilaterally. Nonlabored at rest. GASTROINTESTINAL: Abdomen large soft, tender, nondistended. EXTREMITIES: No cyanosis, or edema. MUSCULOSKELETAL: Adequate muscle tone. NEUROLOGICAL: No obvious focal deficit. Awake, alert, and oriented x3. Assessment/Plan - Plan Ms. Schmidt is a pleasant 58-year-old female patient with previous history of CVA , diabetes, hypertension, hyperlipidemia, coronary artery disease and schizophrenia/bipolar disorder. She came to the emergency room with chest pain and was found to have increasing cardiac enzymes, she underwent emergent heart catheterization and was found to have severe coronary artery disease and was recommended for CABG. Hematology was consulted for anemia. Recommendations/plan: 1. Patient has received total of 3 doses of iron sucrose. She received 2 units of packed red blood cells on for symptomatic anemia. Her hemoglobin has trended up to 11.7 as of yesterday. She is no longer having any chest pain or shortness of breath. 2. Eid catheter removed; patient is voiding in toilet. No obvious hematuria. 3. Discussed with the patient that we are awaiting her Hemoccult stool to see if she has any blood loss from the GI tract. She states she understands and will inform nursing staff when she needs to have a bowel movement. 4. Continue supportive care. - Attending Statement Pt seen in room 461. Doing well. No complaints. No recurrence of CP. Awaiting surgery on Mon07/18/18. Awaiting stool OB! D/w RN. If stool OB positive, will need GI consultation. Will f/u.
[2018-07-14 12:31] LABS: Hematocrit 35.3 % (35.0-46.0); Hemoglobin 11.3 gm/dL (11.6-15.3); Mean Corpuscular Hemoglobin 27.8 pg (27.0-34.0); Mean Corpuscular Volume 86.9 fL (80.0-100.0); Mean Platelet Volume 7.5 fL (7.0-11.0); Platelet Count 227 th/mm3 (150-450); Red Blood Count 4.06 mil/mm3 (4.00-5.30); Red Cell Distribution Width 18.7 % (11.6-17.2)
--- NOTE | 2018-07-14 13:42 | P.CONID ---
History of Present Illness Service: ID Consult date: 07/14/18 Requesting Physician: Glenn Rowe Reason for Consult: Patient to have CABG on Monday and urine with ESBL e coli Primary Care Provider: UNKNOWN History of Present Illness: 58 yo F very complex medically includig DM, CAD,sp NSTEMI anemia was evaluated by CT surgery for CABG, planned on Mon she developped gross hematuria aw gaines and was seen by urologist Hematuria is due to gaines trauma yday she spiked to 101.1 F her UA was markedly abnormal with gross hematuria, pyuria and bacteriuria Clx + for ESBL+ e.coli >100K Today she has leukocytosis of 12 K, but is afebrile foely was removed pt denies pain anywhere, no nausea, vomiting no diarrhea she is on vanco and doxy Review of Systems All other systems reviewed negative except as stated in HPI PMFSH - History History Provided By: Medical Record - Medical History Medical History: Medical History (Last Reviewed 07/14/18 @ 13:27 by Gris Boland MD) Bipolar disorder CVA (cerebral vascular accident) Diabetes HTN (hypertension) Hyperlipidemia Myocardial infarction Schizophrenia Seizure disorder - Surgical History Surgical History: Surgical History (Last Reviewed 07/14/18 @ 13:27 by Gris Boland MD) History of hip surgery - Family History Family History: Family History (Last Reviewed 07/14/18 @ 13:27 by Gris Boland MD) Other Diabetes mellitus - Social History I have reviewed the patient's Social History: Yes - Tobacco History Second Hand Smoke Exposure: No Smoking Status: Never smoker Tobacco Type: Smokeless Tobacco - Alcohol History How Often Do You Have a Drink Containing Alcohol: Never - Substance Use History Substance History: No History of Abuse - Travel History Recent Travel in the [place] Within the Last 8 Weeks: No Recent Travel Out of the Country Within the Last 8 Weeks: No - Immunization History Tetanus Immunization: >5 Years Hx Influenza Vaccine This Season: No Medications and Allergies Active Medications: Active Medications Acetaminophen (Tylenol) 650 mg PO Q4H PRN PRN Reason: pain/fever > 100.4 Last Admin: 07/13/18 17:12 Dose: 650 mg Al Hydroxide/Mg Hydroxide (Milk Of Magnesia Liq) 30 ml PO Q12H PRN PRN Reason: Mild Constipation Aspirin (Ecotrin) 81 mg PO DAILY [facility] Last Admin: 07/14/18 09:12 Dose: 81 mg Bisacodyl (Dulcolax Supp) 10 mg RECTAL DAILY PRN PRN Reason: SEVERE CONSITIPATION Chlorhexidine Gluconate (Chlorhexidine 2% Cloth) 3 pack TOPICAL DAILY@0400 [facility] Stop: 07/15/18 03:59 Last Admin: 07/14/18 09:00 Dose: Not Given Chlorhexidine Gluconate (Chlorhexidine 2% Cloth) 3 pack TOPICAL DAILY@0400 PRN PRN Reason: Extra cloth needed Stop: 07/15/18 03:59 Chlorhexidine Gluconate (Hibiclens 4% Topical) 1 applicatio TOPICAL [employer] [facility] Stop: 07/17/18 11:28 Sodium Chloride 77.5 ml/Papaverine HCl 60 mg/Nitroglycerin 100 mcg/Diltiazem HCl 100 mg 0 ml [employer] [facility] Stop: 07/17/18 11:28 Sodium Chloride 1,000 ml/ (Vancomycin HCl 1,000 mg) 0 ml [employer] [facility] Stop: 07/17/18 11:29 Dextrose (D50w Vial) 50 ml IV.PUSH UNSCH PRN PRN Reason: PER HYPOGLYCEMIA PROTOCOL Dextrose (D50w Vial) 50 ml IV.PUSH UNSCH PRN PRN Reason: PER HYPOGLYCEMIA PROTOCOL Divalproex Sodium (Depakote Er) 1,000 mg PO BID [facility] Last Admin: 07/14/18 09:12 Dose: 1,000 mg Doxepin HCl (Sinequan) 25 mg PO [facility] Last Admin: 07/13/18 20:56 Dose: 25 mg Doxycycline Hyclate (Vibratab) 100 mg PO Q12HR [facility] Last Admin: 07/14/18 09:12 Dose: 100 mg Fluphenazine HCl (Prolixin) 10 mg PO [facility] Last Admin: 07/13/18 20:56 Dose: 10 mg Gabapentin (Neurontin) 300 mg PO TID [facility] Last Admin: 07/14/18 12:48 Dose: 300 mg Glucagon (Glucagon Inj) 1 mg OTHER PRN PRN PRN Reason: for Hypoglycemia Protocol Hydralazine HCl (Apresoline) 50 mg PO TID [facility] Last Admin: 07/14/18 12:48 Dose: 50 mg Insulin Human Regular 100 unit (/ Sodium Chloride) 100 mls @ 3 mls/hr IV.CONT TITRATE PRN; Protocol PRN Reason: See Protocol Vancomycin HCl 1,750 mg/ (Sodium Chloride) 517.5 mls @ 250 mls/hr IV.SIG [employer] [facility] Stop: 07/17/18 11:29 Insulin Aspart (Novolog Insulin Correctional Sugar Inj) 0 unit SQ ACHS AND 3AM [facility]; Protocol Last Admin: 07/14/18 12:26 Dose: Not Given Lactulose (Lactulose Liq) 30 ml PO DAILY PRN PRN Reason: SEVERE CONSITIPATION Levothyroxine Sodium (Synthroid) 25 mcg PO DAILY@0600 [facility] Last Admin: 07/14/18 06:18 Dose: 25 mcg Lorazepam (Ativan) 0.5 mg PO Q6H PRN PRN Reason: ANXIETY Metoprolol Tartrate (Lopressor) 100 mg PO BID [facility] Last Admin: 07/14/18 09:12 Dose: 100 mg Mupirocin (Bactroban 2% Nasal Oint) 1 applicatio EACH NARE BID [facility] Nitroglycerin (Nitrostat Sl) 0.4 mg SL Q5M PRN PRN Reason: CHEST PAIN Last Admin: 07/09/18 23:13 Dose: 0.4 mg Nitroglycerin (Nitro-Bid 2% Oint) 1 inch TOPICAL Q6HR [facility] Last Admin: 07/14/18 12:48 Dose: 1 inch Pravastatin Sodium (Pravachol) 80 mg PO HS [facility] Last Admin: 07/13/18 20:56 Dose: 80 mg Senna/Docusate Sodium (Joycelyn-Colace) 1 tab PO BID [facility] Last Admin: 07/14/18 09:13 Dose: 1 tab Sennosides (Senokot) 17.2 mg PO Q12HR [facility] Last Admin: 07/14/18 09:13 Dose: 17.2 mg Sodium Chloride (Ns Flush) 2 ml IV.FLUSH BID [facility] Last Admin: 07/14/18 09:14 Dose: 2 ml Sodium Chloride (Ns Flush) 2 ml IV.FLUSH PRN PRN PRN Reason: FLUSH AFTER USING IV ACCESS Allergies Allergy/AdvReac Type Severity Reaction Status Date / Time cat dander Allergy Mild Cough Verified 07/09/18 22:26 Penicillins Allergy Unknown Itching Verified 07/09/18 22:26 Sulfa (Sulfonamide AdvReac Mild Nausea/Vomi Verified 07/09/18 22:26 Antibiotics) ting trihexyphenidyl AdvReac Mild Nausea/Vomi Verified 07/09/18 22:26 ting Home Medications Medication Instructions Recorded Confirmed Type divalproex 1,000 mg PO BID 03/25/18 07/11/18 History docusate sodium 100 mg PO BID 03/25/18 07/11/18 History doxepin 25 mg PO HS 03/25/18 07/11/18 History enalapril maleate 20 mg PO BID 03/25/18 07/11/18 History fluphenazine HCl 10 mg PO HS 03/25/18 07/11/18 History gabapentin 300 mg PO TID 03/25/18 07/11/18 History hydralazine 50 mg PO TID 03/25/18 07/11/18 History linagliptin [Tradjenta] 5 mg PO DAILY 03/25/18 07/11/18 History lorazepam 1 mg PO DAILY 03/25/18 07/11/18 History metformin 1,000 mg PO BID 03/25/18 07/11/18 History metoprolol tartrate 100 mg PO BID 03/25/18 07/11/18 History sennosides [Senna Laxative] 8.6 mg PO DAILY PRN 03/25/18 07/11/18 History simvastatin 40 mg PO HS 05/30/18 07/11/18 History Exam Vital signs: Vital Signs 07/13/18 14:00 07/13/18 15:00 07/13/18 16:00 Temperature 101.1 F H Pulse Rate 89 87 82 Respiratory Rate 18 18 18 Blood Pressure 125/65 Pulse Oximetry 99 07/13/18 17:00 07/13/18 18:00 07/13/18 18:32 Temperature 100.8 F H Pulse Rate 78 76 Respiratory Rate 18 18 Blood Pressure Pulse Oximetry 07/13/18 19:00 07/13/18 20:00 07/13/18 20:54 Temperature 99.3 F Pulse Rate 77 71 77 Respiratory Rate 20 Blood Pressure 106/60 Pulse Oximetry 98 98 07/13/18 21:00 07/13/18 22:00 07/13/18 22:49 Temperature Pulse Rate 60 64 Respiratory Rate Blood Pressure Pulse Oximetry 96 07/13/18 23:00 07/13/18 23:55 07/14/18 00:00 Temperature 98.7 F Pulse Rate 64 64 65 Respiratory Rate 17 Blood Pressure 133/67 Pulse Oximetry 98 07/14/18 01:00 07/14/18 02:00 07/14/18 03:00 Temperature Pulse Rate 65 69 73 Respiratory Rate Blood Pressure Pulse Oximetry 07/14/18 04:00 07/14/18 05:00 07/14/18 07:00 Temperature 98.5 F 98.9 F Pulse Rate 73 75 74 Respiratory Rate 19 18 Blood Pressure 104/58 L 139/70 Pulse Oximetry 98 96 07/14/18 08:00 07/14/18 08:02 07/14/18 09:00 Temperature Pulse Rate 82 76 Respiratory Rate Blood Pressure Pulse Oximetry 96 98 07/14/18 10:00 07/14/18 11:00 07/14/18 12:00 Temperature 97.8 F Pulse Rate 80 64 78 Respiratory Rate 20 Blood Pressure 145/63 H Pulse Oximetry 100 07/14/18 13:00 Temperature Pulse Rate 84 Respiratory Rate Blood Pressure Pulse Oximetry Intake & Output 07/13/18 07/14/18 07/14/18 18:59 06:59 18:59 Intake Total 850 / 850 345 / 345 Output Total 650 / 650 Balance 850 / 850 -305 / -305 Intake: IV 105 / 105 Venofer Inj 100 MG In NS Inj 105 / 105 100 ML @ 105 mls/hr IV.SIG Q24H [facility] Rx#:[id number] Oral 850 / 850 240 / 240 Output: Urine 650 / 650 Other: # Urine Diapers 4 3 Date of Last Bowel Movement 07/13/18 07/12/18 07/14/18 - Constitutional no acute distress, obese - Routine HEENT Exam Head: Present: normocephalic, atraumatic Eye: Present: EOMI, PERRL ENT: Present: mucous membranes moist, oropharynx clear - Routine Neck Exam Present: supple. Absent: JVD, lymphadenopathy - Routine Respiratory Exam Present: decreased breath sounds, CTA bilaterally. Absent: accessory muscle use - Routine Cardiovascular Exam Present: RRR, S1, S2. Absent: murmur, gallop, rubs - Routine Abdominal Exam Present: soft, normoactive bowel sounds. Absent: tenderness, distended, organomegaly, mass - Routine Extremities Exam Present: edema. Absent: cyanosis, clubbing - Routine Skin Exam Present: intact. Absent: jaundice, rash - Routine Neurological Exam Present: alert, oriented X3, CN II-XII intact. Absent: sensory deficit, motor deficit - Routine Psychiatric Exam Present: normal affect, cooperative Results - Labs CBC & Chem 7: 07/14/18 12:11 07/13/18 03:22 Labs: Laboratory Results - last 24 hr 07/12/18 07/13/18 07/13/18 10:05 17:08 20:53 WBC RBC Hgb Hct MCV MCH MCHC RDW Plt Count MPV POC Glucose 109 106 Urine Color Red Urine Clarity Cloudy H Urine pH 6.0 Ur Specific [place] 1.013 Urine Protein 100 H Urine Glucose (UA) Negative Urine Ketones Negative Urine Occult Blood Large H Urine Nitrate Negative Urine Bilirubin Negative Urine Urobilinogen 2.0 H Ur Leukocyte Esterase Large H Urine RBC Urine WBC Urine WBC Clumps Many H Ur Squamous Epith Cells 7 Urine Bacteria Few H Urine Mucus Many H Micro UA Comment Cath-culture ind Urine Culture Comments Cath-cult indicated 07/14/18 07/14/18 07/14/18 03:59 09:11 11:26 WBC RBC Hgb Hct MCV MCH MCHC RDW Plt Count MPV POC Glucose 121 H 134 H 66 L Urine Color Urine Clarity Urine pH Ur Specific [place] Urine Protein Urine Glucose (UA) Urine Ketones Urine Occult Blood Urine Nitrate Urine Bilirubin Urine Urobilinogen Ur Leukocyte Esterase Urine RBC Urine WBC Urine WBC Clumps Ur Squamous Epith Cells Urine Bacteria Urine Mucus Micro UA Comment Urine Culture Comments 07/14/18 07/14/18 12:07 12:11 WBC 12.0 H RBC 4.06 Hgb 11.3 L Hct 35.3 MCV 86.9 MCH 27.8 MCHC 32.0 RDW 18.7 H Plt Count 227 MPV 7.5 POC Glucose 116 H Urine Color Urine Clarity Urine pH Ur Specific [place] Urine Protein Urine Glucose (UA) Urine Ketones Urine Occult Blood Urine Nitrate Urine Bilirubin Urine Urobilinogen Ur Leukocyte Esterase Urine RBC Urine WBC Urine WBC Clumps Ur Squamous Epith Cells Urine Bacteria Urine Mucus Micro UA Comment Urine Culture Comments - Imaging Chest X-Ray 07/09/18 22:27 CONCLUSION: Symmetric bilateral pleural-parenchymal opacities Carotid Doppler Study 07/10/18 00:00 CONCLUSION: 1. Right Internal Carotid Artery: No significant stenosis or atherosclerotic plaque is visualized. 2. Left Internal Carotid Artery: No significant stenosis or atherosclerotic plaque is visualized. Lower Extremity Ultrasound 07/11/18 11:28 CONCLUSION: 1. Venous mapping as above. Venous Doppler Study 07/11/18 11:28 CONCLUSION: 1. No evidence of DVT. Chest X-Ray 07/12/18 09:10 CONCLUSION: The lungs are clear. Assessment and Plan - Plan ESBL + E coli UTI Fever, leukocytosis - cw pyelo CAD, for CABG on monday dc doxy Ertapenem rik jolly RN
[2018-07-14] MEDS: Mupirocin 2% Nasal Oint Topical Syringe EACH NARE SCH (23:24)
[2018-07-15] MEDS: Insulin NovoLOG Aspart Correctional Sugar Inj SQ SCH ×5 (04:03→21:13)
[2018-07-15 04:19] LABS: Baso # (Auto) 0.1 th/mm3 (0.0-0.2); Baso % (Auto) 0.7 % (0.0-2.0); Eos % (Auto) 0.2 % (0.0-4.0); Hematocrit 31.6 % (35.0-46.0); Hemoglobin 10.5 gm/dL (11.6-15.3); Lymph # (Auto) 2.1 th/mm3 (1.0-4.8); Lymph % (Auto) 23.8 % (9.0-44.0); Mean Corpuscular HGB Conc 33.1 % (32.0-36.0); Mean Corpuscular Hemoglobin 27.8 pg (27.0-34.0); Mean Platelet Volume 7.4 fL (7.0-11.0); Mono # (Auto) 1.5 th/mm3 (0.0-0.9); Mono % (Auto) 16.7 % (0.0-8.0); Neut # (Auto) 5.3 th/mm3 (1.8-7.7); Neut % (Auto) 58.6 % (16.0-70.0); Platelet Count 211 th/mm3 (150-450); Red Blood Count 3.76 mil/mm3 (4.00-5.30); Red Cell Distribution Width 18.1 % (11.6-17.2)
--- NOTE | 2018-07-15 08:32 | P.PNIM ---
Subjective Interval history: The pt was sitting up in a chair. She had no acute complaints. She was talking with her daughter over the phone. The pt felt a bump on her buttocks. She has been having bowel movements. Discussed with nursing. Physical Exam Vital signs: Last Vital Signs Temp 99.7 F H 07/15/18 03:00 Pulse 64 07/15/18 06:00 Resp 16 07/15/18 03:00 BP 130/70 07/15/18 03:00 Pulse Ox 99 07/15/18 07:44 Intake & Output 07/13/18 07/14/18 07/15/18 07/16/18 06:59 06:59 06:59 06:59 Intake Total 1420 / 1420 1195 / 1195 1360 / 1360 Output Total 2200 / 2200 650 / 650 600 / 600 Balance -780 / -780 545 / 545 760 / 760 Weight 97.5 kg 98 kg Narrative: GENERAL: NAD SKIN: Warm and dry. HEAD: Normocephalic. EYES: No scleral icterus. No injection or drainage. NECK: Supple, trachea midline. No JVD or lymphadenopathy. CARDIOVASCULAR: Regular rate and rhythm without murmurs, gallops, or rubs. RESPIRATORY: Breath sounds equal bilaterally. No accessory muscle use. GASTROINTESTINAL: Abdomen soft, non-tender, nondistended. MUSCULOSKELETAL: No cyanosis, TR edema. BACK: Nontender without obvious deformity. No CVA tenderness. NEURO: No gross deficits. Urinary Catheter Management Indwelling Urethral Catheter: Cath placed during this visit: yes, but has since been removed by the nurse Insertion date: 07/09/18 Insertion time: 22:50 Removal date: 07/12/18 Removal time: 17:25 Results Labs CBC & Chem 7: 07/15/18 04:00 07/13/18 03:22 Labs: Microbiology 07/14/18 16:00 Stool Stool Occult Blood ([facility]) - Final Hemoccult negative 07/12/18 10:05 Catheterized Urine Urine Culture - Final Escherichia coli ESBL positive Assessment and Plan Plan Non-ST elevation [place] Cardiology consult appreciated. LDL 135. Echo with normal EF. -Currently on ASA, Nitro paste, beta-lisa, statin. s/p Heparin drip -S/p heart catheterization July 10, 2018. Cardiothoracic surgery consult appreciated. Plan is for CABG on Monday. Chronic hypoxia On home oxygen. Repeat chest x-ray clear. -oxygen and DuoNeb as needed. -incentive spirometry. -Encourage ambulation. -will likely resume home oxygen upon discharge. Diabetes mellitus Well controlled. -Sliding scale insulin and hold all oral antihyperglycemic agent. Hypertension/hyperlipidemia Well controlled. -Continue home statin, beta-lisa. Bipolar/schizophrenia Chronic, stable. -Continue home medications. Normochromic normocytic anemia She was transfused 2 units packed red blood cells. Appreciate input from hematology and urology. -follow CBC and transfuse as needed. Stable. -follow up with hematology. On iron therapy. ESBL E coli UTI/hematuria Has had fever and leukocytosis. Urine culture with ESBL E coli. ID consult appreciated. -continue IV ertapenem per ID. -follow CBC. Anemia Appreciate hematology consult. Hemoccult negative. S/p iron. -follow up with hematology. -follow CBC. DVT prophylaxis: Bilateral SCDs Progress Note: Quality VTE Deep Vein Thrombosis/Pulmonary Embolism Present on Admission: No
[2018-07-15] MEDS: Divalproex 500 MG ER Tablet PO SCH ×2 (08:41→21:05)
[2018-07-15] MEDS: Metoprolol Tartrate 100 MG Tablet PO SCH ×2 (08:41→21:05)
[2018-07-15] MEDS: hydrALAZINE 50 MG Tablet PO SCH ×3 (08:42→18:27)
[2018-07-15] MEDS: Gabapentin 300 MG Capsule PO SCH ×3 (08:42→18:27)
[2018-07-15] MEDS: Senna/Docusate Sodium 8.6/50 MG Tablet PO SCH ×2 (08:43→21:08)
[2018-07-15] MEDS: Mupirocin 2% Nasal Oint Topical Syringe EACH NARE SCH ×2 (08:43→21:07)
[2018-07-16] MEDS: Senna/Docusate Sodium 8.6/50 MG Tablet PO SCH ×2 (08:33→20:24)
[2018-07-16] MEDS: Metoprolol Tartrate 100 MG Tablet PO SCH ×2 (08:33→20:24)
[2018-07-16] MEDS: Divalproex 500 MG ER Tablet PO SCH ×2 (08:33→20:24)
[2018-07-16] MEDS: Mupirocin 2% Nasal Oint Topical Syringe EACH NARE SCH ×2 (08:33→20:25)
[2018-07-16] MEDS: hydrALAZINE 50 MG Tablet PO SCH ×3 (08:34→18:01)
[2018-07-16] MEDS: Gabapentin 300 MG Capsule PO SCH ×3 (08:34→18:01)
[2018-07-16] MEDS: Insulin NovoLOG Aspart Correctional Sugar Inj SQ SCH ×4 (08:41→21:00)
--- NOTE | 2018-07-16 09:27 | P.PNIM ---
Subjective Interval history: The pt was complaining of urinating in her bed. She said she was having a hard time figuring out when she needed to go to the bathroom. She denies any burning on urination. She is hoping to get the procedure on Monday. No acute concerns otherwise. Discussed with nursing. Physical Exam Vital signs: Last Vital Signs Temp 99.3 F 07/16/18 03:00 Pulse 58 L 07/16/18 05:00 Resp 16 07/16/18 03:51 BP 108/52 L 07/16/18 03:00 Pulse Ox 94 L 07/16/18 03:00 Intake & Output 07/14/18 07/15/18 07/16/18 07/17/18 06:59 06:59 06:59 06:59 Intake Total 1195 / 1195 1360 / 1360 2580 / 2580 Output Total 650 / 650 600 / 600 525 / 525 Balance 545 / 545 760 / 760 2054 / 2054 Weight 98 kg 97.5 kg Narrative: GENERAL: NAD SKIN: Warm and dry. HEAD: Normocephalic. EYES: No scleral icterus. No injection or drainage. NECK: Supple, trachea midline. No JVD or lymphadenopathy. CARDIOVASCULAR: Regular rate and rhythm without murmurs, gallops, or rubs. RESPIRATORY: Breath sounds equal bilaterally. No accessory muscle use. GASTROINTESTINAL: Abdomen soft, non-tender, nondistended. MUSCULOSKELETAL: No cyanosis, TR edema. BACK: Nontender without obvious deformity. No CVA tenderness. NEURO: No gross deficits. Urinary Catheter Management Indwelling Urethral Catheter: Cath placed during this visit: yes, but has since been removed by the nurse Insertion date: 07/09/18 Insertion time: 22:50 Removal date: 07/12/18 Removal time: 17:25 Results Labs CBC & Chem 7: 07/15/18 04:00 07/13/18 03:22 Assessment and Plan Plan Non-ST elevation [place] Cardiology consult appreciated. LDL 135. Echo with normal EF. -Currently on ASA, Nitro paste, beta-lisa, statin. s/p Heparin drip -S/p heart catheterization July 10, 2018. Cardiothoracic surgery consult appreciated. Plan is for CABG on Monday. Chronic hypoxia On home oxygen. Repeat chest x-ray clear. -oxygen and DuoNeb as needed. -incentive spirometry. -Encourage ambulation. -will likely resume home oxygen upon discharge. Diabetes mellitus Well controlled. -Sliding scale insulin and hold all oral antihyperglycemic agent. Hypertension/hyperlipidemia Well controlled. -Continue home statin, beta-lisa. Bipolar/schizophrenia Chronic, stable. -Continue home medications. Normochromic normocytic anemia She was transfused 2 units packed red blood cells. Appreciate input from hematology and urology. Hemoccult negative. -follow CBC and transfuse as needed. Stable. -follow up with hematology. On iron therapy. ESBL E coli UTI/hematuria Has had fever and leukocytosis. Urine culture with ESBL E coli. ID consult appreciated. -continue IV ertapenem per ID. Urinary incontinence Likely s/t above. -antibiotics. DVT prophylaxis: Bilateral SCDs Discharge Planning: For CABG on Monday Progress Note: Quality VTE Deep Vein Thrombosis/Pulmonary Embolism Present on Admission: No
--- NOTE | 2018-07-16 11:18 | P.PNCV ---
- Note Subjective/Hospital Course: pt seen and evaluated, full consult to follow sts risk score discussed with pt RISK SCORES Procedure: Isolated CAB CALCULATE Risk of Mortality: 1.346% Renal Failure: 2.414% Permanent Stroke: 2.147% Prolonged Ventilation: 8.884% DSW Infection: 0.314% Reoperation: 1.314% Morbidity or Mortality: 13.290% Short Length of Stay: 30.625% Long Length of Stay: 5.978% HISTORY OF PRESENT ILLNESS: 58-year-old female who has recently been in the hospital in May for heart failure, questionable pneumonia, bilateral effusions, was placed on some IV diuretics then was discharged home, received some IV antibiotics. She presented again to the emergency department 2017 with shortness of breath, left-sided chest pain. Troponin was 2.0, she was ruled in for a non-STEMI, decompensated congestive heart failure, coronary artery disease. She underwent cardiac catheterization on 07/10/[address] Boland which showed an ejection fraction of 60%. There was mid distal LAD lesion, 90%, the left circumflex had 90%, 95%posterior lateral and the middle, posterior lateral had a 70% to 80% stenosis. We were consulted to evaluate for coronary artery bypass grafting. The patient was also found to have some anemia, normocytic has been evaluated by hematology. She has received 2 units of packed RBCs. Hemoglobin is now 10. She has some low iron counts, probable chronic. Denies any blood in her stool. She is somewhat of a poor historian also. She now admitted to some blood in stool a couple of weeks ago PAST MEDICAL HISTORY: Includes iron deficiency, normocytic anemia, ? history of cerebrovascular accident in the past with no residual effects , diabetes mellitus, on oral medication, hypertension, hyperlipidemia, seizure disorder. She is unclear when her last seizure, bipolar disorder, schizophrenia. 07/12 pt still has gaines cath ? , now with hematuria, clots noted in tubing, pt states she noticed this after trying to have a BM earlier this am ( ? traumatic ) will check UA, Urology consulted per Hospitalist , off Heparin gtt since 07/10 Dr Tirado to eval cardiac cath films today 07/13 gaines cath dc yesterday, + UTI on ABX Carotid US : good vein mapping : fair no DVT lower ext tentatively scheduled for surgery on 1/2/19 will need daughter or POA to sign consent 07/16 pt for surgery in am Ecoli UTI, on Invanz / ID following daughters to speak with pt regarding of her mother Objective: Vital Signs - 24 hr 07/15/18 12:00 07/15/18 13:00 07/15/18 14:00 Temperature Pulse Rate 66 62 64 Respiratory Rate Blood Pressure Pulse Oximetry 07/15/18 15:00 07/15/18 16:00 07/15/18 17:00 Temperature 98.6 F Pulse Rate 68 66 68 Respiratory Rate 16 Blood Pressure 136/63 Pulse Oximetry 98 07/15/18 18:00 07/15/18 19:00 07/15/18 20:00 Temperature 99.4 F Pulse Rate 75 70 76 Respiratory Rate 18 Blood Pressure 129/60 Pulse Oximetry 95 95 07/15/18 21:00 07/15/18 22:00 07/15/18 23:00 Temperature 99.3 F Pulse Rate 72 78 74 Respiratory Rate 16 Blood Pressure 164/90 H Pulse Oximetry 94 L 07/16/18 00:00 07/16/18 01:00 07/16/18 02:00 Temperature Pulse Rate 72 70 58 L Respiratory Rate 16 Blood Pressure Pulse Oximetry 07/16/18 03:00 07/16/18 03:51 07/16/18 04:00 Temperature 99.3 F Pulse Rate 58 L 56 L Respiratory Rate 16 16 Blood Pressure 108/52 L Pulse Oximetry 94 L 07/16/18 05:00 07/16/18 07:00 07/16/18 08:00 Temperature 98.2 F Pulse Rate 58 L 60 60 Respiratory Rate 18 Blood Pressure 123/60 Pulse Oximetry 93 L 93 L 07/16/18 09:00 Temperature Pulse Rate 64 Respiratory Rate Blood Pressure Pulse Oximetry Labs: Laboratory Results - last 12 hr 07/16/18 08:36 POC Glucose 154 H Result Diagrams: 07/15/18 04:00 07/13/18 03:22 - Plan (1) Hematuria Plan: gaines dc + UTI on antibiotics / ID following (2) Acute respiratory distress Plan: resolved (3) Congestive heart failure (5) Chest pain (7) CAD (coronary artery disease) Plan: on ASA, statin , BB carotid US: unremarkable tentatively scheduled for surgery on Mon07/18/18 (3) Congestive heart failure Qualifiers: Heart failure type: unspecified Heart failure chronicity: acute on chronic Qualified Code(s): I50.9 - Heart failure, unspecified (5) Chest pain Qualifiers: Chest pain type: chest pain due to myocardial ischemia Ischemic chest pain type: unstable angina pectoris Qualified Code(s): I20.0 - Unstable angina
[2018-07-17] MEDS: Insulin NovoLOG Aspart Correctional Sugar Inj SQ SCH ×6 (06:46→20:58)
[2018-07-17 06:58] LABS: Baso % (Auto) 0.7 % (0.0-2.0); Eos % (Auto) 0.7 % (0.0-4.0); Hematocrit 33.3 % (35.0-46.0); Hemoglobin 10.8 gm/dL (11.6-15.3); Lymph # (Auto) 2.2 th/mm3 (1.0-4.8); Lymph % (Auto) 33.8 % (9.0-44.0); Mean Corpuscular HGB Conc 32.3 % (32.0-36.0); Mean Corpuscular Hemoglobin 27.7 pg (27.0-34.0); Mean Corpuscular Volume 85.8 fL (80.0-100.0); Mean Platelet Volume 7.8 fL (7.0-11.0); Neut # (Auto) 3.2 th/mm3 (1.8-7.7); Neut % (Auto) 49.8 % (16.0-70.0); Platelet Count 276 th/mm3 (150-450); Red Blood Count 3.89 mil/mm3 (4.00-5.30); Red Cell Distribution Width 18.8 % (11.6-17.2); White Blood Count 6.4 th/mm3 (4.0-11.0)
[2018-07-17 07:19] LABS: Calcium 9.2 mg/dL (8.5-10.1)
[2018-07-17] MEDS: Metoprolol Tartrate 100 MG Tablet PO SCH ×2 (08:51→20:53)
[2018-07-17] MEDS: Gabapentin 300 MG Capsule PO SCH ×3 (08:51→17:37)
[2018-07-17] MEDS: Senna/Docusate Sodium 8.6/50 MG Tablet PO SCH ×2 (08:52→20:54)
[2018-07-17] MEDS: Mupirocin 2% Nasal Oint Topical Syringe EACH NARE SCH ×2 (08:52→20:58)
[2018-07-17] MEDS: hydrALAZINE 50 MG Tablet PO SCH ×3 (08:53→17:37)
[2018-07-17] MEDS: Divalproex 500 MG ER Tablet PO SCH ×2 (10:21→20:54)
--- NOTE | 2018-07-17 13:40 | P.PNIM ---
Subjective Interval history: Assumed patient care on 07/17/18. patient reports feeling better. no chest pain. dysuria has improved and her urine has cleared up. Physical Exam Vital signs: Last Vital Signs Temp 98.8 F 07/17/18 11:00 Pulse 52 L 07/17/18 13:00 Resp 16 07/17/18 11:00 BP 135/65 07/17/18 11:00 Pulse Ox 100 07/17/18 11:00 Intake & Output 07/15/18 07/16/18 07/17/18 07/18/18 06:59 06:59 06:59 06:59 Intake Total 1360 / 1360 2580 / 2580 1440 / 1440 Output Total 600 / 600 525 / 525 1875 / 1875 Balance 760 / 760 2054 / 2054 -435 / -435 Weight 98 kg 97.5 kg Narrative: GENERAL: NAD SKIN: Warm and dry. HEENT: not pale,anicteric. NECK: Supple. no JVD. CARDIOVASCULAR: Regular rate and rhythm without murmurs, gallops, or rubs. RESPIRATORY: Breath sounds equal bilaterally. No accessory muscle use. GASTROINTESTINAL: Abdomen soft, non-tender, nondistended. MUSCULOSKELETAL: No cyanosis, no edema. BACK: Nontender without obvious deformity. No CVA tenderness. NEURO: No gross deficits. Urinary Catheter Management Indwelling Urethral Catheter: Cath placed during this visit: yes, but has since been removed by the nurse Insertion date: 07/09/18 Insertion time: 22:50 Removal date: 07/12/18 Removal time: 17:25 Results Labs CBC & Chem 7: 07/17/18 06:32 07/17/18 06:32 Assessment and Plan Plan Non-ST elevation [place] Cardiology consult appreciated. LDL 135. Echo with normal EF. -Currently on ASA, Nitro paste, beta-lisa, statin. s/p Heparin drip -S/p heart catheterization July 10, 2018. Cardiothoracic surgery consult appreciated. Plan is for CABG on Tuesday 07/18 Chronic hypoxia On home oxygen. Repeat chest x-ray clear. -oxygen and DuoNeb as needed. -incentive spirometry. -Encourage ambulation. -will likely resume home oxygen upon discharge. Diabetes mellitus Well controlled. -Sliding scale insulin and hold all oral antihyperglycemic agent. Hypertension/hyperlipidemia Well controlled. -Continue home statin, beta-lisa. Bipolar/schizophrenia Chronic, stable. -Continue home medications. Normochromic normocytic anemia She was transfused 2 units packed red blood cells. Appreciate input from hematology and urology. Hemoccult negative. -follow CBC and transfuse as needed. Stable. -follow up with hematology. On iron therapy. ESBL E coli UTI/hematuria Has had fever and leukocytosis. Urine culture with ESBL E coli. ID consult appreciated. -continue IV ertapenem per ID. Urinary incontinence Likely s/t above. -antibiotics. DVT prophylaxis: Bilateral SCDs Discharge Planning: For CABG on Monday Progress Note: Quality VTE Deep Vein Thrombosis/Pulmonary Embolism Present on Admission: No
[2018-07-18] MEDS: Insulin NovoLOG Aspart Correctional Sugar Inj SQ SCH ×3 (04:31→12:49)
[2018-07-18] MEDS ORDERED: Chlorhexidine Gluconate 2% 1 Pack (2 Cloths) TOPICAL ONE (05:30)
[2018-07-18] MEDS ORDERED: Sodium Chlor 0.9% Inj 500 ML IV.CONT ONE (05:30)
[2018-07-18] MEDS ORDERED: MethylPREDNISolone Sod Succinate Inj 125 MG/2 ML Vial ONE (06:53)
[2018-07-18] MEDS ORDERED: Heparin - SQ 10,000 UNITS/ML Vial ONE ×2 (06:53)
[2018-07-18] MEDS: Metoprolol Tartrate 100 MG Tablet PO SCH (08:11)
[2018-07-18] MEDS: Senna/Docusate Sodium 8.6/50 MG Tablet PO SCH ×2 (08:11→20:55)
[2018-07-18] MEDS: Gabapentin 300 MG Capsule PO SCH ×3 (08:11→17:18)
[2018-07-18] MEDS: Divalproex 500 MG ER Tablet PO SCH ×2 (08:11→20:55)
[2018-07-18] MEDS: hydrALAZINE 50 MG Tablet PO SCH ×3 (08:12→17:10)
[2018-07-18] MEDS: Mupirocin 2% Nasal Oint Topical Syringe EACH NARE SCH ×2 (08:14→20:56)
--- NOTE | 2018-07-18 09:03 | P.PNIM ---
Subjective Interval history: no chest pain,no complaints awaiting surgery this morning. Physical Exam Vital signs: Last Vital Signs Temp 97.8 F 07/18/18 07:00 Pulse 60 07/18/18 07:00 Resp 18 07/18/18 07:00 BP 123/79 07/18/18 07:00 Pulse Ox 96 07/18/18 08:00 Intake & Output 07/16/18 07/17/18 07/18/18 07/19/18 06:59 06:59 06:59 06:59 Intake Total 2580 / 2580 1440 / 1440 2920 / 2920 Output Total 525 / 525 1875 / 1875 3500 / 3500 Balance 2054 / 2054 -435 / -435 -580 / -580 Weight 97.5 kg 96 kg Narrative: GENERAL: NAD SKIN: Warm and dry. HEENT: not pale,anicteric. NECK: Supple. no JVD. CARDIOVASCULAR: Regular rate and rhythm without murmurs, gallops, or rubs. RESPIRATORY: Breath sounds equal bilaterally. No accessory muscle use. GASTROINTESTINAL: Abdomen soft, non-tender, nondistended. MUSCULOSKELETAL: No cyanosis, no edema. BACK: Nontender without obvious deformity. No CVA tenderness. NEURO: No gross deficits. Urinary Catheter Management Indwelling Urethral Catheter: Cath placed during this visit: yes, but has since been removed by the nurse Insertion date: 07/09/18 Insertion time: 22:50 Removal date: 07/12/18 Removal time: 17:25 Results Labs CBC & Chem 7: 07/17/18 06:32 07/17/18 06:32 Assessment and Plan Plan Non-ST elevation [place] Cardiology consult appreciated. LDL 135. Echo with normal EF. -Currently on ASA, Nitro paste, beta-lisa, statin. s/p Heparin drip -S/p heart catheterization July 10, 2018. Cardiothoracic surgery consult appreciated. Plan is for CABG today Monday 1/ Chronic hypoxia On home oxygen. Repeat chest x-ray clear. -oxygen and DuoNeb as needed. -incentive spirometry. -Encourage ambulation. -will likely resume home oxygen upon discharge. Diabetes mellitus Well controlled. -Sliding scale insulin and hold all oral antihyperglycemic agent. Hypertension/hyperlipidemia Well controlled. -Continue home statin, beta-lisa. Bipolar/schizophrenia Chronic, stable. -Continue home medications. Normochromic normocytic anemia She was transfused 2 units packed red blood cells. Appreciate input from hematology and urology. Hemoccult negative. -follow CBC and transfuse as needed. Stable. -follow up with hematology. On iron therapy. ESBL E coli UTI/hematuria Has had fever and leukocytosis. Urine culture with ESBL E coli. ID consult appreciated. -continue IV ertapenem per ID. Urinary incontinence Likely s/t above. -antibiotics. DVT prophylaxis: Bilateral SCDs Discharge Planning: For CABG on Monday Progress Note: Quality VTE Deep Vein Thrombosis/Pulmonary Embolism Present on Admission: No
[2018-07-18] MEDS ORDERED: Calcium Chloride Inj 1 GM/10 ML Syringe IV.CONT ONE (09:17)
[2018-07-18] MEDS ORDERED: Aminocaproic Acid Inj 5,000 MG/20 ML Vial IV.CONT ONE (09:17)
[2018-07-18] MEDS ORDERED: Dexmedetomidine Inj 200 MCG/2 ML Vial IV.CONT ONE (09:17)
[2018-07-18] MEDS ORDERED: Sodium Chlor 0.9% Inj 250 ML IV.CONT ONE (09:17)
[2018-07-18] MEDS ORDERED: Sodium Chlor 0.9% Inj 100 ML IV.CONT ONE (09:17)
[2018-07-18] MEDS ORDERED: Nitroglycerin Drip Premix 50 MG/250 ML BOTTLE IV.CONT ONE (09:17)
[2018-07-18] MEDS ORDERED: Phenylephrine/NS 1000 MCG/10ML Syringe IV.PUSH ONE (09:17)
[2018-07-18] MEDS ORDERED: Heparin - SQ 10,000 UNITS/ML Vial OTHER ONE (09:17)
[2018-07-18] MEDS ORDERED: Sodium Bicarbonate 8.4% Inj 50 MEQ/50 ML Syringe IV.CONT ONE (09:17)
[2018-07-18] MEDS ORDERED: Succinylcholine Inj 100 MG/5 ML Syringe IV.PUSH ONE (09:17)
[2018-07-18] MEDS ORDERED: Protamine Sulfate Inj 250 MG/25 ML Vial IV.CONT ONE (09:17)
[2018-07-18] MEDS ORDERED: Glycopyrrolate 0.2 MG/ML Vial IV.PUSH ONE (09:17)
[2018-07-18] MEDS ORDERED: Albumin Human 25% Inj 50 ML IV.SIG ONE (09:41)
[2018-07-18] MEDS ORDERED: Cardioplegic Irr Soln 2,000 ML IRRIGATION ONE (09:41)
[2018-07-18] MEDS ORDERED: Potassium Chloride Inj 40 MEQ/20 ML Vial ONE (09:42)
[2018-07-18] MEDS ORDERED: Heparin 10,000 UNITS/10 ML Vial (for IV use) ONE (09:42)
[2018-07-18] MEDS ORDERED: Potassium Chlor 20 mEq Premix 20 MEQ/100 ML PIGGYBACK IV.SIG PRN ×2 (12:47)
[2018-07-18] MEDS ORDERED: RESP: Racemic Epinephrine 2.25% 0.5 ML Neb NEB PRN (12:47)
[2018-07-18] MEDS ORDERED: Albumin Human 5% Inj 250 ML IV.SIG PRN (12:47)
[2018-07-18] MEDS ORDERED: Metoprolol Inj 5 MG/5 ML Vial IV.PUSH PRN (12:47)
[2018-07-18] MEDS ORDERED: Dextrose 50% in Water 50 ML Vial IV.PUSH PRN (12:47)
[2018-07-18] MEDS ORDERED: Dexmedetomidine Inj 200 MCG in Sodium Chlor 0.9% Inj 48 ML IV.CONT PRN (12:47)
[2018-07-18] MEDS ORDERED: Post-op Orders (for Pharmacy) OTHER STA (12:47)
[2018-07-18] MEDS ORDERED: Calcium Chloride Inj 1 GM in Sodium Chlor 0.9% Inj 100 ML IV.SIG PRN (12:47)
[2018-07-18] MEDS ORDERED: Magnesium Sulfate Inj 2 GM in Sodium Chlor 0.9% Inj 96 ML IV.SIG PRN ×4 (12:47)
[2018-07-18] MEDS ORDERED: Calcium Chloride Inj 1 GM/10 ML Syringe IV.PUSH PRN (12:47)
[2018-07-18] MEDS ORDERED: Clevidipine Inj 25 MG/50 ML VIAL IV.CONT PRN (12:47)
--- NOTE | 2018-07-18 12:57 | P.OP ---
- Preoperative Diagnosis (1) Congestive heart failure (2) NSTEMI (non-ST elevated myocardial infarction) (3) CAD (coronary artery disease) Postoperative Diagnosis: same Date of procedure: 07/18/18 Procedure: CABG x 3 MUNIZ to LAD - poor SVG to OM - fair SVG to PLB - good EVH Anesthesia: HANNAH Surgeon: Maame Tirado MD Job Placement Specialist: Tobin Ervin Pathology: none sent Operation and Findings: The risks, benefits, complications, treatment options, and expected outcomes were discussed with the patient. The possibilities of reaction to medication, pulmonary aspiration, perforation of viscus, bleeding, recurrent infection, the need for additional procedures, failure to diagnose a condition, and creating a complication requiring transfusion or operation were discussed with the patient. The patient concurred with the proposed plan, giving informed consent. The site of surgery properly noted/marked. The patient was taken to Operating Room, identified as Donald cShmidt and the procedure verified as CABG, EVH. A Time Out was held and the above information confirmed. Standard monitoring lines and Eid catheter were placed. General anesthesia was induced. The patient was prepped and draped in a sterile fashion. A median sternotomy was performed and electrocautery was used to obtain hemostasis. The left internal mammary artery was procured as a pedicle from the 7th rib to the 1st rib in the usual manner. Simultaneously left greater saphenous vein was procured from the left leg using a minimally invasive endoscopic technique. The vein was prepared for anastomosis and the leg wound was irrigated and closed in 2 layers. The pericardium was opened and a pericardial sling was created using interrupted 0 silk sutures. The patient was heparinized for cardiopulmonary bypass and the distal mammary pedicle was instrumented for anastomosis. The heart was instrumented for cardiopulmonary bypass in the usual manner. Antegrade blood cardioplegia was employed. The patient was placed on cardiopulmonary bypass. An aortic cross-clamp was applied and the heart was arrested using cold blood cardioplegia. Antegrade cardioplegia was administered after he each anastomosis. After adequate arrest, the distal right coronary circulation was investigated and the distal PLB was opened with a Hamblen blade and found to be a 1.5 millimeter good target. Saphenous vein was approximated to the PLB artery using a running 7 0 Prolene suture. The graft was measured for length and orientation and the proximal anastomosis was constructed to the ascending aorta using a running 5 0 Prolene suture after creating an aortotomy with a 5 millimeter punch. The circumflex marginal artery was then opened with a Hamblen blade and found to be a 1.5 millimeter fair target with diffuse disease. Saphenous vein was approximated to the OM artery using a running 7 0 Prolene suture. The graft was measured for length and orientation and was suspended from the pericardium. The distal LAD was opened with a Hamblen blade and found to be a <1 millimeter poor target. The LAD was calcified distally as well. The left internal mammary artery was approximated to the LAD using a running 7 0 Prolene suture. The pedicle was attached to the epicardium using interrupted 5 0 silk suture. The patient was systemically rewarmed and received a hotshot dose of warm blood cardioplegia. The aorta was vented and the proximal anastomosis to the OM graft was accomplished using a running 5 0 Prolene suture after creating an aortotomy was a 5 millimeter punch. The cross-clamp was removed and all proximal and distal anastomoses were examined for hemostasis. The patient was weaned from cardiopulmonary bypass. Protamine was given. There was no adverse reaction. Decannulation was carried out without incident. Wound was checked for hemostasis which was obtained using electrocautery. A 36 [place]ian mediastinal and 32 [place]ian left pleural chest tubes were placed and secured to the skin with 0 silk suture. The sternum was closed with stainless steel wire. The fascia was closed with 1. PDS. The subcutaneous tissue was closed using a running 2-0 Vicryl suture. The skin was closed with 4-0 Monocryl. Sterile dressings were placed. At the end of the operation, all sponge, instruments, and needle counts were correct. The patient was transferred to the CVICU in stable condition. Findings: Diffuse CAD, small vessels, fair to poor targets XC: 51 min CPB: 59 min Drains: mediastinal x 1 pleural x 1 Complications: none
[2018-07-18] MEDS ORDERED: fentaNYL Citrate Inj 250 MCG/5 ML Ampul ONE ×2 (13:40)
[2018-07-18] MEDS ORDERED: Insulin Regular (For Infusion) 100 UNIT in Sodium Chlor 0.9% Inj 99 ML IV.CONT PRN (14:00)
--- NOTE | 2018-07-18 14:18 | XR ---
EXAM DATE: 07/18/2018 2:07 PM EST AGE/SEX: 58 years / Female INDICATIONS: Post op CABG. CLINICAL DATA: This is the patient's initial encounter. Patient reports that signs and symptoms have been present for 1 day and indicates a pain score of Nonresponsive. MEDICAL/SURGICAL HISTORY: . Diabetes. Hypercholesterolemia. Hypertension. Myocardial infarction . Schizophrenia. Seizure disorder. CVA. None. COMPARISON: [facility], CHEST 1V SINGLE AP, 07/12/2018. . FINDINGS: ET tube central venous catheter and nasogastric tube and left chest tube are in good position. The ri ght lung is clear. Minimal parenchymal changes are seen in the left base. The heart remains enlarged. CONCLUSION: Support apparatus in good position. Postoperative changes as above Electronically signed by: Anastacio Rosas MD Board Certified Radiologist 07/18/2018 2:16 PM EST
[2018-07-18] MEDS: Potassium Chlor 20 mEq Premix 20 MEQ/100 ML PIGGYBACK IV.SIG PRN ×2 (14:54→17:36)
[2018-07-18] MEDS: fentaNYL Citrate Inj 100 MCG/2 ML Ampul IV.PUSH PRN ×3 (15:14→18:39)
[2018-07-18] MEDS: Amiodarone 200 MG Tablet PO SCH (20:55)
[2018-07-18] MEDS ORDERED: Vancomycin Inj 1,000 MG in Sodium Chlor 0.9% Inj 250 ML IV.SIG SCH (23:00)
--- NOTE | 2018-07-19 05:46 | XR ---
EXAM DATE: 07/19/2018 5:32 AM EST AGE/SEX: 58 years / Female INDICATIONS: Shortness of breath, possible pulmonary disease. CLINICAL DATA: This is the patient's subsequent encounter. Patient reports that signs and symptoms h ave been present for 1 week and indicates a pain score of 7/10. MEDICAL/SURGICAL HISTORY: Seizures. Diabetes. Hypercholesterolemia. Hypertension. Myocardial i nfarction. CABG. COMPARISON: [facility] [place], CHEST 1V SINGLE AP, 07/18/2018. . FINDINGS: The patient is status post sternotomy. There is a left-sided chest tube in place. There is a right in ternal jugular central line in place. A pneumothorax is not seen. The heart size is enlarged. This in creased density at the left base. The right lung is clear. CONCLUSION: Left lower lobe atelectasis or consolidation. This appears improved from the prior exam. Status post sternotomy. The heart size is enlarged. Electronically signed by: Tobin Briggs MD Board Certified Radiologist 07/19/2018 5:45 AM EST
[2018-07-19 05:51] LABS: Hematocrit 29.7 % (35.0-46.0); Hemoglobin 9.3 gm/dL (11.6-15.3); Mean Corpuscular HGB Conc 31.3 % (32.0-36.0); Mean Corpuscular Hemoglobin 27.1 pg (27.0-34.0); Mean Corpuscular Volume 86.6 fL (80.0-100.0); Mean Platelet Volume 8.4 fL (7.0-11.0); Platelet Count 262 th/mm3 (150-450); Red Blood Count 3.43 mil/mm3 (4.00-5.30); Red Cell Distribution Width 18.3 % (11.6-17.2); White Blood Count 11.8 th/mm3 (4.0-11.0)
[2018-07-19 06:16] LABS: Anion Gap 6 meq/L (5-15); Blood Urea Nitrogen 11 mg/dL (7-18); Calcium 8.9 mg/dL (8.5-10.1); Carbon Dioxide 26.7 meq/L (21.0-32.0); Chloride 106 meq/L (98-107); Glomerular Filtration Rate Greater Than 89 mL/min (>89); Glucose,Random 105 mg/dL (74-106); Magnesium 2.3 mg/dL (1.5-2.5); Potassium 4.5 meq/L (3.5-5.1); Sodium 139 meq/L (136-145)
[2018-07-19] MEDS: Amiodarone 200 MG Tablet PO SCH ×2 (09:12→21:35)
[2018-07-19] MEDS: Senna/Docusate Sodium 8.6/50 MG Tablet PO SCH ×2 (09:12→21:36)
[2018-07-19] MEDS: Gabapentin 300 MG Capsule PO SCH ×3 (09:12→17:46)
[2018-07-19] MEDS: hydrALAZINE 50 MG Tablet PO SCH ×3 (09:13→17:46)
[2018-07-19] MEDS ORDERED: Bisacodyl 10 MG Supp RECTAL PRN (09:17)
[2018-07-19] MEDS ORDERED: Sod Phosphate/Sod Biphosphate (Adult) Enema 133 ML Bottle RECTAL PRN (09:17)
[2018-07-19] MEDS ORDERED: Dextrose 50% in Water 50 ML Vial IV.PUSH PRN (09:17)
[2018-07-19] MEDS: Divalproex 500 MG ER Tablet PO SCH ×2 (09:24→21:35)
--- NOTE | 2018-07-19 09:27 | P.PNCV ---
- Note Subjective/Hospital Course: pt seen and evaluated, full consult to follow sts risk score discussed with pt RISK SCORES Procedure: Isolated CAB CALCULATE Risk of Mortality: 1.346% Renal Failure: 2.414% Permanent Stroke: 2.147% Prolonged Ventilation: 8.884% DSW Infection: 0.314% Reoperation: 1.314% Morbidity or Mortality: 13.290% Short Length of Stay: 30.625% Long Length of Stay: 5.978% HISTORY OF PRESENT ILLNESS: 58-year-old female who has recently been in the hospital in May for heart failure, questionable pneumonia, bilateral effusions, was placed on some IV diuretics then was discharged home, received some IV antibiotics. She presented again to the emergency department 2017 with shortness of breath, left-sided chest pain. Troponin was 2.0, she was ruled in for a non-STEMI, decompensated congestive heart failure, coronary artery disease. She underwent cardiac catheterization on 07/10/[address] Boland which showed an ejection fraction of 60%. There was mid distal LAD lesion, 90%, the left circumflex had 90%, 95%posterior lateral and the middle, posterior lateral had a 70% to 80% stenosis. We were consulted to evaluate for coronary artery bypass grafting. The patient was also found to have some anemia, normocytic has been evaluated by hematology. She has received 2 units of packed RBCs. Hemoglobin is now 10. She has some low iron counts, probable chronic. Denies any blood in her stool. She is somewhat of a poor historian also. She now admitted to some blood in stool a couple of weeks ago PAST MEDICAL HISTORY: Includes iron deficiency, normocytic anemia, ? history of cerebrovascular accident in the past with no residual effects , diabetes mellitus, on oral medication, hypertension, hyperlipidemia, seizure disorder. She is unclear when her last seizure, bipolar disorder, schizophrenia. 07/12 pt still has gaines cath ? , now with hematuria, clots noted in tubing, pt states she noticed this after trying to have a BM earlier this am ( ? traumatic ) will check UA, Urology consulted per Hospitalist , off Heparin gtt since 07/10 Dr Tirado to eval cardiac cath films today 07/13 gaines cath dc yesterday, + UTI on ABX Carotid US : good vein mapping : fair no DVT lower ext tentatively scheduled for surgery on Mon07/18/18 will need daughter or POA to sign consent 07/16 pt for surgery in am Ecoli UTI, on Invanz / ID following daughters to speak with pt regarding of her mother 07/18 surgery - Preoperative Diagnosis (1) Congestive heart failure (2) NSTEMI (non-ST elevated myocardial infarction (3) CAD (coronary artery disease) Postoperative Diagnosis: same Date of procedure: 07/18/18 Procedure: CABG x 3 MUNIZ to LAD - poor SVG to OM - fair SVG to PLB - good EVH extubated after surgery crystalloid 2500cc, cell [id number] 07/19 doing well up in chair, painful on nasal cannula leave chest tube in pulm toileting OOB/ PT Objective: Vital Signs - 24 hr 07/18/18 13:40 07/18/18 14:22 07/18/18 15:05 Temperature 98.5 F 98.5 F Pulse Rate 70 Respiratory Rate 14 16 Blood Pressure 114/69 Pulse Oximetry 94 L 92 L 07/18/18 15:35 07/18/18 15:52 07/18/18 17:00 Temperature 97.8 F 97.8 F Pulse Rate 88 Respiratory Rate 16 Blood Pressure 111/80 Pulse Oximetry 93 L 94 L 07/18/18 18:30 07/18/18 18:38 07/18/18 19:55 Temperature Pulse Rate 80 Respiratory Rate 16 18 Blood Pressure Pulse Oximetry 94 L 07/18/18 20:00 07/19/18 00:00 07/19/18 04:00 Temperature 98.5 F 98.7 F 98.5 F Pulse Rate 86 80 85 Respiratory Rate 18 16 16 Blood Pressure 125/79 96/66 L 109/66 Pulse Oximetry 95 94 L 96 07/19/18 07:00 Temperature 98.4 F Pulse Rate 99 H Respiratory Rate 18 Blood Pressure 125/84 Pulse Oximetry 94 L GENERAL: A&O x 3 SKIN: Warm and dry. prevena dressing to chest , allen wrap to left leg HEAD: Normocephalic. EYES: No scleral icterus. No injection or drainage. NECK: Supple, trachea midline. No JVD or lymphadenopathy. CARDIOVASCULAR: Regular rate and rhythm without murmurs, gallops, or rubs. RESPIRATORY: Breath sounds equal bilaterally. No accessory muscle use. diminished in bases, chest tube to wall suction, no air leak / drained 290cc/ 12 hrs GASTROINTESTINAL: Abdomen soft, non-tender, nondistended. MUSCULOSKELETAL: No cyanosis, or edema. BACK: Nontender without obvious deformity. No CVA tenderness. Labs: Laboratory Results - last 12 hr 07/18/18 07/19/18 07/19/18 22:44 01:05 03:47 WBC RBC Hgb Hct MCV MCH MCHC RDW Plt Count MPV Sodium Potassium Chloride Carbon Dioxide Anion Gap BUN Creatinine Estimated GFR POC Glucose 109 124 H 82 Random Glucose Calcium Magnesium 07/19/18 07/19/18 07/19/18 05:15 05:15 05:20 WBC 11.8 H RBC 3.43 L Hgb 9.3 L Hct 29.7 L MCV 86.6 MCH 27.1 MCHC 31.3 L RDW 18.3 H Plt Count 262 MPV 8.4 Sodium 139 Potassium 4.5 Chloride 106 Carbon Dioxide 26.7 Anion Gap 6 BUN 11 Creatinine 0.70 Estimated GFR Greater than 89 POC Glucose 108 Random Glucose 105 Calcium 8.9 Magnesium 2.3 Result Diagrams: 07/19/18 05:15 07/19/18 05:15 - Plan (1) Hematuria Plan: gaines dc + UTI on antibiotics / ID following resolved on Invanz (2) Congestive heart failure (4) Chest pain (6) CAD (coronary artery disease) Plan: on ASA, statin , BB carotid US: unremarkable tentatively scheduled for surgery on Mon07/18/18 (7) S/P CABG x 3 Plan: Neuro: resume home meds for Bipolar dz and seizure disorder Resp: nebs ezpap acapella wean o2 CV: on amiodarone, ASA, BB statin GI: motility meds, heart healthy diet OOB/ PT transfer out of ICU (2) Congestive heart failure Qualifiers: Heart failure type: unspecified Heart failure chronicity: acute on chronic Qualified Code(s): I50.9 - Heart failure, unspecified (4) Chest pain Qualifiers: Chest pain type: chest pain due to myocardial ischemia Ischemic chest pain type: unstable angina pectoris Qualified Code(s): I20.0 - Unstable angina
[2018-07-19] MEDS: Metoprolol Tartrate 25 MG Tablet PO SCH ×2 (10:22→21:35)
[2018-07-19] MEDS: Insulin NovoLOG Aspart Correctional Sugar Inj SQ SCH ×4 (10:36→21:37)
[2018-07-19] MEDS: Mupirocin 2% Nasal Oint Topical Syringe EACH NARE SCH ×2 (11:04→22:00)
--- NOTE | 2018-07-19 12:17 | P.PNID ---
Subjective Remarks: sp CABG doing well t transferred to floor no fever gaines was removed and the pt is voiding OK Antibiotics: ertapenem Allergies/Adverse Reactions: Allergies cat dander Allergy (Mild, Verified 07/09/18 22:26) Cough Penicillins Allergy (Unknown, Verified 07/09/18 22:26) Itching Sulfa (Sulfonamide Antibiotics) Adverse Reaction (Mild, Verified 07/09/18 22:26) Nausea/Vomiting PT STATES MED "MAKES HER SICK" trihexyphenidyl Adverse Reaction (Mild, Verified 07/09/18 22:26) Nausea/Vomiting Objective Vital Signs 07/18/18 13:40 07/18/18 14:22 07/18/18 15:05 Temperature 98.5 F 98.5 F Pulse Rate 70 Respiratory Rate 14 16 Blood Pressure 114/69 Pulse Oximetry 94 L 92 L 07/18/18 15:35 07/18/18 15:52 07/18/18 17:00 Temperature 97.8 F 97.8 F Pulse Rate 88 Respiratory Rate 16 Blood Pressure 111/80 Pulse Oximetry 93 L 94 L 07/18/18 18:30 07/18/18 18:38 07/18/18 19:55 Temperature Pulse Rate 80 Respiratory Rate 16 18 Blood Pressure Pulse Oximetry 94 L 07/18/18 20:00 07/19/18 00:00 07/19/18 04:00 Temperature 98.5 F 98.7 F 98.5 F Pulse Rate 86 80 85 Respiratory Rate 18 16 16 Blood Pressure 125/79 96/66 L 109/66 Pulse Oximetry 95 94 L 96 07/19/18 07:00 07/19/18 11:00 07/19/18 11:24 Temperature 98.4 F 98.4 F Pulse Rate 99 H 98 H 87 Respiratory Rate 18 20 16 Blood Pressure 125/84 137/63 Pulse Oximetry 94 L 97 Intake & Output 07/18/18 07/19/18 07/19/18 18:59 06:59 18:59 Intake Total 5312 / 5312 1330 / 1330 100 / 100 Output Total 1270 / 1270 1030 / 1030 Balance 4042 / 4042 300 / 300 100 / 100 Weight 100 kg Intake: IV 1192 / 1192 550 / 550 100 / 100 Mannitol Inj 100 ML @ 0 mls/hr 0 / 0 .ROUTE .[facility] Rx#: [id number] Sodium Bicarbonate 8.4% Inj 50 50 / 50 ML @ 0 mls/hr .ROUTE .[facility] Rx#:[id number] Plegisol Irrigating Soln 2,000 0 / 0 ML @ 0 mls/hr IRRIGATION .[facility] ONE Rx#:[id number] Precedex Inj 200 MCG In NS Inj 6 / 6 48 ML @ 0.2 MCG/KG/HR 4.8 mls/ hr IV.CONT TITRATE PRN Rx#: [id number] NovoLIN R (IV Infusion) 100 36 / 36 UNIT In NS Inj 99 ML @ 3 UNITS/ HR 3 mls/hr IV.CONT TITRATE PRN Rx#:[id number] Ofirmev Inj 1,000 mg In 100 ml 100 / 100 200 / 200 100 / 100 @ 400 mls/hr IV.SIG Q6H [facility] Rx# :[id number] Flexbumin 25% Inj 50 ML @ 0 mls 50 / 50 /hr IV.SIG .[facility] ONE Rx#: [id number] Buminate 5% Inj 250 ML @ 250 250 / 250 mls/hr IV.SIG UNSCH PRN Rx#: [id number] INVanz Inj 1,000 MG In NS Inj 100 / 100 100 ML @ 200 mls/hr IV.SIG Q24H [facility] Rx#:[id number] LR 1000 mL Inj 500 ML @ 500 mls 500 / 500 /hr IV.SIG .Q1H PRN Rx#: [id number] KCl 20 mEq Premix Inj 20 meq In 100 / 100 100 / 100 100 ml @ 50 mls/hr IV.SIG PRN PRN Rx#:[id number] Vancomycin Inj 1,000 MG In NS 250 / 250 Inj 250 ML @ 250 mls/hr IV.SIG Q12H [facility] Rx#:[id number] Oral 720 / 720 480 / 480 Anesthesia Amount 2500 / 2500 Other 400 / 400 300 / 300 Cell Saver Amount 500 / 500 Output: Urine Amount (Catheter) 1040 / 1040 740 / 740 Indwelling Temp Sensing 1040 / 1040 740 / 740 Catheter Chest Tube Drainage 230 / 230 290 / 290 #1Y and #2Y Pleural/Mediastinal 230 / 230 290 / 290 Other: Other Intake Source Saline Solution Date of Last Bowel Movement 07/17/18 07/17/18 # Bowel Movements 0 Lab - Hematology Results 07/19/18 05:15 WBC 11.8 H RBC 3.43 L Hgb 9.3 L Hct 29.7 L MCV 86.6 MCH 27.1 MCHC 31.3 L RDW 18.3 H Plt Count 262 MPV 8.4 Lab - Chemistry Results 07/17/18 07/17/18 07/17/18 12:05 16:52 20:52 Sodium Potassium Chloride Carbon Dioxide Anion Gap BUN Creatinine Estimated GFR POC Glucose 112 H 109 139 H Random Glucose Calcium Magnesium 07/18/18 07/18/18 07/18/18 08:13 18:34 20:49 Sodium Potassium Chloride Carbon Dioxide Anion Gap BUN Creatinine Estimated GFR POC Glucose 98 234 H 145 H Random Glucose Calcium Magnesium 07/18/18 07/19/18 07/19/18 22:44 01:05 03:47 Sodium Potassium Chloride Carbon Dioxide Anion Gap BUN Creatinine Estimated GFR POC Glucose 109 124 H 82 Random Glucose Calcium Magnesium 07/19/18 07/19/18 07/19/18 05:15 05:20 10:23 Sodium 139 Potassium 4.5 Chloride 106 Carbon Dioxide 26.7 Anion Gap 6 BUN 11 Creatinine 0.70 Estimated GFR Greater than 89 POC Glucose 108 158 H Random Glucose 105 Calcium 8.9 Magnesium 2.3 Imaging: ITS Impressions Carotid Doppler Study 07/10/18 00:00 CONCLUSION: 1. Right Internal Carotid Artery: No significant stenosis or atherosclerotic plaque is visualized. 2. Left Internal Carotid Artery: No significant stenosis or atherosclerotic plaque is visualized. Lower Extremity Ultrasound 07/11/18 11:28 CONCLUSION: 1. Venous mapping as above. Venous Doppler Study 07/11/18 11:28 CONCLUSION: 1. No evidence of DVT. Chest X-Ray 07/19/18 05:00 CONCLUSION: Left lower lobe atelectasis or consolidation. This appears improved from the prior exam. Status post sternotomy. The heart size is enlarged. Physical Exam: GENERAL: NAD SKIN: Warm and dry. no rash HEAD: Atraumatic. Normocephalic. EYES: Pupils equal and round. No scleral icterus. No injection or drainage. ENT: No nasal bleeding or discharge. Mucous membranes pink and moist. NECK: Trachea midline. No JVD. CARDIOVASCULAR: Regular rate and rhythm. Prevena dressing in place RESPIRATORY: No accessory muscle use. Clear to auscultation. Breath sounds equal bilaterally. GASTROINTESTINAL: Abdomen soft, non-tender, nondistended. Hepatic and splenic margins not palpable. MUSCULOSKELETAL: Extremities without clubbing, cyanosis, or edema. No obvious deformities. NEUROLOGICAL: Awake and alert. Non focal Normal speech. PSYCHIATRIC: Appropriate mood and affect; insight and judgment normal. Assessment and Plan - Plan ESBL + E coli UTI Fever, leukocytosis - cw pyelo CAD, for CABG on monday cont Ertapenem x up to 14 days (staeted on 07/14) rik RN
--- NOTE | 2018-07-19 13:38 | P.DIET ---
Nutritional Evaluation Screening comments: MDC for diet education s/p CABG x 3 on (07/18) received. Patient Navigator to provide education. Consult RD if complexities with diet education arise.
--- NOTE | 2018-07-19 13:39 | ECG ---
Date Performed: 07/19/2018 Time Performed: 03:34:24 PTAGE: 58 years EKG: Sinus rhythm Left anterior fascicular block rSr'(V1) - probable normal variant Inferior and lateral ST elevation - possible early repolarization Low QRS voltages in precordial leads Borderline ECG Compared to PREVIOUS TRACING , the inferior lateral ST elevation is new. Clinical correlation will be important. The right ventricular conduction delay is new. The left axis deviation is new. A signific ant serial change have occurred. PREVIOUS TRACIN07/10/2018 14.10 DOCTOR: Maegan Moya Interpretating Date/Time 07/19/2018 13:38:01
--- NOTE | 2018-07-19 17:15 | P.PNIM ---
Subjective Interval history: had some pain this afternoon Physical Exam Vital signs: Last Vital Signs Temp 98.4 F 07/19/18 15:00 Pulse 115 H 07/19/18 16:00 Resp 20 07/19/18 15:00 BP 116/70 07/19/18 15:00 Pulse Ox 94 L 07/19/18 15:00 Intake & Output 07/17/18 07/18/18 07/19/18 07/20/18 06:59 06:59 06:59 06:59 Intake Total 1440 / 1440 2920 / 2920 6642 / 6642 100 / 100 Output Total 1875 / 1875 3500 / 3500 2300 / 2300 Balance -435 / -435 -580 / -580 4342 / 4342 100 / 100 Weight 96 kg 100 kg Narrative: GENERAL: NAD SKIN: Warm and dry. HEENT: not pale,anicteric. NECK: Supple. no JVD. RIJ CVC CARDIOVASCULAR: Regular rate and rhythm without murmurs, gallops, or rubs. CHEST: chest tube insitu.Breath sounds equal bilaterally. No accessory muscle use. GASTROINTESTINAL: Abdomen soft, non-tender, nondistended. MUSCULOSKELETAL: No cyanosis, no edema. BACK: Nontender without obvious deformity. No CVA tenderness. NEURO: No gross deficits. Urinary Catheter Management Indwelling Urethral Catheter: Cath placed during this visit: yes, but has since been removed by the nurse Insertion date: 07/09/18 Insertion time: 22:50 Removal date: 07/12/18 Removal time: 17:25 Indwelling Temp Sensing Catheter: Cath placed during this visit: yes, but has since been removed by the nurse Insertion date: 07/18/18 Insertion time: 09:40 Removal date: 07/19/18 Removal time: 05:30 Results Labs CBC & Chem 7: 07/20/18 04:40 07/20/18 04:40 Imaging Imaging: Impressions Chest X-Ray 07/19/18 05:00 CONCLUSION: Left lower lobe atelectasis or consolidation. This appears improved from the prior exam. Status post sternotomy. The heart size is enlarged. Assessment and Plan (1) Hematuria: Code(s): R31.9 - Hematuria, unspecified Status: Deleted (2) Congestive heart failure: Code(s): I50.9 - Heart failure, unspecified Status: Acute (3) Pleural effusion: Code(s): J90 - Pleural effusion, not elsewhere classified Status: Acute (4) Chest pain: Code(s): R07.9 - Chest pain, unspecified Status: Acute (5) NSTEMI (non-ST elevated myocardial infarction): Code(s): I21.4 - Non-ST elevation (NSTEMI) myocardial infarction Status: Acute (6) CAD (coronary artery disease): Code(s): I25.10 - Atherosclerotic heart disease of [place] coronary artery without angina pectoris Status: Acute (7) S/P CABG x 3: Code(s): Z95.1 - Presence of aortocoronary bypass graft Status: Acute Plan Non-ST elevation [place] Cardiology consult appreciated. LDL 135. Echo with normal EF. -Currently on ASA, Nitro paste, beta-lisa, statin. s/p Heparin drip -S/p heart catheterization July 10, 2018. Cardiothoracic surgery consult appreciated. S/p CABG on 07/18, continue care as per CTS Chronic hypoxia On home oxygen. Repeat chest x-ray clear. -oxygen and DuoNeb as needed. -incentive spirometry. -Encourage ambulation. -will likely resume home oxygen upon discharge. Diabetes mellitus Well controlled. -Sliding scale insulin and hold all oral antihyperglycemic agent. Hypertension/hyperlipidemia Well controlled. -Continue home statin, beta-lisa. Bipolar/schizophrenia Chronic, stable. -Continue home medications. Normochromic normocytic anemia She was transfused 2 units packed red blood cells. Appreciate input from hematology and urology. Hemoccult negative. -follow CBC and transfuse as needed. Stable. -follow up with hematology. On iron therapy. ESBL E coli UTI/hematuria Has had fever and leukocytosis. Urine culture with ESBL E coli. ID consult appreciated. -continue IV ertapenem per ID. Urinary incontinence Likely s/t above. -antibiotics. DVT prophylaxis: Bilateral SCDs Discharge Planning: For CABG on Monday Progress Note: Quality VTE Deep Vein Thrombosis/Pulmonary Embolism Present on Admission: No _ (1) Hematuria Qualifiers: Glomerular morphologic changes: Hematuria type: (2) CAD (coronary artery disease) Qualifiers: Associated angina: Coronary Disease-Associated Artery/Lesion type: [place] vs. transplanted heart: (3) Congestive heart failure Qualifiers: Heart failure chronicity: acute on chronic Heart failure type: unspecified Qualified Code(s): I50.9 - Heart failure, unspecified (4) Chest pain Qualifiers: Chest pain type: chest pain due to myocardial ischemia Ischemic chest pain type: unstable angina pectoris Qualified Code(s): I20.0 - Unstable angina
[2018-07-19] MEDS: Docusate Sodium 100 MG Capsule PO SCH (21:35)
[2018-07-19] MEDS ORDERED: ALPRAZolam 0.25 MG Tablet PO PRN (22:43)
[2018-07-19] MEDS: ALPRAZolam 0.25 MG Tablet PO PRN (22:53)
[2018-07-20 05:01] LABS: Baso # (Auto) 0.1 th/mm3 (0.0-0.2); Baso % (Auto) 1.2 % (0.0-2.0); Eos % (Auto) 0.4 % (0.0-4.0); Hemoglobin 8.9 gm/dL (11.6-15.3); Lymph # (Auto) 3.2 th/mm3 (1.0-4.8); Lymph % (Auto) 29.7 % (9.0-44.0); Mean Corpuscular HGB Conc 31.8 % (32.0-36.0); Mean Corpuscular Hemoglobin 27.4 pg (27.0-34.0); Mean Corpuscular Volume 86.1 fL (80.0-100.0); Mean Platelet Volume 8.1 fL (7.0-11.0); Mono # (Auto) 1.2 th/mm3 (0.0-0.9); Mono % (Auto) 11.6 % (0.0-8.0); Neut # (Auto) 6.1 th/mm3 (1.8-7.7); Neut % (Auto) 57.1 % (16.0-70.0); Platelet Count 277 th/mm3 (150-450); Red Blood Count 3.25 mil/mm3 (4.00-5.30); Red Cell Distribution Width 18.7 % (11.6-17.2); White Blood Count 10.6 th/mm3 (4.0-11.0)
[2018-07-20 05:19] LABS: Anion Gap 7 meq/L (5-15); Blood Urea Nitrogen 11 mg/dL (7-18); Carbon Dioxide 30.5 meq/L (21.0-32.0); Chloride 100 meq/L (98-107); Glomerular Filtration Rate Greater Than 89 mL/min (>89); Glucose,Random 119 mg/dL (74-106); Magnesium 2.2 mg/dL (1.5-2.5); Potassium 4.1 meq/L (3.5-5.1); Sodium 137 meq/L (136-145)
[2018-07-20] MEDS: Insulin NovoLOG Aspart Correctional Sugar Inj SQ SCH ×5 (06:20→22:59)
[2018-07-20] MEDS: ALPRAZolam 0.25 MG Tablet PO PRN ×2 (07:56→16:19)
[2018-07-20] MEDS: Multivitamin/Minerals Therapeutic Tablet PO SCH (08:00)
[2018-07-20] MEDS: Divalproex 500 MG ER Tablet PO SCH ×2 (08:00→20:37)
[2018-07-20] MEDS: Polyethylene Glycol 3350 17 GM Packet PO SCH (08:00)
[2018-07-20] MEDS: Metoprolol Tartrate 25 MG Tablet PO SCH ×2 (08:00→20:36)
[2018-07-20] MEDS: Gabapentin 300 MG Capsule PO SCH ×3 (08:01→17:28)
[2018-07-20] MEDS: Amiodarone 200 MG Tablet PO SCH ×2 (08:01→20:37)
[2018-07-20] MEDS: Senna/Docusate Sodium 8.6/50 MG Tablet PO SCH ×2 (08:01→20:36)
[2018-07-20] MEDS: Docusate Sodium 100 MG Capsule PO SCH ×2 (08:01→20:36)
[2018-07-20] MEDS: hydrALAZINE 50 MG Tablet PO SCH ×3 (08:02→17:28)
[2018-07-20] MEDS: Mupirocin 2% Nasal Oint Topical Syringe EACH NARE SCH ×2 (09:31→20:38)
--- NOTE | 2018-07-20 09:58 | P.PNCV ---
- Note Subjective/Hospital Course: pt seen and evaluated, full consult to follow sts risk score discussed with pt RISK SCORES Procedure: Isolated CAB CALCULATE Risk of Mortality: 1.346% Renal Failure: 2.414% Permanent Stroke: 2.147% Prolonged Ventilation: 8.884% DSW Infection: 0.314% Reoperation: 1.314% Morbidity or Mortality: 13.290% Short Length of Stay: 30.625% Long Length of Stay: 5.978% HISTORY OF PRESENT ILLNESS: 58-year-old female who has recently been in the hospital in May for heart failure, questionable pneumonia, bilateral effusions, was placed on some IV diuretics then was discharged home, received some IV antibiotics. She presented again to the emergency department 2017 with shortness of breath, left-sided chest pain. Troponin was 2.0, she was ruled in for a non-STEMI, decompensated congestive heart failure, coronary artery disease. She underwent cardiac catheterization on 07/10/[address] Boland which showed an ejection fraction of 60%. There was mid distal LAD lesion, 90%, the left circumflex had 90%, 95%posterior lateral and the middle, posterior lateral had a 70% to 80% stenosis. We were consulted to evaluate for coronary artery bypass grafting. The patient was also found to have some anemia, normocytic has been evaluated by hematology. She has received 2 units of packed RBCs. Hemoglobin is now 10. She has some low iron counts, probable chronic. Denies any blood in her stool. She is somewhat of a poor historian also. She now admitted to some blood in stool a couple of weeks ago PAST MEDICAL HISTORY: Includes iron deficiency, normocytic anemia, ? history of cerebrovascular accident in the past with no residual effects , diabetes mellitus, on oral medication, hypertension, hyperlipidemia, seizure disorder. She is unclear when her last seizure, bipolar disorder, schizophrenia. 07/12 pt still has gaines cath ? , now with hematuria, clots noted in tubing, pt states she noticed this after trying to have a BM earlier this am ( ? traumatic ) will check UA, Urology consulted per Hospitalist , off Heparin gtt since 07/10 Dr Tirado to eval cardiac cath films today 07/13 gaines cath dc yesterday, + UTI on ABX Carotid US : good vein mapping : fair no DVT lower ext tentatively scheduled for surgery on Mon07/18/18 will need daughter or POA to sign consent 07/16 pt for surgery in am Sueli VALORIE, on Invanz / ID following daughters to speak with pt regarding of her mother 07/18 surgery - Preoperative Diagnosis (1) Congestive heart failure (2) NSTEMI (non-ST elevated myocardial infarction (3) CAD (coronary artery disease) Postoperative Diagnosis: same Date of procedure: 07/18/18 Procedure: CABG x 3 MUNIZ to LAD - poor SVG to OM - fair SVG to PLB - good EVH extubated after surgery crystalloid 2500cc, cell [id number] 07/19 doing well up in chair, painful on nasal cannula leave chest tube in pulm toileting OOB/ PT 07/20 extensive wheezing throughout all lung rgealado some basilar crackles / add bid lasix, solumedrol/ symbicort eval for chest tube removal later today requires 1-2 person assistance increase BB f/u labs in am Objective: Vital Signs - 24 hr 07/19/18 11:00 07/19/18 11:24 07/19/18 11:59 Temperature 98.4 F Pulse Rate 98 H 87 97 H Respiratory Rate 20 16 Blood Pressure 137/63 Pulse Oximetry 97 07/19/18 13:00 07/19/18 13:04 07/19/18 13:05 Temperature Pulse Rate 80 80 Respiratory Rate 16 Blood Pressure Pulse Oximetry 97 07/19/18 14:00 07/19/18 15:00 07/19/18 16:00 Temperature 98.4 F Pulse Rate 91 H 102 H 115 H Respiratory Rate 20 Blood Pressure 116/70 Pulse Oximetry 94 L 07/19/18 17:00 07/19/18 17:41 07/19/18 18:00 Temperature Pulse Rate 102 H 111 H 106 H Respiratory Rate 20 Blood Pressure Pulse Oximetry 07/19/18 19:00 07/19/18 20:00 07/19/18 21:00 Temperature 98.0 F Pulse Rate 100 H 110 H 108 H Respiratory Rate 20 24 Blood Pressure 143/84 H Pulse Oximetry 94 L 07/19/18 22:00 07/19/18 23:00 07/20/18 00:00 Temperature 100.8 F H Pulse Rate 116 H 112 H 94 H Respiratory Rate 20 Blood Pressure 100/58 L Pulse Oximetry 97 07/20/18 01:00 07/20/18 02:00 07/20/18 03:00 Temperature Pulse Rate 90 87 81 Respiratory Rate Blood Pressure Pulse Oximetry 07/20/18 04:00 07/20/18 05:00 07/20/18 06:00 Temperature 99.7 F H Pulse Rate 92 H 93 H 90 Respiratory Rate 20 Blood Pressure 106/68 Pulse Oximetry 96 07/20/18 07:00 07/20/18 08:00 07/20/18 08:13 Temperature 100.6 F H Pulse Rate 100 H 100 H 106 H Respiratory Rate 16 17 Blood Pressure 115/68 Pulse Oximetry 96 100 07/20/18 09:00 Temperature Pulse Rate 98 H Respiratory Rate Blood Pressure Pulse Oximetry GENERAL: A&O x 3 SKIN: Warm and dry. prevena dressing to chest , incision intact to left leg HEAD: Normocephalic. EYES: No scleral icterus. No injection or drainage. NECK: Supple, trachea midline. No JVD or lymphadenopathy. CARDIOVASCULAR: Regular rate and rhythm without murmurs, gallops, or rubs. + 1 edema lower ext RESPIRATORY: Insp and exp wheezing, bibasilar crackles chest tube in place no air leak/ drained 110cc/ 12 GASTROINTESTINAL: Abdomen soft, non-tender, nondistended. MUSCULOSKELETAL: No cyanosis, or edema. BACK: Nontender without obvious deformity. No CVA tenderness. Labs: Laboratory Results - last 12 hr 07/17/18 07/20/18 07/20/18 06:32 04:40 04:40 WBC 10.6 RBC 3.25 L Hgb 8.9 L Hct 28.0 L MCV 86.1 MCH 27.4 MCHC 31.8 L RDW 18.7 H Plt Count 277 MPV 8.1 Neut % (Auto) 57.1 Lymph % (Auto) 29.7 [place] % (Auto) 11.6 H Eos % (Auto) 0.4 Baso % (Auto) 1.2 Neut # (Auto) 6.1 Lymph # (Auto) 3.2 [place] # (Auto) 1.2 H Eos # (Auto) 0.0 Baso # (Auto) 0.1 WBC Differential . Differential Comment Auto diff final Sodium 137 Potassium 4.1 Chloride 100 Carbon Dioxide 30.5 Anion Gap 7 BUN 11 Creatinine 0.75 Estimated GFR Greater than 89 POC Glucose Random Glucose 119 H Calcium 9.0 Magnesium 2.2 MTS Gel Crossmatch See Detail 07/20/18 07/20/18 04:46 07:39 WBC RBC Hgb Hct MCV MCH MCHC RDW Plt Count MPV Neut % (Auto) Lymph % (Auto) [place] % (Auto) Eos % (Auto) Baso % (Auto) Neut # (Auto) Lymph # (Auto) [place] # (Auto) Eos # (Auto) Baso # (Auto) WBC Differential Differential Comment Sodium Potassium Chloride Carbon Dioxide Anion Gap BUN Creatinine Estimated GFR POC Glucose 117 H 178 H Random Glucose Calcium Magnesium MTS Gel Crossmatch Result Diagrams: 07/20/18 04:40 07/20/18 04:40 - Plan (1) Congestive heart failure (3) Chest pain (5) CAD (coronary artery disease) Plan: on ASA, statin , BB carotid US: unremarkable tentatively scheduled for surgery on Mon07/18/18 (6) S/P CABG x 3 Plan: Neuro: resume home meds for Bipolar dz and seizure disorder Resp: nebs ezpap acapella wean o2 add short course of IV steroids, symbicort CV: on amiodarone, ASA, BB statin add scheduled diuresis GI: motility meds, heart healthy diet OOB/ PT /OT eval for inpt rehab at discharge (1) Congestive heart failure Qualifiers: Heart failure type: unspecified Heart failure chronicity: acute on chronic Qualified Code(s): I50.9 - Heart failure, unspecified (3) Chest pain Qualifiers: Chest pain type: chest pain due to myocardial ischemia Ischemic chest pain type: unstable angina pectoris Qualified Code(s): I20.0 - Unstable angina
[2018-07-20] MEDS ORDERED: MethylPREDNISolone Sod Succinate Inj 40 MG/ML Vial IV.PUSH ONE (10:00)
[2018-07-20] MEDS ORDERED: MethylPREDNISolone Sod Succinate Inj 40 MG/ML Vial IV.PUSH SCH (14:00)
--- NOTE | 2018-07-20 16:08 | P.PNIM ---
Subjective Interval history: no complaints presently. Physical Exam Vital signs: Last Vital Signs Temp 98.9 F 07/20/18 11:00 Pulse 88 07/20/18 14:00 Resp 16 07/20/18 13:40 BP 118/60 07/20/18 11:00 Pulse Ox 98 07/20/18 11:00 Intake & Output 07/18/18 07/19/18 07/20/18 07/21/18 06:59 06:59 06:59 06:59 Intake Total 2920 / 2920 6642 / 6642 1400 / 1400 Output Total 3500 / 3500 2300 / 2300 1640 / 1640 Balance -580 / -580 4342 / 4342 -240 / -240 Weight 96 kg 100 kg 100 kg Narrative: GENERAL: NAD SKIN: Warm and dry. HEENT: not pale,anicteric. NECK: Supple. no JVD. RIJ CVC CARDIOVASCULAR: Regular rate and rhythm without murmurs, gallops, or rubs. CHEST: chest tube insitu.Breath sounds equal bilaterally. No accessory muscle use. GASTROINTESTINAL: Abdomen soft, non-tender, nondistended. MUSCULOSKELETAL: No cyanosis, no edema. BACK: Nontender without obvious deformity. No CVA tenderness. NEURO: No gross deficits. Urinary Catheter Management Indwelling Urethral Catheter: Cath placed during this visit: yes, but has since been removed by the nurse Insertion date: 07/09/18 Insertion time: 22:50 Removal date: 07/12/18 Removal time: 17:25 Indwelling Temp Sensing Catheter: Cath placed during this visit: yes, but has since been removed by the nurse Insertion date: 07/18/18 Insertion time: 09:40 Removal date: 07/19/18 Removal time: 05:30 Results Labs CBC & Chem 7: 07/20/18 04:40 07/20/18 04:40 Assessment and Plan (1) Hematuria: Code(s): R31.9 - Hematuria, unspecified Status: Deleted (2) Congestive heart failure: Code(s): I50.9 - Heart failure, unspecified Status: Acute (3) Pleural effusion: Code(s): J90 - Pleural effusion, not elsewhere classified Status: Acute (4) Chest pain: Code(s): R07.9 - Chest pain, unspecified Status: Acute (5) NSTEMI (non-ST elevated myocardial infarction): Code(s): I21.4 - Non-ST elevation (NSTEMI) myocardial infarction Status: Acute (6) CAD (coronary artery disease): Code(s): I25.10 - Atherosclerotic heart disease of [place] coronary artery without angina pectoris Status: Acute (7) S/P CABG x 3: Code(s): Z95.1 - Presence of aortocoronary bypass graft Status: Acute Plan Non-ST elevation [place] Cardiology consult appreciated. LDL 135. Echo with normal EF. -Currently on ASA, Nitro paste, beta-lisa, statin. s/p Heparin drip -S/p heart catheterization July 10, 2018. Cardiothoracic surgery consult appreciated. S/p CABG on 07/18, continue care as per CTS Chronic hypoxia On home oxygen. Repeat chest x-ray clear. -oxygen and DuoNeb as needed. -incentive spirometry. -Encourage ambulation. -will likely resume home oxygen upon discharge. Diabetes mellitus Well controlled. -Sliding scale insulin and hold all oral antihyperglycemic agent. Hypertension/hyperlipidemia Well controlled. -Continue home statin, beta-lisa. Bipolar/schizophrenia Chronic, stable. -Continue home medications. Normochromic normocytic anemia She was transfused 2 units packed red blood cells. Appreciate input from hematology and urology. Hemoccult negative. -follow CBC and transfuse as needed. Stable. -follow up with hematology. On iron therapy. ESBL E coli UTI/hematuria Has had fever and leukocytosis. Urine culture with ESBL E coli. ID consult appreciated. -continue IV ertapenem per ID. Urinary incontinence Likely s/t above. -antibiotics. DVT prophylaxis: Bilateral SCDs Discharge Planning: For CABG on Monday Progress Note: Quality VTE Deep Vein Thrombosis/Pulmonary Embolism Present on Admission: No _ (1) Hematuria Qualifiers: Glomerular morphologic changes: Hematuria type: (2) CAD (coronary artery disease) Qualifiers: Associated angina: Coronary Disease-Associated Artery/Lesion type: [place] vs. transplanted heart: (3) Congestive heart failure Qualifiers: Heart failure chronicity: acute on chronic Heart failure type: unspecified Qualified Code(s): I50.9 - Heart failure, unspecified (4) Chest pain Qualifiers: Chest pain type: chest pain due to myocardial ischemia Ischemic chest pain type: unstable angina pectoris Qualified Code(s): I20.0 - Unstable angina
[2018-07-20] MEDS: Budesonide-Formoterol 80/4.5 MCG 6.9 GM Inhaler INH SCH ×2 (16:17→20:38)
[2018-07-20] MEDS: MethylPREDNISolone Sod Succinate Inj 40 MG/ML Vial IV.PUSH SCH (17:31)
[2018-07-21] MEDS: MethylPREDNISolone Sod Succinate Inj 40 MG/ML Vial IV.PUSH SCH ×3 (03:26→17:17)
[2018-07-21] MEDS: Divalproex 500 MG ER Tablet PO SCH ×2 (08:55→21:17)
[2018-07-21] MEDS: Insulin NovoLOG Aspart Correctional Sugar Inj SQ SCH ×4 (08:55→21:00)
[2018-07-21] MEDS: Metoprolol Tartrate 25 MG Tablet PO SCH ×2 (08:55→21:16)
[2018-07-21] MEDS: hydrALAZINE 50 MG Tablet PO SCH ×3 (08:56→17:17)
[2018-07-21] MEDS: Multivitamin/Minerals Therapeutic Tablet PO SCH (08:56)
[2018-07-21] MEDS: Amiodarone 200 MG Tablet PO SCH ×2 (08:56→21:16)
[2018-07-21] MEDS: Gabapentin 300 MG Capsule PO SCH ×3 (08:56→17:17)
[2018-07-21] MEDS: Budesonide-Formoterol 80/4.5 MCG 6.9 GM Inhaler INH SCH (08:57)
[2018-07-21] MEDS: Senna/Docusate Sodium 8.6/50 MG Tablet PO SCH (08:57)
[2018-07-21] MEDS: Polyethylene Glycol 3350 17 GM Packet PO SCH (08:57)
--- NOTE | 2018-07-21 09:17 | P.PNIM ---
Subjective Interval history: reports feeling good. no chest pain. had some wheezing this morning, received breathing treatment. Physical Exam Vital signs: Last Vital Signs Temp 97.6 F 07/21/18 07:00 Pulse 97 H 07/21/18 08:44 Resp 16 07/21/18 08:44 BP 100/57 L 07/21/18 07:00 Pulse Ox 96 07/21/18 08:44 Intake & Output 07/19/18 07/20/18 07/21/18 07/22/18 06:59 06:59 06:59 06:59 Intake Total 6642 / 6642 1400 / 1400 1140 / 1140 Output Total 2300 / 2300 1640 / 1640 3880 / 3880 Balance 4342 / 4342 -240 / -240 -2740 / -2740 Weight 100 kg 100 kg 98.5 kg Narrative: GENERAL: NAD SKIN: Warm and dry. HEENT: not pale,anicteric. NECK: Supple. no JVD. RIJ CVC CARDIOVASCULAR: Regular rate and rhythm without murmurs, gallops, or rubs. CHEST: chest tube insitu.Breath sounds equal bilaterally. No accessory muscle use. GASTROINTESTINAL: Abdomen soft, non-tender, nondistended. MUSCULOSKELETAL: No cyanosis, no edema. BACK: Nontender without obvious deformity. No CVA tenderness. NEURO: No gross deficits. Urinary Catheter Management Indwelling Urethral Catheter: Cath placed during this visit: yes, but has since been removed by the nurse Insertion date: 07/09/18 Insertion time: 22:50 Removal date: 07/12/18 Removal time: 17:25 Indwelling Temp Sensing Catheter: Cath placed during this visit: yes, but has since been removed by the nurse Insertion date: 07/18/18 Insertion time: 09:40 Removal date: 07/19/18 Removal time: 05:30 Results Labs CBC & Chem 7: 07/22/18 09:14 07/22/18 09:14 Assessment and Plan (1) Hematuria: Code(s): R31.9 - Hematuria, unspecified Status: Deleted (2) Congestive heart failure: Code(s): I50.9 - Heart failure, unspecified Status: Acute (3) Pleural effusion: Code(s): J90 - Pleural effusion, not elsewhere classified Status: Acute (4) Chest pain: Code(s): R07.9 - Chest pain, unspecified Status: Acute (5) NSTEMI (non-ST elevated myocardial infarction): Code(s): I21.4 - Non-ST elevation (NSTEMI) myocardial infarction Status: Acute (6) CAD (coronary artery disease): Code(s): I25.10 - Atherosclerotic heart disease of [place] coronary artery without angina pectoris Status: Acute (7) S/P CABG x 3: Code(s): Z95.1 - Presence of aortocoronary bypass graft Status: Acute Plan Non-ST elevation [place] Cardiology consult appreciated. LDL 135. Echo with normal EF. -Currently on ASA, Nitro paste, beta-lisa, statin. s/p Heparin drip -S/p heart catheterization July 10, 2018. -S/p CABG on 07/18, continue care as per CTS Chronic hypoxia On home oxygen. Repeat chest x-ray clear. -oxygen and DuoNeb as needed. -incentive spirometry. -Encourage ambulation. -resume home oxygen upon discharge. Diabetes mellitus Well controlled. -Sliding scale insulin and hold all oral antihyperglycemic agent. Hypertension/hyperlipidemia Well controlled. -Continue home statin, beta-lisa. Bipolar/schizophrenia Chronic, stable. -Continue home medications. Normochromic normocytic anemia She was transfused 2 units packed red blood cells.Hemoccult negative. -follow CBC and transfuse as needed. -follow up with hematology. On iron therapy. Appreciate input from hematology and urology. ESBL E coli UTI/hematuria Has had fever and leukocytosis. Urine culture with ESBL E coli. ID consult appreciated. -continue IV ertapenem per ID. Urinary incontinence Likely s/t above. -antibiotics. DVT prophylaxis: Bilateral SCDs Progress Note: Quality VTE Deep Vein Thrombosis/Pulmonary Embolism Present on Admission: No _ (1) Hematuria Qualifiers: Glomerular morphologic changes: Hematuria type: (2) CAD (coronary artery disease) Qualifiers: Associated angina: Coronary Disease-Associated Artery/Lesion type: [place] vs. transplanted heart: (3) Congestive heart failure Qualifiers: Heart failure chronicity: acute on chronic Heart failure type: unspecified Qualified Code(s): I50.9 - Heart failure, unspecified (4) Chest pain Qualifiers: Chest pain type: chest pain due to myocardial ischemia Ischemic chest pain type: unstable angina pectoris Qualified Code(s): I20.0 - Unstable angina
[2018-07-21] MEDS: Docusate Sodium 100 MG Capsule PO SCH (12:13)
[2018-07-21] MEDS: Mupirocin 2% Nasal Oint Topical Syringe EACH NARE SCH ×2 (12:13→21:18)
--- NOTE | 2018-07-21 12:49 | P.PNCV ---
- Note Subjective/Hospital Course: pt seen and evaluated, full consult to follow sts risk score discussed with pt RISK SCORES Procedure: Isolated CAB CALCULATE Risk of Mortality: 1.346% Renal Failure: 2.414% Permanent Stroke: 2.147% Prolonged Ventilation: 8.884% DSW Infection: 0.314% Reoperation: 1.314% Morbidity or Mortality: 13.290% Short Length of Stay: 30.625% Long Length of Stay: 5.978% HISTORY OF PRESENT ILLNESS: 58-year-old female who has recently been in the hospital in May for heart failure, questionable pneumonia, bilateral effusions, was placed on some IV diuretics then was discharged home, received some IV antibiotics. She presented again to the emergency department 2017 with shortness of breath, left-sided chest pain. Troponin was 2.0, she was ruled in for a non-STEMI, decompensated congestive heart failure, coronary artery disease. She underwent cardiac catheterization on 07/10/[address] Boland which showed an ejection fraction of 60%. There was mid distal LAD lesion, 90%, the left circumflex had 90%, 95%posterior lateral and the middle, posterior lateral had a 70% to 80% stenosis. We were consulted to evaluate for coronary artery bypass grafting. The patient was also found to have some anemia, normocytic has been evaluated by hematology. She has received 2 units of packed RBCs. Hemoglobin is now 10. She has some low iron counts, probable chronic. Denies any blood in her stool. She is somewhat of a poor historian also. She now admitted to some blood in stool a couple of weeks ago PAST MEDICAL HISTORY: Includes iron deficiency, normocytic anemia, ? history of cerebrovascular accident in the past with no residual effects , diabetes mellitus, on oral medication, hypertension, hyperlipidemia, seizure disorder. She is unclear when her last seizure, bipolar disorder, schizophrenia. 07/12 pt still has gaines cath ? , now with hematuria, clots noted in tubing, pt states she noticed this after trying to have a BM earlier this am ( ? traumatic ) will check UA, Urology consulted per Hospitalist , off Heparin gtt since 07/10 Dr Tirado to eval cardiac cath films today 07/13 gaines cath dc yesterday, + UTI on ABX Carotid US : good vein mapping : fair no DVT lower ext tentatively scheduled for surgery on Mon07/18/18 will need daughter or POA to sign consent 07/16 pt for surgery in am Ecoli UTI, on Invanz / ID following daughters to speak with pt regarding of her mother 07/18 surgery - Preoperative Diagnosis (1) Congestive heart failure (2) NSTEMI (non-ST elevated myocardial infarction (3) CAD (coronary artery disease) Postoperative Diagnosis: same Date of procedure: 07/18/18 Procedure: CABG x 3 MUNIZ to LAD - poor SVG to OM - fair SVG to PLB - good EVH extubated after surgery crystalloid 2500cc, cell [id number] 07/19 doing well up in chair, painful on nasal cannula leave chest tube in pulm toileting OOB/ PT 07/20 extensive wheezing throughout all lung regalado some basilar crackles / add bid lasix, solumedrol/ symbicort eval for chest tube removal later today requires 1-2 person assistance increase BB f/u labs in am 07/21 Doing well Hemodynamic stable DC chest tubes today Discharge planning Objective: Vital Signs - 24 hr 07/20/18 13:00 07/20/18 13:40 07/20/18 14:00 Temperature Pulse Rate 101 H 86 88 Respiratory Rate 16 Blood Pressure Pulse Oximetry 07/20/18 15:00 07/20/18 16:00 07/20/18 17:00 Temperature 100 F H Pulse Rate 96 H 95 H 93 H Respiratory Rate 16 Blood Pressure 108/59 L Pulse Oximetry 91 L 07/20/18 18:00 07/20/18 19:00 07/20/18 20:00 Temperature 98.2 F Pulse Rate 93 H 93 H 84 Respiratory Rate 21 Blood Pressure 102/61 Pulse Oximetry 95 07/20/18 20:06 07/20/18 21:00 07/20/18 22:00 Temperature Pulse Rate 87 88 76 Respiratory Rate 16 Blood Pressure Pulse Oximetry 95 07/20/18 23:00 07/20/18 23:11 07/21/18 00:00 Temperature 97.7 F Pulse Rate 82 93 H 80 Respiratory Rate 22 16 Blood Pressure 100/58 L Pulse Oximetry 95 07/21/18 01:00 07/21/18 02:00 07/21/18 03:00 Temperature 97.9 F Pulse Rate 80 72 77 Respiratory Rate 22 Blood Pressure 105/63 Pulse Oximetry 89 L 07/21/18 04:00 07/21/18 07:00 07/21/18 08:44 Temperature 97.6 F Pulse Rate 82 77 97 H Respiratory Rate 20 16 Blood Pressure 100/57 L Pulse Oximetry 90 L 96 Labs: Laboratory Results - last 12 hr 07/21/18 07/21/18 07:46 11:54 POC Glucose 137 H 134 H Result Diagrams: 07/20/18 04:40 07/20/18 04:40 - Plan (1) Congestive heart failure (3) Chest pain (5) CAD (coronary artery disease) Plan: on ASA, statin , BB carotid US: unremarkable tentatively scheduled for surgery on Mon07/18/18 (6) S/P CABG x 3 Plan: Neuro: resume home meds for Bipolar dz and seizure disorder Resp: nebs ezpap acapella wean o2 add short course of IV steroids, symbicort CV: on amiodarone, ASA, BB statin add scheduled diuresis GI: motility meds, heart healthy diet OOB/ PT /OT eval for inpt rehab at discharge (1) Congestive heart failure Qualifiers: Heart failure type: unspecified Heart failure chronicity: acute on chronic Qualified Code(s): I50.9 - Heart failure, unspecified (3) Chest pain Qualifiers: Chest pain type: chest pain due to myocardial ischemia Ischemic chest pain type: unstable angina pectoris Qualified Code(s): I20.0 - Unstable angina
[2018-07-22] MEDS: Docusate Sodium 100 MG Capsule PO SCH ×3 (02:00→20:48)
[2018-07-22] MEDS: Senna/Docusate Sodium 8.6/50 MG Tablet PO SCH ×3 (02:01→20:47)
[2018-07-22] MEDS: MethylPREDNISolone Sod Succinate Inj 40 MG/ML Vial IV.PUSH SCH ×3 (02:02→17:40)
[2018-07-22] MEDS: Budesonide-Formoterol 80/4.5 MCG 6.9 GM Inhaler INH SCH ×3 (02:02→21:17)
[2018-07-22] MEDS: Divalproex 500 MG ER Tablet PO SCH ×2 (08:30→20:47)
[2018-07-22] MEDS: Multivitamin/Minerals Therapeutic Tablet PO SCH (08:32)
[2018-07-22] MEDS: Gabapentin 300 MG Capsule PO SCH ×3 (08:32→17:40)
[2018-07-22] MEDS: Amiodarone 200 MG Tablet PO SCH ×2 (08:33→20:47)
[2018-07-22] MEDS: Metoprolol Tartrate 25 MG Tablet PO SCH ×2 (08:33→20:48)
[2018-07-22] MEDS: hydrALAZINE 50 MG Tablet PO SCH ×3 (08:33→17:40)
[2018-07-22] MEDS: Insulin NovoLOG Aspart Correctional Sugar Inj SQ SCH ×5 (09:01→21:17)
[2018-07-22] MEDS: Mupirocin 2% Nasal Oint Topical Syringe EACH NARE SCH ×2 (09:02→20:48)
[2018-07-22] MEDS: Polyethylene Glycol 3350 17 GM Packet PO SCH (09:02)
--- NOTE | 2018-07-22 09:39 | P.PNCV ---
- Note Subjective/Hospital Course: pt seen and evaluated, full consult to follow sts risk score discussed with pt RISK SCORES Procedure: Isolated CAB CALCULATE Risk of Mortality: 1.346% Renal Failure: 2.414% Permanent Stroke: 2.147% Prolonged Ventilation: 8.884% DSW Infection: 0.314% Reoperation: 1.314% Morbidity or Mortality: 13.290% Short Length of Stay: 30.625% Long Length of Stay: 5.978% HISTORY OF PRESENT ILLNESS: 58-year-old female who has recently been in the hospital in May for heart failure, questionable pneumonia, bilateral effusions, was placed on some IV diuretics then was discharged home, received some IV antibiotics. She presented again to the emergency department 2017 with shortness of breath, left-sided chest pain. Troponin was 2.0, she was ruled in for a non-STEMI, decompensated congestive heart failure, coronary artery disease. She underwent cardiac catheterization on 07/10/[address] Boland which showed an ejection fraction of 60%. There was mid distal LAD lesion, 90%, the left circumflex had 90%, 95%posterior lateral and the middle, posterior lateral had a 70% to 80% stenosis. We were consulted to evaluate for coronary artery bypass grafting. The patient was also found to have some anemia, normocytic has been evaluated by hematology. She has received 2 units of packed RBCs. Hemoglobin is now 10. She has some low iron counts, probable chronic. Denies any blood in her stool. She is somewhat of a poor historian also. She now admitted to some blood in stool a couple of weeks ago PAST MEDICAL HISTORY: Includes iron deficiency, normocytic anemia, ? history of cerebrovascular accident in the past with no residual effects , diabetes mellitus, on oral medication, hypertension, hyperlipidemia, seizure disorder. She is unclear when her last seizure, bipolar disorder, schizophrenia. 07/12 pt still has gaines cath ? , now with hematuria, clots noted in tubing, pt states she noticed this after trying to have a BM earlier this am ( ? traumatic ) will check UA, Urology consulted per Hospitalist , off Heparin gtt since 07/10 Dr Tirado to eval cardiac cath films today 07/13 gaines cath dc yesterday, + UTI on ABX Carotid US : good vein mapping : fair no DVT lower ext tentatively scheduled for surgery on Mon07/18/18 will need daughter or POA to sign consent 07/16 pt for surgery in am Ecoli UTI, on Invanz / ID following daughters to speak with pt regarding of her mother 07/18 surgery - Preoperative Diagnosis (1) Congestive heart failure (2) NSTEMI (non-ST elevated myocardial infarction (3) CAD (coronary artery disease) Postoperative Diagnosis: same Date of procedure: 07/18/18 Procedure: CABG x 3 MUNIZ to LAD - poor SVG to OM - fair SVG to PLB - good EVH extubated after surgery crystalloid 2500cc, cell [id number] 07/19 doing well up in chair, painful on nasal cannula leave chest tube in pulm toileting OOB/ PT 07/20 extensive wheezing throughout all lung regal[place] some basilar crackles / add bid lasix, solumedrol/ symbicort eval for chest tube removal later today requires 1-2 person assistance increase BB f/u labs in am 07/21 Doing well Hemodynamic stable DC chest tubes today Discharge planning 07/22 Clinically stable Weaning O2 as tolerated Likely discharge tomorrow Objective: Vital Signs - 24 hr 07/21/18 10:00 07/21/18 11:00 07/21/18 12:00 Temperature 97.8 F Pulse Rate 86 77 74 Respiratory Rate 18 Blood Pressure 98/53 L Pulse Oximetry 93 L 07/21/18 13:00 07/21/18 14:00 07/21/18 14:15 Temperature Pulse Rate 72 76 76 Respiratory Rate 16 Blood Pressure Pulse Oximetry 07/21/18 15:00 07/21/18 16:00 07/21/18 17:00 Temperature 97.8 F Pulse Rate 91 H 76 92 H Respiratory Rate 18 Blood Pressure 115/69 Pulse Oximetry 92 L 07/21/18 18:00 07/21/18 19:00 07/21/18 19:36 Temperature 97.9 F Pulse Rate 82 78 78 Respiratory Rate 20 Blood Pressure 111/64 Pulse Oximetry 94 L 07/21/18 20:00 07/21/18 21:00 07/21/18 22:00 Temperature Pulse Rate 79 80 75 Respiratory Rate Blood Pressure Pulse Oximetry 95 07/21/18 22:37 07/21/18 23:00 07/22/18 00:00 Temperature 98 F Pulse Rate 60 60 Respiratory Rate 20 Blood Pressure 135/63 Pulse Oximetry 93 L 95 07/22/18 01:00 07/22/18 01:06 07/22/18 03:00 Temperature 97.7 F Pulse Rate 65 61 68 Respiratory Rate 20 Blood Pressure 122/64 Pulse Oximetry 94 L 07/22/18 04:00 07/22/18 05:00 07/22/18 06:00 Temperature Pulse Rate 62 70 66 Respiratory Rate Blood Pressure Pulse Oximetry 07/22/18 07:00 07/22/18 08:00 07/22/18 09:00 Temperature 98.0 F Pulse Rate 67 66 68 Respiratory Rate 18 Blood Pressure 126/74 Pulse Oximetry 95 Labs: Laboratory Results - last 12 hr 07/22/18 07:40 POC Glucose 144 H Result Diagrams: 07/20/18 04:40 07/20/18 04:40 - Plan (1) Congestive heart failure (3) Chest pain (5) CAD (coronary artery disease) Plan: on ASA, statin , BB carotid US: unremarkable tentatively scheduled for surgery on Mon07/18/18 (6) S/P CABG x 3 Plan: Neuro: resume home meds for Bipolar dz and seizure disorder Resp: nebs ezpap acapella wean o2 add short course of IV steroids, symbicort CV: on amiodarone, ASA, BB statin add scheduled diuresis GI: motility meds, heart healthy diet OOB/ PT /OT eval for inpt rehab at discharge (1) Congestive heart failure Qualifiers: Heart failure type: unspecified Heart failure chronicity: acute on chronic Qualified Code(s): I50.9 - Heart failure, unspecified (3) Chest pain Qualifiers: Chest pain type: chest pain due to myocardial ischemia Ischemic chest pain type: unstable angina pectoris Qualified Code(s): I20.0 - Unstable angina
[2018-07-22 09:54] LABS: Baso % (Auto) 0.3 % (0.0-2.0); Eos % (Auto) 0.1 % (0.0-4.0); Hematocrit 30.1 % (35.0-46.0); Hemoglobin 9.1 gm/dL (11.6-15.3); Lymph # (Auto) 1.4 th/mm3 (1.0-4.8); Lymph % (Auto) 19.5 % (9.0-44.0); Mean Corpuscular Hemoglobin 27.3 pg (27.0-34.0); Mean Corpuscular Volume 90.3 fL (80.0-100.0); Mean Platelet Volume 8.5 fL (7.0-11.0); Mono # (Auto) 0.3 th/mm3 (0.0-0.9); Mono % (Auto) 4.5 % (0.0-8.0); Neut # (Auto) 5.4 th/mm3 (1.8-7.7); Neut % (Auto) 75.6 % (16.0-70.0); Platelet Count 391 th/mm3 (150-450); Red Blood Count 3.33 mil/mm3 (4.00-5.30); Red Cell Distribution Width 19.9 % (11.6-17.2); White Blood Count 7.2 th/mm3 (4.0-11.0)
[2018-07-22 09:55] LABS: Mean Corpuscular HGB Conc 30.2 % (32.0-36.0)
[2018-07-22 09:58] LABS: Calcium 9.1 mg/dL (8.5-10.1); Carbon Dioxide 28.3 meq/L (21.0-32.0); Potassium 4.3 meq/L (3.5-5.1)
--- NOTE | 2018-07-22 15:17 | P.PNIM ---
Subjective Interval history: patient feeling good,no shortness of breath or chest pain. reports walking round the hallway with PT yesterday. Physical Exam Vital signs: Last Vital Signs Temp 98.2 F 07/22/18 11:00 Pulse 72 07/22/18 13:00 Resp 18 07/22/18 11:00 BP 123/62 07/22/18 11:00 Pulse Ox 95 07/22/18 11:00 Intake & Output 07/20/18 07/21/18 07/22/18 07/23/18 06:59 06:59 06:59 06:59 Intake Total 1400 / 1400 1140 / 1140 1800 / 1800 Output Total 1640 / 1640 3880 / 3880 2700 / 2700 Balance -240 / -240 -2740 / -2740 -900 / -900 Weight 100 kg 98.5 kg 95.4 kg Narrative: GENERAL: NAD SKIN: Warm and dry. HEENT: not pale,anicteric. NECK: Supple. no JVD. RIJ CVC CARDIOVASCULAR: Regular rate and rhythm without murmurs, gallops, or rubs. CHEST: chest tube insitu.Breath sounds equal bilaterally. No accessory muscle use. GASTROINTESTINAL: Abdomen soft, non-tender, nondistended. MUSCULOSKELETAL: No cyanosis, no edema. BACK: Nontender without obvious deformity. No CVA tenderness. NEURO: No gross deficits. Urinary Catheter Management Indwelling Urethral Catheter: Cath placed during this visit: yes, but has since been removed by the nurse Insertion date: 07/09/18 Insertion time: 22:50 Removal date: 07/12/18 Removal time: 17:25 Indwelling Temp Sensing Catheter: Cath placed during this visit: yes, but has since been removed by the nurse Insertion date: 07/18/18 Insertion time: 09:40 Removal date: 07/19/18 Removal time: 05:30 Results Labs CBC & Chem 7: 07/22/18 09:14 07/22/18 09:14 Assessment and Plan (1) Hematuria: Code(s): R31.9 - Hematuria, unspecified Status: Deleted (2) Congestive heart failure: Code(s): I50.9 - Heart failure, unspecified Status: Acute (3) Pleural effusion: Code(s): J90 - Pleural effusion, not elsewhere classified Status: Acute (4) Chest pain: Code(s): R07.9 - Chest pain, unspecified Status: Acute (5) NSTEMI (non-ST elevated myocardial infarction): Code(s): I21.4 - Non-ST elevation (NSTEMI) myocardial infarction Status: Acute (6) CAD (coronary artery disease): Code(s): I25.10 - Atherosclerotic heart disease of [place] coronary artery without angina pectoris Status: Acute (7) S/P CABG x 3: Code(s): Z95.1 - Presence of aortocoronary bypass graft Status: Acute Plan Non-ST elevation [place] Cardiology consult appreciated. LDL 135. Echo with normal EF. -Currently on ASA, Nitro paste, beta-lisa, statin. s/p Heparin drip -S/p heart catheterization July 10, 2018. -S/p CABG on 07/18,clinically doing well. continue care as per CTS Chronic hypoxia On home oxygen. Repeat chest x-ray clear. -oxygen and DuoNeb as needed. -incentive spirometry. -Encourage ambulation. -resume home oxygen on discharge. Diabetes mellitus Well controlled. -Sliding scale insulin and hold all oral antihyperglycemic agent. Hypertension/hyperlipidemia Well controlled. -Continue home statin, beta-lisa. Bipolar/schizophrenia Chronic, stable. -Continue home medications. Normochromic normocytic anemia She was transfused 2 units packed red blood cells.Hemoccult negative. -follow CBC and transfuse as needed. -follow up with hematology. On iron therapy. Appreciate input from hematology and urology. ESBL E coli UTI/hematuria Has had fever and leukocytosis. Urine culture with ESBL E coli. ID consult appreciated. -continue IV ertapenem per ID. DVT prophylaxis: Bilateral SCDs DISPO: likely for discharge 07/23 if ok by CTS. Progress Note: Quality VTE Deep Vein Thrombosis/Pulmonary Embolism Present on Admission: No _ (1) Hematuria Qualifiers: Hematuria type: Glomerular morphologic changes: (2) Congestive heart failure Qualifiers: Heart failure chronicity: acute on chronic Heart failure type: unspecified Qualified Code(s): I50.9 - Heart failure, unspecified (3) Chest pain Qualifiers: Chest pain type: chest pain due to myocardial ischemia Ischemic chest pain type: unstable angina pectoris Qualified Code(s): I20.0 - Unstable angina (4) CAD (coronary artery disease) Qualifiers: Coronary Disease-Associated Artery/Lesion type: [place] vs. transplanted heart: Associated angina:
[2018-07-23] MEDS: MethylPREDNISolone Sod Succinate Inj 40 MG/ML Vial IV.PUSH SCH ×2 (02:05→11:34)
[2018-07-23 06:06] LABS: Baso % (Auto) 0.4 % (0.0-2.0); Eos % (Auto) 0.1 % (0.0-4.0); Hematocrit 28.7 % (35.0-46.0); Lymph # (Auto) 2.1 th/mm3 (1.0-4.8); Lymph % (Auto) 25.9 % (9.0-44.0); Mean Corpuscular HGB Conc 31.4 % (32.0-36.0); Mean Corpuscular Hemoglobin 27.6 pg (27.0-34.0); Mean Platelet Volume 8.4 fL (7.0-11.0); Mono # (Auto) 0.4 th/mm3 (0.0-0.9); Mono % (Auto) 4.7 % (0.0-8.0); Neut # (Auto) 5.5 th/mm3 (1.8-7.7); Neut % (Auto) 68.9 % (16.0-70.0); Platelet Count 502 th/mm3 (150-450); Red Blood Count 3.26 mil/mm3 (4.00-5.30); Red Cell Distribution Width 19.3 % (11.6-17.2)
[2018-07-23 06:28] LABS: Calcium 9.3 mg/dL (8.5-10.1); Carbon Dioxide 33.7 meq/L (21.0-32.0); Potassium 4.4 meq/L (3.5-5.1)
[2018-07-23] MEDS: Insulin NovoLOG Aspart Correctional Sugar Inj SQ SCH ×4 (08:05→21:30)
[2018-07-23] MEDS: Docusate Sodium 100 MG Capsule PO SCH ×2 (08:16→21:30)
[2018-07-23] MEDS: Polyethylene Glycol 3350 17 GM Packet PO SCH (08:16)
[2018-07-23] MEDS: Multivitamin/Minerals Therapeutic Tablet PO SCH (08:17)
[2018-07-23] MEDS: Divalproex 500 MG ER Tablet PO SCH ×2 (08:17→21:29)
[2018-07-23] MEDS: Mupirocin 2% Nasal Oint Topical Syringe EACH NARE SCH ×2 (08:17→21:30)
[2018-07-23] MEDS: Senna/Docusate Sodium 8.6/50 MG Tablet PO SCH ×2 (08:18→21:29)
[2018-07-23] MEDS: Gabapentin 300 MG Capsule PO SCH ×3 (08:18→17:03)
[2018-07-23] MEDS: Amiodarone 200 MG Tablet PO SCH ×2 (08:18→21:30)
[2018-07-23] MEDS: Metoprolol Tartrate 25 MG Tablet PO SCH ×2 (08:18→21:30)
[2018-07-23] MEDS: hydrALAZINE 50 MG Tablet PO SCH ×3 (08:18→17:03)
--- NOTE | 2018-07-23 08:20 | P.DCO ---
Diagnosis (1) NSTEMI (non-ST elevated myocardial infarction): Status: Acute (2) CAD (coronary artery disease): Status: Acute (3) S/P CABG x 3: Status: Acute Physical Therapy Order: Evaluate and treat, Improve ambulation and Strength and gait training Home Health Nursing Order: Medical education, Signs/symptoms of disease process, Medication education-adverse effect and Nursing assessment with vital signs Case Management Consult Case Management Consult-Home Health: Yes I have seen patient Donald Schmidt on 07/23/18. My clinical findings support the need for the requested home health care services because: Limited mobility due to disease progression, Deconditioned with increased weakness, Limited ability to care for self, Need for psychosocial assistance, High risk of falls and Infection with risk of complications I certify that my clinical findings support that this patient is homebound because: Post-op weakness, Unsafe to leave home unassisted, Unable to use public transportation and Poor cardiac reserve _ (1) CAD (coronary artery disease) Qualifiers: Coronary Disease-Associated Artery/Lesion type: [place] vs. transplanted heart: Associated angina:
[2018-07-23] MEDS: Budesonide-Formoterol 80/4.5 MCG 6.9 GM Inhaler INH SCH ×2 (08:25→21:30)
--- NOTE | 2018-07-23 11:03 | P.PNIM ---
Subjective Interval history: Follow up for NSTEMI, status post CABG on 07/18/2018. Patient is currently doing well. She is sitting in her chair. Denies any significant chest pain, shortness of breath, fever or chills. She uses O2 at home about 2- 3 L. She had bowel movement this morning. Physical Exam Vital signs: Last Vital Signs Temp 97.9 F 07/23/18 07:00 Pulse 68 07/23/18 10:55 Resp 16 07/23/18 07:00 BP 110/67 07/23/18 07:00 Pulse Ox 96 07/23/18 07:00 Intake & Output 07/21/18 07/22/18 07/23/18 07/24/18 06:59 06:59 06:59 06:59 Intake Total 1140 / 1140 1800 / 1800 1615 / 1615 100 / 100 Output Total 3880 / 3880 2700 / 2700 3180 / 3180 Balance -2740 / -2740 -900 / -900 -1565 / -1565 100 / 100 Weight 98.5 kg 95.4 kg 95.4 kg Narrative: GENERAL: NAD SKIN: Warm and dry. HEENT: not pale,anicteric. NECK: Supple. no JVD. CARDIOVASCULAR: Regular rate and rhythm without murmurs, gallops, or rubs. CHEST: chest tube insitu.Breath sounds equal bilaterally. No accessory muscle use. GASTROINTESTINAL: Abdomen soft, non-tender, nondistended. MUSCULOSKELETAL: No cyanosis, no edema. BACK: Nontender without obvious deformity. No CVA tenderness. NEURO: No gross deficits. Urinary Catheter Management Indwelling Urethral Catheter: Cath placed during this visit: yes, but has since been removed by the nurse Insertion date: 07/09/18 Insertion time: 22:50 Removal date: 07/12/18 Removal time: 17:25 Indwelling Temp Sensing Catheter: Cath placed during this visit: yes, but has since been removed by the nurse Insertion date: 07/18/18 Insertion time: 09:40 Removal date: 07/19/18 Removal time: 05:30 Results Labs CBC & Chem 7: 07/23/18 04:53 07/23/18 04:53 Assessment and Plan (1) NSTEMI (non-ST elevated myocardial infarction): Code(s): I21.4 - Non-ST elevation (NSTEMI) myocardial infarction Status: Acute (2) CAD (coronary artery disease): Code(s): I25.10 - Atherosclerotic heart disease of [place] coronary artery without angina pectoris Status: Acute (3) S/P CABG x 3: Code(s): Z95.1 - Presence of aortocoronary bypass graft Status: Acute Plan Ms. Schmidt is an AA female with a history of previous CVA, diabetes mellitus, hypertension, hyperlipidemia, coronary artery disease and schizophrenia/bipolar disorder presents to the emergency department for the evaluation of chest pain/ pressure on 07/10/2018. Troponins were elevated, Cardiology performed cath which showed severe 3 vessel disease. Non-ST elevation DC Multivessel CAD on Cath on 07/10/2018. Hypertension Hyperlipidemia -s/p CABG. -Currently on Aspirin 81mg, Amiodarone 200mg Q12, metoprolol 25mg BID. -Continue Hydralazine 50mg TID. -Currently on IV Lasix 40mg BID. We can likely switch to PO. -Patient is on pravastatin 80 mg nightly. Will consider switching to Lipitor 40 mg nightly. Diabetes mellitus Redness of Blood glucose currently well controlled. -Sliding scale insulin. Goal BG 140-180. ESBL E coli UTI/hematuria -continue IV ertapenem per ID X 14 days starting 07/14/2018. COPD Continue Symbicort, supplemental oxygen, Solu-Medrol We can likely discontinue Solu-Medrol. DVT prophylaxis: Bilateral SCDs. Discharge plan: Discussed with case management. Patient is being evaluated by Castro HERRERA. Progress Note: Quality VTE Deep Vein Thrombosis/Pulmonary Embolism Present on Admission: No _ (1) CAD (coronary artery disease) Qualifiers: Coronary Disease-Associated Artery/Lesion type: [place] vs. transplanted heart: Associated angina:
--- NOTE | 2018-07-23 11:56 | P.PNCV ---
- Note Subjective/Hospital Course: pt seen and evaluated, full consult to follow sts risk score discussed with pt RISK SCORES Procedure: Isolated CAB CALCULATE Risk of Mortality: 1.346% Renal Failure: 2.414% Permanent Stroke: 2.147% Prolonged Ventilation: 8.884% DSW Infection: 0.314% Reoperation: 1.314% Morbidity or Mortality: 13.290% Short Length of Stay: 30.625% Long Length of Stay: 5.978% HISTORY OF PRESENT ILLNESS: 58-year-old female who has recently been in the hospital in May for heart failure, questionable pneumonia, bilateral effusions, was placed on some IV diuretics then was discharged home, received some IV antibiotics. She presented again to the emergency department 2017 with shortness of breath, left-sided chest pain. Troponin was 2.0, she was ruled in for a non-STEMI, decompensated congestive heart failure, coronary artery disease. She underwent cardiac catheterization on 07/10/[address] Boland which showed an ejection fraction of 60%. There was mid distal LAD lesion, 90%, the left circumflex had 90%, 95%posterior lateral and the middle, posterior lateral had a 70% to 80% stenosis. We were consulted to evaluate for coronary artery bypass grafting. The patient was also found to have some anemia, normocytic has been evaluated by hematology. She has received 2 units of packed RBCs. Hemoglobin is now 10. She has some low iron counts, probable chronic. Denies any blood in her stool. She is somewhat of a poor historian also. She now admitted to some blood in stool a couple of weeks ago PAST MEDICAL HISTORY: Includes iron deficiency, normocytic anemia, ? history of cerebrovascular accident in the past with no residual effects , diabetes mellitus, on oral medication, hypertension, hyperlipidemia, seizure disorder. She is unclear when her last seizure, bipolar disorder, schizophrenia. 07/12 pt still has gaines cath ? , now with hematuria, clots noted in tubing, pt states she noticed this after trying to have a BM earlier this am ( ? traumatic ) will check UA, Urology consulted per Hospitalist , off Heparin gtt since 07/10 Dr Tirado to eval cardiac cath films today 07/13 gaines cath dc yesterday, + UTI on ABX Carotid US : good vein mapping : fair no DVT lower ext tentatively scheduled for surgery on Mon07/18/18 will need daughter or POA to sign consent 07/16 pt for surgery in am Ecoli UTI, on Invanz / ID following daughters to speak with pt regarding of her mother 07/18 surgery - Preoperative Diagnosis (1) Congestive heart failure (2) NSTEMI (non-ST elevated myocardial infarction (3) CAD (coronary artery disease) Postoperative Diagnosis: same Date of procedure: 07/18/18 Procedure: CABG x 3 MUNIZ to LAD - poor SVG to OM - fair SVG to PLB - good EVH extubated after surgery crystalloid 2500cc, cell [id number] 07/19 doing well up in chair, painful on nasal cannula leave chest tube in pulm toileting OOB/ PT 07/20 extensive wheezing throughout all lung regalado some basilar crackles / add bid lasix, solumedrol/ symbicort eval for chest tube removal later today requires 1-2 person assistance increase BB f/u labs in am 07/21 Doing well Hemodynamic stable DC chest tubes today Discharge planning 07/22 Clinically stable Weaning O2 as tolerated Likely discharge tomorrow 07/23 still on 1-2 liters 02, check walk test eval for [facility] vs [facility]hab change lasix to po, dc IV steroids stable to transfer to [facility]hab from [facility] Objective: Vital Signs - 24 hr 07/22/18 12:00 07/22/18 13:00 07/22/18 14:00 Temperature Pulse Rate 75 72 72 Respiratory Rate Blood Pressure Pulse Oximetry 07/22/18 15:00 07/22/18 16:00 07/22/18 17:00 Temperature 98.1 F Pulse Rate 74 72 72 Respiratory Rate 18 Blood Pressure 132/68 Pulse Oximetry 96 07/22/18 18:00 07/22/18 19:00 07/22/18 20:00 Temperature 98.5 F Pulse Rate 76 62 62 Respiratory Rate 16 Blood Pressure 142/65 H Pulse Oximetry 96 07/22/18 21:00 07/22/18 21:05 07/22/18 21:47 Temperature Pulse Rate 57 L Respiratory Rate 17 Blood Pressure Pulse Oximetry 93 L 07/22/18 22:00 07/22/18 23:00 07/23/18 00:00 Temperature Pulse Rate 58 L 59 L 88 Respiratory Rate 17 Blood Pressure 113/64 Pulse Oximetry 95 07/23/18 01:00 07/23/18 02:00 07/23/18 03:00 Temperature 98.4 F Pulse Rate 56 L 55 L 53 L Respiratory Rate 17 Blood Pressure Pulse Oximetry 95 07/23/18 04:00 07/23/18 04:44 07/23/18 06:00 Temperature Pulse Rate 53 L 54 L 53 L Respiratory Rate Blood Pressure Pulse Oximetry 07/23/18 07:00 07/23/18 08:00 07/23/18 09:00 Temperature 97.9 F Pulse Rate 70 72 78 Respiratory Rate 16 Blood Pressure 110/67 Pulse Oximetry 96 07/23/18 10:00 07/23/18 10:55 Temperature Pulse Rate 74 68 Respiratory Rate Blood Pressure Pulse Oximetry GENERAL: A&O x 3 SKIN: Warm and dry. prevena dressing to chest , incision intact to left leg HEAD: Normocephalic. EYES: No scleral icterus. No injection or drainage. NECK: Supple, trachea midline. No JVD or lymphadenopathy. CARDIOVASCULAR: Regular rate and rhythm without murmurs, gallops, or rubs. RESPIRATORY: Breath sounds equal bilaterally. No accessory muscle use. GASTROINTESTINAL: Abdomen soft, non-tender, nondistended. MUSCULOSKELETAL: No cyanosis, or edema. BACK: Nontender without obvious deformity. No CVA tenderness. Labs: Laboratory Results - last 12 hr 07/23/18 07/23/18 07/23/18 04:53 04:53 07:56 WBC 8.0 RBC 3.26 L Hgb 9.0 L Hct 28.7 L MCV 88.0 MCH 27.6 MCHC 31.4 L RDW 19.3 H Plt Count 502 H MPV 8.4 Neut % (Auto) 68.9 Lymph % (Auto) 25.9 [place] % (Auto) 4.7 Eos % (Auto) 0.1 Baso % (Auto) 0.4 Neut # (Auto) 5.5 Lymph # (Auto) 2.1 [place] # (Auto) 0.4 Eos # (Auto) 0.0 Baso # (Auto) 0.0 WBC Differential . Differential Comment Auto diff final Sodium 140 Potassium 4.4 Chloride 101 Carbon Dioxide 33.7 H Anion Gap 5 BUN 22 H Creatinine 0.88 Estimated GFR 80 L POC Glucose 143 H Random Glucose 137 H Calcium 9.3 07/23/18 11:31 WBC RBC Hgb Hct MCV MCH MCHC RDW Plt Count MPV Neut % (Auto) Lymph % (Auto) [place] % (Auto) Eos % (Auto) Baso % (Auto) Neut # (Auto) Lymph # (Auto) [place] # (Auto) Eos # (Auto) Baso # (Auto) WBC Differential Differential Comment Sodium Potassium Chloride Carbon Dioxide Anion Gap BUN Creatinine Estimated GFR POC Glucose 116 H Random Glucose Calcium Result Diagrams: 07/23/18 04:53 07/23/18 04:53 - Plan (1) Congestive heart failure Plan: continue daily diuresis (3) Chest pain (5) CAD (coronary artery disease) Plan: on ASA, statin , BB carotid US: unremarkable tentatively scheduled for surgery on Mon07/18/18 (6) S/P CABG x 3 Plan: Neuro: home meds for Bipolar dz and seizure disorder Resp: nebs ezpap [place] wean o2 dc IV steroids , symbicort CV: on amiodarone, ASA, BB statin change to po daily lasix GI: motility meds, heart healthy diet OOB/ PT /OT eval for inpt rehab at discharge ok to dc from [facility] standpoint (1) Congestive heart failure Qualifiers: Heart failure type: unspecified Heart failure chronicity: acute on chronic Qualified Code(s): I50.9 - Heart failure, unspecified (3) Chest pain Qualifiers: Chest pain type: chest pain due to myocardial ischemia Ischemic chest pain type: unstable angina pectoris Qualified Code(s): I20.0 - Unstable angina
--- NOTE | 2018-07-23 16:33 | P.DS ---
DS: Providers Date of admission: 07/10/18 00:13 Primary care physician: UNKNOWN Consults: 07/10/18 00:50 Consult to Cardiology Routine Consulting Provider: Vlad Boland Does the patient have a Military Pay Clerk who follows them?: Yes Preferred Primary School Teacher Librarian:: Vlad Boland Reason for Consultation: ECG changes suspicious for ischemia with Chest pain , d/w him by phone in ED at 00:50AM Spoke with:: adding to Dr Boland's list - call in Am Date Notified:: 07/10/18 Time Notified:: 01:36 Comments:: Dr Boland is aware - ML Ordering Provider: RADHA 07/10/18 11:35 Consult to Hospitalist Routine Consulting Provider: Mauricio Starkey Reason for Consultation: cad, dm Notified:: Service Spoke with:: Sherin Date Notified:: 07/10/18 Time Notified:: 11:44 Ordering Provider: RADHA 07/10/18 11:37 Consult to Cardiothoracic Surgery Stat Consulting Provider: Buck Hilton For STAT consult, spoke directly to:: bukc valdivia Preferred Crepe Machine Operator:: Buck Hilton Patient known to:: Buck Hilton Reason for Consultation: nstemi, cad, chf, dm Notified:: Physician Spoke with:: Dr.S HILTON Date Notified:: 07/10/18 Time Notified:: 11:47 Ordering Provider: RADHA 07/10/18 11:42 Consult to Hematology Routine Consulting Provider: Justin Cheng Reason for Consultation: anemia, preop cabg Notified:: Service Spoke with:: PUNEET Date Notified:: 07/10/18 Time Notified:: 11:50 Ordering Provider: RADHA 07/12/18 09:13 Consult to Urology Routine Consulting Provider: Angel Pires Reason for Consultation: Hematuria, anemia Notified:: Office Spoke with:: anita Date Notified:: 07/12/18 Time Notified:: 09:19 Ordering Provider: JENNIFER 07/14/18 10:15 Consult to Infectious Diseases Routine Consulting Provider: Gris Boland Reason for Consultation: Patient to have CABG on Monday and urine with ESBL e coli Notified:: Service Spoke with:: Sherin Date Notified:: 07/14/18 Time Notified:: 10:34 Ordering Provider: JENNIFER Brief History from admission: 58-year-old female with a past medical history significant for previous CVA, diabetes mellitus, hypertension, hyperlipidemia, coronary artery disease and schizophrenia/bipolar disorder presents to the emergency department for the evaluation of chest pain/pressure. The patient reports that at 8 PM last night she began to feel as if someone was hitting her in the chest. She endorses accompanying shortness of breath. Positive nausea with abdominal pain. No emesis. When EMS arrived on scene the patient had conversational dyspnea and an oxygen saturation of 78% on room air. She was placed on BiPAP. No fever/ chills. No focal neurologic deficits. EKG with sinus tachycardia with ST segment depression in multiple leads including 1, 2, aVF, V3-V6. DS: Diagnosis Discharge Diagnosis (1) NSTEMI (non-ST elevated myocardial infarction): Status: Acute (2) CAD (coronary artery disease): Status: Acute (3) S/P CABG x 3: Status: Acute DS: Summary Ms. Schmidt is an AA female with a history of previous CVA, diabetes mellitus, hypertension, hyperlipidemia, coronary artery disease and schizophrenia/bipolar disorder presents to the emergency department for the evaluation of chest pain/ pressure on 07/10/2018. Troponins were elevated, Cardiology performed cath which showed severe 3 vessel disease. Non-ST elevation IA Multivessel CAD on Cath on 07/10/2018. Hypertension Hyperlipidemia -s/p CABG. -Currently on Aspirin 81mg, Amiodarone 200mg Q12H (for two weeks), metoprolol 25mg BID. -Continue Hydralazine 50mg TID. -Currently on IV Lasix 40mg BID. We can likely switch to PO. -Patient is on pravastatin 80 mg nightly. Will consider switching to Lipitor 40 mg nightly. Diabetes mellitus Redness of Blood glucose currently well controlled. -Sliding scale insulin. Goal BG 140-180. -continue home meds upon discharge. ESBL E coli UTI/hematuria -continue IV ertapenem per ID X 14 days starting 07/14/2018, Last dose 2018. COPD Continue Symbicort, supplemental oxygen, Solu-Medrol We can likely discontinue Solu-Medrol. DVT prophylaxis: Bilateral SCDs. Overall, patient is doing well. Discussed with CV surgery. Patient has been accepted at [facility]. Once insurance approval is obtained, patient can be discharged. Time Spent with Patient Total time spent providing and/or coordinating discharge services: Quality: VTE Deep Vein Thrombosis/Pulmonary Embolism Present on Admission: No Exam Narrative Exam Narrative: GENERAL: Alert, NAD. SKIN: Warm and dry. HEAD: Normocephalic. EYES: No scleral icterus. No injection or drainage. NECK: Supple, trachea midline. No JVD or lymphadenopathy. CARDIOVASCULAR: Regular rate and rhythm without murmurs, gallops, or rubs. Sternal prevana dressing in place. RESPIRATORY: Breath sounds equal bilaterally. No accessory muscle use. GASTROINTESTINAL: Abdomen soft, non-tender, nondistended. MUSCULOSKELETAL: No cyanosis, or edema. BACK: Nontender without obvious deformity. No CVA tenderness. Results Labs on day of discharge: Labs from last 24 hours 07/23/18 07/23/18 07/23/18 15:51 11:31 07:56 WBC RBC Hgb Hct MCV MCH MCHC RDW Plt Count MPV Neut % (Auto) Lymph % (Auto) Clare % (Auto) Eos % (Auto) Baso % (Auto) Neut # (Auto) Lymph # (Auto) Clare # (Auto) Eos # (Auto) Baso # (Auto) WBC Differential Differential Comment Sodium Potassium Chloride Carbon Dioxide Anion Gap BUN Creatinine Estimated GFR POC Glucose 169 H 116 H 143 H Random Glucose Calcium 07/23/18 07/23/18 07/22/18 04:53 04:53 20:33 WBC 8.0 RBC 3.26 L Hgb 9.0 L Hct 28.7 L MCV 88.0 MCH 27.6 MCHC 31.4 L RDW 19.3 H Plt Count 502 H MPV 8.4 Neut % (Auto) 68.9 Lymph % (Auto) 25.9 Clare % (Auto) 4.7 Eos % (Auto) 0.1 Baso % (Auto) 0.4 Neut # (Auto) 5.5 Lymph # (Auto) 2.1 Clare # (Auto) 0.4 Eos # (Auto) 0.0 Baso # (Auto) 0.0 WBC Differential . Differential Comment Auto diff final Sodium 140 Potassium 4.4 Chloride 101 Carbon Dioxide 33.7 H Anion Gap 5 BUN 22 H Creatinine 0.88 Estimated GFR 80 L POC Glucose 163 H Random Glucose 137 H Calcium 9.3 07/22/18 16:41 WBC RBC Hgb Hct MCV MCH MCHC RDW Plt Count MPV Neut % (Auto) Lymph % (Auto) Clare % (Auto) Eos % (Auto) Baso % (Auto) Neut # (Auto) Lymph # (Auto) Clare # (Auto) Eos # (Auto) Baso # (Auto) WBC Differential Differential Comment Sodium Potassium Chloride Carbon Dioxide Anion Gap BUN Creatinine Estimated GFR POC Glucose 169 H Random Glucose Calcium Impressions ITS Impressions Carotid Doppler Study 07/10/18 00:00 CONCLUSION: 1. Right Internal Carotid Artery: No significant stenosis or atherosclerotic plaque is visualized. 2. Left Internal Carotid Artery: No significant stenosis or atherosclerotic plaque is visualized. Lower Extremity Ultrasound 07/11/18 11:28 CONCLUSION: 1. Venous mapping as above. Venous Doppler Study 07/11/18 11:28 CONCLUSION: 1. No evidence of DVT. Chest X-Ray 07/19/18 05:00 CONCLUSION: Left lower lobe atelectasis or consolidation. This appears improved from the prior exam. Status post sternotomy. The heart size is enlarged. Discharge Plan Discharge Disposition Patient Disposition: 62 Rehab Inpatient Discharge Condition Condition: Good Discharge Order Discharge Orders: Discharge Order (Routine); Ordered 07/23/18 Ordered By: Larry Villela Discharge Details Anticipated Discharge Date: 07/23/18 Discharge Comment: Discharge to [facility] once insurance approval obtained. Physicians Team Primary Care Provider: UNKNOWN, Attending Provider: Larry Villela Other Providers: Buck Hilton ; Justin Cheng ; Vlad Boland ; Angel Pires ; Gris Boland Rxs /Orders / Referrals /Forms Prescriptions: New ertapenem [Invanz] 1 gram recon soln 1 g IV DAILY Qty: 4 RF: 0 furosemide 40 mg Tablet 40 mg PO DAILY Qty: 30 RF: 3 polyethylene glycol 3350 17 gram Powder In Packet 17 gm PO DAILY Qty: 30 RF: 0 amiodarone 200 mg Tablet 200 mg PO Q12HR Qty: 28 RF: 0 alprazolam [Xanax] 0.25 mg Tablet 0.25 mg PO Q6H PRN (Reason: FOR ANXIETY) Qty: 30 RF: 0 pravastatin 80 mg Tablet 80 mg PO HS Qty: 30 RF: 3 pantoprazole 40 mg Tablet,Delayed Release (Dr/Ec) 40 mg PO DAILY@06 Qty: 30 RF: 0 aspirin 81 mg Tablet,Chewable 81 mg PO DAILY Qty: 90 RF: 0 metoprolol tartrate 25 mg Tablet 25 mg PO BID Qty: 60 RF: 3 budesonide-formoterol [Symbicort] 80-4.5 mcg/actuation Hfa Aerosol Inhaler 1 puff INH BID 30 Days Qty: 30 RF: 0 Continue sennosides [Senna Laxative] 8.6 mg Tablet 8.6 mg PO DAILY PRN (Reason: Constipation) RF: 0 doxepin 25 mg Capsule 25 mg PO HS RF: 0 metformin 1,000 mg Tablet 1,000 mg PO BID RF: 0 divalproex 500 mg Tablet Extended Release 24 Hr 1,000 mg PO BID RF: 0 docusate sodium 100 mg Capsule 100 mg PO BID RF: 0 gabapentin 300 mg Capsule 300 mg PO TID RF: 0 hydralazine 50 mg Tablet 50 mg PO TID RF: 0 fluphenazine HCl 5 mg Tablet 10 mg PO HS RF: 0 linagliptin [Tradjenta] 5 mg Tablet 5 mg PO DAILY RF: 0 levothyroxine 25 mcg Tablet 25 mcg PO DAILY@0600 RF: 0 albuterol sulfate 90 mcg/actuation Hfa Aerosol Inhaler 1 puff INHALATION Q6H PRN (Reason: sob) Qty: 1 RF: 0 Discontinued metoprolol tartrate 100 mg Tablet 100 mg PO BID RF: 0 enalapril maleate 20 mg Tablet 20 mg PO BID RF: 0 lorazepam 1 mg Tablet 1 mg PO DAILY RF: 0 simvastatin 40 mg Tablet 40 mg PO HS RF: 0 Ambulatory Orders / Order Sets / DME: Basic Metabolic Panel (Routine) Timeframe: 2 Weeks Location: Determined by Patient Ordered By: Heavenly Borrego Complete Blood Count NO Diff (Routine) Timeframe: 2 Weeks Location: Determined by Patient Ordered By: Heavenly Borrego XR chest 2V PA&LAT (Routine) Timeframe: 2 Weeks Location: Determined by Patient Ordered By: Heavenly Borrego Referrals: Vlad Boland MD [Physician] - See Instructions (Dr Boland has walk in hours of M-Thurs from 7:30-11:30 am. Please be sure to be seen within 4 weeks of discharge.) Pushpa Bush [Non-Staff] - See Instructions (Your case advocate, Michelle Finnegan will schedule your follow up. Please be sure to be seen within 2 weeks of discharge.) Heavenly Borrego [ADVANCE RN PRACTITIONER] - See Instructions ( Your appointment has been scheduled for [08/09/18] at [11:00 AM] If you cannot make this appointment, please call the office to reschedule ) Discharge Instructions Patient Printed Instructions: Heart Healthy Diet (DC), Using Oxygen at Home (DC ), Acute Wound Care (DC), Sternal Precautions (GEN), Heart Catheterization (DC) , CABG (Coronary Artery Bypass Graft) (DC) Additional Instructions: PREVENA Single Use Negative Wound Therapy System Caregiver Instruction Sheet 1. A Prevena dressing system was applied to the chest incision during surgery , to promote wound healing. It works via a suction device (negative pressure wound therapy) to remove low to moderate levels of exudate (drainage) and infectious materials. We recommend that the device stay in place for up to seven days, from day of surgery. 2. Day of Surgery__07/18/18 Day of Removal __07/25/18 3. The dressing should only be removed by a health director of home care hospice. Please arrange removal of device to coincide with Home Health visit and or with Nursing staff at Rehab 4. If skin reddening or irritation of skin occurs, or excessive drainage, please notify the Cardiovascular Surgeons office at [phone]. 5. Light showering is permissible; however the pump should be disconnected and placed in safe location, where it will not get wet. The dressing should not be exposed to direct spray or submerged in water. No bath tub / shower only. Ensure the end of the tubing attached to the dressing is facing down so that water does not enter the top of the tube. 6. To remove Prevena dressing: press purple button to turn off device / remove the suction. Then disconnect the tubing from the pump. The fixation strips should be stretched away from the skin and the dressing lifted at one corner and peeled back until it has been fully removed. 7. After removal, it is ok to shower daily using liquid dial soap and clean wash cloth, rinse and pat dry, and leave incision open to air dry. For any concerns regarding Prevena dressing, and or wounds, please contact Marimar Guadarrama, patient navigator at [phone] or notify the Cardiovascular Surgeons office at [phone]. Incentive spirometry Q1 hr x 10, while awake, also use acapella device hourly whole awake Sternal Breast Bone Precautions: NO pushing or pulling, ( pt must use sternal pillow to support chest with all activities and with coughing ( takes up to 3 months breast bone to heal ) All females to wear sternal bra , launder as needed Daily incision care: ok to shower daily, no tub bath. Wash all incisions with liquid dial soap, clean wash cloth to each site, rinse and pat dry. Observe for any signs of infection, such as drainage which is dark yellow, koo, green or foul smelling. Immediately report to the surgeon any drainage from the chest incision, or legs, and for any abnormal drainage from the chest tube sites. Notify surgeon if any temp >101.5 degrees F. When specialty dressing removed/ or if you do not have one, continue to shower daily as above, then rinse and pat incision dry and paint with betadine daily x 5 days. Allow steri strips to fall off if you have any. Avoid lotions, creams, salves, oils, etc. for the first month Please see attached forms for additional instructions regarding post Open Heart specialty wound vacuum dressings. DIMITRIOS or Prevena , Dressing to be removed by Nursing staff on __07/25/[address] Tirado patients , please obtain CBC, BMP, PA & Lat CXR in 2 weeks, results to Dr. Tirado ( prescription will be given) ( ) (Tele: [phone]) F/U appointment: as per DC instructions: PCP in 2 weeks, CV surgeon 2 weeks, Military Pay Clerk 3-4 weeks For any questions regarding incisions/ dressing / meds / post op care or above Symptoms, Monday 8am-5pm Heart & Vascular Surgery Office ( Dr. Hilton & Dr. Tirado), After Hours / Nights (5pm -8am) Weekends and Holidays Please call [facility] Card[facility] ([facility]) Charge Nurse Status ED Status: Left Department
[2018-07-24] MEDS: Polyethylene Glycol 3350 17 GM Packet PO SCH (08:18)
[2018-07-24] MEDS: Furosemide 40 MG Tablet PO SCH (08:19)
[2018-07-24] MEDS: Multivitamin/Minerals Therapeutic Tablet PO SCH (08:19)
[2018-07-24] MEDS: Metoprolol Tartrate 25 MG Tablet PO SCH ×2 (08:19→21:37)
[2018-07-24] MEDS: Amiodarone 200 MG Tablet PO SCH ×2 (08:19→21:37)
[2018-07-24] MEDS: Gabapentin 300 MG Capsule PO SCH ×3 (08:19→17:48)
[2018-07-24] MEDS: Divalproex 500 MG ER Tablet PO SCH ×2 (08:19→21:37)
[2018-07-24] MEDS: Senna/Docusate Sodium 8.6/50 MG Tablet PO SCH ×2 (08:20→21:38)
[2018-07-24] MEDS: Mupirocin 2% Nasal Oint Topical Syringe EACH NARE SCH ×2 (08:20→21:37)
[2018-07-24] MEDS: hydrALAZINE 50 MG Tablet PO SCH (08:20)
[2018-07-24] MEDS: Docusate Sodium 100 MG Capsule PO SCH ×2 (08:20→21:37)
[2018-07-24] MEDS: Insulin NovoLOG Aspart Correctional Sugar Inj SQ SCH ×4 (08:20→21:38)
[2018-07-24] MEDS: Budesonide-Formoterol 80/4.5 MCG 6.9 GM Inhaler INH SCH ×2 (08:21→21:38)
[2018-07-24] MEDS: hydrALAZINE 25 MG Tablet PO SCH ×2 (15:55→17:49)
--- NOTE | 2018-07-24 15:56 | P.PNIM ---
Subjective Interval history: Reports that she is not having any shortness of breath. Pain around the surgical site in her chest. Working with physical therapy. Physical Exam Vital signs: Last Vital Signs Temp 97.9 F 07/24/18 11:23 Pulse 80 07/24/18 15:00 Resp 16 07/24/18 12:23 BP 108/64 07/24/18 11:23 Pulse Ox 94 L 07/24/18 11:24 Intake & Output 07/22/18 07/23/18 07/24/18 07/25/18 06:59 06:59 06:59 06:59 Intake Total 1800 / 1800 1615 / 1615 2100 / 2100 Output Total 2700 / 2700 3180 / 3180 3550 / 3550 Balance -900 / -900 -1565 / -1565 -1450 / -1450 Weight 95.4 kg 95.4 kg 95 kg Narrative: Well-nourished well-developed female no acute distress Chest wall VAC bandages in place Cardiovascular regular rate and rhythm Lungs clear to auscultation Abdomen soft nontender Alert oriented x3 and moves all 4 extremities Urinary Catheter Management Indwelling Urethral Catheter: Cath placed during this visit: yes, but has since been removed by the nurse Insertion date: 07/09/18 Insertion time: 22:50 Removal date: 07/12/18 Removal time: 17:25 Indwelling Temp Sensing Catheter: Cath placed during this visit: yes, but has since been removed by the nurse Insertion date: 07/18/18 Insertion time: 09:40 Removal date: 07/19/18 Removal time: 05:30 Results Labs CBC & Chem 7: 07/23/18 04:53 07/23/18 04:53 Assessment and Plan (1) NSTEMI (non-ST elevated myocardial infarction): Code(s): I21.4 - Non-ST elevation (NSTEMI) myocardial infarction Status: Acute (2) CAD (coronary artery disease): Code(s): I25.10 - Atherosclerotic heart disease of [place] coronary artery without angina pectoris Status: Acute (3) S/P CABG x 3: Code(s): Z95.1 - Presence of aortocoronary bypass graft Status: Acute Plan Ms. Schmidt is an AA female with a history of previous CVA, diabetes mellitus, hypertension, hyperlipidemia, coronary artery disease and schizophrenia/bipolar disorder presents to the emergency department for the evaluation of chest pain/ pressure on 07/10/2018. Troponins were elevated, Cardiology performed cath which showed severe 3 vessel disease. Non-ST elevation HI Multivessel CAD on Cath on 07/10/2018. Hypertension Hyperlipidemia -s/p CABG. -Currently on Aspirin 81mg, Amiodarone 200mg Q12, metoprolol 25mg BID. -Continue Hydralazine 25 mg TID. -Lasix 40 minutes p.o. daily with potassium supplement -Patient is on pravastatin 80 mg nightly. Will consider switching to Lipitor 40 mg nightly. Diabetes mellitus, [id number], overall controlled Monitor blood glucose currently -Sliding scale insulin. Goal BG 140-180. ESBL E coli UTI/hematuria -continue IV ertapenem per ID X 14 days starting 07/14/2018 with last dose on July 27, 2018. COPD, chronic Continue Symbicort, supplemental oxygen DVT prophylaxis: Bilateral SCDs. Patient has been declined admissions to by [facility], looking to nursing home facility, if not able to be placed will need to get stronger for home health care with physical therapy/nursing for discharge planning. Progress Note: Quality VTE Deep Vein Thrombosis/Pulmonary Embolism Present on Admission: No _ (1) CAD (coronary artery disease) Qualifiers: Coronary Disease-Associated Artery/Lesion type: [place] vs. transplanted heart: Associated angina:
--- NOTE | 2018-07-24 17:08 | P.PNCV ---
- Note Subjective/Hospital Course: pt seen and evaluated, full consult to follow sts risk score discussed with pt RISK SCORES Procedure: Isolated CAB CALCULATE Risk of Mortality: 1.346% Renal Failure: 2.414% Permanent Stroke: 2.147% Prolonged Ventilation: 8.884% DSW Infection: 0.314% Reoperation: 1.314% Morbidity or Mortality: 13.290% Short Length of Stay: 30.625% Long Length of Stay: 5.978% HISTORY OF PRESENT ILLNESS: 58-year-old female who has recently been in the hospital in May for heart failure, questionable pneumonia, bilateral effusions, was placed on some IV diuretics then was discharged home, received some IV antibiotics. She presented again to the emergency department 2017 with shortness of breath, left-sided chest pain. Troponin was 2.0, she was ruled in for a non-STEMI, decompensated congestive heart failure, coronary artery disease. She underwent cardiac catheterization on 07/10/[address] Boland which showed an ejection fraction of 60%. There was mid distal LAD lesion, 90%, the left circumflex had 90%, 95%posterior lateral and the middle, posterior lateral had a 70% to 80% stenosis. We were consulted to evaluate for coronary artery bypass grafting. The patient was also found to have some anemia, normocytic has been evaluated by hematology. She has received 2 units of packed RBCs. Hemoglobin is now 10. She has some low iron counts, probable chronic. Denies any blood in her stool. She is somewhat of a poor historian also. She now admitted to some blood in stool a couple of weeks ago PAST MEDICAL HISTORY: Includes iron deficiency, normocytic anemia, ? history of cerebrovascular accident in the past with no residual effects , diabetes mellitus, on oral medication, hypertension, hyperlipidemia, seizure disorder. She is unclear when her last seizure, bipolar disorder, schizophrenia. 07/12 pt still has gaines cath ? , now with hematuria, clots noted in tubing, pt states she noticed this after trying to have a BM earlier this am ( ? traumatic ) will check UA, Urology consulted per Hospitalist , off Heparin gtt since 07/10 Dr Tirado to eval cardiac cath films today 07/13 gaines cath dc yesterday, + UTI on ABX Carotid US : good vein mapping : fair no DVT lower ext tentatively scheduled for surgery on Mon07/18/18 will need daughter or POA to sign consent 07/16 pt for surgery in am Ecoli UTI, on Invanz / ID following daughters to speak with pt regarding of her mother 07/18 surgery - Preoperative Diagnosis (1) Congestive heart failure (2) NSTEMI (non-ST elevated myocardial infarction (3) CAD (coronary artery disease) Postoperative Diagnosis: same Date of procedure: 07/18/18 Procedure: CABG x 3 MUNIZ to LAD - poor SVG to OM - fair SVG to PLB - good EVH extubated after surgery crystalloid 2500cc, cell [id number] 07/19 doing well up in chair, painful on nasal cannula leave chest tube in pulm toileting OOB/ PT 07/20 extensive wheezing throughout all lung regalado some basilar crackles / add bid lasix, solumedrol/ symbicort eval for chest tube removal later today requires 1-2 person assistance increase BB f/u labs in am 07/21 Doing well Hemodynamic stable DC chest tubes today Discharge planning 07/22 Clinically stable Weaning O2 as tolerated Likely discharge tomorrow 07/23 still on 1-2 liters 02, check walk test eval for [facility] vs [facility] rehab change lasix to po, dc IV steroids stable to transfer to rehab from [facility] standpoint 07/24 turned down by [facility] and SNF placement re-eval for OT may need to go back to [facility] with C now on room air Objective: Vital Signs - 24 hr 07/23/18 18:00 07/23/18 19:00 07/23/18 19:15 Temperature Pulse Rate 69 61 Respiratory Rate 17 Blood Pressure Pulse Oximetry 96 07/23/18 20:00 07/23/18 21:00 07/23/18 21:13 Temperature Pulse Rate 61 61 Respiratory Rate 17 17 Blood Pressure 102/59 L Pulse Oximetry 98 07/23/18 22:00 07/23/18 23:00 07/24/18 00:00 Temperature 98.4 F Pulse Rate 56 L 57 L 57 L Respiratory Rate 18 Blood Pressure 90/51 L Pulse Oximetry 99 07/24/18 01:00 07/24/18 02:00 07/24/18 03:00 Temperature Pulse Rate 63 62 62 Respiratory Rate Blood Pressure Pulse Oximetry 07/24/18 03:32 07/24/18 04:00 07/24/18 04:50 Temperature Pulse Rate 62 63 62 Respiratory Rate 17 Blood Pressure 98/56 L Pulse Oximetry 97 96 07/24/18 07:00 07/24/18 07:54 07/24/18 08:00 Temperature 98.7 F Pulse Rate 71 88 Respiratory Rate 15 Blood Pressure 94/57 L Pulse Oximetry 98 100 07/24/18 08:17 07/24/18 09:00 07/24/18 10:00 Temperature Pulse Rate 84 79 Respiratory Rate 15 Blood Pressure Pulse Oximetry 07/24/18 11:00 07/24/18 11:23 07/24/18 11:24 Temperature 97.9 F Pulse Rate 74 78 Respiratory Rate 16 Blood Pressure 108/64 Pulse Oximetry 94 L 94 L 07/24/18 12:00 07/24/18 12:23 07/24/18 13:00 Temperature Pulse Rate 82 83 Respiratory Rate 16 Blood Pressure Pulse Oximetry 07/24/18 14:00 07/24/18 15:00 07/24/18 16:00 Temperature 98.4 F Pulse Rate 76 80 92 H Respiratory Rate 15 Blood Pressure 112/78 Pulse Oximetry 96 GENERAL: A&O x 3 SKIN: Warm and dry. prevena to chest , incision intact to left leg HEAD: Normocephalic. EYES: No scleral icterus. No injection or drainage. NECK: Supple, trachea midline. No JVD or lymphadenopathy. CARDIOVASCULAR: Regular rate and rhythm without murmurs, gallops, or rubs. some swelling to left leg RESPIRATORY: Breath sounds equal bilaterally. No accessory muscle use. GASTROINTESTINAL: Abdomen soft, non-tender, nondistended. MUSCULOSKELETAL: No cyanosis, or edema. BACK: Nontender without obvious deformity. No CVA tenderness. Labs: Laboratory Results - last 12 hr 07/24/18 07/24/18 07:40 11:54 POC Glucose 79 83 Result Diagrams: 07/23/18 04:53 07/23/18 04:53 Telemetry: NSr - Plan (1) Congestive heart failure Plan: continue daily diuresis (3) Chest pain (5) CAD (coronary artery disease) Plan: on ASA, statin , BB carotid US: unremarkable tentatively scheduled for surgery on Mon07/18/18 (6) S/P CABG x 3 Plan: Neuro: home meds for Bipolar dz and seizure disorder Resp: nebs ezpap acapella room air , symbicort CV: on amiodarone, ASA, BB statin po daily lasix GI: motility meds, heart healthy diet OOB/ PT /OT ok to dc from [facility] standpoint (1) Congestive heart failure Qualifiers: Heart failure type: unspecified Heart failure chronicity: acute on chronic Qualified Code(s): I50.9 - Heart failure, unspecified (3) Chest pain Qualifiers: Chest pain type: chest pain due to myocardial ischemia Ischemic chest pain type: unstable angina pectoris Qualified Code(s): I20.0 - Unstable angina
[2018-07-25] MEDS: Amiodarone 200 MG Tablet PO SCH (08:13)
[2018-07-25] MEDS: Gabapentin 300 MG Capsule PO SCH ×3 (08:13→17:00)
[2018-07-25] MEDS: Docusate Sodium 100 MG Capsule PO SCH (08:13)
[2018-07-25] MEDS: Furosemide 40 MG Tablet PO SCH (08:13)
[2018-07-25] MEDS: Polyethylene Glycol 3350 17 GM Packet PO SCH (08:13)
[2018-07-25] MEDS: Divalproex 500 MG ER Tablet PO SCH (08:13)
[2018-07-25] MEDS: Senna/Docusate Sodium 8.6/50 MG Tablet PO SCH (08:14)
[2018-07-25] MEDS: Metoprolol Tartrate 25 MG Tablet PO SCH (08:14)
[2018-07-25] MEDS: Multivitamin/Minerals Therapeutic Tablet PO SCH (08:14)
[2018-07-25] MEDS: hydrALAZINE 25 MG Tablet PO SCH ×3 (08:15→17:00)
[2018-07-25] MEDS: Insulin NovoLOG Aspart Correctional Sugar Inj SQ SCH ×4 (08:22→21:54)
[2018-07-25] MEDS: Mupirocin 2% Nasal Oint Topical Syringe EACH NARE SCH (08:25)
--- NOTE | 2018-07-25 08:59 | P.PNIM ---
Subjective Interval history: Patient says she is feeling all right. Reports chest pain no worse today. Denies any nausea or vomiting. Denies any dysuria currently Physical Exam Vital signs: Vital Signs 07/24/18 09:00 07/24/18 10:00 07/24/18 11:00 Temperature Pulse Rate 84 79 74 Respiratory Rate Blood Pressure Pulse Oximetry 07/24/18 11:23 07/24/18 11:24 07/24/18 12:00 Temperature 97.9 F Pulse Rate 78 82 Respiratory Rate 16 Blood Pressure 108/64 Pulse Oximetry 94 L 94 L 07/24/18 12:23 07/24/18 13:00 07/24/18 14:00 Temperature Pulse Rate 83 76 Respiratory Rate 16 Blood Pressure Pulse Oximetry 07/24/18 15:00 07/24/18 16:00 07/24/18 17:00 Temperature 98.4 F Pulse Rate 80 92 H 77 Respiratory Rate 15 Blood Pressure 112/78 Pulse Oximetry 96 07/24/18 17:23 07/24/18 17:24 07/24/18 18:00 Temperature Pulse Rate 79 Respiratory Rate 15 Blood Pressure 96/55 L Pulse Oximetry 07/24/18 19:00 07/24/18 20:00 07/24/18 21:00 Temperature 98.5 F Pulse Rate 71 74 75 Respiratory Rate 17 Blood Pressure 113/68 Pulse Oximetry 94 L 07/24/18 22:00 07/24/18 23:00 07/24/18 23:43 Temperature 98.4 F Pulse Rate 58 L 60 61 Respiratory Rate 18 Blood Pressure 104/58 L Pulse Oximetry 95 07/25/18 01:00 07/25/18 02:00 07/25/18 02:14 Temperature Pulse Rate 65 67 66 Respiratory Rate Blood Pressure Pulse Oximetry 07/25/18 03:29 07/25/18 04:00 07/25/18 05:00 Temperature Pulse Rate 68 73 75 Respiratory Rate 17 Blood Pressure 107/60 Pulse Oximetry 96 96 07/25/18 05:04 07/25/18 07:00 Temperature Pulse Rate 75 68 Respiratory Rate Blood Pressure Pulse Oximetry Intake & Output 07/24/18 07/25/18 07/25/18 18:59 06:59 18:59 Intake Total 100 / 100 600 / 600 Output Total 2400 / 2400 Balance 100 / 100 -1800 / -1800 Weight 95.5 kg Intake: IV 100 / 100 INVanz Inj 1,000 MG In NS Inj 100 / 100 100 ML @ 200 mls/hr IV.SIG Q24H [facility] Rx#:[id number] Oral 600 / 600 Output: Urine 2400 / 2400 Other: # Voids 7 Date of Last Bowel Movement 07/24/18 # Bowel Movements 1 Narrative: GENERAL: Patient sitting up in chair. Appears comfortable. SKIN: Warm and dry. HEAD: Normocephalic. EYES: No scleral icterus. No injection or drainage. NECK: Supple, trachea midline. No JVD CARDIOVASCULAR: Regular rate and rhythm without murmurs, gallops, or rubs. Chest dressing clean dry and intact. RESPIRATORY: Breath sounds equal bilaterally. No accessory muscle use. GASTROINTESTINAL: Abdomen soft, non-tender, nondistended. MUSCULOSKELETAL: No cyanosis, peripheral edema. BACK: Nontender without obvious deformity. No CVA tenderness. - Urinary Catheter Management Indwelling Urethral Catheter Cath placed during this visit: yes, but has since been removed by the nurse Reason for continuing: Decision to DC catheter Insertion date: 07/09/18 Insertion time: 22:50 Removal date: 07/12/18 Removal time: 17:25 Indwelling Temp Sensing Catheter Cath placed during this visit: yes, but has since been removed by the nurse Reason for continuing: Not indwelling catheter Insertion date: 07/18/18 Insertion time: 09:40 Removal date: 07/19/18 Removal time: 05:30 Results - Labs CBC & Chem 7: 07/23/18 04:53 07/23/18 04:53 Laboratory Results - last 24 hr 07/24/18 07/24/18 07/25/18 11:54 17:18 08:11 POC Glucose 83 158 H 131 H Assessment and Plan - Assessment (1) NSTEMI (non-ST elevated myocardial infarction) Code(s): I21.4 - Non-ST elevation (NSTEMI) myocardial infarction Status: Acute (2) CAD (coronary artery disease) Code(s): I25.10 - Atherosclerotic heart disease of [place] coronary artery without angina pectoris Status: Acute (3) S/P CABG x 3 Code(s): Z95.1 - Presence of aortocoronary bypass graft Status: Acute - Plan Ms. Schmidt is an AA female with a history of previous CVA, diabetes mellitus, hypertension, hyperlipidemia, coronary artery disease and schizophrenia/bipolar disorder presents to the emergency department for the evaluation of chest pain/ pressure on 07/10/2018. Troponins were elevated, Cardiology performed cath which showed severe 3 vessel disease. Non-ST elevation [place] Multivessel CAD on Cath on 07/10/2018. Hypertension Hyperlipidemia -s/p CABG. -Currently on Aspirin 81mg, Amiodarone 200mg Q12, metoprolol 25mg BID. -Continue Hydralazine 25 mg TID. -Lasix 40 minutes p.o. daily with potassium supplement -Patient is on pravastatin 80 mg nightly. Tinea pravastatin. This can be adjusted as outpatient if necessary. Diabetes mellitus, [id number], overall controlled Monitor blood glucose currently -Sliding scale insulin. Goal BG 140-180. ESBL E coli UTI/hematuria -continue IV ertapenem per ID X 14 days starting 07/14/2018 with last dose on July 27, 2018. COPD, chronic Continue Symbicort, supplemental oxygen DVT prophylaxis: Bilateral SCDs. Discussed Condition With: Patient, nurse. Discharge Planning: Patient has been declined admissions to by [facility], looking to halfway facility, if not able to be placed will need to get stronger for home health care with physical therapy/nursing for discharge planning. -Patient will need ertapenem to complete treatment course until 07/27
[2018-07-25] MEDS: Budesonide-Formoterol 80/4.5 MCG 6.9 GM Inhaler INH SCH (09:24)
--- NOTE | 2018-07-25 14:34 | P.PNCV ---
- Note Subjective/Hospital Course: pt seen and evaluated, full consult to follow sts risk score discussed with pt RISK SCORES Procedure: Isolated CAB CALCULATE Risk of Mortality: 1.346% Renal Failure: 2.414% Permanent Stroke: 2.147% Prolonged Ventilation: 8.884% DSW Infection: 0.314% Reoperation: 1.314% Morbidity or Mortality: 13.290% Short Length of Stay: 30.625% Long Length of Stay: 5.978% HISTORY OF PRESENT ILLNESS: 58-year-old female who has recently been in the hospital in May for heart failure, questionable pneumonia, bilateral effusions, was placed on some IV diuretics then was discharged home, received some IV antibiotics. She presented again to the emergency department 2017 with shortness of breath, left-sided chest pain. Troponin was 2.0, she was ruled in for a non-STEMI, decompensated congestive heart failure, coronary artery disease. She underwent cardiac catheterization on 07/10/[address] Boland which showed an ejection fraction of 60%. There was mid distal LAD lesion, 90%, the left circumflex had 90%, 95%posterior lateral and the middle, posterior lateral had a 70% to 80% stenosis. We were consulted to evaluate for coronary artery bypass grafting. The patient was also found to have some anemia, normocytic has been evaluated by hematology. She has received 2 units of packed RBCs. Hemoglobin is now 10. She has some low iron counts, probable chronic. Denies any blood in her stool. She is somewhat of a poor historian also. She now admitted to some blood in stool a couple of weeks ago PAST MEDICAL HISTORY: Includes iron deficiency, normocytic anemia, ? history of cerebrovascular accident in the past with no residual effects , diabetes mellitus, on oral medication, hypertension, hyperlipidemia, seizure disorder. She is unclear when her last seizure, bipolar disorder, schizophrenia. 07/12 pt still has gaines cath ? , now with hematuria, clots noted in tubing, pt states she noticed this after trying to have a BM earlier this am ( ? traumatic ) will check UA, Urology consulted per Hospitalist , off Heparin gtt since 07/10 Dr Tirado to eval cardiac cath films today 07/13 gaines cath dc yesterday, + UTI on ABX Carotid US : good vein mapping : fair no DVT lower ext tentatively scheduled for surgery on Mon07/18/18 will need daughter or POA to sign consent 07/16 pt for surgery in am Ecoli UTI, on Invanz / ID following daughters to speak with pt regarding of her mother 07/18 surgery - Preoperative Diagnosis (1) Congestive heart failure (2) NSTEMI (non-ST elevated myocardial infarction (3) CAD (coronary artery disease) Postoperative Diagnosis: same Date of procedure: 07/18/18 Procedure: CABG x 3 MUNIZ to LAD - poor SVG to OM - fair SVG to PLB - good EVH extubated after surgery crystalloid 2500cc, cell [id number] 07/19 doing well up in chair, painful on nasal cannula leave chest tube in pulm toileting OOB/ PT 07/20 extensive wheezing throughout all lung regalado some basilar crackles / add bid lasix, solumedrol/ symbicort eval for chest tube removal later today requires 1-2 person assistance increase BB f/u labs in am 07/21 Doing well Hemodynamic stable DC chest tubes today Discharge planning 07/22 Clinically stable Weaning O2 as tolerated Likely discharge tomorrow 07/23 still on 1-2 liters 02, check walk test eval for [facility] vs [facility] rehab change lasix to po, dc IV steroids stable to transfer to rehab from [facility] 07/24 turned down by [facility] and SNF placement re-eval for OT may need to go back to [facility] now on room air 07/25 re-eval for inpt SNF pending / OT note reviewed stable for dc from [facility] standpoint Objective: Vital Signs - 24 hr 07/24/18 15:00 07/24/18 16:00 07/24/18 17:00 Temperature 98.4 F Pulse Rate 80 92 H 77 Respiratory Rate 15 Blood Pressure 112/78 Pulse Oximetry 96 07/24/18 17:23 07/24/18 17:24 07/24/18 18:00 Temperature Pulse Rate 79 Respiratory Rate 15 Blood Pressure 96/55 L Pulse Oximetry 07/24/18 19:00 07/24/18 20:00 07/24/18 21:00 Temperature 98.5 F Pulse Rate 71 74 75 Respiratory Rate 17 Blood Pressure 113/68 Pulse Oximetry 94 L 07/24/18 22:00 07/24/18 23:00 07/24/18 23:43 Temperature 98.4 F Pulse Rate 58 L 60 61 Respiratory Rate 18 Blood Pressure 104/58 L Pulse Oximetry 95 07/25/18 01:00 07/25/18 02:00 07/25/18 02:14 Temperature Pulse Rate 65 67 66 Respiratory Rate Blood Pressure Pulse Oximetry 07/25/18 03:29 07/25/18 04:00 07/25/18 05:00 Temperature Pulse Rate 68 73 75 Respiratory Rate 17 Blood Pressure 107/60 Pulse Oximetry 96 96 07/25/18 05:04 07/25/18 07:00 07/25/18 08:00 Temperature 98.1 F Pulse Rate 75 68 84 Respiratory Rate 20 Blood Pressure 118/60 Pulse Oximetry 95 07/25/18 09:00 07/25/18 10:00 07/25/18 11:00 Temperature Pulse Rate 84 96 H 65 Respiratory Rate Blood Pressure Pulse Oximetry 07/25/18 12:00 07/25/18 13:00 07/25/18 14:03 Temperature 98.1 F Pulse Rate 78 68 Respiratory Rate 20 20 Blood Pressure 110/59 L Pulse Oximetry 97 GENERAL: A&O x 3 SKIN: Warm and dry. sternal incision intact and well approximated HEAD: Normocephalic. EYES: No scleral icterus. No injection or drainage. NECK: Supple, trachea midline. No JVD or lymphadenopathy. CARDIOVASCULAR: Regular rate and rhythm without murmurs, gallops, or rubs. RESPIRATORY: Breath sounds equal bilaterally. No accessory muscle use. GASTROINTESTINAL: Abdomen soft, non-tender, nondistended. MUSCULOSKELETAL: No cyanosis, mild swelling left leg BACK: Nontender without obvious deformity. No CVA tenderness. Labs: Laboratory Results - last 12 hr 07/25/18 07/25/18 08:11 12:11 POC Glucose 131 H 248 H Result Diagrams: 07/23/18 04:53 07/23/18 04:53 - Plan (1) Congestive heart failure Plan: continue daily diuresis (3) Chest pain (5) CAD (coronary artery disease) Plan: on ASA, statin , BB carotid US: unremarkable tentatively scheduled for surgery on Mon07/18/18 (6) S/P CABG x 3 Plan: Neuro: home meds for Bipolar dz and seizure disorder Resp: nebs ezpap acapella room air , symbicort CV: on amiodarone, ASA, BB statin po daily lasix GI: motility meds, heart healthy diet OOB/ PT /OT ok to dc from [facility] standpoint (1) Congestive heart failure Qualifiers: Heart failure type: unspecified Heart failure chronicity: acute on chronic Qualified Code(s): I50.9 - Heart failure, unspecified (3) Chest pain Qualifiers: Chest pain type: chest pain due to myocardial ischemia Ischemic chest pain type: unstable angina pectoris Qualified Code(s): I20.0 - Unstable angina
[2018-07-26] MEDS: Senna/Docusate Sodium 8.6/50 MG Tablet PO SCH ×3 (00:27→21:49)
[2018-07-26] MEDS: Divalproex 500 MG ER Tablet PO SCH ×3 (00:28→21:48)
[2018-07-26] MEDS: Amiodarone 200 MG Tablet PO SCH ×3 (00:28→21:48)
[2018-07-26] MEDS: Metoprolol Tartrate 25 MG Tablet PO SCH ×3 (00:29→21:48)
[2018-07-26] MEDS: Budesonide-Formoterol 80/4.5 MCG 6.9 GM Inhaler INH SCH ×2 (00:32→09:16)
[2018-07-26 03:06] LABS: Baso # (Auto) 0.1 th/mm3 (0.0-0.2); Baso % (Auto) 0.8 % (0.0-2.0); Eos # (Auto) 0.1 th/mm3 (0.0-0.4); Eos % (Auto) 1.4 % (0.0-4.0); Hematocrit 28.5 % (35.0-46.0); Hemoglobin 9.1 gm/dL (11.6-15.3); Lymph # (Auto) 2.6 th/mm3 (1.0-4.8); Lymph % (Auto) 27.6 % (9.0-44.0); Mean Corpuscular HGB Conc 31.8 % (32.0-36.0); Mean Corpuscular Hemoglobin 27.8 pg (27.0-34.0); Mean Corpuscular Volume 87.2 fL (80.0-100.0); Mean Platelet Volume 7.6 fL (7.0-11.0); Mono # (Auto) 0.7 th/mm3 (0.0-0.9); Mono % (Auto) 7.1 % (0.0-8.0); Neut % (Auto) 63.1 % (16.0-70.0); Platelet Count 547 th/mm3 (150-450); Red Blood Count 3.27 mil/mm3 (4.00-5.30); Red Cell Distribution Width 19.3 % (11.6-17.2); White Blood Count 9.4 th/mm3 (4.0-11.0)
[2018-07-26 03:26] LABS: Albumin 2.7 g/dL (3.4-5.0); Calcium 8.7 mg/dL (8.5-10.1); Magnesium 2.7 mg/dL (1.5-2.5); Phosphorus 4.6 mg/dL (2.5-4.9); Potassium 4.2 meq/L (3.5-5.1)
[2018-07-26 03:28] LABS: Total Protein 6.9 g/dL (6.4-8.2)
[2018-07-26] MEDS: Mupirocin 2% Nasal Oint Topical Syringe EACH NARE SCH ×3 (04:53→21:48)
[2018-07-26] MEDS: Docusate Sodium 100 MG Capsule PO SCH ×3 (04:53→21:48)
--- NOTE | 2018-07-26 07:53 | P.PNCA ---
Subjective Interval history: alert in nad Medications and Allergies Active Medications: Active Medications Acetaminophen (Tylenol) 650 mg PO Q4H PRN PRN Reason: pain/fever > 100.4 Last Admin: 07/13/18 17:12 Dose: 650 mg Al Hydroxide/Mg Hydroxide (Milk Of Magnesia Liq) 30 ml PO Q12H PRN PRN Reason: Mild Constipation Al Hydroxide/Mg Hydroxide (Milk Of Magnesia Liq) 30 ml PO DAILY [facility] Last Admin: 07/25/18 08:13 Dose: 30 ml Albuterol (Duoneb Neb (Prn)) 1 ampul NEB Q2HR NEB PRN PRN Reason: WHEEZING Last Admin: 07/23/18 16:20 Dose: 1 ampul Alprazolam (Xanax) 0.25 mg PO Q6H PRN PRN Reason: FOR ANXIETY Last Admin: 07/20/18 16:19 Dose: 0.25 mg Amiodarone HCl (Cordarone) 200 mg PO Q12HR [facility] Stop: 08/01/18 09:01 Last Admin: 07/26/18 00:28 Dose: 200 mg Aspirin (Aspirin Chew) 81 mg PO DAILY [facility] Last Admin: 07/25/18 08:14 Dose: 81 mg Bisacodyl (Dulcolax Supp) 10 mg RECTAL PRN PRN PRN Reason: SEE LABEL COMMENTS Budesonide/Formoterol Fumarate (Symbicort 80/4.5 Mcg Inh) 1 puff INH BID [facility] Last Admin: 07/26/18 00:32 Dose: 1 puff Dextrose (D50w Vial) 50 ml IV.PUSH UNSCH PRN PRN Reason: PER HYPOGLYCEMIA PROTOCOL Last Admin: 07/25/18 17:45 Dose: 50 ml Divalproex Sodium (Depakote Er) 1,000 mg PO BID [facility] Last Admin: 07/26/18 00:28 Dose: 1,000 mg Docusate Sodium (Colace) 100 mg PO BID [facility] Last Admin: 07/26/18 04:53 Dose: Not Given Doxepin HCl (Sinequan) 25 mg PO [facility] Last Admin: 07/26/18 00:29 Dose: 25 mg Fluphenazine HCl (Prolixin) 10 mg PO HS [facility] Last Admin: 07/26/18 00:29 Dose: 10 mg Furosemide (Lasix) 40 mg PO DAILY [facility] Stop: 08/06/18 09:01 Last Admin: 07/25/18 08:13 Dose: 40 mg Gabapentin (Neurontin) 300 mg PO TID [facility] Last Admin: 07/25/18 17:00 Dose: 300 mg Glucagon (Glucagon Inj) 1 mg OTHER PRN PRN PRN Reason: For hypoglycemia Hydralazine HCl (Apresoline) 25 mg PO TID [facility] Last Admin: 07/25/18 17:00 Dose: 25 mg Ertapenem 1,000 mg/ Sodium (Chloride) 100 mls @ 200 mls/hr IV.SIG Q24H [facility] Last Admin: 07/25/18 16:56 Dose: 100 mls/hr Insulin Aspart (Novolog Insulin Correctional Sugar Inj) 0 unit SQ ACHS [facility]; Protocol Last Admin: 07/25/18 21:54 Dose: Not Given Lactulose (Lactulose Liq) 30 ml PO DAILY PRN PRN Reason: SEVERE CONSITIPATION Levothyroxine Sodium (Synthroid) 25 mcg PO DAILY@0600 [facility] Last Admin: 07/25/18 05:01 Dose: 25 mcg Metoprolol Tartrate (Lopressor) 25 mg PO BID [facility] Last Admin: 07/26/18 00:29 Dose: 25 mg Multivitamins/Minerals (Theragran-M) 1 tab PO DAILY [facility] Last Admin: 07/25/18 08:14 Dose: 1 tab Mupirocin (Bactroban 2% Nasal Oint) 1 applicatio EACH NARE BID [facility] Last Admin: 07/26/18 04:53 Dose: Not Given Ondansetron HCl (Zofran Inj) 4 mg IV.PUSH Q6H PRN PRN Reason: NAUSEA OR VOMITING Oxycodone/Acetaminophen (Percocet 5/325 Mg) 1 tab PO Q3H PRN PRN Reason: PAIN SCALE 1 TO 5 Last Admin: 07/26/18 00:28 Dose: 1 tab Pantoprazole Sodium (Protonix) 40 mg PO DAILY@06 [facility] Last Admin: 07/25/18 05:01 Dose: 40 mg Polyethylene Glycol (Miralax) 17 gm PO DAILY [facility] Last Admin: 07/25/18 08:13 Dose: 17 gm Potassium Chloride (Klor-Con 10) 20 meq PO DAILY [facility] Last Admin: 07/25/18 08:14 Dose: 20 meq Pravastatin Sodium (Pravachol) 80 mg PO HS [facility] Last Admin: 07/26/18 00:28 Dose: 80 mg Senna/Docusate Sodium (Joycelyn-Colace) 1 tab PO BID [facility] Last Admin: 07/26/18 00:27 Dose: 1 tab Sennosides (Senokot) 8.6 mg PO [facility] Last Admin: 07/25/18 21:55 Dose: 8.6 mg Sodium Biphosphate/Sodium Phosphate (Fleets Enema (Adult)) 118 ml RECTAL UNSCH PRN PRN Reason: SEE LABEL COMMENTS Sodium Chloride (Ns Flush) 2 ml IV.FLUSH BID [facility] Last Admin: 07/25/18 21:54 Dose: 2 ml Sodium Chloride (Ns Flush) 2 ml IV.FLUSH PRN PRN PRN Reason: FLUSH AFTER USING IV ACCESS Last Admin: 07/19/18 13:48 Dose: 2 ml Allergies Allergy/AdvReac Type Severity Reaction Status Date / Time cat dander Allergy Mild Cough Verified 07/09/18 22:26 Penicillins Allergy Unknown Itching Verified 07/09/18 22:26 Sulfa (Sulfonamide AdvReac Mild Nausea/Vomi Verified 07/09/18 22:26 Antibiotics) ting trihexyphenidyl AdvReac Mild Nausea/Vomi Verified 07/09/18 22:26 ting Home Medications Medication Instructions Recorded Confirmed Type divalproex 1,000 mg PO BID 03/25/18 07/11/18 History docusate sodium 100 mg PO BID 03/25/18 07/11/18 History doxepin 25 mg PO 03/25/18 07/11/18 History fluphenazine HCl 10 mg PO 03/25/18 07/11/18 History gabapentin 300 mg PO TID 03/25/18 07/11/18 History hydralazine 50 mg PO TID 03/25/18 07/11/18 History linagliptin [Tradjenta] 5 mg PO DAILY 03/25/18 07/11/18 History metformin 1,000 mg PO BID 03/25/18 07/11/18 History sennosides [Senna Laxative] 8.6 mg PO DAILY PRN 03/25/18 07/11/18 History Physical Exam Vital signs: Vital Signs 07/25/18 08:00 07/25/18 09:00 07/25/18 10:00 Temperature 98.1 F Pulse Rate 84 84 96 H Respiratory Rate 20 Blood Pressure 118/60 Pulse Oximetry 95 07/25/18 11:00 07/25/18 12:00 07/25/18 13:00 Temperature 98.1 F Pulse Rate 65 78 68 Respiratory Rate 20 Blood Pressure 110/59 L Pulse Oximetry 97 07/25/18 14:00 07/25/18 14:03 07/25/18 15:00 Temperature Pulse Rate 60 73 Respiratory Rate 20 Blood Pressure Pulse Oximetry 07/25/18 16:00 07/25/18 17:02 07/25/18 17:56 Temperature 99.8 F H Pulse Rate 74 68 Respiratory Rate 18 Blood Pressure 116/56 L Pulse Oximetry 96 97 07/25/18 18:00 Temperature Pulse Rate 68 Respiratory Rate Blood Pressure Pulse Oximetry Intake & Output 07/25/18 07/26/18 07/26/18 18:59 06:59 18:59 Intake Total 960 / 960 Output Total 1800 / 1800 Balance -840 / -840 Weight 96 kg Intake: Oral 960 / 960 Output: Urine 1800 / 1800 - Constitutional no acute distress - Routine HEENT Exam Head: Present: normocephalic - Routine Neck Exam Present: supple - Routine Respiratory Exam Present: CTA bilaterally - Routine Cardiovascular Exam Present: S1, S2 - Routine Abdominal Exam Present: soft - Routine Extremities Exam Comments: no dannielle - Urinary Catheter Management Indwelling Urethral Catheter Cath placed during this visit: yes, but has since been removed by the nurse Reason for continuing: Decision to DC catheter Insertion date: 07/09/18 Insertion time: 22:50 Removal date: 07/12/18 Removal time: 17:25 Indwelling Temp Sensing Catheter Cath placed during this visit: yes, but has since been removed by the nurse Reason for continuing: Not indwelling catheter Insertion date: 07/18/18 Insertion time: 09:40 Removal date: 07/19/18 Removal time: 05:30 Results 07/26/18 02:45 07/26/18 02:45 Cardiac Enzymes 07/26/18 Range/Units 02:45 AST 15 (15-37) U/L CBC 07/26/18 Range/Units 02:45 WBC 9.4 (4.0-11.0) th/mm3 RBC 3.27 L (4.00-5.30) mil/mm3 Hgb 9.1 L (11.6-15.3) gm/dL Hct 28.5 L (35.0-46.0) % Plt Count 547 H (150-450) th/mm3 Neut # (Auto) 6.0 (1.8-7.7) th/mm3 Lymph # (Auto) 2.6 (1.0-4.8) th/mm3 [place] # (Auto) 0.7 (0.0-0.9) th/mm3 Eos # (Auto) 0.1 (0.0-0.4) th/mm3 Baso # (Auto) 0.1 (0.0-0.2) th/mm3 Comprehensive Metabolic Panel 07/26/18 Range/Units 02:45 Sodium 140 (136-145) meq/L Potassium 4.2 (3.5-5.1) meq/L Chloride 103 (98-107) meq/L Carbon Dioxide 34.0 H (21.0-32.0) meq/L BUN 16 (7-18) mg/dL Creatinine 0.99 (0.50-1.00) mg/dL Calcium 8.7 (8.5-10.1) mg/dL Direct Bilirubin 0.1 (0.0-0.2) mg/dL Indirect Bilirubin 0.1 (0.0-0.8) mg/dL AST 15 (15-37) U/L ALT 41 (10-53) U/L Alkaline Phosphatase 108 (45-117) U/L Total Protein 6.9 (6.4-8.2) g/dL Albumin 2.7 L (3.4-5.0) g/dL Intake and Output 07/25/18 07/26/18 07/26/18 22:59 06:59 14:59 Intake Total 960 / 960 Output Total 1550 / 1550 Balance -590 / -590 Intake: Oral 960 / 960 Output: Urine 1550 / 1550 Other: Weight 96 kg Assessment and Plan - Assessment (1) NSTEMI (non-ST elevated myocardial infarction) Code(s): I21.4 - Non-ST elevation (NSTEMI) myocardial infarction Status: Acute (2) CAD (coronary artery disease) Code(s): I25.10 - Atherosclerotic heart disease of [place] coronary artery without angina pectoris Status: Acute - Plan 1.) CAD - nstemi, assynmptomatic s/p transfusion, continue aspirin, lopressor, pravachol, ntp
--- NOTE | 2018-07-26 09:12 | P.PNIM ---
Subjective Interval history: Follow-up CAD. Patient has no complaints awaiting placement. Out of bed to chair Physical Exam Vital signs: Vital Signs 07/25/18 10:00 07/25/18 11:00 07/25/18 12:00 Temperature 98.1 F Pulse Rate 96 H 65 78 Respiratory Rate 20 Blood Pressure 110/59 L Pulse Oximetry 97 07/25/18 13:00 07/25/18 14:00 07/25/18 14:03 Temperature Pulse Rate 68 60 Respiratory Rate 20 Blood Pressure Pulse Oximetry 07/25/18 15:00 07/25/18 16:00 07/25/18 17:02 Temperature 99.8 F H Pulse Rate 73 74 Respiratory Rate 18 Blood Pressure 116/56 L Pulse Oximetry 96 97 07/25/18 17:56 07/25/18 18:00 07/25/18 19:00 Temperature Pulse Rate 68 68 79 Respiratory Rate Blood Pressure Pulse Oximetry 07/25/18 20:00 07/25/18 21:00 07/25/18 22:00 Temperature 98.8 F Pulse Rate 79 83 81 Respiratory Rate 18 Blood Pressure 114/56 L Pulse Oximetry 94 L 07/25/18 23:00 07/26/18 00:00 07/26/18 01:00 Temperature 97.9 F Pulse Rate 68 82 82 Respiratory Rate 20 Blood Pressure 101/70 Pulse Oximetry 95 07/26/18 02:00 07/26/18 03:00 07/26/18 04:00 Temperature 98.3 F Pulse Rate 76 69 91 H Respiratory Rate 20 Blood Pressure 116/56 L Pulse Oximetry 95 07/26/18 05:00 07/26/18 06:00 Temperature Pulse Rate 79 75 Respiratory Rate Blood Pressure Pulse Oximetry Intake & Output 07/25/18 07/26/18 07/26/18 18:59 06:59 18:59 Intake Total 960 / 960 400 / 400 Output Total 1800 / 1800 1600 / 1600 Balance -840 / -840 -1200 / -1200 Weight 96 kg Intake: Oral 960 / 960 400 / 400 Output: Urine 1800 / 1800 1600 / 1600 Other: # Voids 7 Date of Last Bowel Movement 07/24/18 # Incontinent Bowel Movements 0 Narrative: GENERAL: Patient sitting up in chair. Appears comfortable. SKIN: Warm and dry. CARDIOVASCULAR: Regular rate and rhythm without murmurs, gallops, or rubs. Chest dressing clean dry and intact. RESPIRATORY: Breath sounds equal bilaterally. No accessory muscle use. GASTROINTESTINAL: Abdomen soft, non-tender, nondistended. MUSCULOSKELETAL: No cyanosis, peripheral edema. BACK: Nontender without obvious deformity. No CVA tenderness. Urinary Catheter Management Indwelling Urethral Catheter: Cath placed during this visit: yes, but has since been removed by the nurse Reason for continuing: Decision to DC catheter Insertion date: 07/09/18 Insertion time: 22:50 Removal date: 07/12/18 Removal time: 17:25 Indwelling Temp Sensing Catheter: Cath placed during this visit: yes, but has since been removed by the nurse Reason for continuing: Not indwelling catheter Insertion date: 07/18/18 Insertion time: 09:40 Removal date: 07/19/18 Removal time: 05:30 Results Labs CBC & Chem 7: 07/26/18 02:45 07/26/18 02:45 Imaging Imaging: ITS Impressions Carotid Doppler Study 07/10/18 00:00 CONCLUSION: 1. Right Internal Carotid Artery: No significant stenosis or atherosclerotic plaque is visualized. 2. Left Internal Carotid Artery: No significant stenosis or atherosclerotic plaque is visualized. Lower Extremity Ultrasound 07/11/18 11:28 CONCLUSION: 1. Venous mapping as above. Venous Doppler Study 07/11/18 11:28 CONCLUSION: 1. No evidence of DVT. Chest X-Ray 07/19/18 05:00 CONCLUSION: Left lower lobe atelectasis or consolidation. This appears improved from the prior exam. Status post sternotomy. The heart size is enlarged. Procedures Procedures: Cardiac catheterization CABG Assessment and Plan (1) NSTEMI (non-ST elevated myocardial infarction): Code(s): I21.4 - Non-ST elevation (NSTEMI) myocardial infarction Status: Acute (2) CAD (coronary artery disease): Code(s): I25.10 - Atherosclerotic heart disease of [place] coronary artery without angina pectoris Status: Acute (3) S/P CABG x 3: Code(s): Z95.1 - Presence of aortocoronary bypass graft Status: Acute Plan Ms. Schmidt is an AA female with a history of previous CVA, diabetes mellitus, hypertension, hyperlipidemia, coronary artery disease and schizophrenia/bipolar disorder presents to the emergency department for the evaluation of chest pain/ pressure on 07/10/2018. Troponins were elevated, Cardiology performed cath which showed severe 3 vessel disease. Non-ST elevation GA Multivessel CAD on Cath on 07/10/2018. Hypertension Hyperlipidemia -s/p CABG. -Currently on Aspirin 81mg, Amiodarone 200mg Q12, metoprolol 25mg BID. -Continue Hydralazine 25 mg TID. -Lasix 40 minutes p.o. daily with potassium supplement -Patient is on pravastatin 80 mg nightly. Diabetes mellitus, [id number], overall controlled Monitor blood glucose currently -Sliding scale insulin. Goal BG 140-180. ESBL E coli UTI/hematuria -continue IV ertapenem per ID X 14 days starting 07/14/2018 with last dose on July 27, 2018. COPD, chronic Continue Symbicort, supplemental oxygen DVT prophylaxis: Bilateral SCDs. Early ambulation Patient has been declined admissions to by [facility] but accepted by [facility] awaiting authorization, if not able to be placed will need to get stronger for home health care with physical therapy/nursing for discharge planning. -Patient will need ertapenem to complete treatment course until 07/27 [employer] Prescription Drug Monitoring Database has been queried and verified prior to prescribing the controlled subsection. Patient is having significant pain caused by [CABG ] which will last more than 3 days. Trial of alternative treatment options other than prescribed opioids has not helped. I believe that it is medically necessary to treat the patients pain because it is affecting patients ability to do ADL Progress Note: Quality VTE Deep Vein Thrombosis/Pulmonary Embolism Present on Admission: No _ (1) CAD (coronary artery disease) Qualifiers: Associated angina: Coronary Disease-Associated Artery/Lesion type: [place] vs. transplanted heart:
[2018-07-26] MEDS: Polyethylene Glycol 3350 17 GM Packet PO SCH (09:14)
[2018-07-26] MEDS: Multivitamin/Minerals Therapeutic Tablet PO SCH (09:15)
[2018-07-26] MEDS: Furosemide 40 MG Tablet PO SCH (09:15)
[2018-07-26] MEDS: hydrALAZINE 25 MG Tablet PO SCH ×3 (09:15→19:20)
[2018-07-26] MEDS: Gabapentin 300 MG Capsule PO SCH ×3 (09:15→19:20)
[2018-07-26] MEDS: Insulin NovoLOG Aspart Correctional Sugar Inj SQ SCH ×4 (09:22→21:50)
--- NOTE | 2018-07-26 11:17 | P.PNCV ---
- Note Subjective/Hospital Course: pt seen and evaluated, full consult to follow sts risk score discussed with pt RISK SCORES Procedure: Isolated CAB CALCULATE Risk of Mortality: 1.346% Renal Failure: 2.414% Permanent Stroke: 2.147% Prolonged Ventilation: 8.884% DSW Infection: 0.314% Reoperation: 1.314% Morbidity or Mortality: 13.290% Short Length of Stay: 30.625% Long Length of Stay: 5.978% HISTORY OF PRESENT ILLNESS: 58-year-old female who has recently been in the hospital in May for heart failure, questionable pneumonia, bilateral effusions, was placed on some IV diuretics then was discharged home, received some IV antibiotics. She presented again to the emergency department 2017 with shortness of breath, left-sided chest pain. Troponin was 2.0, she was ruled in for a non-STEMI, decompensated congestive heart failure, coronary artery disease. She underwent cardiac catheterization on 07/10/[address] Boland which showed an ejection fraction of 60%. There was mid distal LAD lesion, 90%, the left circumflex had 90%, 95%posterior lateral and the middle, posterior lateral had a 70% to 80% stenosis. We were consulted to evaluate for coronary artery bypass grafting. The patient was also found to have some anemia, normocytic has been evaluated by hematology. She has received 2 units of packed RBCs. Hemoglobin is now 10. She has some low iron counts, probable chronic. Denies any blood in her stool. She is somewhat of a poor historian also. She now admitted to some blood in stool a couple of weeks ago PAST MEDICAL HISTORY: Includes iron deficiency, normocytic anemia, ? history of cerebrovascular accident in the past with no residual effects , diabetes mellitus, on oral medication, hypertension, hyperlipidemia, seizure disorder. She is unclear when her last seizure, bipolar disorder, schizophrenia. 07/12 pt still has gaines cath ? , now with hematuria, clots noted in tubing, pt states she noticed this after trying to have a BM earlier this am ( ? traumatic ) will check UA, Urology consulted per Hospitalist , off Heparin gtt since 07/10 Dr Tirado to eval cardiac cath films today 07/13 gaines cath dc yesterday, + UTI on ABX Carotid US : good vein mapping : fair no DVT lower ext tentatively scheduled for surgery on Mon07/18/18 will need daughter or POA to sign consent 07/16 pt for surgery in am Ecoli UTI, on Invanz / ID following daughters to speak with pt regarding of her mother 07/18 surgery - Preoperative Diagnosis (1) Congestive heart failure (2) NSTEMI (non-ST elevated myocardial infarction (3) CAD (coronary artery disease) Postoperative Diagnosis: same Date of procedure: 07/18/18 Procedure: CABG x 3 MUNIZ to LAD - poor SVG to OM - fair SVG to PLB - good EVH extubated after surgery crystalloid 2500cc, cell [id number] 07/19 doing well up in chair, painful on nasal cannula leave chest tube in pulm toileting OOB/ PT 07/20 extensive wheezing throughout all lung regalado some basilar crackles / add bid lasix, solumedrol/ symbicort eval for chest tube removal later today requires 1-2 person assistance increase BB f/u labs in am 07/21 Doing well Hemodynamic stable DC chest tubes today Discharge planning 07/22 Clinically stable Weaning O2 as tolerated Likely discharge tomorrow 07/23 still on 1-2 liters 02, check walk test eval for [place] [facility] vs [facility] rehab change lasix to po, dc IV steroids stable to transfer to rehab from [facility] standpoint 07/24 turned down by [place] [facility] and SNF placement re-eval for OT may need [place] [facility] [place] [facility] now on room air 07/25 re-eval for inpt SNF pending / OT note reviewed stable for dc from [facility] standpoint 07/26 still waiting on SNF placement prevena dressing removed, yesterday on room air , doing well Objective: Vital Signs - 24 hr 07/25/18 12:00 07/25/18 13:00 07/25/18 14:00 Temperature 98.1 F Pulse Rate 78 68 60 Respiratory Rate 20 Blood Pressure 110/59 L Pulse Oximetry 97 07/25/18 14:03 07/25/18 15:00 07/25/18 16:00 Temperature 99.8 F H Pulse Rate 73 74 Respiratory Rate 20 18 Blood Pressure 116/56 L Pulse Oximetry 96 07/25/18 17:02 07/25/18 17:56 07/25/18 18:00 Temperature Pulse Rate 68 68 Respiratory Rate Blood Pressure Pulse Oximetry 97 07/25/18 19:00 07/25/18 20:00 07/25/18 21:00 Temperature 98.8 F Pulse Rate 79 79 83 Respiratory Rate 18 Blood Pressure 114/56 L Pulse Oximetry 94 L 07/25/18 22:00 07/25/18 23:00 07/26/18 00:00 Temperature 97.9 F Pulse Rate 81 68 82 Respiratory Rate 20 Blood Pressure 101/70 Pulse Oximetry 95 07/26/18 01:00 07/26/18 02:00 07/26/18 03:00 Temperature Pulse Rate 82 76 69 Respiratory Rate Blood Pressure Pulse Oximetry 07/26/18 04:00 07/26/18 05:00 07/26/18 06:00 Temperature 98.3 F Pulse Rate 91 H 79 75 Respiratory Rate 20 Blood Pressure 116/56 L Pulse Oximetry 95 07/26/18 07:00 07/26/18 08:00 07/26/18 09:00 Temperature 97.7 F Pulse Rate 66 88 98 H Respiratory Rate 18 Blood Pressure 114/67 Pulse Oximetry 95 07/26/18 10:00 Temperature Pulse Rate 80 Respiratory Rate Blood Pressure Pulse Oximetry GENERAL: A&O x 3 SKIN: Warm and dry. sternal incision intact and well approximated , inciison intact to left leg , swelling improving HEAD: Normocephalic. EYES: No scleral icterus. No injection or drainage. NECK: Supple, trachea midline. No JVD or lymphadenopathy. CARDIOVASCULAR: Regular rate and rhythm without murmurs, gallops, or rubs. RESPIRATORY: Breath sounds equal bilaterally. No accessory muscle use. GASTROINTESTINAL: Abdomen soft, non-tender, nondistended. MUSCULOSKELETAL: No cyanosis, or edema. BACK: Nontender without obvious deformity. No CVA tenderness. Labs: Laboratory Results - last 12 hr 07/26/18 07/26/18 07/26/18 00:25 02:45 02:45 WBC 9.4 RBC 3.27 L Hgb 9.1 L Hct 28.5 L MCV 87.2 MCH 27.8 MCHC 31.8 L RDW 19.3 H Plt Count 547 H MPV 7.6 Neut % (Auto) 63.1 Lymph % (Auto) 27.6 [place] % (Auto) 7.1 Eos % (Auto) 1.4 Baso % (Auto) 0.8 Neut # (Auto) 6.0 Lymph # (Auto) 2.6 [place] # (Auto) 0.7 Eos # (Auto) 0.1 Baso # (Auto) 0.1 WBC Differential . Differential Comment Auto diff final Sodium 140 Potassium 4.2 Chloride 103 Carbon Dioxide 34.0 H Anion Gap 3 L BUN 16 Creatinine 0.99 Estimated GFR 70 L POC Glucose 106 Random Glucose 123 H Calcium 8.7 Phosphorus 4.6 Magnesium 2.7 H Total Bilirubin 0.2 Direct Bilirubin 0.1 Indirect Bilirubin 0.1 AST 15 ALT 41 Alkaline Phosphatase 108 Total Protein 6.9 Albumin 2.7 L 07/26/18 09:14 WBC RBC Hgb Hct MCV MCH MCHC RDW Plt Count MPV Neut % (Auto) Lymph % (Auto) [place] % (Auto) Eos % (Auto) Baso % (Auto) Neut # (Auto) Lymph # (Auto) [place] # (Auto) Eos # (Auto) Baso # (Auto) WBC Differential Differential Comment Sodium Potassium Chloride Carbon Dioxide Anion Gap BUN Creatinine Estimated GFR POC Glucose 211 H Random Glucose Calcium Phosphorus Magnesium Total Bilirubin Direct Bilirubin Indirect Bilirubin AST ALT Alkaline Phosphatase Total Protein Albumin Result Diagrams: 07/26/18 02:45 07/26/18 02:45 - Plan (1) Congestive heart failure Plan: continue daily diuresis (3) Chest pain (5) CAD (coronary artery disease) Plan: on ASA, statin , BB carotid US: unremarkable tentatively scheduled for surgery on Mon07/18/18 (6) S/P CABG x 3 Plan: Neuro: home meds for Bipolar dz and seizure disorder Resp: room air , symbicort CV: on amiodarone, ASA, BB statin po daily lasix GI: motility meds, heart healthy diet OOB/ PT /OT ok to dc from [facility] standpoint waiting on discharge disposition (1) Congestive heart failure Qualifiers: Heart failure type: unspecified Heart failure chronicity: acute on chronic Qualified Code(s): I50.9 - Heart failure, unspecified (3) Chest pain Qualifiers: Chest pain type: chest pain due to myocardial ischemia Ischemic chest pain type: unstable angina pectoris Qualified Code(s): I20.0 - Unstable angina
[2018-07-27] MEDS: Budesonide-Formoterol 80/4.5 MCG 6.9 GM Inhaler INH SCH ×2 (02:41→08:16)
[2018-07-27] MEDS: Furosemide 40 MG Tablet PO SCH (08:14)
[2018-07-27] MEDS: Senna/Docusate Sodium 8.6/50 MG Tablet PO SCH ×2 (08:14→20:58)
[2018-07-27] MEDS: Polyethylene Glycol 3350 17 GM Packet PO SCH (08:14)
[2018-07-27] MEDS: Divalproex 500 MG ER Tablet PO SCH ×2 (08:14→20:57)
[2018-07-27] MEDS: Gabapentin 300 MG Capsule PO SCH ×3 (08:14→17:58)
[2018-07-27] MEDS: Docusate Sodium 100 MG Capsule PO SCH ×2 (08:14→20:56)
[2018-07-27] MEDS: hydrALAZINE 25 MG Tablet PO SCH ×3 (08:14→17:58)
[2018-07-27] MEDS: Amiodarone 200 MG Tablet PO SCH ×2 (08:15→20:57)
[2018-07-27] MEDS: Metoprolol Tartrate 25 MG Tablet PO SCH ×2 (08:15→20:58)
[2018-07-27] MEDS: Mupirocin 2% Nasal Oint Topical Syringe EACH NARE SCH (08:15)
[2018-07-27] MEDS: Insulin NovoLOG Aspart Correctional Sugar Inj SQ SCH ×4 (08:15→23:18)
[2018-07-27] MEDS: Multivitamin/Minerals Therapeutic Tablet PO SCH (08:15)
--- NOTE | 2018-07-27 14:38 | P.PNCV ---
- Note Subjective/Hospital Course: pt seen and evaluated, full consult to follow sts risk score discussed with pt RISK SCORES Procedure: Isolated CAB CALCULATE Risk of Mortality: 1.346% Renal Failure: 2.414% Permanent Stroke: 2.147% Prolonged Ventilation: 8.884% DSW Infection: 0.314% Reoperation: 1.314% Morbidity or Mortality: 13.290% Short Length of Stay: 30.625% Long Length of Stay: 5.978% HISTORY OF PRESENT ILLNESS: 58-year-old female who has recently been in the hospital in May for heart failure, questionable pneumonia, bilateral effusions, was placed on some IV diuretics then was discharged home, received some IV antibiotics. She presented again to the emergency department 2017 with shortness of breath, left-sided chest pain. Troponin was 2.0, she was ruled in for a non-STEMI, decompensated congestive heart failure, coronary artery disease. She underwent cardiac catheterization on 07/10/[address] Boland which showed an ejection fraction of 60%. There was mid distal LAD lesion, 90%, the left circumflex had 90%, 95%posterior lateral and the middle, posterior lateral had a 70% to 80% stenosis. We were consulted to evaluate for coronary artery bypass grafting. The patient was also found to have some anemia, normocytic has been evaluated by hematology. She has received 2 units of packed RBCs. Hemoglobin is now 10. She has some low iron counts, probable chronic. Denies any blood in her stool. She is somewhat of a poor historian also. She now admitted to some blood in stool a couple of weeks ago PAST MEDICAL HISTORY: Includes iron deficiency, normocytic anemia, ? history of cerebrovascular accident in the past with no residual effects , diabetes mellitus, on oral medication, hypertension, hyperlipidemia, seizure disorder. She is unclear when her last seizure, bipolar disorder, schizophrenia. 07/12 pt still has gaines cath ? , now with hematuria, clots noted in tubing, pt states she noticed this after trying to have a BM earlier this am ( ? traumatic ) will check UA, Urology consulted per Hospitalist , off Heparin gtt since 07/10 Dr Tirado to eval cardiac cath films today 07/13 gaines cath dc yesterday, + UTI on ABX Carotid US : good vein mapping : fair no DVT lower ext tentatively scheduled for surgery on Mon07/18/18 will need daughter or POA to sign consent 07/16 pt for surgery in am Ecoli UTI, on Invanz / ID following daughters to speak with pt regarding of her mother 07/18 surgery - Preoperative Diagnosis (1) Congestive heart failure (2) NSTEMI (non-ST elevated myocardial infarction (3) CAD (coronary artery disease) Postoperative Diagnosis: same Date of procedure: 07/18/18 Procedure: CABG x 3 MUNIZ to LAD - poor SVG to OM - fair SVG to PLB - good EVH extubated after surgery crystalloid 2500cc, cell [id number] 07/19 doing well up in chair, painful on nasal cannula leave chest tube in pulm toileting OOB/ PT 07/20 extensive wheezing throughout all lung regalado some basilar crackles / add bid lasix, solumedrol/ symbicort eval for chest tube removal later today requires 1-2 person assistance increase BB f/u labs in am 07/21 Doing well Hemodynamic stable DC chest tubes today Discharge planning 07/22 Clinically stable Weaning O2 as tolerated Likely discharge tomorrow 07/23 still on 1-2 liters 02, check walk test eval for [place] [facility] vs [facility] rehab change lasix to po, dc IV steroids stable to transfer to rehab from [facility] standpoint 07/24 turned down by [place] [facility] and SNF placement re-eval for OT may need to go back to halfway with [facility] now on room air 07/25 re-eval for inpt SNF pending / OT note reviewed stable for dc from [facility] standpoint 07/26 still waiting on SNF placement prevena dressing removed, yesterday on room air , doing well 07/27 pt stable CM to find disposition for discharge Objective: Vital Signs - 24 hr 07/26/18 15:00 07/26/18 16:00 07/26/18 17:00 Temperature 98.3 F Pulse Rate 71 72 84 Respiratory Rate 18 Blood Pressure 113/67 Pulse Oximetry 95 07/26/18 18:00 07/26/18 19:00 07/26/18 20:00 Temperature 98 F Pulse Rate 69 73 74 Respiratory Rate 20 Blood Pressure 111/55 L Pulse Oximetry 94 L 07/26/18 21:00 07/26/18 22:00 07/26/18 23:00 Temperature Pulse Rate 76 98 H 61 Respiratory Rate Blood Pressure Pulse Oximetry 07/27/18 00:00 07/27/18 01:00 07/27/18 02:00 Temperature 99 F Pulse Rate 62 60 63 Respiratory Rate 22 Blood Pressure 104/58 L Pulse Oximetry 93 L 07/27/18 03:00 07/27/18 04:00 07/27/18 05:00 Temperature 98 F Pulse Rate 73 69 69 Respiratory Rate 20 Blood Pressure 122/55 L Pulse Oximetry 95 07/27/18 05:56 07/27/18 07:00 07/27/18 08:00 Temperature 98.1 F Pulse Rate 64 81 76 Respiratory Rate 18 Blood Pressure 109/74 Pulse Oximetry 94 L 07/27/18 09:00 07/27/18 10:00 07/27/18 10:05 Temperature Pulse Rate 64 64 Respiratory Rate Blood Pressure Pulse Oximetry 96 07/27/18 11:00 07/27/18 12:00 07/27/18 13:00 Temperature 98.0 F Pulse Rate 59 L 74 64 Respiratory Rate 18 Blood Pressure 95/53 L Pulse Oximetry 96 07/27/18 14:00 Temperature Pulse Rate 65 Respiratory Rate Blood Pressure Pulse Oximetry GENERAL: SKIN: Warm and dry. sternal incision intact and well approximated HEAD: Normocephalic. EYES: No scleral icterus. No injection or drainage. NECK: Supple, trachea midline. No JVD or lymphadenopathy. CARDIOVASCULAR: Regular rate and rhythm without murmurs, gallops, or rubs. RESPIRATORY: Breath sounds equal bilaterally. No accessory muscle use. GASTROINTESTINAL: Abdomen soft, non-tender, nondistended. MUSCULOSKELETAL: No cyanosis, or edema. BACK: Nontender without obvious deformity. No CVA tenderness. Labs: Laboratory Results - last 12 hr 07/27/18 07/27/18 07:47 11:58 POC Glucose 106 106 Result Diagrams: 07/26/18 02:45 07/26/18 02:45 - Plan (1) Congestive heart failure Plan: continue daily diuresis (3) Chest pain (5) CAD (coronary artery disease) Plan: on ASA, statin , BB carotid US: unremarkable tentatively scheduled for surgery on Mon07/18/18 (6) S/P CABG x 3 Plan: Neuro: home meds for Bipolar dz and seizure disorder Resp: room air , symbicort CV: on amiodarone, ASA, BB statin po daily lasix GI: motility meds, heart healthy diet OOB/ PT /OT ok to dc from [facility] standpoint waiting on discharge disposition (1) Congestive heart failure Qualifiers: Heart failure type: unspecified Heart failure chronicity: acute on chronic Qualified Code(s): I50.9 - Heart failure, unspecified (3) Chest pain Qualifiers: Chest pain type: chest pain due to myocardial ischemia Ischemic chest pain type: unstable angina pectoris Qualified Code(s): I20.0 - Unstable angina
--- NOTE | 2018-07-27 15:12 | P.PNIM ---
Subjective Interval history: Follow-up CAD. She is doing well. Discussed with case management, insurance declined rehab. She will be discharged back to [facility] when arranged Physical Exam Vital signs: Vital Signs 07/26/18 16:00 07/26/18 17:00 07/26/18 18:00 Temperature 98.3 F Pulse Rate 72 84 69 Respiratory Rate 18 Blood Pressure 113/67 Pulse Oximetry 95 07/26/18 19:00 07/26/18 20:00 07/26/18 21:00 Temperature 98 F Pulse Rate 73 74 76 Respiratory Rate 20 Blood Pressure 111/55 L Pulse Oximetry 94 L 07/26/18 22:00 07/26/18 23:00 07/27/18 00:00 Temperature 99 F Pulse Rate 98 H 61 62 Respiratory Rate 22 Blood Pressure 104/58 L Pulse Oximetry 93 L 07/27/18 01:00 07/27/18 02:00 07/27/18 03:00 Temperature Pulse Rate 60 63 73 Respiratory Rate Blood Pressure Pulse Oximetry 07/27/18 04:00 07/27/18 05:00 07/27/18 05:56 Temperature 98 F Pulse Rate 69 69 64 Respiratory Rate 20 Blood Pressure 122/55 L Pulse Oximetry 95 07/27/18 07:00 07/27/18 08:00 07/27/18 09:00 Temperature 98.1 F Pulse Rate 81 76 64 Respiratory Rate 18 Blood Pressure 109/74 Pulse Oximetry 94 L 07/27/18 10:00 07/27/18 10:05 07/27/18 11:00 Temperature Pulse Rate 64 59 L Respiratory Rate Blood Pressure Pulse Oximetry 96 07/27/18 12:00 07/27/18 13:00 07/27/18 14:00 Temperature 98.0 F Pulse Rate 74 64 65 Respiratory Rate 18 Blood Pressure 95/53 L Pulse Oximetry 96 Intake & Output 07/26/18 07/27/18 07/27/18 18:59 06:59 18:59 Intake Total 1200 / 1200 720 / 720 Output Total 2019 950 / 950 Balance -820 / -820 -230 / -230 Weight 96.5 kg Intake: Oral 1200 / 1200 720 / 720 Output: Urine 2019 950 / 950 Other: Date of Last Bowel Movement 07/24/18 07/27/18 07/27/18 Narrative: GENERAL: Patient sitting up in chair. SKIN: Warm and dry. CARDIOVASCULAR: Regular rate and rhythm without murmurs, gallops, or rubs. Chest with Steri-Strips RESPIRATORY: Breath sounds equal bilaterally. No accessory muscle use. GASTROINTESTINAL: Abdomen soft, non-tender, nondistended. MUSCULOSKELETAL: No cyanosis, peripheral edema. BACK: Nontender without obvious deformity. No CVA tenderness. Urinary Catheter Management Indwelling Urethral Catheter: Cath placed during this visit: yes, but has since been removed by the nurse Reason for continuing: Decision to DC catheter Insertion date: 07/09/18 Insertion time: 22:50 Removal date: 07/12/18 Removal time: 17:25 Indwelling Temp Sensing Catheter: Cath placed during this visit: yes, but has since been removed by the nurse Reason for continuing: Not indwelling catheter Insertion date: 07/18/18 Insertion time: 09:40 Removal date: 07/19/18 Removal time: 05:30 Results Labs CBC & Chem 7: 07/26/18 02:45 07/26/18 02:45 Procedures Procedures: Cardiac catheterization CABG Assessment and Plan (1) NSTEMI (non-ST elevated myocardial infarction): Code(s): I21.4 - Non-ST elevation (NSTEMI) myocardial infarction Status: Acute (2) CAD (coronary artery disease): Code(s): I25.10 - Atherosclerotic heart disease of [place] coronary artery without angina pectoris Status: Acute (3) S/P CABG x 3: Code(s): Z95.1 - Presence of aortocoronary bypass graft Status: Acute Plan Ms. Schmidt is an AA female with a history of previous CVA, diabetes mellitus, hypertension, hyperlipidemia, coronary artery disease and schizophrenia/bipolar disorder presents to the emergency department for the evaluation of chest pain/ pressure on 07/10/2018. Troponins were elevated, Cardiology performed cath which showed severe 3 vessel disease. Non-ST elevation MA Multivessel CAD on Cath on 07/10/2018. Hypertension Hyperlipidemia -s/p CABG. -Currently on Aspirin 81mg, Amiodarone 200mg Q12, metoprolol 25mg BID. -Continue Hydralazine 25 mg TID. -Lasix 40 minutes p.o. daily with potassium supplement -Patient is on pravastatin 80 mg nightly. Diabetes mellitus, [id number], overall controlled Monitor blood glucose currently -Sliding scale insulin. Goal BG 140-180. ESBL E coli UTI/hematuria -continue IV ertapenem per ID X 14 days starting 07/14/2018 with last dose on July 27, 2018. COPD, chronic Continue Symbicort, supplemental oxygen DVT prophylaxis: Bilateral SCDs. Early ambulation Patient has been declined admissions to by [facility] but accepted by [facility] but was not authorized by insurance. Will discharge back to [facility] with PT when arranged -Patient will need ertapenem to complete treatment course until 07/27 [employer] Prescription Drug Monitoring Database has been queried and verified prior to prescribing the controlled subsection. Patient is having significant pain caused by [CABG ] which will last more than 3 days. Trial of alternative treatment options other than prescribed opioids has not helped. I believe that it is medically necessary to treat the patients pain because it is affecting patients ability to do ADL Progress Note: Quality VTE Deep Vein Thrombosis/Pulmonary Embolism Present on Admission: No _ (1) CAD (coronary artery disease) Qualifiers: Coronary Disease-Associated Artery/Lesion type: [place] vs. transplanted heart: Associated angina:
--- NOTE | 2018-07-27 15:13 | P.DCO ---
Diagnosis (1) NSTEMI (non-ST elevated myocardial infarction): Status: Acute (2) CAD (coronary artery disease): Status: Acute (3) S/P CABG x 3: Status: Acute Physical Therapy Order: Evaluate and treat, Improve ambulation and Strength and gait training Home Health Nursing Order: Medical education, Signs/symptoms of disease process, Medication education-adverse effect, Wound care and dressing changes and Nursing assessment with vital signs Case Management Consult Case Management Consult-Home Health: Yes I have seen patient Donald Schmidt on 07/27/18. My clinical findings support the need for the requested home health care services because: Limited mobility due to disease progression, Deconditioned with increased weakness, Medication compliance is questionable and Limited ability to care for self I certify that my clinical findings support that this patient is homebound because: Post-op weakness and Need for psychosocial assistance _ (1) CAD (coronary artery disease) Qualifiers: Coronary Disease-Associated Artery/Lesion type: [place] vs. transplanted heart: Associated angina:
--- NOTE | 2018-07-27 19:17 | P.PNCA ---
Subjective Interval history: assymptomatic in nad Medications and Allergies Active Medications: Active Medications Acetaminophen (Tylenol) 650 mg PO Q4H PRN PRN Reason: pain/fever > 100.4 Last Admin: 07/13/18 17:12 Dose: 650 mg Al Hydroxide/Mg Hydroxide (Milk Of Magnesia Liq) 30 ml PO Q12H PRN PRN Reason: Mild Constipation Al Hydroxide/Mg Hydroxide (Milk Of Magnesia Liq) 30 ml PO DAILY [facility] Last Admin: 07/27/18 08:14 Dose: 30 ml Albuterol (Duoneb Neb (Prn)) 1 ampul NEB Q2HR NEB PRN PRN Reason: WHEEZING Last Admin: 07/23/18 16:20 Dose: 1 ampul Alprazolam (Xanax) 0.25 mg PO Q6H PRN PRN Reason: FOR ANXIETY Last Admin: 07/20/18 16:19 Dose: 0.25 mg Amiodarone HCl (Cordarone) 200 mg PO Q12HR [facility] Stop: 08/01/18 09:01 Last Admin: 07/27/18 08:15 Dose: 200 mg Aspirin (Aspirin Chew) 81 mg PO DAILY [facility] Last Admin: 07/27/18 08:14 Dose: 81 mg Bisacodyl (Dulcolax Supp) 10 mg RECTAL PRN PRN PRN Reason: SEE LABEL COMMENTS Budesonide/Formoterol Fumarate (Symbicort 80/4.5 Mcg Inh) 1 puff INH BID [facility] Last Admin: 07/27/18 08:16 Dose: 1 puff Dextrose (D50w Vial) 50 ml IV.PUSH UNSCH PRN PRN Reason: PER HYPOGLYCEMIA PROTOCOL Last Admin: 07/25/18 17:45 Dose: 50 ml Divalproex Sodium (Depakote Er) 1,000 mg PO BID [facility] Last Admin: 07/27/18 08:14 Dose: 1,000 mg Docusate Sodium (Colace) 100 mg PO BID [facility] Last Admin: 07/27/18 08:14 Dose: 100 mg Doxepin HCl (Sinequan) 25 mg PO HS [facility] Last Admin: 07/26/18 21:49 Dose: 25 mg Fluphenazine HCl (Prolixin) 10 mg PO HS [facility] Last Admin: 07/26/18 23:44 Dose: 10 mg Furosemide (Lasix) 40 mg PO DAILY [facility] Stop: 08/06/18 09:01 Last Admin: 07/27/18 08:14 Dose: 40 mg Gabapentin (Neurontin) 300 mg PO TID [facility] Last Admin: 07/27/18 17:58 Dose: 300 mg Glucagon (Glucagon Inj) 1 mg OTHER PRN PRN PRN Reason: For hypoglycemia Hydralazine HCl (Apresoline) 25 mg PO TID [facility] Last Admin: 07/27/18 17:58 Dose: 25 mg Ertapenem 1,000 mg/ Sodium (Chloride) 100 mls @ 200 mls/hr IV.SIG Q24H [facility] Last Admin: 07/27/18 17:58 Dose: 100 mls/hr Insulin Aspart (Novolog Insulin Correctional Sugar Inj) 0 unit SQ ACHS [facility]; Protocol Last Admin: 07/27/18 17:58 Dose: 7 unit Lactulose (Lactulose Liq) 30 ml PO DAILY PRN PRN Reason: SEVERE CONSITIPATION Levothyroxine Sodium (Synthroid) 25 mcg PO DAILY@0600 [facility] Last Admin: 07/27/18 05:42 Dose: 25 mcg Metoprolol Tartrate (Lopressor) 25 mg PO BID [facility] Last Admin: 07/27/18 08:15 Dose: 25 mg Multivitamins/Minerals (Theragran-M) 1 tab PO DAILY [facility] Last Admin: 07/27/18 08:15 Dose: 1 tab Mupirocin (Bactroban 2% Nasal Oint) 1 applicatio EACH NARE BID [facility] Last Admin: 07/27/18 08:15 Dose: 1 applicatio Ondansetron HCl (Zofran Inj) 4 mg IV.PUSH Q6H PRN PRN Reason: NAUSEA OR VOMITING Oxycodone/Acetaminophen (Percocet 5/325 Mg) 1 tab PO Q3H PRN PRN Reason: PAIN SCALE 1 TO 5 Last Admin: 07/27/18 04:33 Dose: 1 tab Pantoprazole Sodium (Protonix) 40 mg PO DAILY@06 [facility] Last Admin: 07/27/18 05:42 Dose: 40 mg Polyethylene Glycol (Miralax) 17 gm PO DAILY [facility] Last Admin: 07/27/18 08:14 Dose: 17 gm Potassium Chloride (Klor-Con 10) 20 meq PO DAILY [facility] Last Admin: 07/27/18 08:14 Dose: 20 meq Pravastatin Sodium (Pravachol) 80 mg PO [facility] Last Admin: 07/26/18 21:49 Dose: 80 mg Senna/Docusate Sodium (Joycelyn-Colace) 1 tab PO BID [facility] Last Admin: 07/27/18 08:14 Dose: 1 tab Sennosides (Senokot) 8.6 mg PO [facility] Last Admin: 07/26/18 21:50 Dose: 8.6 mg Sodium Biphosphate/Sodium Phosphate (Fleets Enema (Adult)) 118 ml RECTAL UNSCH PRN PRN Reason: SEE LABEL COMMENTS Sodium Chloride (Ns Flush) 2 ml IV.FLUSH BID [facility] Last Admin: 07/27/18 08:15 Dose: 2 ml Sodium Chloride (Ns Flush) 2 ml IV.FLUSH PRN PRN PRN Reason: FLUSH AFTER USING IV ACCESS Last Admin: 07/19/18 13:48 Dose: 2 ml Allergies Allergy/AdvReac Type Severity Reaction Status Date / Time cat dander Allergy Mild Cough Verified 07/09/18 22:26 Penicillins Allergy Unknown Itching Verified 07/09/18 22:26 Sulfa (Sulfonamide AdvReac Mild Nausea/Vomi Verified 07/09/18 22:26 Antibiotics) ting trihexyphenidyl AdvReac Mild Nausea/Vomi Verified 07/09/18 22:26 ting Home Medications Medication Instructions Recorded Confirmed Type divalproex 1,000 mg PO BID 03/25/18 07/11/18 History docusate sodium 100 mg PO BID 03/25/18 07/11/18 History doxepin 25 mg PO 03/25/18 07/11/18 History fluphenazine HCl 10 mg PO 03/25/18 07/11/18 History gabapentin 300 mg PO TID 03/25/18 07/11/18 History hydralazine 50 mg PO TID 03/25/18 07/11/18 History linagliptin [Tradjenta] 5 mg PO DAILY 03/25/18 07/11/18 History metformin 1,000 mg PO BID 03/25/18 07/11/18 History sennosides [Senna Laxative] 8.6 mg PO DAILY PRN 03/25/18 07/11/18 History Physical Exam Vital signs: Vital Signs 07/26/18 20:00 07/26/18 21:00 07/26/18 22:00 Temperature 98 F Pulse Rate 74 76 98 H Respiratory Rate 20 Blood Pressure 111/55 L Pulse Oximetry 94 L 07/26/18 23:00 07/27/18 00:00 07/27/18 01:00 Temperature 99 F Pulse Rate 61 62 60 Respiratory Rate 22 Blood Pressure 104/58 L Pulse Oximetry 93 L 07/27/18 02:00 07/27/18 03:00 07/27/18 04:00 Temperature 98 F Pulse Rate 63 73 69 Respiratory Rate 20 Blood Pressure 122/55 L Pulse Oximetry 95 07/27/18 05:00 07/27/18 05:56 07/27/18 07:00 Temperature Pulse Rate 69 64 81 Respiratory Rate Blood Pressure Pulse Oximetry 07/27/18 08:00 07/27/18 09:00 07/27/18 10:00 Temperature 98.1 F Pulse Rate 76 64 64 Respiratory Rate 18 Blood Pressure 109/74 Pulse Oximetry 94 L 07/27/18 10:05 07/27/18 11:00 07/27/18 12:00 Temperature 98.0 F Pulse Rate 59 L 74 Respiratory Rate 18 Blood Pressure 95/53 L Pulse Oximetry 96 96 07/27/18 13:00 07/27/18 14:00 07/27/18 15:00 Temperature Pulse Rate 64 65 80 Respiratory Rate Blood Pressure Pulse Oximetry 07/27/18 16:00 07/27/18 17:00 07/27/18 18:00 Temperature 98.4 F Pulse Rate 80 72 74 Respiratory Rate 18 Blood Pressure 117/61 Pulse Oximetry 96 Intake & Output 07/27/18 07/27/18 07/28/18 06:59 18:59 06:59 Intake Total 720 / 720 960 / 960 Output Total 950 / 950 450 / 450 Balance -230 / -230 510 / 510 Weight 96.5 kg Intake: Oral 720 / 720 960 / 960 Output: Urine 950 / 950 450 / 450 Other: Date of Last Bowel Movement 07/27/18 07/27/18 - Constitutional no acute distress - Routine HEENT Exam Head: Present: normocephalic - Routine Neck Exam Present: supple - Routine Respiratory Exam Present: CTA bilaterally - Routine Cardiovascular Exam Present: S1, S2 - Routine Abdominal Exam Present: soft - Routine Extremities Exam Comments: no dannielle - Urinary Catheter Management Indwelling Urethral Catheter Cath placed during this visit: yes, but has since been removed by the nurse Reason for continuing: Decision to DC catheter Insertion date: 07/09/18 Insertion time: 22:50 Removal date: 07/12/18 Removal time: 17:25 Indwelling Temp Sensing Catheter Cath placed during this visit: yes, but has since been removed by the nurse Reason for continuing: Not indwelling catheter Insertion date: 07/18/18 Insertion time: 09:40 Removal date: 07/19/18 Removal time: 05:30 Results 07/26/18 02:45 07/26/18 02:45 Cardiac Enzymes 07/26/18 Range/Units 02:45 AST 15 (15-37) U/L CBC 07/26/18 Range/Units 02:45 WBC 9.4 (4.0-11.0) th/mm3 RBC 3.27 L (4.00-5.30) mil/mm3 Hgb 9.1 L (11.6-15.3) gm/dL Hct 28.5 L (35.0-46.0) % Plt Count 547 H (150-450) th/mm3 Neut # (Auto) 6.0 (1.8-7.7) th/mm3 Lymph # (Auto) 2.6 (1.0-4.8) th/mm3 [place] # (Auto) 0.7 (0.0-0.9) th/mm3 Eos # (Auto) 0.1 (0.0-0.4) th/mm3 Baso # (Auto) 0.1 (0.0-0.2) th/mm3 Comprehensive Metabolic Panel 07/26/18 Range/Units 02:45 Sodium 140 (136-145) meq/L Potassium 4.2 (3.5-5.1) meq/L Chloride 103 (98-107) meq/L Carbon Dioxide 34.0 H (21.0-32.0) meq/L BUN 16 (7-18) mg/dL Creatinine 0.99 (0.50-1.00) mg/dL Calcium 8.7 (8.5-10.1) mg/dL Direct Bilirubin 0.1 (0.0-0.2) mg/dL Indirect Bilirubin 0.1 (0.0-0.8) mg/dL AST 15 (15-37) U/L ALT 41 (10-53) U/L Alkaline Phosphatase 108 (45-117) U/L Total Protein 6.9 (6.4-8.2) g/dL Albumin 2.7 L (3.4-5.0) g/dL Intake and Output 07/27/18 07/27/18 07/27/18 06:59 14:59 22:59 Intake Total 720 / 720 960 / 960 Output Total 950 / 950 450 / 450 Balance -230 / -230 510 / 510 Intake: Oral 720 / 720 960 / 960 Output: Urine 950 / 950 450 / 450 Other: Date of Last Bowel Movement 07/27/18 07/27/18 07/27/18 Weight 96.5 kg Assessment and Plan - Assessment (1) NSTEMI (non-ST elevated myocardial infarction) Code(s): I21.4 - Non-ST elevation (NSTEMI) myocardial infarction Status: Acute (2) CAD (coronary artery disease) Code(s): I25.10 - Atherosclerotic heart disease of [place] coronary artery without angina pectoris Status: Acute - Plan 1.) CAD - nstemi, assymptomatic s/p transfusion, continue aspirin, lopressor, pravachol
[2018-07-28] MEDS: Budesonide-Formoterol 80/4.5 MCG 6.9 GM Inhaler INH SCH ×3 (06:05→20:39)
[2018-07-28] MEDS: Mupirocin 2% Nasal Oint Topical Syringe EACH NARE SCH ×3 (06:06→20:41)
--- NOTE | 2018-07-28 09:07 | P.PNCA ---
Subjective Interval history: alert in nad Medications and Allergies Active Medications: Active Medications Acetaminophen (Tylenol) 650 mg PO Q4H PRN PRN Reason: pain/fever > 100.4 Last Admin: 07/13/18 17:12 Dose: 650 mg Al Hydroxide/Mg Hydroxide (Milk Of Magnesia Liq) 30 ml PO Q12H PRN PRN Reason: Mild Constipation Al Hydroxide/Mg Hydroxide (Milk Of Magnesia Liq) 30 ml PO DAILY [facility] Last Admin: 07/27/18 08:14 Dose: 30 ml Albuterol (Duoneb Neb (Prn)) 1 ampul NEB Q2HR NEB PRN PRN Reason: WHEEZING Last Admin: 07/23/18 16:20 Dose: 1 ampul Alprazolam (Xanax) 0.25 mg PO Q6H PRN PRN Reason: FOR ANXIETY Last Admin: 07/20/18 16:19 Dose: 0.25 mg Amiodarone HCl (Cordarone) 200 mg PO Q12HR [facility] Stop: 08/01/18 09:01 Last Admin: 07/27/18 20:57 Dose: 200 mg Aspirin (Aspirin Chew) 81 mg PO DAILY [facility] Last Admin: 07/27/18 08:14 Dose: 81 mg Bisacodyl (Dulcolax Supp) 10 mg RECTAL PRN PRN PRN Reason: SEE LABEL COMMENTS Budesonide/Formoterol Fumarate (Symbicort 80/4.5 Mcg Inh) 1 puff INH BID [facility] Last Admin: 07/28/18 06:05 Dose: 1 puff Dextrose (D50w Vial) 50 ml IV.PUSH UNSCH PRN PRN Reason: PER HYPOGLYCEMIA PROTOCOL Last Admin: 07/25/18 17:45 Dose: 50 ml Divalproex Sodium (Depakote Er) 1,000 mg PO BID [facility] Last Admin: 07/27/18 20:57 Dose: 1,000 mg Docusate Sodium (Colace) 100 mg PO BID [facility] Last Admin: 07/27/18 20:56 Dose: 100 mg Doxepin HCl (Sinequan) 25 mg PO HS [facility] Last Admin: 07/27/18 20:56 Dose: 25 mg Fluphenazine HCl (Prolixin) 10 mg PO HS [facility] Last Admin: 07/27/18 20:58 Dose: 10 mg Furosemide (Lasix) 40 mg PO DAILY [facility] Stop: 08/06/18 09:01 Last Admin: 07/27/18 08:14 Dose: 40 mg Gabapentin (Neurontin) 300 mg PO TID [facility] Last Admin: 07/27/18 17:58 Dose: 300 mg Glucagon (Glucagon Inj) 1 mg OTHER PRN PRN PRN Reason: For hypoglycemia Hydralazine HCl (Apresoline) 25 mg PO TID [facility] Last Admin: 07/27/18 17:58 Dose: 25 mg Ertapenem 1,000 mg/ Sodium (Chloride) 100 mls @ 200 mls/hr IV.SIG Q24H [facility] Last Admin: 07/27/18 17:58 Dose: 100 mls/hr Insulin Aspart (Novolog Insulin Correctional Sugar Inj) 0 unit SQ ACHS [facility]; Protocol Last Admin: 07/27/18 23:18 Dose: Not Given Lactulose (Lactulose Liq) 30 ml PO DAILY PRN PRN Reason: SEVERE CONSITIPATION Levothyroxine Sodium (Synthroid) 25 mcg PO DAILY@0600 [facility] Last Admin: 07/28/18 06:05 Dose: 25 mcg Metoprolol Tartrate (Lopressor) 25 mg PO BID [facility] Last Admin: 07/27/18 20:58 Dose: 25 mg Multivitamins/Minerals (Theragran-M) 1 tab PO DAILY [facility] Last Admin: 07/27/18 08:15 Dose: 1 tab Mupirocin (Bactroban 2% Nasal Oint) 1 applicatio EACH NARE BID [facility] Last Admin: 07/28/18 06:06 Dose: 1 applicatio Ondansetron HCl (Zofran Inj) 4 mg IV.PUSH Q6H PRN PRN Reason: NAUSEA OR VOMITING Oxycodone/Acetaminophen (Percocet 5/325 Mg) 1 tab PO Q3H PRN PRN Reason: PAIN SCALE 1 TO 5 Last Admin: 07/27/18 20:58 Dose: 1 tab Pantoprazole Sodium (Protonix) 40 mg PO DAILY@06 [facility] Last Admin: 07/28/18 06:05 Dose: 40 mg Polyethylene Glycol (Miralax) 17 gm PO DAILY [facility] Last Admin: 07/27/18 08:14 Dose: 17 gm Potassium Chloride (Klor-Con 10) 20 meq PO DAILY [facility] Last Admin: 07/27/18 08:14 Dose: 20 meq Pravastatin Sodium (Pravachol) 80 mg PO [facility] Last Admin: 07/27/18 20:57 Dose: 80 mg Senna/Docusate Sodium (Joycelyn-Colace) 1 tab PO BID [facility] Last Admin: 07/27/18 20:58 Dose: 1 tab Sennosides (Senokot) 8.6 mg PO [facility] Last Admin: 07/27/18 20:58 Dose: 8.6 mg Sodium Biphosphate/Sodium Phosphate (Fleets Enema (Adult)) 118 ml RECTAL UNSCH PRN PRN Reason: SEE LABEL COMMENTS Sodium Chloride (Ns Flush) 2 ml IV.FLUSH BID [facility] Last Admin: 07/27/18 20:59 Dose: 2 ml Sodium Chloride (Ns Flush) 2 ml IV.FLUSH PRN PRN PRN Reason: FLUSH AFTER USING IV ACCESS Last Admin: 07/19/18 13:48 Dose: 2 ml Allergies Allergy/AdvReac Type Severity Reaction Status Date / Time cat dander Allergy Mild Cough Verified 07/09/18 22:26 Penicillins Allergy Unknown Itching Verified 07/09/18 22:26 Sulfa (Sulfonamide AdvReac Mild Nausea/Vomi Verified 07/09/18 22:26 Antibiotics) ting trihexyphenidyl AdvReac Mild Nausea/Vomi Verified 07/09/18 22:26 ting Home Medications Medication Instructions Recorded Confirmed Type divalproex 1,000 mg PO BID 03/25/18 07/11/18 History docusate sodium 100 mg PO BID 03/25/18 07/11/18 History doxepin 25 mg PO 03/25/18 07/11/18 History fluphenazine HCl 10 mg PO 03/25/18 07/11/18 History gabapentin 300 mg PO TID 03/25/18 07/11/18 History hydralazine 50 mg PO TID 03/25/18 07/11/18 History linagliptin [Tradjenta] 5 mg PO DAILY 03/25/18 07/11/18 History metformin 1,000 mg PO BID 03/25/18 07/11/18 History sennosides [Senna Laxative] 8.6 mg PO DAILY PRN 03/25/18 07/11/18 History Physical Exam Vital signs: Vital Signs 07/27/18 10:00 07/27/18 10:05 07/27/18 11:00 Temperature Pulse Rate 64 59 L Respiratory Rate Blood Pressure Pulse Oximetry 96 07/27/18 12:00 07/27/18 13:00 07/27/18 14:00 Temperature 98.0 F Pulse Rate 74 64 65 Respiratory Rate 18 Blood Pressure 95/53 L Pulse Oximetry 96 07/27/18 15:00 07/27/18 16:00 07/27/18 17:00 Temperature 98.4 F Pulse Rate 80 80 72 Respiratory Rate 18 Blood Pressure 117/61 Pulse Oximetry 96 07/27/18 18:00 07/27/18 19:00 07/27/18 20:00 Temperature 98.5 F Pulse Rate 74 70 66 Respiratory Rate 24 Blood Pressure 97/55 L Pulse Oximetry 94 L 07/27/18 21:00 07/27/18 22:00 07/27/18 23:00 Temperature Pulse Rate 68 62 65 Respiratory Rate Blood Pressure Pulse Oximetry 07/27/18 23:20 07/28/18 00:00 07/28/18 01:00 Temperature 98.7 F Pulse Rate 58 L 56 L Respiratory Rate 18 16 Blood Pressure 110/59 L Pulse Oximetry 97 07/28/18 02:00 07/28/18 03:00 07/28/18 04:00 Temperature 97.3 F L Pulse Rate 56 L 60 64 Respiratory Rate 16 Blood Pressure 95/51 L Pulse Oximetry 92 L 07/28/18 05:00 07/28/18 06:00 Temperature Pulse Rate 66 64 Respiratory Rate Blood Pressure Pulse Oximetry Intake & Output 07/27/18 07/28/18 07/28/18 18:59 06:59 18:59 Intake Total 960 / 960 240 / 240 Output Total 450 / 450 1800 / 1800 Balance 510 / 510 -1560 / -1560 Weight 95 kg Intake: Oral 960 / 960 240 / 240 Output: Urine 450 / 450 1800 / 1800 Other: Date of Last Bowel Movement 07/27/18 07/27/18 - Constitutional no acute distress - Routine HEENT Exam Head: Present: normocephalic - Routine Neck Exam Present: supple - Routine Respiratory Exam Present: CTA bilaterally - Routine Cardiovascular Exam Present: S1, S2 - Routine Abdominal Exam Present: soft - Routine Extremities Exam Comments: no dannielle - Urinary Catheter Management Indwelling Urethral Catheter Cath placed during this visit: yes, but has since been removed by the nurse Reason for continuing: Decision to DC catheter Insertion date: 07/09/18 Insertion time: 22:50 Removal date: 07/12/18 Removal time: 17:25 Indwelling Temp Sensing Catheter Cath placed during this visit: yes, but has since been removed by the nurse Reason for continuing: Not indwelling catheter Insertion date: 07/18/18 Insertion time: 09:40 Removal date: 07/19/18 Removal time: 05:30 Results 07/26/18 02:45 07/26/18 02:45 Intake and Output 07/27/18 07/28/18 07/28/18 22:59 06:59 14:59 Intake Total 960 / 960 240 / 240 Output Total 450 / 450 1800 / 1800 Balance 510 / 510 -1560 / -1560 Intake: Oral 960 / 960 240 / 240 Output: Urine 450 / 450 1800 / 1800 Other: Date of Last Bowel Movement 07/27/18 07/27/18 Weight 95 kg Assessment and Plan - Assessment (1) NSTEMI (non-ST elevated myocardial infarction) Code(s): I21.4 - Non-ST elevation (NSTEMI) myocardial infarction Status: Acute (2) CAD (coronary artery disease) Code(s): I25.10 - Atherosclerotic heart disease of [place] coronary artery without angina pectoris Status: Acute - Plan 1.) CAD - nstemi, s/p cabg, assymptomatic, continue aspirin, lopressor, pravachol
[2018-07-28] MEDS: Furosemide 40 MG Tablet PO SCH (09:31)
[2018-07-28] MEDS: Divalproex 500 MG ER Tablet PO SCH ×2 (09:31→20:40)
[2018-07-28] MEDS: Metoprolol Tartrate 25 MG Tablet PO SCH ×2 (09:31→20:40)
[2018-07-28] MEDS: Amiodarone 200 MG Tablet PO SCH ×2 (09:32→20:40)
[2018-07-28] MEDS: Docusate Sodium 100 MG Capsule PO SCH ×2 (09:32→20:40)
[2018-07-28] MEDS: Insulin NovoLOG Aspart Correctional Sugar Inj SQ SCH ×4 (09:32→20:41)
[2018-07-28] MEDS: hydrALAZINE 25 MG Tablet PO SCH ×3 (09:32→17:35)
[2018-07-28] MEDS: Senna/Docusate Sodium 8.6/50 MG Tablet PO SCH ×2 (09:32→20:40)
[2018-07-28] MEDS: Gabapentin 300 MG Capsule PO SCH ×3 (09:32→17:35)
--- NOTE | 2018-07-28 09:40 | P.PNIM ---
Subjective Interval history: Follow-up CAD. She is doing okay no new complaint Physical Exam Vital signs: Vital Signs 07/27/18 10:00 07/27/18 10:05 07/27/18 11:00 Temperature Pulse Rate 64 59 L Respiratory Rate Blood Pressure Pulse Oximetry 96 07/27/18 12:00 07/27/18 13:00 07/27/18 14:00 Temperature 98.0 F Pulse Rate 74 64 65 Respiratory Rate 18 Blood Pressure 95/53 L Pulse Oximetry 96 07/27/18 15:00 07/27/18 16:00 07/27/18 17:00 Temperature 98.4 F Pulse Rate 80 80 72 Respiratory Rate 18 Blood Pressure 117/61 Pulse Oximetry 96 07/27/18 18:00 07/27/18 19:00 07/27/18 20:00 Temperature 98.5 F Pulse Rate 74 70 66 Respiratory Rate 24 Blood Pressure 97/55 L Pulse Oximetry 94 L 07/27/18 21:00 07/27/18 22:00 07/27/18 23:00 Temperature Pulse Rate 68 62 65 Respiratory Rate Blood Pressure Pulse Oximetry 07/27/18 23:20 07/28/18 00:00 07/28/18 01:00 Temperature 98.7 F Pulse Rate 58 L 56 L Respiratory Rate 18 16 Blood Pressure 110/59 L Pulse Oximetry 97 07/28/18 02:00 07/28/18 03:00 07/28/18 04:00 Temperature 97.3 F L Pulse Rate 56 L 60 64 Respiratory Rate 16 Blood Pressure 95/51 L Pulse Oximetry 92 L 07/28/18 05:00 07/28/18 06:00 Temperature Pulse Rate 66 64 Respiratory Rate Blood Pressure Pulse Oximetry Intake & Output 07/27/18 07/28/18 07/28/18 18:59 06:59 18:59 Intake Total 960 / 960 240 / 240 Output Total 450 / 450 1800 / 1800 Balance 510 / 510 -1560 / -1560 Weight 95 kg Intake: Oral 960 / 960 240 / 240 Output: Urine 450 / 450 1800 / 1800 Other: Date of Last Bowel Movement 07/27/18 07/27/18 Narrative: GENERAL: Patient sitting up in chair. SKIN: Warm and dry. CARDIOVASCULAR: Regular rate and rhythm without murmurs, gallops, or rubs. Chest with Steri-Strips RESPIRATORY: Breath sounds equal bilaterally. No accessory muscle use. GASTROINTESTINAL: Abdomen soft, non-tender, nondistended. MUSCULOSKELETAL: No cyanosis, peripheral edema. Neurovascularly intact BACK: Nontender without obvious deformity. No CVA tenderness. Urinary Catheter Management Indwelling Urethral Catheter: Cath placed during this visit: yes, but has since been removed by the nurse Reason for continuing: Decision to DC catheter Insertion date: 07/09/18 Insertion time: 22:50 Removal date: 07/12/18 Removal time: 17:25 Indwelling Temp Sensing Catheter: Cath placed during this visit: yes, but has since been removed by the nurse Reason for continuing: Not indwelling catheter Insertion date: 07/18/18 Insertion time: 09:40 Removal date: 07/19/18 Removal time: 05:30 Results Labs CBC & Chem 7: 07/26/18 02:45 07/26/18 02:45 Procedures Procedures: Cardiac catheterization CABG Assessment and Plan (1) NSTEMI (non-ST elevated myocardial infarction): Code(s): I21.4 - Non-ST elevation (NSTEMI) myocardial infarction Status: Acute (2) CAD (coronary artery disease): Code(s): I25.10 - Atherosclerotic heart disease of [place] coronary artery without angina pectoris Status: Acute (3) S/P CABG x 3: Code(s): Z95.1 - Presence of aortocoronary bypass graft Status: Acute Plan Ms. Schmidt is an AA female with a history of previous CVA, diabetes mellitus, hypertension, hyperlipidemia, coronary artery disease and schizophrenia/bipolar disorder presents to the emergency department for the evaluation of chest pain/ pressure on 07/10/2018. Troponins were elevated, Cardiology performed cath which showed severe 3 vessel disease. Non-ST elevation [place] Multivessel CAD on Cath on 07/10/2018. Hypertension Hyperlipidemia -s/p CABG. -Currently on Aspirin 81mg, Amiodarone 200mg Q12, metoprolol 25mg BID. -Continue Hydralazine 25 mg TID. -Lasix 40 minutes p.o. daily with potassium supplement -Patient is on pravastatin 80 mg nightly. Diabetes mellitus, [id number], overall controlled Monitor blood glucose currently -Sliding scale insulin. Goal BG 140-180. ESBL E coli UTI/hematuria -Status post IV ertapenem per ID X 14 days starting 07/14/2018 with last dose on July 28, 2018. COPD, chronic Continue Symbicort, supplemental oxygen DVT prophylaxis: Bilateral SCDs. Early ambulation Patient has been declined admissions to by [facility] but accepted by [facility] but was not authorized by insurance. Will discharge back to [facility] with PT when arranged . Stable for discharge [facility] Prescription Drug Monitoring Database has been queried and verified prior to prescribing the controlled subsection. Patient is having significant pain caused by [CABG ] which will last more than 3 days. Trial of alternative treatment options other than prescribed opioids has not helped. I believe that it is medically necessary to treat the patients pain because it is affecting patients ability to do ADL Progress Note: Quality VTE Deep Vein Thrombosis/Pulmonary Embolism Present on Admission: No _ (1) CAD (coronary artery disease) Qualifiers: Associated angina: Coronary Disease-Associated Artery/Lesion type: [place] vs. transplanted heart:
[2018-07-28] MEDS: Multivitamin/Minerals Therapeutic Tablet PO SCH (09:46)
[2018-07-28] MEDS: Polyethylene Glycol 3350 17 GM Packet PO SCH (09:47)
[2018-07-29] MEDS: Docusate Sodium 100 MG Capsule PO SCH ×2 (08:37→21:15)
[2018-07-29] MEDS: Divalproex 500 MG ER Tablet PO SCH ×2 (08:37→21:15)
[2018-07-29] MEDS: Furosemide 40 MG Tablet PO SCH (08:37)
[2018-07-29] MEDS: Gabapentin 300 MG Capsule PO SCH ×3 (08:37→18:38)
[2018-07-29] MEDS: Amiodarone 200 MG Tablet PO SCH ×2 (08:39→21:15)
[2018-07-29] MEDS: Metoprolol Tartrate 25 MG Tablet PO SCH ×2 (08:39→21:16)
[2018-07-29] MEDS: Senna/Docusate Sodium 8.6/50 MG Tablet PO SCH ×2 (08:40→21:15)
[2018-07-29] MEDS: hydrALAZINE 25 MG Tablet PO SCH ×3 (08:40→18:38)
[2018-07-29] MEDS: Multivitamin/Minerals Therapeutic Tablet PO SCH (08:40)
[2018-07-29] MEDS: Budesonide-Formoterol 80/4.5 MCG 6.9 GM Inhaler INH SCH ×2 (08:40→21:19)
[2018-07-29] MEDS: Insulin NovoLOG Aspart Correctional Sugar Inj SQ SCH ×4 (08:44→21:18)
[2018-07-29] MEDS: Mupirocin 2% Nasal Oint Topical Syringe EACH NARE SCH ×2 (08:45→21:16)
[2018-07-29] MEDS: Polyethylene Glycol 3350 17 GM Packet PO SCH (08:45)
--- NOTE | 2018-07-29 10:02 | P.PNCA ---
Subjective Interval history: alert in nad Medications and Allergies Active Medications: Active Medications Acetaminophen (Tylenol) 650 mg PO Q4H PRN PRN Reason: pain/fever > 100.4 Last Admin: 07/13/18 17:12 Dose: 650 mg Al Hydroxide/Mg Hydroxide (Milk Of Magnesia Liq) 30 ml PO Q12H PRN PRN Reason: Mild Constipation Al Hydroxide/Mg Hydroxide (Milk Of Magnesia Liq) 30 ml PO DAILY [facility] Last Admin: 07/29/18 08:45 Dose: Not Given Albuterol (Duoneb Neb (Prn)) 1 ampul NEB Q2HR NEB PRN PRN Reason: WHEEZING Last Admin: 07/23/18 16:20 Dose: 1 ampul Alprazolam (Xanax) 0.25 mg PO Q6H PRN PRN Reason: FOR ANXIETY Last Admin: 07/20/18 16:19 Dose: 0.25 mg Amiodarone HCl (Cordarone) 200 mg PO Q12HR [facility] Stop: 08/01/18 09:01 Last Admin: 07/29/18 08:39 Dose: 200 mg Aspirin (Aspirin Chew) 81 mg PO DAILY [facility] Last Admin: 07/29/18 08:39 Dose: 81 mg Bisacodyl (Dulcolax Supp) 10 mg RECTAL PRN PRN PRN Reason: SEE LABEL COMMENTS Budesonide/Formoterol Fumarate (Symbicort 80/4.5 Mcg Inh) 1 puff INH BID [facility] Last Admin: 07/29/18 08:40 Dose: 1 puff Dextrose (D50w Vial) 50 ml IV.PUSH UNSCH PRN PRN Reason: PER HYPOGLYCEMIA PROTOCOL Last Admin: 07/25/18 17:45 Dose: 50 ml Divalproex Sodium (Depakote Er) 1,000 mg PO BID [facility] Last Admin: 07/29/18 08:37 Dose: 1,000 mg Docusate Sodium (Colace) 100 mg PO BID [facility] Last Admin: 07/29/18 08:37 Dose: 100 mg Doxepin HCl (Sinequan) 25 mg PO HS [facility] Last Admin: 07/28/18 20:40 Dose: 25 mg Fluphenazine HCl (Prolixin) 10 mg PO HS [facility] Last Admin: 07/28/18 20:40 Dose: 10 mg Furosemide (Lasix) 40 mg PO DAILY [facility] Stop: 08/06/18 09:01 Last Admin: 07/29/18 08:37 Dose: 40 mg Gabapentin (Neurontin) 300 mg PO TID [facility] Last Admin: 07/29/18 08:37 Dose: 300 mg Glucagon (Glucagon Inj) 1 mg OTHER PRN PRN PRN Reason: For hypoglycemia Hydralazine HCl (Apresoline) 25 mg PO TID [facility] Last Admin: 07/29/18 08:40 Dose: 25 mg Insulin Aspart (Novolog Insulin Correctional Sugar Inj) 0 unit SQ ACHS [facility]; Protocol Last Admin: 07/29/18 08:44 Dose: Not Given Lactulose (Lactulose Liq) 30 ml PO DAILY PRN PRN Reason: SEVERE CONSITIPATION Levothyroxine Sodium (Synthroid) 25 mcg PO DAILY@0600 [facility] Last Admin: 07/29/18 06:13 Dose: 25 mcg Metoprolol Tartrate (Lopressor) 25 mg PO BID [facility] Last Admin: 07/29/18 08:39 Dose: 25 mg Multivitamins/Minerals (Theragran-M) 1 tab PO DAILY [facility] Last Admin: 07/29/18 08:40 Dose: 1 tab Mupirocin (Bactroban 2% Nasal Oint) 1 applicatio EACH NARE BID [facility] Last Admin: 07/29/18 08:45 Dose: Not Given Ondansetron HCl (Zofran Inj) 4 mg IV.PUSH Q6H PRN PRN Reason: NAUSEA OR VOMITING Oxycodone/Acetaminophen (Percocet 5/325 Mg) 1 tab PO Q3H PRN PRN Reason: PAIN SCALE 1 TO 5 Last Admin: 07/28/18 20:40 Dose: 1 tab Pantoprazole Sodium (Protonix) 40 mg PO DAILY@06 [facility] Last Admin: 07/29/18 06:13 Dose: 40 mg Polyethylene Glycol (Miralax) 17 gm PO DAILY [facility] Last Admin: 07/29/18 08:45 Dose: Not Given Potassium Chloride (Klor-Con 10) 20 meq PO DAILY [facility] Last Admin: 07/29/18 08:37 Dose: 10 meq Pravastatin Sodium (Pravachol) 80 mg PO HS [facility] Last Admin: 07/28/18 20:40 Dose: 80 mg Senna/Docusate Sodium (Joycelyn-Colace) 1 tab PO BID [facility] Last Admin: 07/29/18 08:40 Dose: 1 tab Sennosides (Senokot) 8.6 mg PO [facility] Last Admin: 07/28/18 20:41 Dose: 8.6 mg Sodium Biphosphate/Sodium Phosphate (Fleets Enema (Adult)) 118 ml RECTAL UNSCH PRN PRN Reason: SEE LABEL COMMENTS Sodium Chloride (Ns Flush) 2 ml IV.FLUSH BID [facility] Last Admin: 07/29/18 08:45 Dose: 2 ml Sodium Chloride (Ns Flush) 2 ml IV.FLUSH PRN PRN PRN Reason: FLUSH AFTER USING IV ACCESS Last Admin: 07/19/18 13:48 Dose: 2 ml Allergies Allergy/AdvReac Type Severity Reaction Status Date / Time cat dander Allergy Mild Cough Verified 07/09/18 22:26 Penicillins Allergy Unknown Itching Verified 07/09/18 22:26 Sulfa (Sulfonamide AdvReac Mild Nausea/Vomi Verified 07/09/18 22:26 Antibiotics) ting trihexyphenidyl AdvReac Mild Nausea/Vomi Verified 07/09/18 22:26 ting Home Medications Medication Instructions Recorded Confirmed Type divalproex 1,000 mg PO BID 03/25/18 07/11/18 History docusate sodium 100 mg PO BID 03/25/18 07/11/18 History doxepin 25 mg PO HS 03/25/18 07/11/18 History fluphenazine HCl 10 mg PO HS 03/25/18 07/11/18 History gabapentin 300 mg PO TID 03/25/18 07/11/18 History hydralazine 50 mg PO TID 03/25/18 07/11/18 History linagliptin [Tradjenta] 5 mg PO DAILY 03/25/18 07/11/18 History metformin 1,000 mg PO BID 03/25/18 07/11/18 History sennosides [Senna Laxative] 8.6 mg PO DAILY PRN 03/25/18 07/11/18 History Physical Exam Vital signs: Vital Signs 07/28/18 11:00 07/28/18 12:00 07/28/18 13:00 Temperature 98.4 F Pulse Rate 65 62 72 Respiratory Rate 16 Blood Pressure 102/58 L Pulse Oximetry 94 L 07/28/18 14:00 07/28/18 15:00 07/28/18 16:00 Temperature 98.5 F Pulse Rate 58 L 62 61 Respiratory Rate 16 Blood Pressure 102/64 Pulse Oximetry 96 96 07/28/18 17:00 07/28/18 18:00 07/28/18 19:00 Temperature 98.6 F Pulse Rate 66 60 59 L Respiratory Rate 20 Blood Pressure 97/55 L Pulse Oximetry 96 07/28/18 20:00 07/28/18 21:00 07/28/18 22:00 Temperature Pulse Rate 62 62 64 Respiratory Rate Blood Pressure Pulse Oximetry 07/28/18 23:00 07/29/18 00:00 07/29/18 01:00 Temperature 98.6 F Pulse Rate 65 59 L 54 L Respiratory Rate 20 20 Blood Pressure 97/61 L Pulse Oximetry 96 96 07/29/18 02:00 07/29/18 03:00 07/29/18 04:00 Temperature 98.1 F Pulse Rate 56 L 56 L 54 L Respiratory Rate 18 18 Blood Pressure 92/54 L Pulse Oximetry 97 97 07/29/18 05:00 07/29/18 06:00 07/29/18 08:00 Temperature 97.7 F Pulse Rate 76 54 L 60 Respiratory Rate 18 Blood Pressure 136/64 Pulse Oximetry 100 Intake & Output 07/28/18 07/29/18 07/29/18 18:59 06:59 18:59 Intake Total 1380 / 1380 720 / 720 Output Total 750 / 750 Balance 1380 / 1380 -30 / -30 Weight 95.5 kg Intake: Oral 1380 / 1380 720 / 720 Output: Urine 750 / 750 Other: # Voids 4 Date of Last Bowel Movement 07/28/18 07/28/18 # Bowel Movements 2 - Constitutional no acute distress - Routine HEENT Exam Head: Present: normocephalic - Routine Neck Exam Present: supple - Routine Respiratory Exam Present: CTA bilaterally - Routine Cardiovascular Exam Present: S1, S2 - Routine Abdominal Exam Present: soft - Routine Extremities Exam Comments: no dannielle - Urinary Catheter Management Indwelling Urethral Catheter Cath placed during this visit: yes, but has since been removed by the nurse Reason for continuing: Decision to DC catheter Insertion date: 07/09/18 Insertion time: 22:50 Removal date: 07/12/18 Removal time: 17:25 Indwelling Temp Sensing Catheter Cath placed during this visit: yes, but has since been removed by the nurse Reason for continuing: Not indwelling catheter Insertion date: 07/18/18 Insertion time: 09:40 Removal date: 07/19/18 Removal time: 05:30 Results 07/26/18 02:45 07/26/18 02:45 Intake and Output 07/28/18 07/29/18 07/29/18 22:59 06:59 14:59 Intake Total 1380 / 1380 720 / 720 Output Total 750 / 750 Balance 1380 / 1380 -30 / -30 Intake: Oral 1380 / 1380 720 / 720 Output: Urine 750 / 750 Other: # Voids 4 Date of Last Bowel Movement 07/28/18 07/28/18 # Bowel Movements 2 Weight 95.5 kg Assessment and Plan - Assessment (1) NSTEMI (non-ST elevated myocardial infarction) Code(s): I21.4 - Non-ST elevation (NSTEMI) myocardial infarction Status: Acute (2) CAD (coronary artery disease) Code(s): I25.10 - Atherosclerotic heart disease of [place] coronary artery without angina pectoris Status: Acute - Plan 1.) CAD - nstemi, s/p cabg, assymptomatic, continue aspirin, lopressor, pravachol
[2018-07-29 11:54] LABS: Baso # (Auto) 0.1 th/mm3 (0.0-0.2); Baso % (Auto) 0.9 % (0.0-2.0); Eos # (Auto) 0.2 th/mm3 (0.0-0.4); Eos % (Auto) 2.8 % (0.0-4.0); Hematocrit 31.2 % (35.0-46.0); Hemoglobin 9.8 gm/dL (11.6-15.3); Lymph # (Auto) 2.2 th/mm3 (1.0-4.8); Mean Corpuscular HGB Conc 31.3 % (32.0-36.0); Mean Corpuscular Hemoglobin 27.8 pg (27.0-34.0); Mean Corpuscular Volume 88.8 fL (80.0-100.0); Mean Platelet Volume 7.7 fL (7.0-11.0); Mono # (Auto) 0.8 th/mm3 (0.0-0.9); Mono % (Auto) 10.4 % (0.0-8.0); Neut % (Auto) 54.9 % (16.0-70.0); Platelet Count 456 th/mm3 (150-450); Red Blood Count 3.51 mil/mm3 (4.00-5.30); Red Cell Distribution Width 19.9 % (11.6-17.2); White Blood Count 7.2 th/mm3 (4.0-11.0)
--- NOTE | 2018-07-29 12:02 | P.PNIM ---
Subjective Interval history: Follow up CAD status post CABG. Borderline low BP completely asymptomatic repeat CBC and BMP unremarkable. Patient stable for discharge pending [facility] arrangement Physical Exam Vital signs: Vital Signs 07/28/18 13:00 07/28/18 14:00 07/28/18 15:00 Temperature 98.5 F Pulse Rate 72 58 L 62 Respiratory Rate 16 Blood Pressure 102/64 Pulse Oximetry 96 07/28/18 16:00 07/28/18 17:00 07/28/18 18:00 Temperature Pulse Rate 61 66 60 Respiratory Rate Blood Pressure Pulse Oximetry 96 07/28/18 19:00 07/28/18 20:00 07/28/18 21:00 Temperature 98.6 F Pulse Rate 59 L 62 62 Respiratory Rate 20 Blood Pressure 97/55 L Pulse Oximetry 96 07/28/18 22:00 07/28/18 23:00 07/29/18 00:00 Temperature 98.6 F Pulse Rate 64 65 59 L Respiratory Rate 20 20 Blood Pressure 97/61 L Pulse Oximetry 96 96 07/29/18 01:00 07/29/18 02:00 07/29/18 03:00 Temperature 98.1 F Pulse Rate 54 L 56 L 56 L Respiratory Rate 18 Blood Pressure 92/54 L Pulse Oximetry 97 07/29/18 04:00 07/29/18 05:00 07/29/18 06:00 Temperature Pulse Rate 54 L 76 54 L Respiratory Rate 18 Blood Pressure Pulse Oximetry 97 07/29/18 08:00 07/29/18 11:00 Temperature 97.7 F 98.5 F Pulse Rate 60 55 L Respiratory Rate 18 18 Blood Pressure 136/64 101/56 L Pulse Oximetry 99 96 Intake & Output 07/28/18 07/29/18 07/29/18 18:59 06:59 18:59 Intake Total 1380 / 1380 720 / 720 Output Total 750 / 750 Balance 1380 / 1380 -30 / -30 Weight 95.5 kg Intake: Oral 1380 / 1380 720 / 720 Output: Urine 750 / 750 Other: # Voids 4 Date of Last Bowel Movement 07/28/18 07/28/18 # Bowel Movements 2 Narrative: GENERAL: Patient sitting up in chair. SKIN: Warm and dry. CARDIOVASCULAR: Regular rate and rhythm without murmurs, gallops, or rubs. Chest with Steri-Strips RESPIRATORY: Breath sounds equal bilaterally. No accessory muscle use. GASTROINTESTINAL: Abdomen soft, non-tender, nondistended. MUSCULOSKELETAL: No cyanosis, peripheral edema. Neurovascularly intact BACK: Nontender without obvious deformity. No CVA tenderness. Urinary Catheter Management Indwelling Urethral Catheter: Cath placed during this visit: yes, but has since been removed by the nurse Reason for continuing: Decision to DC catheter Insertion date: 07/09/18 Insertion time: 22:50 Removal date: 07/12/18 Removal time: 17:25 Indwelling Temp Sensing Catheter: Cath placed during this visit: yes, but has since been removed by the nurse Reason for continuing: Not indwelling catheter Insertion date: 07/18/18 Insertion time: 09:40 Removal date: 07/19/18 Removal time: 05:30 Results Labs CBC & Chem 7: 07/29/18 11:15 07/29/18 11:15 Imaging Imaging: ITS Impressions Carotid Doppler Study 07/10/18 00:00 CONCLUSION: 1. Right Internal Carotid Artery: No significant stenosis or atherosclerotic plaque is visualized. 2. Left Internal Carotid Artery: No significant stenosis or atherosclerotic plaque is visualized. Lower Extremity Ultrasound 07/11/18 11:28 CONCLUSION: 1. Venous mapping as above. Venous Doppler Study 07/11/18 11:28 CONCLUSION: 1. No evidence of DVT. Chest X-Ray 07/19/18 05:00 CONCLUSION: Left lower lobe atelectasis or consolidation. This appears improved from the prior exam. Status post sternotomy. The heart size is enlarged. Procedures Procedures: Cardiac catheterization CABG Assessment and Plan (1) NSTEMI (non-ST elevated myocardial infarction): Code(s): I21.4 - Non-ST elevation (NSTEMI) myocardial infarction Status: Acute (2) CAD (coronary artery disease): Code(s): I25.10 - Atherosclerotic heart disease of [place] coronary artery without angina pectoris Status: Acute (3) S/P CABG x 3: Code(s): Z95.1 - Presence of aortocoronary bypass graft Status: Acute Plan Ms. Schmidt is an AA female with a history of previous CVA, diabetes mellitus, hypertension, hyperlipidemia, coronary artery disease and schizophrenia/bipolar disorder presents to the emergency department for the evaluation of chest pain/ pressure on 07/10/2018. Troponins were elevated, Cardiology performed cath which showed severe 3 vessel disease. Non-ST elevation [place] Multivessel CAD on Cath on 07/10/2018. Hypertension Hyperlipidemia -s/p CABG. -Currently on Aspirin 81mg, Amiodarone 200mg Q12, metoprolol 25mg BID. -Continue Hydralazine 25 mg TID with hold parameter. -Lasix 40 minutes p.o. daily with potassium supplement -Patient is on pravastatin 80 mg nightly. Diabetes mellitus, [id number], overall controlled Monitor blood glucose currently -Sliding scale insulin. Goal BG 140-180. ESBL E coli UTI/hematuria -Status post IV ertapenem per ID X 14 days starting 07/14/2018 with last dose on July 28, 2018. COPD, chronic Continue Symbicort, supplemental oxygen DVT prophylaxis: Bilateral SCDs. Early ambulation Patient has been declined admissions to by [facility] but accepted by [facility] but was not authorized by insurance. Will discharge back to [facility] with PT when arranged . Stable for discharge [facility] [employer] [facility] Prescription Drug Monitoring Database has been queried and verified prior to prescribing the controlled subsection. Patient is having significant pain caused by [CABG ] which will last more than 3 days. Trial of alternative treatment options other than prescribed opioids has not helped. I believe that it is medically necessary to treat the patients pain because it is affecting patients ability to do ADL Progress Note: Quality VTE Deep Vein Thrombosis/Pulmonary Embolism Present on Admission: No _ (1) CAD (coronary artery disease) Qualifiers: Associated angina: Coronary Disease-Associated Artery/Lesion type: [place] vs. transplanted heart:
[2018-07-29 12:12] LABS: Calcium 9.2 mg/dL (8.5-10.1); Carbon Dioxide 30.4 meq/L (21.0-32.0); Magnesium 2.4 mg/dL (1.5-2.5); Potassium 4.2 meq/L (3.5-5.1)
[2018-07-30] MEDS: Insulin NovoLOG Aspart Correctional Sugar Inj SQ SCH ×2 (08:40→14:02)
[2018-07-30] MEDS: Furosemide 40 MG Tablet PO SCH (08:40)
[2018-07-30] MEDS: hydrALAZINE 25 MG Tablet PO SCH ×2 (08:40→14:06)
[2018-07-30] MEDS: Metoprolol Tartrate 25 MG Tablet PO SCH (08:40)
[2018-07-30] MEDS: Senna/Docusate Sodium 8.6/50 MG Tablet PO SCH (08:40)
[2018-07-30] MEDS: Divalproex 500 MG ER Tablet PO SCH (08:40)
[2018-07-30] MEDS: Docusate Sodium 100 MG Capsule PO SCH (08:40)
[2018-07-30] MEDS: Polyethylene Glycol 3350 17 GM Packet PO SCH (08:41)
[2018-07-30] MEDS: Multivitamin/Minerals Therapeutic Tablet PO SCH (08:41)
[2018-07-30] MEDS: Mupirocin 2% Nasal Oint Topical Syringe EACH NARE SCH (08:41)
[2018-07-30] MEDS: Amiodarone 200 MG Tablet PO SCH (08:41)
[2018-07-30] MEDS: Gabapentin 300 MG Capsule PO SCH ×2 (08:41→14:06)
--- NOTE | 2018-07-30 09:00 | P.PNIM ---
Subjective Interval history: Reports her pain is controlled well she is ambulating in the room. No concerns. Wants to be discharged soon. Physical Exam Vital signs: Vital Signs 07/29/18 09:00 07/29/18 10:00 07/29/18 10:15 Temperature Pulse Rate 64 82 Respiratory Rate Blood Pressure Pulse Oximetry Pulse Oximetry [Exertion on Room Air] 90 L Pulse Oximetry [Resting on Room Air] 98 07/29/18 11:00 07/29/18 12:00 07/29/18 13:00 Temperature 98.5 F Pulse Rate 66 54 L 52 L Respiratory Rate 18 Blood Pressure 101/56 L Pulse Oximetry 96 99 Pulse Oximetry [Exertion on Room Air] Pulse Oximetry [Resting on Room Air] 07/29/18 13:21 07/29/18 14:00 07/29/18 15:00 Temperature 98.4 F Pulse Rate 66 57 L Respiratory Rate 18 Blood Pressure 129/62 Pulse Oximetry 98 98 Pulse Oximetry [Exertion on Room Air] Pulse Oximetry [Resting on Room Air] 07/29/18 16:00 07/29/18 18:00 07/29/18 19:00 Temperature 98.5 F Pulse Rate 73 71 71 Respiratory Rate 18 Blood Pressure 100/50 L Pulse Oximetry 98 96 Pulse Oximetry [Exertion on Room Air] Pulse Oximetry [Resting on Room Air] 07/29/18 20:00 07/29/18 21:00 07/29/18 22:00 Temperature Pulse Rate 66 66 62 Respiratory Rate Blood Pressure Pulse Oximetry 94 L Pulse Oximetry [Exertion on Room Air] Pulse Oximetry [Resting on Room Air] 07/29/18 23:00 07/30/18 00:00 07/30/18 01:00 Temperature 98.5 F Pulse Rate 62 64 62 Respiratory Rate 18 18 Blood Pressure 101/62 Pulse Oximetry 95 95 Pulse Oximetry [Exertion on Room Air] Pulse Oximetry [Resting on Room Air] 07/30/18 02:00 07/30/18 03:00 07/30/18 04:00 Temperature 98.1 F Pulse Rate 60 61 58 L Respiratory Rate 18 Blood Pressure 148/86 H Pulse Oximetry 96 96 Pulse Oximetry [Exertion on Room Air] Pulse Oximetry [Resting on Room Air] 07/30/18 05:00 07/30/18 06:00 07/30/18 07:00 Temperature Pulse Rate 62 88 64 Respiratory Rate Blood Pressure Pulse Oximetry Pulse Oximetry [Exertion on Room Air] Pulse Oximetry [Resting on Room Air] Intake & Output 07/29/18 07/30/18 07/30/18 18:59 06:59 18:59 Intake Total 1200 / 1200 480 / 480 Balance 1200 / 1200 480 / 480 Weight 95 kg Intake: Oral 1200 / 1200 480 / 480 Other: # Voids 5 3 Date of Last Bowel Movement 07/29/18 Narrative: GENERAL: Patient sitting up in chair. CARDIOVASCULAR: Regular rate and rhythm without murmurs, gallops, or rubs. Chest with Steri-Strips RESPIRATORY: Breath sounds equal bilaterally. No accessory muscle use. GASTROINTESTINAL: Abdomen soft, non-tender, nondistended. MUSCULOSKELETAL: No cyanosis, peripheral edema. Neurovascularly intact Alert and oriented person place time, moves bilateral upper and lower extremities Urinary Catheter Management Indwelling Urethral Catheter: Cath placed during this visit: yes, but has since been removed by the nurse Reason for continuing: Decision to DC catheter Insertion date: 07/09/18 Insertion time: 22:50 Removal date: 07/12/18 Removal time: 17:25 Indwelling Temp Sensing Catheter: Cath placed during this visit: yes, but has since been removed by the nurse Reason for continuing: Not indwelling catheter Insertion date: 07/18/18 Insertion time: 09:40 Removal date: 07/19/18 Removal time: 05:30 Results Labs CBC & Chem 7: 07/29/18 11:15 07/29/18 11:15 Procedures Procedures: Cardiac catheterization CABG Assessment and Plan (1) NSTEMI (non-ST elevated myocardial infarction): Code(s): I21.4 - Non-ST elevation (NSTEMI) myocardial infarction Status: Acute (2) CAD (coronary artery disease): Code(s): I25.10 - Atherosclerotic heart disease of [place] coronary artery without angina pectoris Status: Acute (3) S/P CABG x 3: Code(s): Z95.1 - Presence of aortocoronary bypass graft Status: Acute Plan Ms. Schmidt is an AA female with a history of previous CVA, diabetes mellitus, hypertension, hyperlipidemia, coronary artery disease and schizophrenia/bipolar disorder presents to the emergency department for the evaluation of chest pain/ pressure on 07/10/2018. Troponins were elevated, Cardiology performed cath which showed severe 3 vessel disease. Non-ST elevation [place] Multivessel CAD on Cath on 07/10/2018. Hypertension Hyperlipidemia -s/p CABG. -Currently on Aspirin 81mg, Amiodarone 200mg Q12, metoprolol 25mg BID. -Continue Hydralazine 25 mg TID. -Lasix 40 minutes p.o. daily with potassium supplement -Patient is on pravastatin 80 mg nightly. Diabetes mellitus, [id number], overall controlled Monitor blood glucose currently -Sliding scale insulin. Goal BG 140-180. ESBL E coli UTI/hematuria Completed IV ertapenem per ID X 14 days starting 07/14/2018 with last dose on July 28, 2018. COPD, chronic Continue Symbicort, supplemental oxygen as needed, currently satting at 96% on room air. DVT prophylaxis: Bilateral SCDs. Patient has been declined admissions to by [place] and [facility] facility, arrangements will be made to return back to assisted living facility with home health care with physical therapy/nursing for discharge planning. Progress Note: Quality VTE Deep Vein Thrombosis/Pulmonary Embolism Present on Admission: No _ (1) CAD (coronary artery disease) Qualifiers: Coronary Disease-Associated Artery/Lesion type: [place] vs. transplanted heart: Associated angina:
--- NOTE | 2018-07-30 09:05 | P.DS ---
DS: Providers Date of admission: 07/10/18 00:13 Primary care physician: UNKNOWN Consults: 07/25/18 10:55 HUB Only Consult Order Routine Consulting Provider: [facility] 07/10/18 00:50 Consult to Cardiology Routine Consulting Provider: Vlad Boland Does the patient have a Motor Overhauler who follows them?: Yes Preferred Drug Abuse Counselor:: Vlad Boland Reason for Consultation: ECG changes suspicious for ischemia with Chest pain , d/w him by phone in ED at 00:50AM Spoke with:: adding to Dr Boland's list - call in Am Date Notified:: 07/10/18 Time Notified:: 01:36 Comments:: Dr Boland is aware - ML Ordering Provider: RADHA 07/10/18 11:35 Consult to Hospitalist Routine Consulting Provider: Mauricio Starkey Reason for Consultation: cad, dm Notified:: Service Spoke with:: Sherin Date Notified:: 07/10/18 Time Notified:: 11:44 Ordering Provider: RADHA 07/10/18 11:37 Consult to Cardiothoracic Surgery Stat Consulting Provider: Buck Hilton For STAT consult, spoke directly to:: buck valdivia Preferred Psychodramatist:: Buck Hilton Patient known to:: Buck Hilton Reason for Consultation: nstemi, cad, chf, dm Notified:: Physician Spoke with:: Dr.S HILTON Date Notified:: 07/10/18 Time Notified:: 11:47 Ordering Provider: TANYAOK 07/10/18 11:42 Consult to Hematology Routine Consulting Provider: Justin Cheng Reason for Consultation: anemia, preop cabg Notified:: Service Spoke with:: PUNEET Date Notified:: 07/10/18 Time Notified:: 11:50 Ordering Provider: RADHA 07/12/18 09:13 Consult to Urology Routine Consulting Provider: Angel Pires Reason for Consultation: Hematuria, anemia Notified:: Office Spoke with:: anita Date Notified:: 07/12/18 Time Notified:: 09:19 Ordering Provider: JENNIFER 07/14/18 10:15 Consult to Infectious Diseases Routine Consulting Provider: Gris Boland Reason for Consultation: Patient to have CABG on Monday and urine with ESBL e coli Notified:: Service Spoke with:: Sherin Date Notified:: 07/14/18 Time Notified:: 10:34 Ordering Provider: JENNIFER Brief History from admission: 58-year-old female with a past medical history significant for previous CVA, diabetes mellitus, hypertension, hyperlipidemia, coronary artery disease and schizophrenia/bipolar disorder presents to the emergency department for the evaluation of chest pain/pressure. The patient reports that at 8 PM last night she began to feel as if someone was hitting her in the chest. She endorses accompanying shortness of breath. Positive nausea with abdominal pain. No emesis. When EMS arrived on scene the patient had conversational dyspnea and an oxygen saturation of 78% on room air. She was placed on BiPAP. No fever/ chills. No focal neurologic deficits. EKG with sinus tachycardia with ST segment depression in multiple leads including 1, 2, aVF, V3-V6. Patient update on day of discharge: Patient doing well with no complaint of chest pain or shortness of breath. Looking forward to going home. DS: Diagnosis Discharge Diagnosis (1) NSTEMI (non-ST elevated myocardial infarction): Status: Acute Diagnosis: Principal (2) CAD (coronary artery disease): Status: Chronic Diagnosis: Principal (3) S/P CABG x 3: Status: Chronic Diagnosis: Secondary DS: Summary Ms. Schmidt is an AA female with a history of previous CVA, diabetes mellitus, hypertension, hyperlipidemia, coronary artery disease and schizophrenia/bipolar disorder presents to the emergency department for the evaluation of chest pain/ pressure on 07/10/2018. Troponins were elevated, Cardiology performed cath which showed severe 3 vessel disease, patient move forward with CABG x3 with Dr. Polanco with uneventful postoperative course. She was placed on aspirin, beta -lisa, amiodarone. For her blood pressure she was put on hydralazine and Lasix. Her xye-vumkktp-mfxngtifc diabetes mellitus was overall controlled with sliding scale insulin coverage. For her history of ESBL E. coli urinary tract infection she completed IV ertapenem for 14 days starting July 14 ending in July 28. Her insurance did not authorize placement at inpatient rehab nor [facility] facility. She continue her rehab efforts during the hospital and later transition back to [facility] with home health care nursing care and physical therapy. Time Spent with Patient Total time spent providing and/or coordinating discharge services: Less than 30 minutes Quality: VTE Deep Vein Thrombosis/Pulmonary Embolism Present on Admission: No Results Procedures completed during hospitalization: Cardiac catheterization CABG Labs on day of discharge: Labs from last 24 hours 07/30/18 07/29/18 07/29/18 08:38 19:25 11:15 WBC RBC Hgb Hct MCV MCH MCHC RDW Plt Count MPV Neut % (Auto) Lymph % (Auto) [place] % (Auto) Eos % (Auto) Baso % (Auto) Neut # (Auto) Lymph # (Auto) [place] # (Auto) Eos # (Auto) Baso # (Auto) WBC Differential Differential Comment Sodium 140 Potassium 4.2 Chloride 102 Carbon Dioxide 30.4 Anion Gap 8 BUN 12 Creatinine 0.92 Estimated GFR 76 L POC Glucose 155 H 164 H Random Glucose 99 Calcium 9.2 Magnesium 2.4 07/29/18 11:15 WBC 7.2 RBC 3.51 L Hgb 9.8 L Hct 31.2 L MCV 88.8 MCH 27.8 MCHC 31.3 L RDW 19.9 H Plt Count 456 H MPV 7.7 Neut % (Auto) 54.9 Lymph % (Auto) 31.0 [place] % (Auto) 10.4 H Eos % (Auto) 2.8 Baso % (Auto) 0.9 Neut # (Auto) 4.0 Lymph # (Auto) 2.2 [place] # (Auto) 0.8 Eos # (Auto) 0.2 Baso # (Auto) 0.1 WBC Differential . Differential Comment Auto diff final Sodium Potassium Chloride Carbon Dioxide Anion Gap BUN Creatinine Estimated GFR POC Glucose Random Glucose Calcium Magnesium Impressions ITS Impressions Carotid Doppler Study 07/10/18 00:00 CONCLUSION: 1. Right Internal Carotid Artery: No significant stenosis or atherosclerotic plaque is visualized. 2. Left Internal Carotid Artery: No significant stenosis or atherosclerotic plaque is visualized. Lower Extremity Ultrasound 07/11/18 11:28 CONCLUSION: 1. Venous mapping as above. Venous Doppler Study 07/11/18 11:28 CONCLUSION: 1. No evidence of DVT. Chest X-Ray 07/19/18 05:00 CONCLUSION: Left lower lobe atelectasis or consolidation. This appears improved from the prior exam. Status post sternotomy. The heart size is enlarged. Discharge Plan Discharge Disposition Patient Disposition: W/Home Health Service Discharge Condition Condition: Good Discharge Order Discharge Orders: Discharge Order (Routine); Ordered 07/23/18 Ordered By: Larry Villela Discharge Details Anticipated Discharge Date: 07/23/18 Discharge Comment: Discharge to [facility] when arranged Physicians Team Primary Care Provider: UNKNOWN, Attending Provider: Marizol Gomez Other Providers: Buck Hilton ; Justin Cheng ; Vlad Boland ; Angel Pires ; Gris Boland ; [facility] Rxs /Orders / Referrals /Forms Prescriptions: New polyethylene glycol 3350 17 gram Powder In Packet 17 gm PO DAILY Qty: 30 RF: 0 alprazolam [Xanax] 0.25 mg Tablet 0.25 mg PO Q6H PRN (Reason: FOR ANXIETY) Qty: 30 RF: 0 pravastatin 80 mg Tablet 80 mg PO HS Qty: 30 RF: 3 pantoprazole 40 mg Tablet,Delayed Release (Dr/Ec) 40 mg PO DAILY@06 Qty: 30 RF: 0 aspirin 81 mg Tablet,Chewable 81 mg PO DAILY Qty: 90 RF: 0 metoprolol tartrate 25 mg Tablet 25 mg PO BID Qty: 60 RF: 3 budesonide-formoterol [Symbicort] 80-4.5 mcg/actuation Hfa Aerosol Inhaler 1 puff INH BID 30 Days Qty: 30 RF: 0 oxycodone-acetaminophen 5-325 mg Tablet 1 tab PO Q6HR PRN (Reason: Pain Scale 1 To 5) Qty: 12 RF: 0 amiodarone 200 mg Tablet 200 mg PO Q12HR Qty: 4 RF: 0 furosemide 40 mg Tablet 40 mg PO DAILY Qty: 6 RF: 0 potassium chloride [Klor-Con 10] 10 mEq Tablet Extended Release 20 meq PO DAILY Qty: 6 RF: 0 Continue sennosides [Senna Laxative] 8.6 mg Tablet 8.6 mg PO DAILY PRN (Reason: Constipation) RF: 0 doxepin 25 mg Capsule 25 mg PO HS RF: 0 metformin 1,000 mg Tablet 1,000 mg PO BID RF: 0 divalproex 500 mg Tablet Extended Release 24 Hr 1,000 mg PO BID RF: 0 docusate sodium 100 mg Capsule 100 mg PO BID RF: 0 gabapentin 300 mg Capsule 300 mg PO TID RF: 0 hydralazine 50 mg Tablet 50 mg PO TID RF: 0 fluphenazine HCl 5 mg Tablet 10 mg PO HS RF: 0 linagliptin [Tradjenta] 5 mg Tablet 5 mg PO DAILY RF: 0 levothyroxine 25 mcg Tablet 25 mcg PO DAILY@0600 RF: 0 albuterol sulfate 90 mcg/actuation Hfa Aerosol Inhaler 1 puff INHALATION Q6H PRN (Reason: sob) Qty: 1 RF: 0 Discontinued metoprolol tartrate 100 mg Tablet 100 mg PO BID RF: 0 enalapril maleate 20 mg Tablet 20 mg PO BID RF: 0 lorazepam 1 mg Tablet 1 mg PO DAILY RF: 0 simvastatin 40 mg Tablet 40 mg PO HS RF: 0 Ambulatory Orders / Order Sets / DME: Basic Metabolic Panel (Routine) Timeframe: 2 Weeks Location: Determined by Patient Ordered By: Heavenly Borrego Complete Blood Count NO Diff (Routine) Timeframe: 2 Weeks Location: Determined by Patient Ordered By: Heavenly Borrego XR chest 2V PA&LAT (Routine) Timeframe: 2 Weeks Location: Determined by Patient Ordered By: Heavenly Borrego Referrals: Vlad Boland MD [Physician] - See Instructions (Dr Boland has walk in hours of M-Thurs from 7:30-11:30 am. Please be sure to be seen within 4 weeks of discharge.) Pushpa Bush [Non-Staff] - See Instructions (Your case liner, Michelle Kain will schedule your follow up. Please be sure to be seen within 2 weeks of discharge.) Heavenly Borrego [ADVANCE RN PRACTITIONER] - See Instructions ( Your appointment has been scheduled for [08/09/18] at [11:00 AM] If you cannot make this appointment, please call the office to reschedule ) Discharge Instructions Patient Printed Instructions: Heart Healthy Diet (DC), Using Oxygen at Home (DC ), Acute Wound Care (DC), Sternal Precautions (GEN), Heart Catheterization (DC) , CABG (Coronary Artery Bypass Graft) (DC) Additional Instructions: PREVENA Single Use Negative Wound Therapy System Caregiver Instruction Sheet 1. A Prevena dressing system was applied to the chest incision during surgery , to promote wound healing. It works via a suction device (negative pressure wound therapy) to remove low to moderate levels of exudate (drainage) and infectious materials. We recommend that the device stay in place for up to seven days, from day of surgery. 2. Day of Surgery__07/18/18 Day of Removal __07/25/18 3. The dressing should only be removed by a health respiratory care practitioner. Please arrange removal of device to coincide with Home Health visit and or with Nursing staff at Rehab 4. If skin reddening or irritation of skin occurs, or excessive drainage, please notify the Cardiovascular Surgeons office at [phone]. 5. Light showering is permissible; however the pump should be disconnected and placed in safe location, where it will not get wet. The dressing should not be exposed to direct spray or submerged in water. No bath tub / shower only. Ensure the end of the tubing attached to the dressing is facing down so that water does not enter the top of the tube. 6. To remove Prevena dressing: press purple button to turn off device / remove the suction. Then disconnect the tubing from the pump. The fixation strips should be stretched away from the skin and the dressing lifted at one corner and peeled back until it has been fully removed. 7. After removal, it is ok to shower daily using liquid dial soap and clean wash cloth, rinse and pat dry, and leave incision open to air dry. For any concerns regarding Prevena dressing, and or wounds, please contact Marimar Guadarrama, patient navigator at [phone] or notify the Cardiovascular Surgeons office at [phone]. Incentive spirometry Q1 hr x 10, while awake, also use acapella device hourly whole awake Sternal Breast Bone Precautions: NO pushing or pulling, ( pt must use sternal pillow to support chest with all activities and with coughing ( takes up to 3 months breast bone to heal ) All females to wear sternal bra , launder as needed Daily incision care: ok to shower daily, no tub bath. Wash all incisions with liquid dial soap, clean wash cloth to each site, rinse and pat dry. Observe for any signs of infection, such as drainage which is dark yellow, koo, green or foul smelling. Immediately report to the surgeon any drainage from the chest incision, or legs, and for any abnormal drainage from the chest tube sites. Notify surgeon if any temp >101.5 degrees F. When specialty dressing removed/ or if you do not have one, continue to shower daily as above, then rinse and pat incision dry and paint with betadine daily x 5 days. Allow steri strips to fall off if you have any. Avoid lotions, creams, salves, oils, etc. for the first month Please see attached forms for additional instructions regarding post Open Heart specialty wound vacuum dressings. DIMITRIOS or Prevena , Dressing to be removed by Nursing staff on __07/25/[address] Tirado patients , please obtain CBC, BMP, PA & Lat CXR in 2 weeks, results to Dr. Tirado ( prescription will be given) ( ) (Tele: [phone]) F/U appointment: as per NE instructions: PCP in 2 weeks, CV surgeon 2 weeks, Motor Overhauler 3-4 weeks For any questions regarding incisions/ dressing / meds / post op care or above Symptoms, Monday 8am-5pm Heart & Vascular Surgery Office ( Dr. Hilton & Dr. Tirado), After Hours / Nights (5pm -8am) Weekends and Holidays Please call [facility] Cardiac Intermediate Care Unit (CIC) Charge Nurse Post Discharge Care Plan Care Plan Goals: Your Health Problems: Goals to Promote Your Health: * To prevent worsening of your condition * To maintain your health at the optimal level Directions to Meet Your Goals: * Take your medications as prescribed * Follow your dietary instruction * Follow activity as directed * Keep your appointments as scheduled * Take your immunizations and boosters as scheduled * If your symptoms worsen call your PCP * If no PCP go to Urgent Care or Emergency Room Smoking is dangerous to your health. Avoid second hand smoke. You may reach the 24-hour crisis hotline for domestic abuse at . Status ED Status: Left Department
[2018-07-30] MEDS: Budesonide-Formoterol 80/4.5 MCG 6.9 GM Inhaler INH SCH (14:02)
--- NOTE | 2018-07-30 15:08 | P.PNCV ---
- Note Subjective/Hospital Course: pt seen and evaluated, full consult to follow sts risk score discussed with pt RISK SCORES Procedure: Isolated CAB CALCULATE Risk of Mortality: 1.346% Renal Failure: 2.414% Permanent Stroke: 2.147% Prolonged Ventilation: 8.884% DSW Infection: 0.314% Reoperation: 1.314% Morbidity or Mortality: 13.290% Short Length of Stay: 30.625% Long Length of Stay: 5.978% HISTORY OF PRESENT ILLNESS: 58-year-old female who has recently been in the hospital in May for heart failure, questionable pneumonia, bilateral effusions, was placed on some IV diuretics then was discharged home, received some IV antibiotics. She presented again to the emergency department 2017 with shortness of breath, left-sided chest pain. Troponin was 2.0, she was ruled in for a non-STEMI, decompensated congestive heart failure, coronary artery disease. She underwent cardiac catheterization on 07/10/[address] Boland which showed an ejection fraction of 60%. There was mid distal LAD lesion, 90%, the left circumflex had 90%, 95%posterior lateral and the middle, posterior lateral had a 70% to 80% stenosis. We were consulted to evaluate for coronary artery bypass grafting. The patient was also found to have some anemia, normocytic has been evaluated by hematology. She has received 2 units of packed RBCs. Hemoglobin is now 10. She has some low iron counts, probable chronic. Denies any blood in her stool. She is somewhat of a poor historian also. She now admitted to some blood in stool a couple of weeks ago PAST MEDICAL HISTORY: Includes iron deficiency, normocytic anemia, ? history of cerebrovascular accident in the past with no residual effects , diabetes mellitus, on oral medication, hypertension, hyperlipidemia, seizure disorder. She is unclear when her last seizure, bipolar disorder, schizophrenia. 07/12 pt still has gaines cath ? , now with hematuria, clots noted in tubing, pt states she noticed this after trying to have a BM earlier this am ( ? traumatic ) will check UA, Urology consulted per Hospitalist , off Heparin gtt since 07/10 Dr Tirado to eval cardiac cath films today 07/13 gaines cath dc yesterday, + UTI on ABX Carotid US : good vein mapping : fair no DVT lower ext tentatively scheduled for surgery on Mon07/18/18 will need daughter or POA to sign consent 07/16 pt for surgery in am Ecoli VALORIE, on Invanz / ID following daughters to speak with pt regarding of her mother 07/18 surgery - Preoperative Diagnosis (1) Congestive heart failure (2) NSTEMI (non-ST elevated myocardial infarction (3) CAD (coronary artery disease) Postoperative Diagnosis: same Date of procedure: 07/18/18 Procedure: CABG x 3 MUNIZ to LAD - poor SVG to OM - fair SVG to PLB - good EVH extubated after surgery crystalloid 2500cc, cell [id number] 07/19 doing well up in chair, painful on nasal cannula leave chest tube in pulm toileting OOB/ PT 07/20 extensive wheezing throughout all lung regalado some basilar crackles / add bid lasix, solumedrol/ symbicort eval for chest tube removal later today requires 1-2 person assistance increase BB f/u labs in am 07/21 Doing well Hemodynamic stable DC chest tubes today Discharge planning 07/22 Clinically stable Weaning O2 as tolerated Likely discharge tomorrow 07/23 still on 1-2 liters 02, check walk test eval for [facility] vs [facility] rehab change lasix to po, dc IV steroids stable to transfer to rehab from [facility] standpoint 07/24 turned down by [facility] and SNF placement re-eval for OT may need to go back to [facility] with [facility] now on room air 07/25 re-eval for inpt SNF pending / OT note reviewed stable for dc from [facility] standpoint 07/26 still waiting on SNF placement prevena dressing removed, yesterday on room air , doing well 07/27 pt stable CM to find disposition for discharge 07/30 waiting on discharge disposition on room air ambulating with pt Objective: Vital Signs - 24 hr 07/29/18 16:00 07/29/18 18:00 07/29/18 19:00 Temperature 98.5 F Pulse Rate 73 71 71 Respiratory Rate 18 Blood Pressure 100/50 L Pulse Oximetry 98 96 07/29/18 20:00 07/29/18 21:00 07/29/18 22:00 Temperature Pulse Rate 66 66 62 Respiratory Rate Blood Pressure Pulse Oximetry 94 L 07/29/18 23:00 07/30/18 00:00 07/30/18 01:00 Temperature 98.5 F Pulse Rate 62 64 62 Respiratory Rate 18 18 Blood Pressure 101/62 Pulse Oximetry 95 95 07/30/18 02:00 07/30/18 03:00 07/30/18 04:00 Temperature 98.1 F Pulse Rate 60 61 58 L Respiratory Rate 18 Blood Pressure 148/86 H Pulse Oximetry 96 96 07/30/18 05:00 07/30/18 06:00 07/30/18 07:00 Temperature 98.2 F Pulse Rate 62 88 79 Respiratory Rate 18 Blood Pressure 112/69 Pulse Oximetry 95 07/30/18 08:00 07/30/18 09:00 07/30/18 10:00 Temperature Pulse Rate 74 72 76 Respiratory Rate Blood Pressure Pulse Oximetry 95 07/30/18 11:00 07/30/18 12:00 Temperature 98.0 F Pulse Rate 81 Respiratory Rate 18 Blood Pressure 137/60 Pulse Oximetry 96 96 GENERAL: A&O x 3 SKIN: Warm and dry. sternal incision intact and well approximated HEAD: Normocephalic. EYES: No scleral icterus. No injection or drainage. NECK: Supple, trachea midline. No JVD or lymphadenopathy. CARDIOVASCULAR: Regular rate and rhythm without murmurs, gallops, or rubs. RESPIRATORY: Breath sounds equal bilaterally. No accessory muscle use. GASTROINTESTINAL: Abdomen soft, non-tender, nondistended. MUSCULOSKELETAL: No cyanosis, or edema. BACK: Nontender without obvious deformity. No CVA tenderness. Labs: Laboratory Results - last 12 hr 07/30/18 07/30/18 08:38 11:53 POC Glucose 155 H 102 Result Diagrams: 07/29/18 11:15 07/29/18 11:15 Telemetry: NSR - Plan (1) Congestive heart failure Plan: continue daily diuresis (3) Chest pain (5) CAD (coronary artery disease) Plan: on ASA, statin , BB carotid US: unremarkable (6) S/P CABG x 3 Plan: Neuro: home meds for Bipolar dz and seizure disorder Resp: room air , symbicort CV: on amiodarone, ASA, BB statin po daily lasix GI: motility meds, heart healthy diet OOB/ PT /OT ok to dc from [facility] standpoint waiting on discharge disposition (1) Congestive heart failure Qualifiers: Heart failure type: unspecified Heart failure chronicity: acute on chronic Qualified Code(s): I50.9 - Heart failure, unspecified (3) Chest pain Qualifiers: Chest pain type: chest pain due to myocardial ischemia Ischemic chest pain type: unstable angina pectoris Qualified Code(s): I20.0 - Unstable angina
--- NOTE | 2018-07-30 15:29 | P.PNCA ---
Subjective Interval history: no dannielle Medications and Allergies Active Medications: Active Medications Acetaminophen (Tylenol) 650 mg PO Q4H PRN PRN Reason: pain/fever > 100.4 Last Admin: 07/13/18 17:12 Dose: 650 mg Al Hydroxide/Mg Hydroxide (Milk Of Magnesia Liq) 30 ml PO Q12H PRN PRN Reason: Mild Constipation Al Hydroxide/Mg Hydroxide (Milk Of Magnesia Liq) 30 ml PO DAILY [facility] Last Admin: 07/30/18 08:41 Dose: Not Given Albuterol (Duoneb Neb (Prn)) 1 ampul NEB Q2HR NEB PRN PRN Reason: WHEEZING Last Admin: 07/23/18 16:20 Dose: 1 ampul Alprazolam (Xanax) 0.25 mg PO Q6H PRN PRN Reason: FOR ANXIETY Last Admin: 07/20/18 16:19 Dose: 0.25 mg Amiodarone HCl (Cordarone) 200 mg PO Q12HR [facility] Stop: 08/01/18 09:01 Last Admin: 07/30/18 08:41 Dose: 200 mg Aspirin (Aspirin Chew) 81 mg PO DAILY [facility] Last Admin: 07/30/18 08:40 Dose: 81 mg Bisacodyl (Dulcolax Supp) 10 mg RECTAL PRN PRN PRN Reason: SEE LABEL COMMENTS Budesonide/Formoterol Fumarate (Symbicort 80/4.5 Mcg Inh) 1 puff INH BID [facility] Last Admin: 07/30/18 14:02 Dose: 1 puff Dextrose (D50w Vial) 50 ml IV.PUSH UNSCH PRN PRN Reason: PER HYPOGLYCEMIA PROTOCOL Last Admin: 07/25/18 17:45 Dose: 50 ml Divalproex Sodium (Depakote Er) 1,000 mg PO BID [facility] Last Admin: 07/30/18 08:40 Dose: 1,000 mg Docusate Sodium (Colace) 100 mg PO BID [facility] Last Admin: 07/30/18 08:40 Dose: 100 mg Doxepin HCl (Sinequan) 25 mg PO HS [facility] Last Admin: 07/29/18 21:15 Dose: 25 mg Fluphenazine HCl (Prolixin) 10 mg PO HS [facility] Last Admin: 07/29/18 21:15 Dose: 10 mg Furosemide (Lasix) 40 mg PO DAILY [facility] Stop: 08/06/18 09:01 Last Admin: 07/30/18 08:40 Dose: 40 mg Gabapentin (Neurontin) 300 mg PO TID [facility] Last Admin: 07/30/18 14:06 Dose: 300 mg Glucagon (Glucagon Inj) 1 mg OTHER PRN PRN PRN Reason: For hypoglycemia Hydralazine HCl (Apresoline) 25 mg PO TID [facility] Last Admin: 07/30/18 14:06 Dose: 25 mg Insulin Aspart (Novolog Insulin Correctional Sugar Inj) [address] [facility]; Protocol Last Admin: 07/30/18 14:02 Dose: Not Given Lactulose (Lactulose Liq) 30 ml PO DAILY PRN PRN Reason: SEVERE CONSITIPATION Levothyroxine Sodium (Synthroid) 25 mcg PO DAILY@0600 [facility] Last Admin: 07/30/18 06:07 Dose: 25 mcg Metoprolol Tartrate (Lopressor) 25 mg PO BID [facility] Last Admin: 07/30/18 08:40 Dose: 25 mg Multivitamins/Minerals (Theragran-M) 1 tab PO DAILY [facility] Last Admin: 07/30/18 08:41 Dose: 1 tab Mupirocin (Bactroban 2% Nasal Oint) 1 applicatio EACH NARE BID [facility] Last Admin: 07/30/18 08:41 Dose: Not Given Ondansetron HCl (Zofran Inj) 4 mg IV.PUSH Q6H PRN PRN Reason: NAUSEA OR VOMITING Oxycodone/Acetaminophen (Percocet 5/325 Mg) 1 tab PO Q3H PRN PRN Reason: PAIN SCALE 1 TO 5 Last Admin: 07/30/18 15:26 Dose: 1 tab Pantoprazole Sodium (Protonix) 40 mg PO DAILY@06 [facility] Last Admin: 07/30/18 06:07 Dose: 40 mg Polyethylene Glycol (Miralax) 17 gm PO DAILY [facility] Last Admin: 07/30/18 08:41 Dose: Not Given Potassium Chloride (Klor-Con 10) 20 meq PO DAILY [facility] Last Admin: 07/30/18 08:41 Dose: 20 meq Pravastatin Sodium (Pravachol) 80 mg PO HS [facility] Last Admin: 07/29/18 21:15 Dose: 80 mg Senna/Docusate Sodium (Joycelyn-Colace) 1 tab PO BID [facility] Last Admin: 07/30/18 08:40 Dose: 1 tab Sennosides (Senokot) 8.6 mg PO [facility] Last Admin: 07/29/18 21:15 Dose: 8.6 mg Sodium Biphosphate/Sodium Phosphate (Fleets Enema (Adult)) 118 ml RECTAL UNSCH PRN PRN Reason: SEE LABEL COMMENTS Sodium Chloride (Ns Flush) 2 ml IV.FLUSH BID [facility] Last Admin: 07/30/18 08:41 Dose: 2 ml Sodium Chloride (Ns Flush) 2 ml IV.FLUSH PRN PRN PRN Reason: FLUSH AFTER USING IV ACCESS Last Admin: 07/19/18 13:48 Dose: 2 ml Allergies Allergy/AdvReac Type Severity Reaction Status Date / Time cat dander Allergy Mild Cough Verified 07/09/18 22:26 Penicillins Allergy Unknown Itching Verified 07/09/18 22:26 Sulfa (Sulfonamide AdvReac Mild Nausea/Vomi Verified 07/09/18 22:26 Antibiotics) ting trihexyphenidyl AdvReac Mild Nausea/Vomi Verified 07/09/18 22:26 ting Home Medications Medication Instructions Recorded Confirmed Type divalproex 1,000 mg PO BID 03/25/18 07/11/18 History docusate sodium 100 mg PO BID 03/25/18 07/11/18 History doxepin 25 mg PO HS 03/25/18 07/11/18 History fluphenazine HCl 10 mg PO HS 03/25/18 07/11/18 History gabapentin 300 mg PO TID 03/25/18 07/11/18 History hydralazine 50 mg PO TID 03/25/18 07/11/18 History linagliptin [Tradjenta] 5 mg PO DAILY 03/25/18 07/11/18 History metformin 1,000 mg PO BID 03/25/18 07/11/18 History sennosides [Senna Laxative] 8.6 mg PO DAILY PRN 03/25/18 07/11/18 History Physical Exam Vital signs: Vital Signs 07/29/18 16:00 07/29/18 18:00 07/29/18 19:00 Temperature 98.5 F Pulse Rate 73 71 71 Respiratory Rate 18 Blood Pressure 100/50 L Pulse Oximetry 98 96 07/29/18 20:00 07/29/18 21:00 07/29/18 22:00 Temperature Pulse Rate 66 66 62 Respiratory Rate Blood Pressure Pulse Oximetry 94 L 07/29/18 23:00 07/30/18 00:00 07/30/18 01:00 Temperature 98.5 F Pulse Rate 62 64 62 Respiratory Rate 18 18 Blood Pressure 101/62 Pulse Oximetry 95 95 07/30/18 02:00 07/30/18 03:00 07/30/18 04:00 Temperature 98.1 F Pulse Rate 60 61 58 L Respiratory Rate 18 Blood Pressure 148/86 H Pulse Oximetry 96 96 07/30/18 05:00 07/30/18 06:00 07/30/18 07:00 Temperature 98.2 F Pulse Rate 62 88 79 Respiratory Rate 18 Blood Pressure 112/69 Pulse Oximetry 95 07/30/18 08:00 07/30/18 09:00 07/30/18 10:00 Temperature Pulse Rate 74 72 76 Respiratory Rate Blood Pressure Pulse Oximetry 95 07/30/18 11:00 07/30/18 12:00 Temperature 98.0 F Pulse Rate 81 Respiratory Rate 18 Blood Pressure 137/60 Pulse Oximetry 96 96 Intake & Output 07/29/18 07/30/18 07/30/18 18:59 06:59 18:59 Intake Total 1200 / 1200 480 / 480 Balance 1200 / 1200 480 / 480 Weight 95 kg Intake: Oral 1200 / 1200 480 / 480 Other: # Voids 5 3 Date of Last Bowel Movement 07/29/18 07/30/18 - Constitutional no acute distress - Routine HEENT Exam Head: Present: normocephalic - Routine Neck Exam Present: supple - Routine Respiratory Exam Present: CTA bilaterally - Routine Cardiovascular Exam Present: S1, S2 - Routine Abdominal Exam Present: soft - Routine Extremities Exam Comments: no dannielle - Urinary Catheter Management Indwelling Urethral Catheter Cath placed during this visit: yes, but has since been removed by the nurse Reason for continuing: Decision to DC catheter Insertion date: 07/09/18 Insertion time: 22:50 Removal date: 07/12/18 Removal time: 17:25 Indwelling Temp Sensing Catheter Cath placed during this visit: yes, but has since been removed by the nurse Reason for continuing: Not indwelling catheter Insertion date: 07/18/18 Insertion time: 09:40 Removal date: 07/19/18 Removal time: 05:30 Results 07/29/18 11:15 07/29/18 11:15 CBC 07/29/18 Range/Units 11:15 WBC 7.2 (4.0-11.0) th/mm3 RBC 3.51 L (4.00-5.30) mil/mm3 Hgb 9.8 L (11.6-15.3) gm/dL Hct 31.2 L (35.0-46.0) % Plt Count 456 H (150-450) th/mm3 Neut # (Auto) 4.0 (1.8-7.7) th/mm3 Lymph # (Auto) 2.2 (1.0-4.8) th/mm3 [place] # (Auto) 0.8 (0.0-0.9) th/mm3 Eos # (Auto) 0.2 (0.0-0.4) th/mm3 Baso # (Auto) 0.1 (0.0-0.2) th/mm3 Comprehensive Metabolic Panel 07/29/18 Range/Units 11:15 Sodium 140 (136-145) meq/L Potassium 4.2 (3.5-5.1) meq/L Chloride 102 (98-107) meq/L Carbon Dioxide 30.4 (21.0-32.0) meq/L BUN 12 (7-18) mg/dL Creatinine 0.92 (0.50-1.00) mg/dL Calcium 9.2 (8.5-10.1) mg/dL Intake and Output 07/30/18 07/30/18 07/30/18 06:59 14:59 22:59 Intake Total 480 / 480 Balance 480 / 480 Intake: Oral 480 / 480 Other: # Voids 3 Date of Last Bowel Movement 07/29/18 07/30/18 Weight 95 kg Assessment and Plan - Assessment (1) NSTEMI (non-ST elevated myocardial infarction) Code(s): I21.4 - Non-ST elevation (NSTEMI) myocardial infarction Status: Acute (2) CAD (coronary artery disease) Code(s): I25.10 - Atherosclerotic heart disease of [place] coronary artery without angina pectoris Status: Chronic - Plan 1.) CAD - nstemi, s/p cabg, assymptomatic, continue aspirin, lopressor, pravachol
== END 2018-07-30 17:37 | disposition home health service (06) | DRG 234 ==
LOC: NEPE 22:19 → NEDA 07-10 00:13 → HIMC 07-10 01:40 → HCVI 07-10 19:35 → HCPC 07-11 18:37 → HCVI 07-18 13:42 → HCPC 07-19 11:00
PROVIDERS: ADMIT Family Medicine; ATTEND Family Medicine
DX: T83.83XA Hemorrhage due to genitourinary prosthetic devices, implants and grafts, initial encounter; Z79.890 Hormone replacement therapy; E78.5 Hyperlipidemia, unspecified; J30.81 Allergic rhinitis due to animal (cat) (dog) hair and dander; Z68.35 Body mass index [BMI] 35.0-35.9, adult; R32 Unspecified urinary incontinence; D50.9 Iron deficiency anemia, unspecified; Z79.84 Long term (current) use of oral hypoglycemic drugs; I11.0 Hypertensive heart disease with heart failure; E87.1 Hypo-osmolality and hyponatremia; N39.0 Urinary tract infection, site not specified; R09.02 Hypoxemia; Z88.0 Allergy status to penicillin; F17.290 Nicotine dependence, other tobacco product, uncomplicated; Z79.899 Other long term (current) drug therapy; Z16.12 Extended spectrum beta lactamase (ESBL) resistance; Z86.73 Personal history of transient ischemic attack (TIA), and cerebral infarction without residual deficits; G40.909 Epilepsy, unspecified, not intractable, without status epilepticus; I25.2 Old myocardial infarction; Z83.3 Family history of diabetes mellitus; I08.0 Rheumatic disorders of both mitral and aortic valves; Y92.230 Patient room in hospital as the place of occurrence of the external cause; F31.9 Bipolar disorder, unspecified; I50.9 Heart failure, unspecified; I21.4 Non-ST elevation (NSTEMI) myocardial infarction; I25.110 Atherosclerotic heart disease of native coronary artery with unstable angina pectoris; E66.9 Obesity, unspecified; K59.00 Constipation, unspecified; J44.9 Chronic obstructive pulmonary disease, unspecified; R31.0 Gross hematuria; Z99.81 Dependence on supplemental oxygen; Z88.2 Allergy status to sulfonamides; R06.03 Acute respiratory distress; F20.9 Schizophrenia, unspecified; R19.5 Other fecal abnormalities; B96.20 Unspecified Escherichia coli [E. coli] as the cause of diseases classified elsewhere; Y84.6 Urinary catheterization as the cause of abnormal reaction of the patient, or of later complication, without mention of misadventure at the time of the procedure; E11.9 Type 2 diabetes mellitus without complications
CPT/HCPCS: 36430; 51702; 71010; 71045; 76937; 80048; 80053; 80061; 80069; 80076; 81001; 82272; 82550; 82552; 82607; 82728; 82948; 82962; 83010; 83036; 83520; 83540; 83550; 83690; 83735; 83880; 84443; 84484; 85002; 85014; 85018; 85025; 85027; 85044; 85610; 85730; 86850; 86900; 86901; 86923; 87077; 87086; 87186; 87641; 90774; 90775; 90784; 93005; 93306; 93458; 93880; 93965; 93970; 93998; 94002; 94010; 94150; 94618; 94620; 94640; 94650; 94651; 94656; 94664; 94665; 96374; 96375; 97110; 97116; 97162; 97167; 97530; 97535; 99153; 99291; C1769; C1893; C8952; C9116; J0131; J0330; J1335; J1644; J1756; J1815; J1817; J1940; J2150; J2250; J2270; J2370; J2405; J2710; J2720; J2920; J2930; J3010; J3370; J3475; J3480; J7050; J7120; P9016; P9045; P9047; Q9967